=== PATIENT | male | born 1950 | race Caucasian/White ===

== ENCOUNTER 2020-02-06 15:04 | Outpatient (REF) | payer BC, SELFPAY | END 2020-02-06 15:05 | disposition home or self-care (01) | LOC: HO.LNP 15:04 | PROVIDERS: Visit Provider Hospitalist | DX: Z20.828 Contact with and (suspected) exposure to other viral communicable diseases (principal) | CPT/HCPCS: 87635 ==

== ENCOUNTER 2020-03-15 13:26 | Outpatient (REF) | payer BC, SELFPAY ==
--- NOTE | 2020-03-15 | US_ITS ---
EXAMINATION: US RETROPERITONEAL LIMITED (RENAL ONLY) CLINICAL INFORMATION: Renal cyst. COMPARISON: CT abdomen and pelvis 01/21/2019. TECHNIQUE: Real-time imaging of the kidneys. FINDINGS: RIGHT KIDNEY: 11.0 x 5.3 x 5.3 cm (SAG x AP x TRV). The kidney is normal in size, contour, and echogenicity. Renal cortical thickness is normal. No hydronephrosis. There are multiple renal cysts seen. 1. In upper pole, cyst measures 0.9 x 0.7 x 0.7 cm. 2. Lower pole cyst laterally measures 1.5 a 1.6 x 1.4 cm. There is an echogenic stone lower pole measuring 0.4 x 0.4 x 0.4 cm. LEFT KIDNEY: 12.0 x 5.2 x 5.1 cm (SAG x AP x TRV). The kidney is normal in size, contour, and echogenicity. Renal cortical thickness is normal. No renal calculi or hydronephrosis. There are at least 3 anechoic cysts seen. 1. A septated upper pole cyst measures 3.9 x 3.4 x 3.7 cm. 2. A midpole cyst measuring 1.1 x 1.1 x 1.2 cm. 3. A lower pole cyst measures 0.8 x 0.7 x 0.9 cm. US/US renal BI IMPRESSION: Bilateral renal cysts. A septated cyst upper pole left kidney. Nonobstructive echogenic stones lower pole left kidney. There is no hydronephrosis in either kidneys.
== END 2020-03-15 13:27 | disposition home or self-care (01) ==
LOC: HO.HMGCX 13:26
PROVIDERS: PCP Nurse Practitioner Family; Visit Provider Urology
DX: N28.1 Cyst of kidney, acquired (principal)
CPT/HCPCS: 76775

== ENCOUNTER → 2020-03-24 15:29 | Outpatient (BNVA) | payer BC, SELFPAY | PROVIDERS: PCP Nurse Practitioner Family; Referring Provider Nurse Practitioner Family; Visit Provider Urology | DX: Z76.89 Persons encountering health services in other specified circumstances (principal) ==

== ENCOUNTER 2020-04-29 15:17 | Outpatient (REF) | payer BC, SELFPAY | END 2020-04-29 15:18 | disposition home or self-care (01) | LOC: HO.LNP 15:17 | PROVIDERS: Visit Provider Nurse Practitioner Family | DX: Z20.828 Contact with and (suspected) exposure to other viral communicable diseases (principal) | CPT/HCPCS: U0003 ==

== ENCOUNTER 2021-04-05 12:52 | Outpatient (REF) | payer BC, SELFPAY ==
--- NOTE | ~2021-04-05 | US_ITS ---
EXAMINATION: US RETROPERITONEAL LIMITED (RENAL ONLY) CLINICAL INFORMATION: Calculus of kidney. COMPARISON: Renal ultrasound 03/15/2020. CT abdomen and pelvis 01/21/2019. TECHNIQUE: Real-time imaging of the kidneys. FINDINGS: RIGHT KIDNEY: 11.0 x 5.2 x 5.9 cm (SAG x AP x TRV). The kidney is normal in size, contour, and echogenicity. Renal cortical thickness is normal. A 5 mm nonobstructing lower pole calculus. No hydronephrosis. Also noted is a 9 mm simple appearing upper pole cyst. LEFT KIDNEY: 11.6 x 5.3 x 5.8 cm (SAG x AP x TRV). The kidney is normal in size, contour, and echogenicity. Renal cortical thickness is normal. No renal calculi or hydronephrosis. 3.7 cm upper pole cyst which contains a few thin avascular septation. Also noted is a simple appearing 1.8 cm lower pole cyst. US/US renal BI IMPRESSION: -5 mm nonobstructing intrarenal calculus. No left-sided renal calculi. No hydronephrosis of either kidney. -Bilateral renal cysts again demonstrated.
== END 2021-04-05 12:53 | disposition home or self-care (01) ==
LOC: HO.HMGCX 12:52
PROVIDERS: PCP Nurse Practitioner Family; Visit Provider Urology
DX: N20.0 Calculus of kidney (principal); N28.1 Cyst of kidney, acquired
CPT/HCPCS: 76775

== ENCOUNTER → 2021-04-13 11:10 | Outpatient (BNVA) | payer BC, SELFPAY | PROVIDERS: PCP Nurse Practitioner Family; Visit Provider Urology ==

== ENCOUNTER 2022-01-03 13:59 | Outpatient (REF) | payer BC, SELFPAY ==
--- NOTE | ~2022-01-03 | US_ITS ---
EXAMINATION: US LEFT LOWER QUADRANT, LIMITED/FOLLOW UP CLINICAL INFORMATION: Left lower quadrant pain. COMPARISON: CT of the abdomen and pelvis 01/21/2019. TECHNIQUE: High-frequency linear transducer was performed to examine the area in question. FINDINGS: There is a left lower quadrant hernia seen with a fascial defect which measures 1.4 cm. Although the database admin felt there may have been peristalsing bowel within this, I am not convinced. No abnormal fluid collections or masses seen. US/US pelvic limited IMPRESSION: Question of a small hernia at the site indicated by the patient.
== END 2022-01-03 14:00 | disposition home or self-care (01) ==
LOC: HO.HMGCX 13:59
PROVIDERS: PCP Nurse Practitioner Family; Visit Provider Nurse Practitioner Family
DX: R10.32 Left lower quadrant pain (principal)
CPT/HCPCS: 76857

== ENCOUNTER 2022-01-16 12:28 | Outpatient (REF) | payer BC, SELFPAY ==
[2022-01-16 13:59] LABS: Appearance Urine Clear; Color Urine Yellow; Glucose Urine UA Negative (Negative); Leukocyte Esterase Urine Trace (Negative); Nitrite Urine Negative (Negative); Specific Gravity - Urine 1.025 (1.005-1.025); UMIC TRIGGER UACC YES; Urine Blood Negative (Negative); Urine Ketones Trace mg/dL (Negative); Urine Protein Negative (Neg-Trace)
[2022-01-16 14:02] LABS: MANUAL DIFF FLAG NO
[2022-01-16 14:05] LABS: Basophils Absolute Auto 0.1 X10*3/uL (0.0-0.2); Basophils Percent Auto 0.7 % (0-2); Eosinophils Absolute Auto 0.2 X10*3/uL (0.0-0.4); Eosinophils Percent Auto 2.5 % (0-4); Hematocrit 42.5 % (42.0-52.0); Hemoglobin 13.6 g/dl (14.0-18.0); Imm Gran Abs Auto 0.03 X10*3/uL (0.00-0.03); Imm Gran Pct Auto 0.4 % (0.0-0.4); Lymphocytes Absolute Auto 2.1 X10*3/uL (1.2-4.9); Lymphocytes Percent Auto 28.8 % (20-40); Mean Corpuscular Hemoglobin 29.2 pg (27.0-33.0); Mean Corpuscular Volume 91.4 fL (80.0-98.0); Mean Platelet Volume 10.6 fL (9.4-12.4); Monocytes Absolute Auto 0.5 X10*3/uL (0.1-1.2); Monocytes Percent Auto 7.3 % (2-11); Neutrophils Absolute Auto 4.4 x10*3/uL (2.0-8.3); Neutrophils Percent Auto 60.3 % (45-73); Platelet Count 265 X10*3/uL (160-400); Red Blood Count 4.65 X10*6/uL (4.60-5.80); Red Cell Distribution Width 13.8 % (11.0-16.0); White Blood Count 7.2 X10*3/uL (4.8-10.8)
[2022-01-16 14:06] LABS: Bacteria Urine None Seen (None Seen); Hyaline Casts Urine 0-2 /LPF (0-2); RBC Urine 0-2 /HPF (0-2); Squamous Epithelial Cell Urine 0-2 /HPF (0-2); WBC Urine 0-5 /HPF (0-5)
[2022-01-16 14:32] LABS: Alanine Aminotransferase 12 U/L (0-40); Albumin Level 4.6 g/dL (3.5-5.0); Alkaline Phosphatase 71 U/L (39-117); Anion Gap 14 (12-20); Aspartate Amino Transferase 18 U/L (5-37); Bilirubin Total 0.4 mg/dL (0.0-1.0); Blood Urea Nitrogen 26 mg/dL (9-16); Calcium 9.3 mg/dL (8.4-10.2); Carbon Dioxide 28 mmol/L (22-29); Chloride 106 mmol/L (96-108); Cholesterol 177 mg/dL; Estimated Glomerular Filt Rate > 60; Glucose Fasting 87 mg/dL (60-99); HDL Cholesterol 45 mg/dL; LDL Cholesterol Calculated 111 mg/dl; Potassium 4.8 mmol/L (3.3-5.1); Sodium 143 mmol/L (135-145); Triglycerides 105 mg/dL
[2022-01-16 14:39] LABS: Prostate Specific Antigen Scr 1.74 ng/mL (<0.05-4.0); TSH reflex Free T4 0.77 uIU/mL (0.32-4.0)
== END 2022-01-16 12:29 | disposition home or self-care (01) ==
LOC: HO.HMGCLDS 12:28
PROVIDERS: PCP Nurse Practitioner Family; Visit Provider Nurse Practitioner Family
DX: Z00.00 Encounter for general adult medical examination without abnormal findings (principal); Z12.5 Encounter for screening for malignant neoplasm of prostate
CPT/HCPCS: 36415; 80053; 80061; 81001; 84153; 84443; 85025

== ENCOUNTER 2022-01-19 08:01 | Outpatient (REF) | payer BC, SELFPAY ==
--- NOTE | ~2022-01-19 | CT_ITS ---
EXAMINATION: CT PELVIS WITHOUT CONTRAST CLINICAL INFORMATION: Left lower quadrant pain COMPARISON: Previous CT of the abdomen and pelvis January 2019 and pelvic ultrasound December 2021 TECHNIQUE: Helical scanning was performed with submillimeter collimation through the pelvis. Sagittal and coronal multiplanar 2-D reconstructions were obtained. This CT examination was performed using dose optimization techniques as appropriate, variously including the following: *Automated exposure control *Adjustment of mA and/or kV according to patient size (this includes techniques or standardized protocols for targeted exams where dose is matched to indication/reason for exam; i.e. extremities or head) *Use of iterative reconstruction technique DLP: 379 mGy-cm FINDINGS: There is a left lower quadrant abdominal wall hernia lateral to the rectus muscle suggestive of a small spigelian hernia. This measures 1.6 x 6 x 7 cm in AP transverse and longitudinal dimension. This has a wide 2.4 cm neck, for example axial image 21 series 2. There are small bilateral inguinal hernias containing fat, right greater than left Visualized bowel is unremarkable. There is a 1 cm-appearing cyst exophytic to the lower pole of the right kidney. There is evidence of atherosclerotic disease. There is a partially visualized abdominal aortic aneurysm. This measures at least 2.8 cm. This may be increased in size measuring approximately 2.5 cm in diameter on January 2019 exam. No ascites or adenopathy. Bladder is normal. The prostate gland is slightly enlarged. There degenerative changes of the spine and hip joints. CT/CT pelvis wo IV con IMPRESSION: Left spigelian hernia containing fat. Small bilateral inguinal hernias containing fat, right greater than left. Lower abdominal aortic aneurysm only partially visualized. This may be increased in size compared to previous CT January 2019. Follow-up ultrasound of the aorta for more accurate sizing recommended. Slightly enlarged prostate gland.
== END 2022-01-19 08:02 | disposition home or self-care (01) ==
LOC: HO.CT 08:01
PROVIDERS: PCP Nurse Practitioner Family; Visit Provider Surgery
DX: R10.32 Left lower quadrant pain (principal)
CPT/HCPCS: 72192

== ENCOUNTER 2022-02-10 08:15 | Outpatient (REF) | payer BC, SELFPAY ==
--- NOTE | ~2022-02-10 | US_ITS ---
EXAMINATION: US RETROPERITONEAL LIMITED (RENAL ONLY) CLINICAL INFORMATION: Calculus of kidney. COMPARISON: Renal ultrasound 04/05/2021 and 03/15/2020. CT abdomen and pelvis 01/21/2019. TECHNIQUE: Real-time imaging of the kidneys. FINDINGS: RIGHT KIDNEY: 10.2 x 5.2 x 5.9 cm (SAG x AP x TRV). The kidney is normal in size, contour, and echogenicity. Renal cortical thickness is normal. There is a 3 x 4 mm stone in the lower pole. There are 3 small cysts, largest measuring 1.5 x 1.3 x 1.2 cm in the lower pole. No hydronephrosis. LEFT KIDNEY: 12.5 x 5.7 x 5.8 cm (SAG x AP x TRV). The kidney is normal in size, contour, and echogenicity. Renal cortical thickness is normal. There are 2 left renal cysts measuring 3.2 x 2.3 x 3.5 cm in the midpole that is minimally complex with single thin septation and measuring 9 mm in the midpole. No renal calculi or hydronephrosis. US/US renal BI IMPRESSION: Small right renal stone. Bilateral renal cysts..
== END 2022-02-10 08:16 | disposition home or self-care (01) ==
LOC: HO.HMGCX 08:15
PROVIDERS: PCP Nurse Practitioner Family; Visit Provider Urology
DX: N20.0 Calculus of kidney (principal)
CPT/HCPCS: 76775

== ENCOUNTER 2022-02-24 11:11 | Outpatient (REF) | payer BC, SELFPAY ==
--- NOTE | ~2022-02-24 | US_ITS ---
EXAMINATION: US RETROPERITONEAL LIMITED (AORTA) CLINICAL INFORMATION: Abdominal aortic aneurysm, without rupture, unspecified. COMPARISON: CT pelvis without contrast 01/19/2022. TECHNIQUE: Cazares-scale, color Doppler and spectral Doppler evaluation of the abdominal aorta. FINDINGS: Atherosclerotic aorta. The measurements of the aorta in maximum AP and transverse dimensions respectively are as follows: Proximal: 3.1 x 3.2 cm. Mid: 2.2 x 2.0 cm. Distal: 3.2 x 3.3 cm. PSV: 83.7 cm/s. The measurements of the common iliac arteries in maximum AP and TRV dimensions are as follows: Right Common Iliac Artery: 1.0 x 1.0 cm. Left Common Iliac Artery: 0.96 x 0.95 cm. US/US abdominal aortic aneurysm IMPRESSION: Infrarenal abdominal aortic aneurysm measuring 3.2 x 3.3 cm.
== END 2022-02-24 11:12 | disposition home or self-care (01) ==
LOC: HO.HMGCX 11:11
PROVIDERS: PCP Nurse Practitioner Family; Visit Provider Surgery
DX: I71.40 Abdominal aortic aneurysm, without rupture, unspecified (principal)
CPT/HCPCS: 76706

== ENCOUNTER 2022-04-07 09:29 | Outpatient (REF) | payer BC, SELFPAY ==
--- NOTE | ~2022-04-07 | XR_ITS ---
EXAMINATION: XR HIP, LEFT CLINICAL INFORMATION: Left hip pain COMPARISON: Pelvis study of 10/09/[address] scan of 01/19/2022. TECHNIQUE: AP pelvis and 2 views of the left hip. FINDINGS: There is no evidence of acute fracture or diastases of the pelvis. The hip joint spaces appear maintained. Prominent vascular calcifications are noted. There appears to be degenerative change of the left sacroiliac joint with question bony bridging. There is severe degenerative disc disease at the L4-L5 level. Spurring about the greater trochanters seen bilaterally. Subchondral cyst formation is seen about the superior left acetabulum. Changes of enthesopathy present about the pelvis. 2 views of the left hip do not demonstrate any evidence of acute fracture or dislocation. Left hip joint spaces maintained. There is collar spurring present. No abnormal lytic or sclerotic lesions are seen. Spurring about the greater trochanter is present. There is some calcification and question fragmentation of the superior labrum. XR/XR hip LT w PEL1V IMPRESSION: 1. Degenerative change of the left hip as described. 2. Changes of enthesopathy. 3. Significant lower lumbar spine degenerative change.
== END 2022-04-07 09:30 | disposition home or self-care (01) ==
LOC: HO.HMGCX 09:29
PROVIDERS: PCP Nurse Practitioner Family; Visit Provider Emergency Medicine
DX: M25.552 Pain in left hip (principal)
CPT/HCPCS: 73502

== ENCOUNTER → 2022-05-30 08:26 | Outpatient (BNVA) | payer BC, SELFPAY | PROVIDERS: PCP Nurse Practitioner Family; Visit Provider Surgery | DX: Z13.89 Encounter for screening for other disorder (principal) ==

== ENCOUNTER 2022-06-22 13:37 | Outpatient (REF) | payer BC, SELFPAY ==
[2022-06-22 14:00] LABS: Binax Internal Control QC Valid; Binax Now Covid-19 Ag Negative (Negative); Binax Performed by: HO.BONILM
[2022-06-22 17:49] LABS: Influenza A PCR NEGATIVE (Negative); Influenza B PCR NEGATIVE (Negative); Resp Syncy Virus RNA Qual PCR NEGATIVE (Negative); SARS COV2 PCR INHOUSE NEGATIVE (Negative)
== END 2022-06-22 13:38 | disposition home or self-care (01) ==
LOC: HO.HMGCLDS 13:37
PROVIDERS: PCP Nurse Practitioner Family; Visit Provider Physician Assistant Medical
DX: Z20.822 Contact with and (suspected) exposure to COVID-19 (principal); R05.9 Cough, unspecified
CPT/HCPCS: 0241U; 87070; 87811; C9803

== ENCOUNTER → 2022-08-15 13:21 | Outpatient (BNVA) | payer BC, SELFPAY | PROVIDERS: PCP Nurse Practitioner Family; Visit Provider Surgery | DX: R10.32 Left lower quadrant pain (principal); K40.20 Bilateral inguinal hernia, without obstruction or gangrene, not specified as recurrent; K46.9 Unspecified abdominal hernia without obstruction or gangrene; K43.9 Ventral hernia without obstruction or gangrene; I71.40 Abdominal aortic aneurysm, without rupture, unspecified; F43.10 Post-traumatic stress disorder, unspecified | CPT/HCPCS: 99212 ==

== ENCOUNTER 2023-01-02 10:57 | Outpatient (AMB) | payer BC, SELFPAY ==
[2023-01-02 11:17] VITALS: BP 132/88; PULSE 63; O2SAT 97; BMI 25.7
--- NOTE | 2023-01-02 11:17 | A.OFFPC_ITS ---
Vital Signs 01/02/23 11:17 Height 5 ft 8 in Weight 169 lb 4 oz BMI 25.7 BP 132/88 Blood Pressure Location Lt brachial Position Sitting Pulse 63 Pulse Source Pulse Oximeter Pulse Oximetry (%) 97 Oxygen Delivery Method Room Air Intake Visit Reasons: Annual PE Allergies codeine [CODEINE] Allergy (Intermediate, Verified 01/02/23 11:23) NAUSEA, stomach upset Sulfa (Sulfonamide Antibiotics) [SULFA (SULFONAMIDE ANTIBIOTICS)] Allergy (Intermediate, Verified 01/02/23 11:23) NAUSEA, stomach upset lisinopril Allergy (Unknown, Verified 01/02/23 11:23) angioedema Medication List - Last Reconciled 01/02/23 by Jaziel Lr, PHERESIS SPECIALIST- amlodipine 5 mg PO DAILY 90 days cholecalciferol (vitamin D3) 50 mcg PO DAILY 90 days diclofenac sodium 75 mg PO BID PRN flu 2018 [id number](PF) 45 mcg (15 mcg x 3)/0.5 mL 0.5 mL IM hydroxyzine HCl 10 mg PO TID PRN pravastatin 40 mg PO DAILY 90 days sertraline 100 mg PO DAILY Tobacco use date assessed: 01/02/23 Fall risk assessment: 1 Fall in past year Last assessed Fall Risk: 01/02/23 Dental Screening Dental Screen Date: 01/02/23 Did you have a dental visit in the last 12 months?: No Did you have a dental problem in the last 6 months where you did not have access to dental care?: No Was dental information given to patient?: Patient has dentist HPI Annual PE HPI Details Pt is here for a PE. Will order labs. Due for PSA, will order. Denies dribbling with urination, weak stream, and nocturia. Pt reports having a colonoscopy a couple years ago, will track down notes. Pt has a hx of AAA. He was previously seeing general surgery for this. Will order repeat US. Pt reports that he gets bitten by ticks frequently. Will order tick testing. Hx of vitamin D deficiency, will order labs. Pt sees a game and fish protector yearly [facility] Medical History Back pain Colon cancer screening Erectile dysfunction High blood pressure determined by examination Hip arthritis Hip flexor tendonitis Hip pain Hypercholesterolemia Kidney cysts Microscopic hematuria Mild acid reflux Pheochromocytoma Quadriceps tendon rupture Renal cyst, acquired TIA (transient ischemic attack) Tubular adenoma of colon Surgical History History of surgery Family History Father Substance use disorder Brother Substance use disorder Social History Housing: House Alcohol intake: current Alcohol intake frequency: a few times a week Patient Tobacco Use Status: Never used Tobacco e-Cigarette/Vaping Use: Never Used Second Hand Smoke Exposure: No service: Yes Current occupational status: retired Cognitive needs: No Hearing needs: No Vision needs: No Questionnaire Thrive Questionnaire Date Thrive assessed: 12/27/21 CHUCK-7 AMB Questionnaire CHUCK-7 Date CHUCK - 7 assessed: 12/27/21 Source: Developed by Drs. Iker Zamora, Serena Roper, Christopher Duff and colleagues, with an educational gita from [employer]. Review of Systems Const Denies chills and Denies fever(s) Eyes Denies blurry vision ENT Denies vertigo, Denies dizziness and Denies sore throat Card Denies chest pain at rest, Denies chest pain with activity, Denies diaphoresis, Denies dyspnea and Denies dyspnea on exertion Resp Denies cough, Denies dyspnea, Denies dyspnea on exertion and Denies wheezing GI Denies abdominal pain, Denies melena, Denies hematochezia, Denies constipation, Denies diarrhea and Denies loose stools Denies hematuria Musc Denies numbness and Denies tingling Skin/Breast Denies lesions Neuro Denies vertigo, Denies dizziness, Denies numbness and Denies tingling Psych Denies anxiety, Denies depression, Denies homicidal ideation, Denies suicidal ideation and Denies other (substance abuse) Aller/Immun Denies wheezing Physical exam (Primary Care) Vital Signs: Last Vital Signs Pulse 63 01/02/23 11:17 BP 132/88 01/02/23 11:17 Pulse Ox 97 01/02/23 11:17 Oxygen Delivery Method Room Air 01/02/23 11:17 BMI result Body Mass Index 25.7 Tobacco/Smoking Status: Tobacco use Status Tobacco use date assessed 01/02/23 01/02/23 11:26 Patient Tobacco Use Status Never used Tobacco 01/02/23 11:26 e-Cigarette/Vaping Use Never Used 01/02/23 11:26 Thrive Assessment: Date of Thrive Assessment Date Thrive assessed 12/27/21 01/02/23 11:26 Const General: cooperative Nutritional Appearance: well nourished Orientation/consciousness: patient oriented x3 HENMT Head: Yes normal to inspection, Yes normocephalic and Yes atraumatic Ears: TM's normal bilaterally Eyes General: appearance normal, both eyes and all related structures Alignment and Position: alignment normal and position normal Neck Neck: Yes normal visual inspection and Yes no lymphadenopathy Thyroid: Thyroid normal Resp Effort & Inspection: normal respiratory effort Auscultation: clear to auscultation bilaterally Cardio Rate: regular rate Rhythm: regular rhythm Heart sounds: S1 normal heart sound present, S2 normal heart sound present and no murmurs GI Palpation (GI): Soft to palpation and nontender Auscultation: normal bowel sounds Male General Exam: Yes normal external exam Penis: normal penis Scrotum: scrotum normal, testes descended bilaterally and no inguinal hernias Testes: no testicular mass Skin Rashes: no rashes Neuro General: patient oriented x3, moves all extremities, no focal motor deficits and deep tendon reflexes 2+ bilaterally Romberg Test: Negative Psych Appearance: grossly normal Mental Status: mental status grossly normal Speech and movement: Normal speech and movement present Affect: normal affect Attitude: cooperative Thought process: Normal thought process present Thought content: Normal thought content present Insight: Good insight present (Psych) Judgement: Good judgement present (Psych) Assessment and Plan Assessment & Plan (1) Physical exam: Code(s): Z00.00 - Encounter for general adult medical examination without abnormal findings Plan: Labs ordered (2) Screening PSA (prostate specific antigen): Code(s): Z12.5 - Encounter for screening for malignant neoplasm of prostate Plan: PSA ordered (3) AAA (abdominal aortic aneurysm): Code(s): I71.40 - Abdominal aortic aneurysm, without rupture, unspecified Plan: US ordered (4) Vitamin D deficiency: Code(s): E55.9 - Vitamin D deficiency, unspecified Plan: Labs ordered (5) Tick bite: Code(s): W57.XXXA - Bitten or stung by nonvenomous insect and other nonvenomous arthropods, initial encounter Plan: Tick panel ordered (6) New onset right bundle branch block (RBBB): Code(s): I45.10 - Unspecified right bundle-branch block Plan The patient agreed to the use of a medical record transcriber for this encounter. Scribed for Jaziel Lr [facility] by Allyson Perez medical record transcriber, on 01/02/2023 at 11:30 EST. Orders: Orders Complete Blood Count Auto Diff Today Z00.00 - Encounter for general adult medical examination without abnormal findings UA CC w/rflx Micro + Cult Today Z00.00 - Encounter for general adult medical examination without abnormal findings Prostate Specific Antigen Scr Today Z12.5 - Encounter for screening for malignant neoplasm of prostate Tick-borne Disease Molecular Today W57.XXXA - Bitten or stung by nonvenomous insect and other nonvenomous arthropods, initial encounter AMB EKG-In Office Today Z00.00 - Encounter for general adult medical examination without abnormal findings CA echo transthoracic complete Today I45.10 - Unspecified right bundle-branch block Comprehensive [place]. Panel Fast Today Z00.00 - Encounter for general adult medical examination without abnormal findings TSH reflex Free T4 Today Z00.00 - Encounter for general adult medical examination without abnormal findings Lipid Panel Today Z00.00 - Encounter for general adult medical examination without abnormal findings US abdominal aortic aneurysm Today I71.40 - Abdominal aortic aneurysm, without rupture, unspecified Vitamin D 25-OH Total Today E55.9 - Vitamin D deficiency, unspecified Coding Level of Care Code Est Pt Prev Care >65y(17994) Diagnoses Physical exam Z00.00 Screening PSA (prostate specific antigen) Z12.5 AAA (abdominal aortic aneurysm) I71.40 Vitamin D deficiency E55.9 Tick bite W57.XXXA New onset right bundle branch block (RBBB) I45.10
== END 2023-01-02 12:12 | disposition home or self-care (01) ==
PROVIDERS: Visit Provider Nurse Practitioner Family
DX: Z00.00 Encounter for general adult medical examination without abnormal findings (principal); Z12.5 Encounter for screening for malignant neoplasm of prostate; I71.40 Abdominal aortic aneurysm, without rupture, unspecified; E55.9 Vitamin D deficiency, unspecified; W57.XXXA Bitten or stung by nonvenomous insect and other nonvenomous arthropods, initial encounter; I45.10 Unspecified right bundle-branch block
CPT/HCPCS: 99397

== ENCOUNTER 2023-01-31 11:42 | Outpatient (AMB) | payer BC, SELFPAY ==
--- NOTE | 2023-01-31 11:51 | MHC.OFFWIV ---
Intake Vital Signs 01/31/23 11:52 Height 5 ft 8 in Weight 170 lb BMI 25.8 BP 130/80 Blood Pressure Location Lt brachial Position Sitting Pulse 60 Pulse Source Pulse Oximeter Temp 98.3 F Temp Source Temporal Artery Scan Pulse Oximetry (%) 98 Intake Visit Reasons: EST/tick located on stomach(lobby) Intake Note: pt is here for c/o tick bite, still in stomach needs removal Patient Tobacco Use Status: Never used Tobacco Allergies codeine [CODEINE] Allergy (Intermediate, Verified 01/31/23 12:18) NAUSEA, stomach upset Sulfa (Sulfonamide Antibiotics) [SULFA (SULFONAMIDE ANTIBIOTICS)] Allergy (Intermediate, Verified 01/31/23 12:18) NAUSEA, stomach upset lisinopril Allergy (Unknown, Verified 01/31/23 12:18) angioedema Medication List - Last Reconciled 01/31/23 by TUYET Isabel-GWEN amlodipine 5 mg PO DAILY 90 days cholecalciferol (vitamin D3) 50 mcg PO DAILY 90 days diclofenac sodium 75 mg PO BID PRN hydroxyzine HCl 10 mg PO TID PRN pravastatin 40 mg PO DAILY 90 days sertraline 100 mg PO DAILY Do you need a note to return to daycare/school/sports/work: Yes HPI HPI Comments History of Present Illness Details HERE TODAY W C/O TICK BITE TO LEFT SIDE OF ABD, NEAR BELT LINE. WENT FOR WALK [facility] [place]ER[place]. SAT DOWN ON LOG. WHEN HE RETURNED HOME, NOTED THE IMBEDDED TICK. HE WAS ABLE TO REMOVE MOST OF IT. JUST WONDERS IF ANY MORE OF IT NEEDS TO BE REMOVED. [facility] Medical History Back pain Colon cancer screening Erectile dysfunction High blood pressure determined by examination Hip arthritis Hip flexor tendonitis Hip pain Hypercholesterolemia Kidney cysts Microscopic hematuria Mild acid reflux Pheochromocytoma Quadriceps tendon rupture Renal cyst, acquired TIA (transient ischemic attack) Tubular adenoma of colon Surgical History History of surgery Family History Father Substance use disorder Brother Substance use disorder Social History Housing: House Alcohol intake: current Alcohol intake frequency: a few times a week Patient Tobacco Use Status: Never used Tobacco e-Cigarette/Vaping Use: Never Used Second Hand Smoke Exposure: No service: Yes Current occupational status: retired Cognitive needs: No Hearing needs: No Vision needs: No Review of Systems Const All systems reviewed & are unremarkable except as noted in HPI and below Physical Exam Vital Signs: Last Vital Signs Temp 98.3 F 01/31/23 11:52 Pulse 60 01/31/23 11:52 BP 130/80 01/31/23 11:52 Pulse Ox 98 01/31/23 11:52 BMI result Body Mass Index 25.8 Const Other: AWAKE ALERT NAD LEFT LATERAL ASPECT OF ABD, PROXIMAL TO BELT LINE, IS AN AREA OF ERYTHEMA WITH RETAINED TICK IN THE CENTER. NO DRAINAGE OR WARMTH. VERY SCANT AMT OF TICK NOTED, SUPERFICIAL BUT UNABLE TO BE REMOVED W/ INSTRUMENT. Assessment & Plan Assessment & Plan (1) Retained tick parts of abdominal wall: Comment: OFFERED TO REMOVE VS ALLOW FOR NATURAL EXPULSON USING WARM MOIST COMPS. HE HAS AGREED TO THE LATER. I WILL TX W/ PROPHYLACTIC DOXYCYCLINE. EDU ON REASONS TO SEEK ADDL CARE. Code(s): M79.5 - Residual foreign body in soft tissue; Z18.39 - Other retained organic fragments Medications: New doxycycline hyclate 200 mg (2 x 100 mg) PO DAILY 1 day 2 caps 0RF Coding Level of Care Code Est Pt Level 3 (06582) Diagnoses Retained tick parts of abdominal wall M79.5; Z18.39
[2023-01-31 11:52] VITALS: BP 130/80; PULSE 60; TEMP 36.8; O2SAT 98; BMI 25.8
== END 2023-01-31 13:12 | disposition home or self-care (01) ==
PROVIDERS: PCP Nurse Practitioner Family; Visit Provider Nurse Practitioner Family
DX: M79.5 Residual foreign body in soft tissue (principal); Z18.39 Other retained organic fragments
CPT/HCPCS: 99213

== ENCOUNTER 2023-02-01 10:42 | Outpatient (REF) | payer BC, SELFPAY ==
[2023-02-01 10:54] LABS: MANUAL DIFF FLAG NO
[2023-02-01 11:55] LABS: Basophils Absolute Auto 0.1 X10*3/uL (0.0-0.2); Basophils Percent Auto 0.6 % (0-2); Eosinophils Absolute Auto 0.3 X10*3/uL (0.0-0.4); Eosinophils Percent Auto 3.4 % (0-4); Hematocrit 44.6 % (42.0-52.0); Hemoglobin 14.3 g/dl (14.0-18.0); Imm Gran Abs Auto 0.05 X10*3/uL (0.00-0.03); Imm Gran Pct Auto 0.6 % (0.0-0.4); Lymphocytes Absolute Auto 1.9 X10*3/uL (1.2-4.9); Lymphocytes Percent Auto 21.8 % (20-40); Mean Corpuscular HGB Conc 32.1 g/dl (31.0-36.0); Mean Corpuscular Hemoglobin 29.9 pg (27.0-33.0); Mean Corpuscular Volume 93.3 fL (80.0-98.0); Mean Platelet Volume 10.2 fL (9.4-12.4); Monocytes Absolute Auto 0.6 X10*3/uL (0.1-1.2); Monocytes Percent Auto 6.5 % (2-11); Neutrophils Absolute Auto 5.7 x10*3/uL (2.0-8.3); Neutrophils Percent Auto 67.1 % (45-73); Platelet Count 275 X10*3/uL (160-400); Red Blood Count 4.78 X10*6/uL (4.60-5.80); Red Cell Distribution Width 13.6 % (11.0-16.0); White Blood Count 8.5 X10*3/uL (4.8-10.8)
[2023-02-01 12:05] LABS: Appearance Urine Clear; Color Urine Yellow; Glucose Urine UA Negative (Negative); Leukocyte Esterase Urine Negative (Negative); Nitrite Urine Negative (Negative); Urine Blood Negative (Negative); Urine Ketones Negative (Negative); Urine Protein Negative (Neg-Trace)
[2023-02-01 13:19] LABS: Prostate Specific Antigen Scr 2.12 ng/mL (<0.05-4.0)
[2023-02-01 13:20] LABS: Alanine Aminotransferase 11 U/L (0-40); Albumin Level 4.5 g/dL (3.5-5.0); Alkaline Phosphatase 73 U/L (39-117); Anion Gap 15 (12-20); Aspartate Amino Transferase 18 U/L (5-37); Bilirubin Total 0.5 mg/dL (0.0-1.0); Blood Urea Nitrogen 25 mg/dL (9-16); Calcium 9.2 mg/dL (8.4-10.2); Carbon Dioxide 25 mmol/L (22-29); Chloride 107 mmol/L (96-108); Cholesterol 165 mg/dL (<200); Estimated Glomerular Filt Rate > 60; Glucose Fasting 91 mg/dL (60-99); HDL Cholesterol 51 mg/dL (>40); LDL Cholesterol Calculated 96 mg/dL (<100); Potassium 4.4 mmol/L (3.3-5.1); Sodium 143 mmol/L (135-145); Total Protein 7.2 g/dL (6.5-8.0); Triglycerides 94 mg/dL (<150)
[2023-02-01 13:26] LABS: TSH reflex Free T4 0.92 uIU/mL (0.32-4.0); Vitamin D 25-OH Total 66.2 ng/mL (>30)
[2023-02-06 14:09] LABS: A. Phagocytphilium DNA,RT-PCR NOT DETECTED (NOT DETECTED); Babesia Microti DNA, RT-PCR NOT DETECTED (NOT DETECTED); Borrelia Miyamotoi,DNA RT-PCR NOT DETECTED (NOT DETECTED); E.Chaffeensis DNA RT-PCR NOT DETECTED (NOT DETECTED); Lyme(Borrelia ssp)DNA RT-PCR NOT DETECTED (NOT DETECTED)
== END 2023-02-01 10:43 | disposition home or self-care (01) ==
LOC: HO.LAB 10:42
PROVIDERS: PCP Nurse Practitioner Family; Visit Provider Nurse Practitioner Family
DX: Z00.00 Encounter for general adult medical examination without abnormal findings (principal); E55.9 Vitamin D deficiency, unspecified; T14.8XXA Other injury of unspecified body region, initial encounter; W57.XXXA Bitten or stung by nonvenomous insect and other nonvenomous arthropods, initial encounter; Y93.9 Activity, unspecified; Y92.9 Unspecified place or not applicable; Y99.9 Unspecified external cause status; Z12.5 Encounter for screening for malignant neoplasm of prostate; E78.5 Hyperlipidemia, unspecified; I10 Essential (primary) hypertension
CPT/HCPCS: 36415; 80053; 80061; 81003; 82306; 84153; 84443; 85025; 87468; 87469; 87478; 87484; 87798

== ENCOUNTER 2023-02-21 08:59 | Outpatient (REF) | payer BC, SELFPAY ==
--- NOTE | ~2023-02-21 | US_ITS ---
EXAMINATION: US RETROPERITONEAL COMPLETE (RENAL) CLINICAL INFORMATION: Cyst of kidney, acquired. Follow up abdominal aortic aneurysm. COMPARISON: Ultrasound aorta 02/24/2022. Renal ultrasound 02/10/2022. CT abdomen and pelvis 01/21/2019. TECHNIQUE: Real-time imaging of the kidneys. Cazares-scale, color Doppler and spectral Doppler evaluation of the abdominal aorta. FINDINGS: RIGHT KIDNEY: 12.1 x 5.6 x 5.3 cm (SAG x AP x TRV). The kidney is normal in size, contour, and echogenicity. Renal cortical thickness is normal. No renal calculi or hydronephrosis. Cystic foci of the right kidney the largest in the lower pole measuring up to 1.5 cm, simple appearing, not requiring follow-up. LEFT KIDNEY: 10.8 x 6.0 x 6.5 cm (SAG x AP x TRV). The kidney is normal in size, contour, and echogenicity. Renal cortical thickness is normal. No renal calculi or hydronephrosis. Cystic focus in the left renal interpolar region with thin septation measuring up to 3.4 cm. Additional simple appearing cystic foci noted in the interpolar region measuring up to 1.1 cm, not requiring follow-up. Atherosclerotic calcifications of the aorta. The measurements of the aorta in maximum AP and transverse dimensions respectively are as follows: Proximal: 3.1 x 3.9 cm. Mid: 2.3 x 2.9 cm. Distal: 2.0 x 2.0 cm. PSV: 62 cm/sec The measurements of the common iliac arteries in maximum dimensions are as follows: Right: AP: 1.1 cm. TRV: 1.0 cm. Left: AP: 1.1 cm. TRV: 1.0 cm. US/US retroperitoneal comp IMPRESSION: 1. No nephrolithiasis or hydronephrosis. 2. Right renal simple appearing cyst, not allowing follow-up. 3. Left renal simple appearing cysts not requiring follow-up. 4. Cystic focus in the left renal interpolar region with thin septation measuring up to 3.4 cm. 5. Aneurysmal dilatation of the aorta measuring up to 3.9 cm in its proximal segment. Best Practice Recommendation: Based on published guidelines in J Am Terese Radiol 2013; 10(10):789-794 and J Vasc Surg. 2018; 67:2-77, the recommendation for an abdominal aortic aneurysm with diameter 3.5-3.9 cm is follow-up every 2 years.
== END 2023-02-21 09:00 | disposition home or self-care (01) ==
LOC: HO.US 08:59
PROVIDERS: PCP Nurse Practitioner Family; Visit Provider Urology
DX: N28.1 Cyst of kidney, acquired (principal)
CPT/HCPCS: 76770

== ENCOUNTER → 2023-02-27 13:51 | Outpatient (REF) | payer BC, SELFPAY ==
--- NOTE | 2023-02-27 13:53 | CA_ITS ---
Transthoracic Echocardiogram Patient (Last, First, Middle): Ron Abel, Gender: Male Date of : 1950 Age: 73 Procedure Date: 02/27/2023 Procedure Type: Transthoracic Echocardiogram Location: OP Height: 170.18 cm Weight: 77.11 kg BSA: 1.89 m2 Heart Rate: bpm BP: 114 / 80 mmHg Web Analyst: MIKAL Referring MD: Jaziel Lr [facility] Product Picker: Mauro Babcock MD Symptoms: I45.10 - Unspecified right bundle-branch block Study Quality: Adequate ECG Rhythm: Sinus Conclusions: - 1. Normal LV ejection fraction 65-70% with impaired relaxation filling pattern 2. Normal cardiac valvular Dopplers 3. Normal RV systolic pressure 4. No gross pericardial effusion Findings Left Ventricle Normal left ventricular size, thickness, and systolic function. The visually estimated ejection fraction is between 65-70%. Spectral Doppler is indicative of an impaired relaxation filling pattern. E/E prime ratio is between 8 and 15 consistent with indeterminate filling pressures. Right Ventricle Normal right ventricular cavity size and systolic function. Atria The left atrium is likely dilated. There is an interatrial septal aneurysm seen bowing to the right. Interatrial shunt cannot be excluded. The right atrium is normal in size. Aortic Valve Normal aortic valve structure and function. There is no aortic valve stenosis. There is no aortic valve regurgitation. Mitral Valve Normal mitral valve structure and function. There is trace mitral valve regurgitation. There is no mitral valve stenosis. Pulmonic Valve The pulmonic valve is likely normal. There is trace pulmonic valve regurgitation. Tricuspid Valve Normal tricuspid valve structure. There is trace tricuspid valve regurgitation. The right ventricular systolic pressure is normal. The right ventricular systolic pressure is 22 mmHg. Normal right atrial pressure. There is no evidence of pulmonary hypertension. Great Vessels The pulmonary artery was not well visualized. There is no dilatation of the ascending aorta measuring 3.30 cm. Venous The inferior vena cava is normal in size and collapses greater than 50% with inspiration. Pericardium/Pleural There is no evidence of pericardial effusion. Recommendations, Care & Conclusions Recommend contrast study to evaluate intracardiac shunting. Measurements 2D Linear Measurements IVSd: 0.82 0.6-0.9/0.6-1.0 cm LVIDd: 4.85 3.9-5.3/4.2-5.9 cm LVIDd Index: 2.57 2.4-3.2/2.2-3.1 cm/m2 LVIDs: 2.68 2.0-3.6 cm LVPWd: 0.98 0.7-1.1 cm LA Diam: 3.20 2.7-3.8/3.0-4.0 cm LAIDs Index: 1.69 1.5-2.3 cm/m2 LV Mass: 187.20 67-162/88-224 g LV Mass Index: 99.05 43-95/49-115 g/m2 LVOT Diam: 2.00 3.0+(-)1.3 cm 2D Systolic Function EF 4C: 68.10 >55% EF 2C: 73.60 >55% EF BiP: 71.00 >55% Mitral Valve MV Pk E: 0.73 MV PK A: 0.71 MV Decel Time: 280.00 E/A: 1.00 E'Lateral: 9.25 E'Medial: 7.18 E/E' Med: 10.20 E/E' Lat: 7.90 PHT: 82.00 MVA PHT: 2.68 Decel Archuleta: 2.62 Aortic Valve AoV Pk Devaughn: 1.59 AoV Mn Devaughn: 1.03 AoV VTI: 0.34 AoV Pk Grad: 10.00 Aov Mn Grad: 5.00 CLAUDIO Cont.VTI: 2.13 LVOT LVOT Pk Devaughn: 1.04 LVOT Mn Devaughn: 0.62 LVOT VTI: 0.23 LVOT Pk Grad: 4.00 LVOT Mn Grad: 2.00 LVOT Diam: 2.00 LVOT Area: 3.14 Diastolic Function MV Pk E: 0.73 MV Pk A: 0.71 E/A: 1.00 E'Medial: 7.18 E/E' Med: 10.20 E' Laterial: 9.25 E/E' Lat: 7.90 Right Ventricle TAPSE (mm): 24.40 TVS' Devaughn: 12.50 Tricuspid Valve TR Pk Devaughn: 2.19 TR Pk Grad: 19.00 RA Press: 3.00 RVSP: 22.00 Great Vessels Aorta Sinus of Valsalva: 3.44 2.0-3.[address] Ridge: 2.38 1.7-3.4 cm Ao Asc: 3.30 2.1-3.4 cm Updated in Other Vendor System with Status of Final Mauro Babcock MD electronically signed on 02/28/2023 4:14:59 PM with status of Final
== END ==
LOC: HO.CARD 13:51
PROVIDERS: PCP Nurse Practitioner Family; Visit Provider Nurse Practitioner Family
DX: I45.10 Unspecified right bundle-branch block (principal)
CPT/HCPCS: 93306

== ENCOUNTER → 2023-02-27 13:53 | Outpatient (BNV) | payer BC, SELFPAY | PROVIDERS: PCP Nurse Practitioner Family; Visit Provider Internal Medicine Cardiovascular Disease | DX: I45.10 Unspecified right bundle-branch block (principal) | CPT/HCPCS: 93306 ==

== ENCOUNTER 2023-03-01 10:48 | Outpatient (AMB) | payer BC, SELFPAY ==
--- NOTE | 2023-03-01 10:58 | MHC.OFFVIS ---
Intake Intake Visit Reasons: 1Y US(set) Intake Note: Patient is Present for Follow Up US Urology Medication: None Antibiotic Allergies: Sulfa Blood Thinners: None Allergies codeine [CODEINE] Allergy (Intermediate, Verified 03/01/23 11:02) NAUSEA, stomach upset Sulfa (Sulfonamide Antibiotics) [SULFA (SULFONAMIDE ANTIBIOTICS)] Allergy (Intermediate, Verified 03/01/23 11:02) NAUSEA, stomach upset lisinopril Allergy (Unknown, Verified 03/01/23 11:02) angioedema HPI HPI Comments History of Present Illness Details Ron is a pleasant male. He is seen for the following urologic condition - microscopic hematuria - renal cyst on prior imaging Twelve month follow-up Discussed ultrasound finding - Stable renal cyst PSA 02/11 1.7. 02/12 2.1 Minimal voiding issues Has stop drinking and has been working out with Renal cysts with small kidney stone Follow-up from microscopic hematuria Since the last visit the patient has has not noticed gross hematuria, continues to test postive for microscopic hematuria. Relevant medical history for tobacco use. Radiographic imagin/19 , CT KUB - renal cysts - 02/09 renal ultrasound. Bilateral renal cysts. Mild septation. Small stone noted 4 mm on right side - 04/12 renal ultrasound. Bilateral cyst. 3.7 cm left, 9 mm right. 4 mm stone right side stable - 02/11 renal ultrasound, bilateral cysts stable small 4 mm stone right side - 02/12 renal ultrasound, bilateral stable cyst, no stones seen Radiology report renal lesion. Other investigations cytology, normal, cystoscopy normal 02/09 [facility] Medical History Hip pain Erectile dysfunction Kidney cysts Pheochromocytoma TIA (transient ischemic attack) Hypercholesterolemia Mild acid reflux High blood pressure determined by examination Renal cyst, acquired Microscopic hematuria Tubular adenoma of colon Colon cancer screening Back pain Hip flexor tendonitis Hip arthritis Quadriceps tendon rupture Surgical History History of surgery Family History Father Substance use disorder Brother Substance use disorder Social History Housing: House Alcohol intake: current Alcohol intake frequency: a few times a week Patient Tobacco Use Status: Never used Tobacco e-Cigarette/Vaping Use: Never Used Second Hand Smoke Exposure: No service: Yes Current occupational status: retired Cognitive needs: No Hearing needs: No Vision needs: No Review of Systems Const Denies chills and Denies fever(s) Card Reports no additional complaints and Denies syncope Resp Denies cough GI Denies abdominal pain and Denies heartburn Reports as per HPI and Denies change in libido Neuro Denies syncope Psych Denies change in libido Endo Denies change in libido Physical Exam Const General: cooperative, healthy appearing, comfortable and no acute distress Orientation/consciousness: patient oriented x3 HEENT Face and sinus: Yes normal facial exam Mouth: moist mucous membranes Neck Neck: Yes normal visual inspection, Yes full ROM and Yes trachea midline Chest Chest palpation & inspection: normal inspection of the chest Resp Effort & Inspection: normal respiratory effort, able to speak in complete sentences and no respiratory distress GI Inspection: Yes normal to inspection Back/Spine/Pelvis Cervical Spine: normal cervical lordosis Thoracic/Lumbar Spine: thoracic and lumbar spine normal to inspection Skin General skin exam: no rashes or lesions noted Neuro General: patient oriented x3, gait normal, tone normal and moves all extremities Extrem General: Yes normal to inspection and Yes capillary refill normal Assessment & Plan Assessment & Plan (1) Nephrolithiasis: Code(s): N20.0 - Calculus of kidney (2) Renal cysts, acquired, bilateral: Code(s): N28.1 - Cyst of kidney, acquired Plan P.r.n. follow-up Orders: Orders AMB Urinalysis Automated 03/01/23 Z13.9 - Encounter for screening, unspecified Patient Instructions: Imaging studies, laboratory and physical exam results were discussed and reviewed in detail. No major barriers to patient understanding were identified. An opportunity to ask questions regarding the treatment plan was provided. All questions were answered. The patient expressed understanding and agreement with the above treatment plan. The patient is aware they should contact our office by phone for worsening of their current condition or the appearance of new urologic symptoms. Compliance is encouraged with any medications and followup testing that is ordered. It is a privilege to participate in the urologic care of your patient. If you have any questions or concerns regarding treatment for the above conditions, or other urologic issues, please do not hesitate to contact me. The office telephone contact is [phone]. This note is constructed using voice recognition software. While every effort has been made to ensure accuracy thermo cementing folder operator errors may have been included. Yours sincerely, Dr Guille Jones MD, [facility] - Urology Providers of Expert, Compassionate Care for the Genitourinary System Coding Level of Care Code Est Pt Level 4 (60661) Diagnoses Nephrolithiasis N20.0 Renal cysts, acquired, bilateral N28.1
== END 2023-03-01 11:28 | disposition home or self-care (01) ==
PROVIDERS: Visit Provider Urology
DX: N20.0 Calculus of kidney (principal); N28.1 Cyst of kidney, acquired
CPT/HCPCS: 99213

== ENCOUNTER → 2023-03-01 10:48 | Outpatient (BNVA) | payer BC, SELFPAY | PROVIDERS: Visit Provider Urology ==

== ENCOUNTER 2023-07-03 09:28 | Outpatient (AMB) | payer BC, SELFPAY ==
[2023-07-03 09:29] VITALS: BP 136/80; PULSE 65; O2SAT 98; BMI 25.4
--- NOTE | 2023-07-03 09:29 | A.OFFPC_ITS ---
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 Required: No Accompanied by: Self / Same As Patient Allergies codeine [CODEINE] Allergy (Intermediate, Verified 07/03/23 09:30) NAUSEA, stomach upset Sulfa (Sulfonamide Antibiotics) [SULFA (SULFONAMIDE ANTIBIOTICS)] Allergy (Intermediate, Verified 07/03/23 09:30) NAUSEA, stomach upset lisinopril Allergy (Unknown, Verified 07/03/23 09:30) angioedema Tobacco use date assessed: 07/03/23 Fall risk assessment: No Falls in past year Last assessed Fall Risk: 07/03/23 Dental Screening Dental Screen Date: 07/03/23 Did you have a dental visit in the last 12 months?: Yes Did you have a dental problem in the last 6 months where you did not have access to dental care?: No Was dental information given to patient?: Patient has dentist HPI 6 month follow up HPI Details Dyslipidemia: Pt is currently taking pravastatin 40mg. Will order labs. Pt has a hx of AAA. Previous US in 02/2023 showed infrarenal abdominal aortic aneurysm measuring up to 3.9 cm. Repeat US has been ordered for in 2 years as recommended. Denies chest pain, shortness of breath, headache, dizziness, and blurred vision. Due for colon screen, will refer to GI. [facility] Medical History Hip pain Erectile dysfunction Kidney cysts Pheochromocytoma TIA (transient ischemic attack) Hypercholesterolemia Mild acid reflux High blood pressure determined by examination Renal cyst, acquired Microscopic hematuria Tubular adenoma of colon Colon cancer screening Back pain Hip flexor tendonitis Hip arthritis Quadriceps tendon rupture Surgical History History of surgery Family History Father Substance use disorder Brother Substance use disorder Social History Housing: House Alcohol intake: current Alcohol intake frequency: a few times a week Patient Tobacco Use Status: Never used Tobacco e-Cigarette/Vaping Use: Never Used Second Hand Smoke Exposure: No service: Yes Current occupational status: retired Cognitive needs: No Hearing needs: No Vision needs: No Questionnaire PHQ-9 Over the last 2 weeks, how often have you been bothered by any of the following problems? 1. Little interest or pleasure in doing things: not at all 2. Feeling down, depressed, or hopeless: not at all 3. Trouble falling or staying asleep, or sleeping too much: not at all 4. Feeling tired or having little energy: not at all 5. Poor appetite or overeating: not at all 6. Feeling bad about yourself - or that you are a failure or have let yourself or your family down: not at all 7. Trouble concentrating on things, such as reading the newspaper or watching television: not at all 8. Moving or speaking so slowly that other people could have noticed. Or the opposite - being so fidgety or restless that you have been moving around a lot more than usual: not at all 9. Thoughts that you would be better off or of hurting yourself in some way: not at all Total score: 0 Depression Screening Interpretation: Negative Depression Screening Done: Yes 09442 - PHQ-9 Billing: Yes Source: Developed by Drs. Iker Zamora, Serena Roper, Christopher Duff and colleagues, with an educational gita from [employer]. Thrive Questionnaire Date Thrive assessed: 07/03/23 I am a: Patient What is your living situation today?: I have a steady place to live Within the past 12 months, did the food you bought not last and you didn't have the money to get more?: Never true Within the past 12 months, did you worry whether your food would run out before you got money to buy more?: Never true Do you have trouble paying for medicines?: No Do you have trouble getting transportation to medical appointments?: No Do you have trouble paying your heating and electricity bill?: No Do you have trouble taking care of your child, family member or friend?: No Do you have trouble with day-to-day activities such as bathing, preparing meals, shopping, managing finances, etc.?: No Are you currently unemployed and looking for a job?: No Are you interested in more education?: No Please select the resources that you would like help with: None Currently or been in a relationship where the following occur: no concerns reported THRIVE Score: 0 AUDIT C Alcohol Use Questionnaire (AUDIT-C) 1. How often do you have a drink containing alcohol?: Monthly or less 2. How many drinks containing alcohol do you have on a typical day when you are drinking?: 1 or 2 3. How often do you have six or more drinks on one occasion?: Never Total Score: 1 Score Reviewed/Action Taken: Yes CHUCK-7 AMB Questionnaire CHUCK-7 Date CHUCK - 7 assessed: 07/03/23 Feeling nervous, anxious, or on edge: 0 = Not at all Not being able to stop or control worryin = Not at all Worrying too much about different things: 0 = Not at all Trouble relaxin = Not at all Being so restless that it is hard to sit still: 0 = Not at all Becoming easily annoyed or irritable: 0 = Not at all Feeling afraid as if something awful might happen: 0 = Not at all Total CHUCK-7 score (0-4 normal; 5-9 mild; 10-14 moderate; 15-21 severe): 0 Source: Developed by Drs. Iker Zamora, Serena Roper, Christopher Duff and colleagues, with an educational gita from [employer]. CHUCK-7 Assessment Billing CHUCK-7 Assessment Tool: CHUCK-7 Assessment 87757 Review of Systems Const Reports as per HPI Physical exam (Primary Care) Vital Signs: Last Vital Signs Pulse 65 07/03/23 09:29 BP 136/80 07/03/23 09:29 Pulse Ox 98 07/03/23 09:29 Oxygen Delivery Method Room Air 07/03/23 09:29 BMI result Body Mass Index 25.4 Tobacco/Smoking Status: Tobacco use Status Tobacco use date assessed 07/03/23 07/03/23 09:30 Patient Tobacco Use Status Never used Tobacco 07/03/23 09:30 e-Cigarette/Vaping Use Never Used 07/03/23 09:30 PHQ-9: PHQ-9 Score PHQ-9: Total score 0 07/03/23 10:01 Depression Screening Interpretation: Negative Thrive Assessment: Date of Thrive Assessment Date Thrive assessed 07/03/23 07/03/23 09:36 Currently or been in a relationship where the following occur: no concerns reported Const General: cooperative Orientation/consciousness: patient oriented x3 Resp Effort & Inspection: normal respiratory effort Auscultation: clear to auscultation bilaterally Cardio Other: ? very faint systolic murmur Rate: regular rate Rhythm: regular rhythm Heart sounds: S1 normal heart sound present and S2 normal heart sound present Neuro General: patient oriented x3 Psych Appearance: grossly normal Mental Status: mental status grossly normal Speech and movement: Normal speech and movement present Affect: normal affect Attitude: cooperative Thought process: Normal thought process present Thought content: Normal thought content present Insight: Good insight present (Psych) Judgement: Good judgement present (Psych) Assessment and Plan Assessment & Plan (1) AAA (abdominal aortic aneurysm): Code(s): I71.40 - Abdominal aortic aneurysm, without rupture, unspecified Plan: US will be ordered for in 2 years (2) Screening for colon cancer: Code(s): Z12.11 - Encounter for screening for malignant neoplasm of colon Plan: Referred to GI (3) Dyslipidemia: Code(s): E78.5 - Hyperlipidemia, unspecified Plan: Labs ordered Plan The patient agreed to the use of a medical technical writer for this encounter. Scribed for CHASE Rothman by Allyson Perez medical technical writer, on 07/03/2023 at 10:05 EST. Orders: Orders Complete Blood Count Auto Diff Today E78.5 - Hyperlipidemia, unspecified Comprehensive [place]. Panel Fast Today E78.5 - Hyperlipidemia, unspecified TSH reflex Free T4 Today E78.5 - Hyperlipidemia, unspecified UA CC w/rflx Micro + Cult Today E78.5 - Hyperlipidemia, unspecified Lipid Panel Today E78.5 - Hyperlipidemia, unspecified Referrals Gastroenterology Referral Z12.11 - Encounter for screening for malignant neoplasm of colon Coding Level of Care Code Est Pt Level 3 (51038) Diagnoses AAA (abdominal aortic aneurysm) I71.40 Screening for colon cancer Z12.11 Dyslipidemia E78.5 Additional Codes CHUCK-7 Assessment Billing - CHUCK-7 Assessment Tool: CHUCK-7 Assessment 41842 ([id number])
== END 2023-07-03 11:13 | disposition home or self-care (01) ==
PROVIDERS: PCP Nurse Practitioner Family; Visit Provider Nurse Practitioner Family
DX: I71.40 Abdominal aortic aneurysm, without rupture, unspecified (principal); Z12.11 Encounter for screening for malignant neoplasm of colon; E78.5 Hyperlipidemia, unspecified
CPT/HCPCS: 99213

== ENCOUNTER 2023-08-28 11:13 | Outpatient (REF) | payer BC, SELFPAY ==
--- NOTE | ~2023-08-28 | XR_ITS ---
EXAMINATION: XR CHEST CLINICAL INFORMATION: Tuberculin skin test reaction COMPARISON: 01/19/2019 TECHNIQUE: 2 views of the chest were obtained. FINDINGS: No focal consolidation, pulmonary edema, or pleural effusion. Stable cardiomediastinal silhouette. XR/XR chest 2V IMPRESSION: Unremarkable examination.
== END 2023-08-28 11:14 | disposition home or self-care (01) ==
LOC: HO.HMGCX 11:13
PROVIDERS: PCP Nurse Practitioner Family; Visit Provider Nurse Practitioner Family
DX: R76.11 Nonspecific reaction to tuberculin skin test without active tuberculosis (principal)
CPT/HCPCS: 71046

== ENCOUNTER 2023-10-03 09:38 | Outpatient (REF) | payer BC, SELFPAY ==
[2023-10-03 10:24] LABS: MANUAL DIFF FLAG NO
[2023-10-03 10:39] LABS: Basophils Percent Auto 0.5 % (0-2); Eosinophils Absolute Auto 0.2 X10*3/uL (0.0-0.4); Eosinophils Percent Auto 2.7 % (0-4); Imm Gran Abs Auto 0.03 X10*3/uL (0.00-0.03); Imm Gran Pct Auto 0.4 % (0.0-0.4); Lymphocytes Absolute Auto 1.6 X10*3/uL (1.2-4.9); Lymphocytes Percent Auto 19.8 % (20-40); Mean Corpuscular HGB Conc 33.3 g/dl (31.0-36.0); Mean Corpuscular Hemoglobin 30.6 pg (27.0-33.0); Mean Corpuscular Volume 91.8 fL (80.0-98.0); Mean Platelet Volume 10.2 fL (9.4-12.4); Monocytes Absolute Auto 0.5 X10*3/uL (0.1-1.2); Monocytes Percent Auto 6.1 % (2-11); Neutrophils Absolute Auto 5.5 x10*3/uL (2.0-8.3); Neutrophils Percent Auto 70.5 % (45-73); Platelet Count 245 X10*3/uL (160-400); Red Blood Count 4.25 X10*6/uL (4.60-5.80); Red Cell Distribution Width 14.5 % (11.0-16.0); White Blood Count 7.8 X10*3/uL (4.8-10.8)
[2023-10-03 11:13] LABS: Alanine Aminotransferase 19 U/L (0-40); Albumin Level 4.2 g/dL (3.5-5.0); Alkaline Phosphatase 65 U/L (39-117); Anion Gap 12 (12-20); Aspartate Amino Transferase 24 U/L (5-37); Bilirubin Total 0.2 mg/dL (0.0-1.0); Blood Urea Nitrogen 25 mg/dL (9-16); Carbon Dioxide 27 mmol/L (22-29); Chloride 108 mmol/L (96-108); Cholesterol 147 mg/dL (<200); Estimated Glomerular Filt Rate > 60; Glucose Fasting 97 mg/dL (60-99); HDL Cholesterol 39 mg/dL (>40); LDL Cholesterol Calculated 87 mg/dL (<100); Potassium 4.6 mmol/L (3.3-5.1); Sodium 142 mmol/L (135-145); Total Protein 6.6 g/dL (6.5-8.0); Triglycerides 105 mg/dL (<150)
[2023-10-03 11:17] LABS: TSH reflex Free T4 0.57 uIU/mL (0.32-4.0)
[2023-10-03 13:52] LABS: Appearance Urine Clear; Color Urine Yellow; Glucose Urine UA Negative (Negative); Leukocyte Esterase Urine Negative (Negative); Nitrite Urine Negative (Negative); PH 5.5 (5.0-9.0); Specific Gravity - Urine 1.015 (1.005-1.025); Urine Blood Negative (Negative); Urine Ketones Negative (Negative); Urine Protein Negative (Neg-Trace)
== END 2023-10-03 09:39 | disposition home or self-care (01) ==
LOC: HO.HMGCLDS 09:38
PROVIDERS: PCP Nurse Practitioner Family; Visit Provider Nurse Practitioner Family
DX: E78.5 Hyperlipidemia, unspecified (principal)
CPT/HCPCS: 36415; 80053; 80061; 81003; 84443; 85025

== ENCOUNTER 2023-11-26 13:40 | Outpatient (AMB) | payer BC, SELFPAY ==
[2023-11-26 13:48] VITALS: BP 156/76; PULSE 73; BMI 24.5
--- NOTE | 2023-11-26 13:48 | A.OFFVIS_ITS ---
Vital Signs 11/26/23 13:48 Height 5 ft 8 in Weight 161 lb BMI 24.5 BP 156/76 H Blood Pressure Location Rt brachial Position Sitting Pulse 73 Intake Visit Reasons: hernias Intake Note: Patient is seen in office for possible hernias. Pt c/o: abd pain, constipation. 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 He has had these for a few years time. Day becoming more symptomatic than enlarging. He would like to have them repaired. He had a recent bout of constipation which aggravated the hernia symptoms. Patient was quite active and does modest heavy lifting. Chart was reviewed and patient evaluated REPLACED BY [facility] Medical History Hip pain Erectile dysfunction Kidney cysts Pheochromocytoma TIA (transient ischemic attack) Hypercholesterolemia Mild acid reflux High blood pressure determined by examination Renal cyst, acquired Microscopic hematuria Tubular adenoma of colon Colon cancer screening Back pain Hip flexor tendonitis Hip arthritis Quadriceps tendon rupture Surgical History History of surgery Family History Father Substance use disorder Brother Substance use disorder Social History Housing: House Alcohol intake: current Alcohol intake frequency: a few times a week Patient Tobacco Use Status: Never used Tobacco e-Cigarette/Vaping Use: Never Used Second Hand Smoke Exposure: No service: Yes Current occupational status: retired Cognitive needs: No Hearing needs: No Vision needs: No Physical Exam Vital Signs: Last Vital Signs Pulse 73 11/26/23 13:48 BP 156/76 H 11/26/23 13:48 BMI result Body Mass Index 24.5 Chest Other: Chest breath sounds bilaterally, HS 1 in 2 GI Other: Patient was examined both supine and standing with Valsalva. Abdomen is soft, benign. Bilateral moderately sized inguinal hernia. Reducible each Genitalia within normal limits Assessment & Plan Assessment & Plan (1) Inguinal hernia bilateral, non-recurrent: Code(s): K40.20 - Bilateral inguinal hernia, without obstruction or gangrene, not specified as recurrent Category: Surgical Plan Risks, benefits, alternatives of bilateral open inguinal hernia repair with mesh were reviewed with the patient and included but not limited to bleeding, infection, recurrence, numbness, pain, scarring and the patient wished to proceed. All questions answered. Arrangements were made for this. Coding Level of Care Code New Pt Level 5 (30483) Diagnoses Inguinal hernia bilateral, non-recurrent K40.20
== END 2023-11-26 13:55 | disposition home or self-care (01) ==
PROVIDERS: PCP Nurse Practitioner Family; Visit Provider Surgery
DX: K40.20 Bilateral inguinal hernia, without obstruction or gangrene, not specified as recurrent (principal)
CPT/HCPCS: 99204; 99214

== ENCOUNTER → 2023-11-26 13:40 | Outpatient (BNVA) | payer BC, SELFPAY | PROVIDERS: PCP Nurse Practitioner Family; Visit Provider Surgery ==

== ENCOUNTER 2023-12-05 11:58 | Outpatient (REF) | payer BC, SELFPAY ==
[2023-12-05 13:16] LABS: MANUAL DIFF FLAG NO
[2023-12-05 13:43] LABS: Basophils Percent Auto 0.5 % (0-2); Eosinophils Absolute Auto 0.3 X10*3/uL (0.0-0.4); Eosinophils Percent Auto 3.6 % (0-4); Hematocrit 45.2 % (42.0-52.0); Hemoglobin 14.7 g/dl (14.0-18.0); Imm Gran Abs Auto 0.04 X10*3/uL (0.00-0.03); Imm Gran Pct Auto 0.5 % (0.0-0.4); Lymphocytes Absolute Auto 1.9 X10*3/uL (1.2-4.9); Lymphocytes Percent Auto 25.2 % (20-40); Mean Corpuscular HGB Conc 32.5 g/dl (31.0-36.0); Mean Corpuscular Hemoglobin 29.9 pg (27.0-33.0); Mean Corpuscular Volume 91.9 fL (80.0-98.0); Mean Platelet Volume 10.2 fL (9.4-12.4); Monocytes Absolute Auto 0.6 X10*3/uL (0.1-1.2); Monocytes Percent Auto 7.7 % (2-11); Neutrophils Absolute Auto 4.7 x10*3/uL (2.0-8.3); Neutrophils Percent Auto 62.5 % (45-73); Platelet Count 275 X10*3/uL (160-400); Red Blood Count 4.92 X10*6/uL (4.60-5.80); White Blood Count 7.6 X10*3/uL (4.8-10.8)
[2023-12-05 14:02] LABS: Iron 101 mcg/dL (45-160); Percent Iron Saturation 27 % (15-50); Total Iron Binding Capacity 375 mcg/dL (228-428); Unsaturated Iron Binding 274 ug/dL
[2023-12-05 14:06] LABS: Ferritin 26 ng/mL (20-250)
[2023-12-05 14:20] LABS: Folate 8.3 ng/mL (> or = 4.0); Vitamin B12 476 pg/mL (200-900)
[2023-12-07 13:38] LABS: Hematocrit 45.4 % (38.5-50.0); MCH 30.4 pg (27.0-33.0); MCV 92.1 fL (80.0-100.0); RBC 4.93 Million/uL (4.20-5.80); RDW 12.8 % (11.0-15.0)
== END 2023-12-05 11:59 | disposition home or self-care (01) ==
LOC: HO.HMGCLDS 11:58
PROVIDERS: PCP Nurse Practitioner Family; Visit Provider Nurse Practitioner Family
DX: D64.9 Anemia, unspecified (principal)
CPT/HCPCS: 36415; 82607; 82728; 82746; 83020; 83540; 85014; 85018; 85025; 85041

== ENCOUNTER 2023-12-21 09:28 | Outpatient (AMB) | payer BC, SELFPAY ==
--- NOTE | 2023-12-21 09:30 | A.OFFVIS_ITS ---
Vital Signs 12/21/23 09:34 Height 5 ft 8 in Weight 162 lb 4.163 oz BMI 24.7 BP 154/74 H Blood Pressure Location Rt brachial Position Sitting Pulse 65 Intake Visit Reasons: Colonoscopy Screening Intake Note: Patient in office today as a new patient for CC: Patient states that is last colonoscopy was done about 3 years ago, he believes it was done at [facility]. He c/o constipation, bilateral inguinal hernia, abdominal pain. Hedis Analyst Required: No Accompanied by: Self / Same As Patient Allergies codeine [CODEINE] Allergy (Intermediate, Verified 01/15/24 11:03) NAUSEA, stomach upset Sulfa (Sulfonamide Antibiotics) [SULFA (SULFONAMIDE ANTIBIOTICS)] Allergy (Intermediate, Verified 01/15/24 11:03) NAUSEA, stomach upset lisinopril Allergy (Unknown, Verified 01/15/24 11:03) angioedema HPI HPI Colonoscopy Screening: Details: 72-year-old male here for preprocedural meeting to discuss a screening colonoscopy. He is referred by Jaziel Lr of [facility] primary care PMX Hypertension High cholesterol TIA Abdominal hernia Tubular adenoma Microscopic hematuria GERD Pheochromocytoma Quadriceps tendon rupture Renal cyst PTSD * SURGICAL HISTORY Quadriceps tendon repair Colonoscopy-2019, [place] Ankle reconstruction bilateral * ALLERGIES Codeine Sulfa Lisinopril * [employer] LABS: Laboratory Tests 10/03/23 12/05/23 09:42 12:02 WBC 7.6 RBC (Send Out) 4.93 Hgb 14.7 Plt Count 275 Estimated GFR > 60 Total Bilirubin 0.2 AST 24 ALT 19 Alkaline Phosphatase 65 TSH 0.57 2019 colonoscopy Findings: Terminal Ileum Not evaluated Cecum Normal Ascending Colon Normal Transverse Colon - A 4-5 mm sessile polyp removed with a cold biopsy Descending Colon Normal Sigmoid Colon Normal Rectum A 2 cms pedunculated polyp at 10 cms removed with hot snare. A few 4- 5 mm diminutive polyps which were biopsied. Ano-rectum - Moderate internal hemorrhoids Colon preparation: Good Impression and Post Procedure Diagnosis: Colonoscopy Findings: Two Polyps removed, two diminutive rectal polyps were biopsied. Moderate hemorrhoids on retroflexed exam. Plan: Await pathology results Patient has an appointment on 07/26/18 in the [facility] with Ria Carvajal NP. Repeat Colonoscopy interval based on path results in 3 years if polyps are adenomatous and 5 years if polyps are hyperplastic due to personal history of colon polyps.. A. Colon, transverse polyp, polypectomy: Fragments of hyperplastic polyps. B. Rectum, polyp at 10 cm, polypectomy: Tubular adenoma; no high grade dysplasia or carcinoma seen. C. Rectum, polyps, polypectomy: Fragments of hyperplastic polyps. TODAY'S VISIT He had TA on his 2019 colonoscopy. He has occasional CIC but he also is dealing with inguinal hernias, no upper GI problems. There are no prior problems with anesthesia or sedation He denies any cardiac or respiratory problems. No ID problems [facility] Medical History (Updated 01/15/24 @ 18:15 by CRISTOFER Chakraborty) Physical exam Screening PSA (prostate specific antigen) Acute otitis media Abdominal hernia Physical exam Screening for colon cancer Serous otitis media Acute sinusitis Otitis externa of both ears Otitis media Viral syndrome Encounter for screening laboratory testing for COVID-19 virus Hip pain Erectile dysfunction Kidney cysts Pheochromocytoma TIA (transient ischemic attack) Hypercholesterolemia Mild acid reflux High blood pressure determined by examination Renal cyst, acquired Microscopic hematuria Tubular adenoma of colon Colon cancer screening Back pain Hip flexor tendonitis Hip arthritis Quadriceps tendon rupture Surgical History H/O neck surgery H/O umbilical hernia repair History of back surgery History of ankle surgery History of surgery Family History Father Substance use disorder Brother Substance use disorder Mother Liver cancer History of kidney cancer Paternal Uncle HTN (hypertension) Maternal Aunt Cancer Family/Other Cancer Social History Housing: House Alcohol intake: current Alcohol intake frequency: a few times a week Patient Tobacco Use Status: Never used Tobacco e-Cigarette/Vaping Use: Never Used Second Hand Smoke Exposure: No service: Yes Current occupational status: retired Cognitive needs: No Hearing needs: No Vision needs: No Review of Systems Const Denies fatigue, Denies fever(s), Denies night sweats, Denies poor appetite and Denies weight loss ENT Reports Normal hearing present, Denies dental pain, Denies dysphagia, Denies hearing loss, Denies mouth pain, Denies odynophagia, Denies throat swelling, Denies tongue swelling and Reports other (Dentition adequate) Card Reports no additional complaints Resp Reports no additional complaints GI Details: Reports abdominal pain, Denies melena, Denies bloating, Denies hematochezia, Denies constipation, Denies GI cramping, Denies dysphagia, Denies excessive flatus, Denies early satiety, Denies heartburn, Denies diarrhea, Denies nausea, Denies odynophagia, Denies vomiting and Denies hematemesis Skin/Breast Denies pruritus, Denies lesions, Denies rash and Denies jaundice Neuro Reports Normal hearing present and Denies Abnormal speech present Endo Denies fatigue Aller/Immun Denies throat swelling and Denies tongue swelling Physical Exam Vital Signs: Last Vital Signs Pulse 65 12/21/23 09:34 BP 154/74 H 12/21/23 09:34 BMI result Body Mass Index 24.7 Const General: cooperative, no acute distress, well developed and well groomed Nutritional Appearance: well nourished and obese centrally obese Orientation/consciousness: oriented to person, oriented to place and oriented to time Limitations: No language barrier HEENT Head: Yes normocephalic and Yes atraumatic Eyes General: appearance normal, both eyes and all related structures Pupils: Equal, round and reactive pupils present Neck Neck: Yes normal visual inspection and Yes no lymphadenopathy Thyroid: Thyroid normal Resp Effort & Inspection: normal respiratory effort and able to speak in complete sentences Auscultation: clear to auscultation bilaterally Cardio Rate: regular rate Rhythm: regular rhythm Heart sounds: Normal, physiologic split S2 sound present Peripheral pulses: radial pulses present and posterior tibial pulses present GI Inspection: No distended, No Abdominal panniculus present and Yes obesity Palpation (GI): Soft to palpation, nontender, no guarding, not rigid and No hepatosplenomegaly present Percussion: Yes normal to percussion Auscultation: normal bowel sounds Rectal Exam - Male: Yes deferred Skin General skin exam: no rashes or lesions noted, turgor normal, skin not dry, no jaundice, No spider nevi and no striae Rashes: no rashes Nails: normal Neuro General: oriented to person, oriented to place and oriented to time Cranial nerves: Yes Equal, round and reactive pupils present and Yes Normal hearing present Speech: No Abnormal speech present Extrem General: Yes normal to inspection, No clubbing, No cyanosis and No edema Psych Appearance: grossly normal and well kempt Mental Status: mental status grossly normal Speech and movement: Normal speech and movement present Affect: normal affect Attitude: cooperative Thought process: Normal thought process present and not confabulating Thought content: Normal thought content present Insight: Fair insight present (Psych) Judgement: Fair judgement present (Psych) Assessment & Plan Assessment & Plan (1) Pre-op evaluation: Code(s): Z01.818 - Encounter for other preprocedural examination Category: Medical (2) 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 He has occasional CIC but he also is dealing with inguinal hernias, no upper GI problems. There are no prior problems with anesthesia or sedation He denies any cardiac or respiratory problems. Apparently had a past positive PPD and was treated for this. Orders: Orders 2 Colonoscopy - GI Use Only 12/21/23 Z01.818 - Encounter for other preprocedural examination, R76.11 - Nonspecific reaction to tuberculin skin test without active tuberculosis Medications: New sodium,potassium,mag sulfates 17.5-3.13-1.6 gram (Suprep Bowel Prep Kit) 480 mL orally; FOR COLONOSCOPY PREP 354 mL 0RF Coding Level of Care Code New Pt Level 3 (48292) Diagnoses Pre-op evaluation Z01.818 PPD positive R76.11
[2023-12-21 09:34] VITALS: BP 154/74; PULSE 65; BMI 24.7
== END 2023-12-21 10:09 | disposition home or self-care (01) ==
PROVIDERS: PCP Nurse Practitioner Family; Visit Provider Nurse Practitioner
DX: Z01.818 Encounter for other preprocedural examination (principal); Z12.11 Encounter for screening for malignant neoplasm of colon; Z86.010 Personal history of colon polyps; R76.11 Nonspecific reaction to tuberculin skin test without active tuberculosis
CPT/HCPCS: S0285

== ENCOUNTER → 2023-12-21 09:28 | Outpatient (BNVA) | payer BC, SELFPAY | PROVIDERS: PCP Nurse Practitioner Family; Visit Provider Nurse Practitioner ==

== ENCOUNTER 2023-12-25 11:08 | Outpatient (AMB) | payer BC, SELFPAY ==
--- NOTE | 2023-12-25 11:11 | MHC.PC.OV ---
Vital Signs 12/25/23 11:12 Height 5 ft 8 in Weight 160 lb BMI 24.3 BP 132/78 Blood Pressure Location Rt brachial Position Sitting Pulse 74 Pulse Source Pulse Oximeter Pulse Oximetry (%) 98 Intake Visit Reasons: Pre-op Hernia repair Intake Note: pt is here for hernia repair, pre op Technical Information Specialist Required: No Accompanied by: Self / Same As Patient Allergies codeine [CODEINE] Allergy (Intermediate, Verified 12/25/23 11:12) NAUSEA, stomach upset Sulfa (Sulfonamide Antibiotics) [SULFA (SULFONAMIDE ANTIBIOTICS)] Allergy (Intermediate, Verified 12/25/23 11:12) NAUSEA, stomach upset lisinopril Allergy (Unknown, Verified 12/25/23 11:12) angioedema Tobacco use date assessed: 07/03/23 Fall risk assessment: No Falls in past year Last assessed Fall Risk: 12/25/23 Dental Screening Dental Screen Date: 07/03/23 HPI Pre-op Hernia repair HPI Details Pt is here for a pre-op evaluation. He is scheduled for bilat inguinal hernia repair on 01/09. Will order labs. Will do an EKG in office. Pt is cleared for surgery from my standpoint. [facility] Medical History Screening PSA (prostate specific antigen) Acute otitis media Abdominal hernia Physical exam Physical exam Screening for colon cancer Serous otitis media Acute sinusitis Otitis externa of both ears Otitis media Viral syndrome Encounter for screening laboratory testing for COVID-19 virus Hip pain Erectile dysfunction Kidney cysts Pheochromocytoma TIA (transient ischemic attack) Hypercholesterolemia Mild acid reflux High blood pressure determined by examination Renal cyst, acquired Microscopic hematuria Tubular adenoma of colon Colon cancer screening Back pain Hip flexor tendonitis Hip arthritis Quadriceps tendon rupture Surgical History H/O neck surgery H/O umbilical hernia repair History of back surgery History of ankle surgery History of surgery Family History Father Substance use disorder Brother Substance use disorder Mother Liver cancer History of kidney cancer Paternal Uncle HTN (hypertension) Maternal Aunt Cancer Family/Other Cancer Social History Housing: House Alcohol intake: current Alcohol intake frequency: a few times a week Patient Tobacco Use Status: Never used Tobacco e-Cigarette/Vaping Use: Never Used Second Hand Smoke Exposure: No service: Yes Current occupational status: retired Cognitive needs: No Hearing needs: No Vision needs: No Questionnaire PHQ-9 Over the last 2 weeks, how often have you been bothered by any of the following problems? 1. Little interest or pleasure in doing things: not at all 2. Feeling down, depressed, or hopeless: not at all 3. Trouble falling or staying asleep, or sleeping too much: not at all 4. Feeling tired or having little energy: not at all 5. Poor appetite or overeating: not at all 6. Feeling bad about yourself - or that you are a failure or have let yourself or your family down: not at all 7. Trouble concentrating on things, such as reading the newspaper or watching television: not at all 8. Moving or speaking so slowly that other people could have noticed. Or the opposite - being so fidgety or restless that you have been moving around a lot more than usual: not at all 9. Thoughts that you would be better off or of hurting yourself in some way: not at all Total score: 0 Depression Screening Interpretation: Negative Depression Screening Done: Yes 48092 - PHQ-9 Billing: Yes Source: Developed by Drs. Iker Zamora, Serena Roper, Christopher Duff and colleagues, with an educational gita from [employer]. Thrive Questionnaire Date Thrive assessed: 12/25/23 I am a: Patient What is your living situation today?: I have a steady place to live Within the past 12 months, did the food you bought not last and you didn't have the money to get more?: I choose not to answer this question Within the past 12 months, did you worry whether your food would run out before you got money to buy more?: I choose not to answer this question Do you have trouble paying for medicines?: No Do you have trouble getting transportation to medical appointments?: No Do you have trouble paying your heating and electricity bill?: No Do you have trouble taking care of your child, family member or friend?: No Do you have trouble with day-to-day activities such as bathing, preparing meals, shopping, managing finances, etc.?: I choose not to answer this question Are you currently unemployed and looking for a job?: I choose not to answer this question Are you interested in more education?: I choose not to answer this question Please select the resources that you would like help with: None Currently or been in a relationship where the following occur: I choose not to answer THRIVE Score: 0 AUDIT C Alcohol Use Questionnaire (AUDIT-C) 1. How often do you have a drink containing alcohol?: 2-3 times a week 2. How many drinks containing alcohol do you have on a typical day when you are drinking?: 3 or 4 3. How often do you have six or more drinks on one occasion?: Never Total Score: 4 Score Reviewed/Action Taken: Yes CHUCK-7 AMB Questionnaire CHUCK-7 Date CHUCK - 7 assessed: 12/25/23 Feeling nervous, anxious, or on edge: 2 = More than half the days Not being able to stop or control worryin = Several days Worrying too much about different things: 0 = Not at all Trouble relaxin = Not at all Being so restless that it is hard to sit still: 3 = Nearly every day Becoming easily annoyed or irritable: 2 = More than half the days Feeling afraid as if something awful might happen: 0 = Not at all Total CHUCK-7 score (0-4 normal; 5-9 mild; 10-14 moderate; 15-21 severe): 8 Source: Developed by Drs. Iker Zamora, Serena Roper, Christopher Duff and colleagues, with an educational gita from [employer]. CHUCK-7 Assessment Billing CHUCK-7 Assessment Tool: CHUCK-7 Assessment 51818 Review of Systems Const Denies chills and Denies fever(s) Eyes Denies blurry vision ENT Denies vertigo, Denies dizziness and Denies sore throat Card Denies chest pain at rest, Denies chest pain with activity, Denies diaphoresis, Denies dyspnea and Denies dyspnea on exertion Resp Denies cough, Denies dyspnea, Denies dyspnea on exertion and Denies wheezing GI Denies abdominal pain, Denies melena, Denies hematochezia, Denies constipation, Denies diarrhea and Denies loose stools Denies hematuria Musc Denies numbness and Denies tingling Skin/Breast Denies lesions Neuro Denies vertigo, Denies dizziness, Denies numbness and Denies tingling Psych Denies anxiety, Denies depression, Denies homicidal ideation, Denies suicidal ideation and Denies other (substance abuse) Aller/Immun Denies wheezing Physical exam (Primary Care) Vital Signs: Last Vital Signs Pulse 74 12/25/23 11:12 BP 132/78 12/25/23 11:12 Pulse Ox 98 12/25/23 11:12 BMI result Body Mass Index 24.3 Tobacco/Smoking Status: Tobacco use Status Tobacco use date assessed 07/03/23 12/25/23 11:13 Patient Tobacco Use Status Never used Tobacco 12/25/23 11:13 e-Cigarette/Vaping Use Never Used 12/25/23 11:13 PHQ-9: PHQ-9 Score PHQ-9: Total score 0 12/25/23 11:29 Depression Screening Interpretation: Negative Thrive Assessment: Date of Thrive Assessment Date Thrive assessed 12/25/23 12/25/23 11:13 Currently or been in a relationship where the following occur: I choose not to answer Const General: cooperative Nutritional Appearance: well nourished Orientation/consciousness: patient oriented x3 Neck Neck: Yes no lymphadenopathy Resp Effort & Inspection: normal respiratory effort Auscultation: clear to auscultation bilaterally Cardio Rate: regular rate Rhythm: regular rhythm Heart sounds: S1 normal heart sound present, S2 normal heart sound present and no murmurs Neuro General: patient oriented x3 Psych Appearance: grossly normal Mental Status: mental status grossly normal Speech and movement: Normal speech and movement present Affect: normal affect Attitude: cooperative Thought process: Normal thought process present Thought content: Normal thought content present Insight: Good insight present (Psych) Judgement: Good judgement present (Psych) Assessment and Plan Assessment & Plan (1) Pre-op evaluation: Code(s): Z01.818 - Encounter for other preprocedural examination Plan: Labs ordered, EKG done in office Plan The patient agreed to the use of a medical unit secretary for this encounter. Scribed for CHASE Rothman by Allyson Perez medical unit secretary, on 12/25/2023 at 11:30 EST. Orders: Orders Comprehensive Met. Panel Today Z01.818 - Encounter for other preprocedural examination AMB EKG-In Office Today Z01.818 - Encounter for other preprocedural examination Complete Blood Count Auto Diff Today Z01.818 - Encounter for other preprocedural examination Coding Level of Care Code Est Pt Prev Care >65y(78307) Diagnoses Pre-op evaluation Z01.818 Additional Codes CHUCK-7 Assessment Billing - CHUCK-7 Assessment Tool: CHUCK-7 Assessment 68950 ([id number])
[2023-12-25 11:12] VITALS: BP 132/78; PULSE 74; O2SAT 98; BMI 24.3
== END 2023-12-25 13:43 | disposition home or self-care (01) ==
PROVIDERS: PCP Nurse Practitioner Family; Visit Provider Nurse Practitioner Family
DX: Z01.818 Encounter for other preprocedural examination (principal); K40.20 Bilateral inguinal hernia, without obstruction or gangrene, not specified as recurrent
CPT/HCPCS: 93000; 99213

== ENCOUNTER 2023-12-25 13:58 | Outpatient (REF) | payer BC, SELFPAY ==
[2023-12-25 16:10] LABS: MANUAL DIFF FLAG NO
[2023-12-25 16:21] LABS: Basophils Absolute Auto 0.1 X10*3/uL (0.0-0.2); Basophils Percent Auto 0.7 % (0-2); Eosinophils Absolute Auto 0.2 X10*3/uL (0.0-0.4); Eosinophils Percent Auto 2.3 % (0-4); Hematocrit 42.8 % (42.0-52.0); Hemoglobin 13.7 g/dl (14.0-18.0); Imm Gran Abs Auto 0.03 X10*3/uL (0.00-0.03); Imm Gran Pct Auto 0.3 % (0.0-0.4); Lymphocytes Absolute Auto 2.3 X10*3/uL (1.2-4.9); Lymphocytes Percent Auto 25.2 % (20-40); Mean Corpuscular Hemoglobin 29.8 pg (27.0-33.0); Mean Corpuscular Volume 93.2 fL (80.0-98.0); Mean Platelet Volume 10.2 fL (9.4-12.4); Monocytes Absolute Auto 0.7 X10*3/uL (0.1-1.2); Monocytes Percent Auto 7.2 % (2-11); Neutrophils Absolute Auto 5.9 x10*3/uL (2.0-8.3); Neutrophils Percent Auto 64.3 % (45-73); Platelet Count 282 X10*3/uL (160-400); Red Blood Count 4.59 X10*6/uL (4.60-5.80); Red Cell Distribution Width 14.1 % (11.0-16.0); White Blood Count 9.1 X10*3/uL (4.8-10.8)
[2023-12-25 16:39] LABS: Alanine Aminotransferase 14 U/L (0-40); Albumin Level 4.5 g/dL (3.5-5.0); Alkaline Phosphatase 64 U/L (39-117); Anion Gap 13 (12-20); Aspartate Amino Transferase 19 U/L (5-37); Bilirubin Total 0.3 mg/dL (0.0-1.0); Blood Urea Nitrogen 30 mg/dL (9-16); Calcium 9.4 mg/dL (8.4-10.2); Carbon Dioxide 28 mmol/L (22-29); Chloride 107 mmol/L (96-108); Estimated Glomerular Filt Rate > 60; Glucose Random 87 mg/dL (60-115); Potassium 4.7 mmol/L (3.3-5.1); Sodium 143 mmol/L (135-145); Total Protein 7.1 g/dL (6.5-8.0)
[2023-12-25 17:25] LABS: Prostate Specific Antigen Scr 2.27 ng/mL (<0.05-4.0)
== END 2023-12-25 13:59 | disposition home or self-care (01) ==
LOC: HO.HMGCLDS 13:58
PROVIDERS: PCP Nurse Practitioner Family; Visit Provider Nurse Practitioner Family
DX: Z12.5 Encounter for screening for malignant neoplasm of prostate (principal); Z01.818 Encounter for other preprocedural examination
CPT/HCPCS: 36415; 80053; 84153; 85025

== ENCOUNTER 2024-01-15 11:00 | Outpatient (AMB) | payer BC, SELFPAY ==
--- NOTE | 2024-01-15 11:02 | A.OFFPC_ITS ---
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 Will order labs. Colon screen is scheduled. PSA is up to date. Denies dribbling with urination, weak stream, and frequent nocturia. Refuses vaccinations. Upcoming bilat inguinal hernia repair already scheduled [facility] Medical History (Updated 01/15/24 @ 12:12 by CHASE Fleming) Physical exam Screening PSA (prostate specific antigen) Acute otitis media Abdominal hernia Physical exam Screening for colon cancer Serous otitis media Acute sinusitis Otitis externa of both ears Otitis media Viral syndrome Encounter for screening laboratory testing for COVID-19 virus Hip pain Erectile dysfunction Kidney cysts Pheochromocytoma TIA (transient ischemic attack) Hypercholesterolemia Mild acid reflux High blood pressure determined by examination Renal cyst, acquired Microscopic hematuria Tubular adenoma of colon Colon cancer screening Back pain Hip flexor tendonitis Hip arthritis Quadriceps tendon rupture Surgical History H/O neck surgery H/O umbilical hernia repair History of back surgery History of ankle surgery History of surgery Family History Father Substance use disorder Brother Substance use disorder Mother Liver cancer History of kidney cancer Paternal Uncle HTN (hypertension) Maternal Aunt Cancer Family/Other Cancer Social History Housing: House Alcohol intake: current Alcohol intake frequency: a few times a week Patient Tobacco Use Status: Never used Tobacco e-Cigarette/Vaping Use: Never Used Second Hand Smoke Exposure: No service: Yes Current occupational status: retired Cognitive needs: No Hearing needs: No Vision needs: No Questionnaire PHQ-9 Over the last 2 weeks, how often have you been bothered by any of the following problems? 1. Little interest or pleasure in doing things: not at all 2. Feeling down, depressed, or hopeless: not at all 3. Trouble falling or staying asleep, or sleeping too much: not at all 4. Feeling tired or having little energy: not at all 5. Poor appetite or overeating: not at all 6. Feeling bad about yourself - or that you are a failure or have let yourself or your family down: not at all 7. Trouble concentrating on things, such as reading the newspaper or watching television: not at all 8. Moving or speaking so slowly that other people could have noticed. Or the opposite - being so fidgety or restless that you have been moving around a lot more than usual: not at all 9. Thoughts that you would be better off or of hurting yourself in some way: not at all Total score: 0 Depression Screening Interpretation: Negative Depression Screening Done: Yes 35218 - PHQ-9 Billing: Yes Source: Developed by Drs. Iker Zamora, Serena Roper, Christopher Duff and colleagues, with an educational gita from [employer]. Thrive Questionnaire Date Thrive assessed: 01/15/24 I am a: Patient What is your living situation today?: I have a steady place to live Within the past 12 months, did the food you bought not last and you didn't have the money to get more?: I choose not to answer this question Within the past 12 months, did you worry whether your food would run out before you got money to buy more?: I choose not to answer this question Do you have trouble paying for medicines?: No Do you have trouble getting transportation to medical appointments?: No Do you have trouble paying your heating and electricity bill?: No Do you have trouble taking care of your child, family member or friend?: No Do you have trouble with day-to-day activities such as bathing, preparing meals, shopping, managing finances, etc.?: I choose not to answer this question Are you currently unemployed and looking for a job?: I choose not to answer this question Are you interested in more education?: I choose not to answer this question Please select the resources that you would like help with: None Currently or been in a relationship where the following occur: I choose not to answer THRIVE Score: 0 CHUCK-7 AMB Questionnaire CHUCK-7 Date CHUCK - 7 assessed: 12/25/23 Source: Developed by Drs. Iker Zamora, Serena Roper, Christopher Duff and colleagues, with an educational gita from [employer]. Review of Systems Const Denies chills and Denies fever(s) Eyes Denies blurry vision ENT Denies vertigo, Denies dizziness and Denies sore throat Card Denies chest pain at rest, Denies chest pain with activity, Denies diaphoresis, Denies dyspnea and Denies dyspnea on exertion Resp Denies cough, Denies dyspnea, Denies dyspnea on exertion and Denies wheezing GI Denies abdominal pain, Denies melena, Denies hematochezia, Denies constipation, Denies diarrhea and Denies loose stools Denies hematuria Musc Denies numbness and Denies tingling Skin/Breast Denies lesions Neuro Denies vertigo, Denies dizziness, Denies numbness and Denies tingling Psych Denies anxiety, Denies depression, Denies homicidal ideation, Denies suicidal ideation and Denies other (substance abuse) Aller/Immun Denies wheezing Physical exam (Primary Care) Vital Signs: Last Vital Signs Pulse 60 01/15/24 11:03 BP 130/72 01/15/24 11:03 Pulse Ox 97 01/15/24 11:03 BMI result Body Mass Index 25.5 Tobacco/Smoking Status: Tobacco use Status Tobacco use date assessed 07/03/23 01/15/24 11:03 Patient Tobacco Use Status Never used Tobacco 01/15/24 11:03 e-Cigarette/Vaping Use Never Used 01/15/24 11:03 PHQ-9: PHQ-9 Score PHQ-9: Total score 0 01/15/24 11:05 Depression Screening Interpretation: Negative Thrive Assessment: Date of Thrive Assessment Date Thrive assessed 01/15/24 01/15/24 11:05 Currently or been in a relationship where the following occur: I choose not to answer Const General: cooperative Nutritional Appearance: well nourished Orientation/consciousness: patient oriented x3 HENMT Head: Yes normal to inspection, Yes normocephalic and Yes atraumatic Ears: TM's normal bilaterally Eyes General: appearance normal, both eyes and all related structures Alignment and Position: alignment normal and position normal Neck Neck: Yes normal visual inspection, Yes no lymphadenopathy and Yes supple Resp Effort & Inspection: normal respiratory effort Auscultation: clear to auscultation bilaterally Cardio Rate: regular rate Rhythm: regular rhythm Heart sounds: S1 normal heart sound present, S2 normal heart sound present and no murmurs GI Palpation (GI): Soft to palpation and nontender Auscultation: normal bowel sounds Other: TAY: prostate not enlarged, smooth central groove, no nodules Male General Exam: Yes normal external exam Penis: normal penis Scrotum: scrotum normal, testes descended bilaterally and inguinal hernia bilateral Testes: no testicular mass Skin Other: scabbed healing abrasion to left marin Rashes: no rashes Neuro General: patient oriented x3, moves all extremities, no focal motor deficits and deep tendon reflexes 2+ bilaterally Romberg Test: Negative Psych Appearance: grossly normal Mental Status: mental status grossly normal Speech and movement: Normal speech and movement present Affect: normal affect Attitude: cooperative Thought process: Normal thought process present Thought content: Normal thought content present Insight: Good insight present (Psych) Judgement: Good judgement present (Psych) Assessment and Plan Assessment & Plan (1) Physical exam: Code(s): Z00.00 - Encounter for general adult medical examination without abnormal findings Plan The patient agreed to the use of a medical practice manager for this encounter. Scribed for CHASE Rothman by Allyson Perez medical practice manager, on 01/15/2024 at 11:10 EST. Coding Level of Care Code Est Pt Prev Care >65y(74177) Diagnoses Physical exam Z00.00
[2024-01-15 11:03] VITALS: BP 130/72; PULSE 60; O2SAT 97; BMI 25.5
== END 2024-01-15 11:24 | disposition home or self-care (01) ==
PROVIDERS: PCP Nurse Practitioner Family; Visit Provider Nurse Practitioner Family
DX: Z00.00 Encounter for general adult medical examination without abnormal findings (principal)

== ENCOUNTER → 2024-01-15 11:00 | Outpatient (BNVA) | payer BC, SELFPAY | PROVIDERS: PCP Nurse Practitioner Family; Visit Provider Nurse Practitioner Family | DX: Z00.00 Encounter for general adult medical examination without abnormal findings (principal) | CPT/HCPCS: 96127 ==

== ENCOUNTER → 2024-01-24 09:56 | Outpatient (REF) | payer BC, SELFPAY ==
--- NOTE | 2024-01-24 09:58 | CA_ITS ---
Transthoracic Echocardiogram Patient (Last, First, Middle): Ron Abel, Gender: Male Date of : 1950 Age: 74 Procedure Date: 01/24/2024 Procedure Type: Transthoracic Echocardiogram Location: OP Height: 170.18 cm Weight: 74.39 kg BSA: 1.86 m2 Heart Rate: bpm BP: 140 / 72 mmHg Plastics Scientist: TO Referring MD: Jaziel Lr [facility] Financial Assistant: Mauro Babcock MD Symptoms: Z01.818 - Encounter for other preprocedural examination Study Quality: Adequate ECG Rhythm: Sinus Conclusions: - 1. Normal LV ejection fraction of 65-70% with impaired relaxation filling pattern 2. Normal cardiac valvular Dopplers 3. Normal RV systolic pressure 4. No gross pericardial effusion 5. Mildly dilated ascending aorta at 3.7 cm Findings Left Ventricle Normal left ventricular size, thickness, and systolic function. The visually estimated ejection fraction is between 65-70%. Spectral Doppler is indicative of an impaired relaxation filling pattern. possible hypokinesis of the basal inferior wall. Right Ventricle Normal right ventricular cavity size and systolic function. Atria The left atrium is likely dilated. There is an interatrial septal aneurysm seen bowing to the right. There is a mobile atrial septum noted. The right atrium is normal in size. Aortic Valve There is mild calcification of the aortic valve. There is no aortic valve stenosis. There is no aortic valve regurgitation. Mitral Valve There is mild anterior and posterior mitral leaflet thickening. There is trace mitral valve regurgitation. There is no mitral valve stenosis. Pulmonic Valve The pulmonic valve was not well visualized. Tricuspid Valve Normal tricuspid valve structure. There is mild tricuspid valve regurgitation. The right ventricular systolic pressure is normal. The right ventricular systolic pressure is 27 mmHg. Normal right atrial pressure. There is no evidence of pulmonary hypertension. Great Vessels The pulmonary artery was not well visualized. There is mild dilatation of the ascending aorta measuring 3.70 cm. Small plaque is seen in the sino tubular ridge. Venous The inferior vena cava is normal in size and collapses greater than 50% with inspiration. Pericardium/Pleural There is no evidence of pericardial effusion. Prior Study Comparison Changes noted compared to prior study dated: 02/27/2023. ascending aorta is 3.7 cm on this study Measurements 2D Linear Measurements IVSd: 1.14 0.6-0.9/0.6-1.0 cm LVIDd: 4.62 3.9-5.3/4.2-5.9 cm LVIDd Index: 2.48 2.4-3.2/2.2-3.1 cm/m2 LVIDs: 2.63 2.0-3.6 cm LVPWd: 0.76 0.7-1.1 cm LA Diam: 3.70 2.7-3.8/3.0-4.0 cm LAIDs Index: 1.99 1.5-2.3 cm/m2 LV Mass: 185.17 67-162/88-224 g LV Mass Index: 99.55 43-95/49-115 g/m2 LVOT Diam: 2.10 3.0+(-)1.3 cm 2D Systolic Function EF 4C: 67.70 >55% EF 2C: 70.10 >55% EF BiP: 68.60 >55% Mitral Valve MV Pk E: 0.69 MV PK A: 0.47 MV Decel Time: 215.00 E/A: 1.50 E'Lateral: 8.27 E'Medial: 6.96 E/E' Med: 9.90 E/E' Lat: 8.30 PHT: 63.00 MVA PHT: 3.49 Decel [place]: 3.19 Aortic Valve AoV Pk Devaughn: 1.51 AoV Mn Devaughn: 1.03 AoV VTI: 0.34 AoV Pk Grad: 9.00 Aov Mn Grad: 5.00 CLAUDIO Cont.VTI: 2.81 LVOT LVOT Pk Devaughn: 1.30 LVOT Mn Devaughn: 0.82 LVOT VTI: 0.28 LVOT Pk Grad: 7.00 LVOT Mn Grad: 3.00 LVOT Diam: 2.10 LVOT Area: 3.46 Diastolic Function MV Pk E: 0.69 MV Pk A: 0.47 E/A: 1.50 E'Medial: 6.96 E/E' Med: 9.90 E' Laterial: 8.27 E/E' Lat: 8.30 Right Ventricle TAPSE (mm): 32.10 TVS' Devaughn: 14.80 Tricuspid Valve TR Pk Devaughn: 2.44 TR Pk Grad: 24.00 RA Press: 3.00 RVSP: 27.00 Great Vessels Aorta Sinus of Valsalva: 3.61 2.0-3.5 cm Ao Asc: 3.70 2.1-3.4 cm Updated in Other Vendor System with Status of Final Mauro Babcock MD electronically signed on 01/25/2024 12:49:29 PM with status of Final
== END ==
LOC: HO.CARD 09:56
PROVIDERS: PCP Nurse Practitioner Family; Visit Provider Nurse Practitioner Family
DX: Z01.818 Encounter for other preprocedural examination (principal)
CPT/HCPCS: 93306

== ENCOUNTER → 2024-01-24 09:58 | Outpatient (BNV) | payer BC, SELFPAY | PROVIDERS: PCP Nurse Practitioner Family; Visit Provider Internal Medicine Cardiovascular Disease | DX: I35.8 Other nonrheumatic aortic valve disorders (principal); I36.1 Nonrheumatic tricuspid (valve) insufficiency | CPT/HCPCS: 93306 ==

== ENCOUNTER 2024-02-21 08:54 | Day surgery (SDC) | payer BC, SELFPAY ==
[2024-02-11 12:13] VITALS: BMI 25.9
--- NOTE | 2024-02-20 09:18 | P.HPSUR_ITS ---
Pre-Procedural Eval Section A - 24 Hr Update-Section A only Date of Service: 02/21/24 The patient is an INPATIENT: No Changes since office visit: No Cold of Flu in the past 2 weeks, No New Medical Problems, No Changes in Medication and No Patient answered all questions Section B - Complete if H&P > 30 days Chief Complaint: Bilateral inguinal hernia, without obstruction Allergies: Allergies Allergy/AdvReac Type Severity Reaction Status Date / Time codeine [CODEINE] Allergy Intermediate NAUSEA, Verified 02/11/24 11:49 stomach upset lisinopril Allergy Intermediate angioedema Verified 02/11/24 11:49 Sulfa (Sulfonamide Allergy Intermediate NAUSEA, Verified 02/11/24 11:49 Antibiotics) stomach [SULFA (SULFONAMIDE upset ANTIBIOTICS)] Review of Systems Sugical H&P ROS: Negative: Constitution, Cardiovascular, Respiratory, Neurological, Psychiatric, Hem-Onc, Allergic/Immunologic, Gastrointestinal, G enitourinary, Musculoskeletal, Integumentary, Endocrine and Eyes/Ears/Nose/Throat Exam Surgical H&P Exam: Normal: HEENT, Normal: Heart, Normal: Lungs, Normal: Extremities, Normal: Abdomen, Normal: Skin and Normal: Neurological Plan I have reviewed the history and physical and performed a pertinent physical examination on my patient. No changes have occurred unless specified. Time Spent With Patient Time: Total time managing care of this patient today ____ minutes.
[2024-02-21] VITALS (7 sets, daily range): BP systolic 141–175; BP diastolic 61–99; PULSE 59–79; RESP 16–20; TEMP 36.1–36.9; O2SAT 95–98
[2024-02-21] MEDS: Lactated Ringers 1,000 ML 100 ML IVCONT (09:22)
--- NOTE | 2024-02-21 10:30 | HO.ANESPROP2 ---
Documented by User: Nory Ramos NP 02/20/24 11:12 HPI - Anesthesia Eval Consult details Narrative: 74yo M for Bilateral OPEN Repair Hernia Inguinal with mesh Medically optimized per PCP [facility] Active Problems Active Problems: All Active Problems Pre-op evaluation (Acute) Anemia (Acute) PPD positive (Acute) Retained tick parts of abdominal wall (Acute) New onset right bundle branch block (RBBB) (Acute) Tick bite (Acute) Vitamin D deficiency (Acute) Spigelian hernia (Acute) Inguinal hernia bilateral, non-recurrent (Acute) AAA (abdominal aortic aneurysm) (Acute) PTSD (post-traumatic stress disorder) (Acute) Left groin pain (Acute) Nephrolithiasis (Acute) Hypertension, goal to be determined (Acute) Dyslipidemia (Acute) Cervical pain (neck) (Acute) Diarrhea (Acute) Renal cysts, acquired, bilateral (Acute) Microscopic hematuria (Acute) Ascending aorta dilatation (Acute) Physical exam (Acute) Hip pain (Acute) Past Medical History Medical History (Updated 02/11/24 @ 12:18 by Rhea Salcedo RN) History of injury of tendon (~2013) Environmental and seasonal allergies Ascending aorta dilatation Screening PSA (prostate specific antigen) Acute otitis media Hip pain Abdominal hernia Physical exam Physical exam Screening for colon cancer Erectile dysfunction Kidney cysts Pheochromocytoma TIA (transient ischemic attack) (~2008) Hypercholesterolemia Mild acid reflux High blood pressure determined by examination Renal cyst, acquired Microscopic hematuria Tubular adenoma of colon Colon cancer screening Back pain Hip flexor tendonitis Hip arthritis Quadriceps tendon rupture Serous otitis media Acute sinusitis Otitis externa of both ears Otitis media Viral syndrome Encounter for screening laboratory testing for COVID-19 virus Family History Family History Father Substance use disorder Brother Substance use disorder Mother Liver cancer History of kidney cancer Paternal Uncle HTN (hypertension) Maternal Aunt Cancer Family/Other Cancer Surgical History Surgical History (Updated 02/11/24 @ 12:18 by Rhea Salcedo RN) History of esophagogastroduodenoscopy (EGD) (~2018) Hx of colonoscopy (~2018) H/O neck surgery H/O umbilical hernia repair History of back surgery History of ankle surgery History of surgery Social History Social History Housing: House Are you a primary long term care social worker to a significant other at home: No Do you presently have visiting nurse or other home services: No Alcohol intake: current Alcohol intake frequency: a few times a week Patient Tobacco Use Status: Never used Tobacco e-Cigarette/Vaping Use: Never Used Second Hand Smoke Exposure: No Use of substances other than those prescribed or required for medical reasons: No Have you been hit, kicked, punched, or otherwise hurt by someone within the past year? If so, by whom?: No Are you DNR?: No Advance Directives: No Advance Directives Information Provided: Yes Advance Directives on File: No Recently lost weight without trying: No Nutrition Risks: Surgical patient >75years Poor oral hygiene: No service: Yes Current occupational status: retired Cognitive needs: No Hearing needs: No Vision needs: No Meds Allergies Allergy/AdvReac Type Severity Reaction Status Date / Time codeine [CODEINE] Allergy Intermediate NAUSEA, Verified 02/11/24 11:49 stomach upset lisinopril Allergy Intermediate angioedema Verified 02/11/24 11:49 Sulfa (Sulfonamide Allergy Intermediate NAUSEA, Verified 02/11/24 11:49 Antibiotics) stomach [SULFA (SULFONAMIDE upset ANTIBIOTICS)] Home Medications ?Medication ?Instructions ?Recorded ?Confirmed ?Last Taken ?Type sertraline 100 mg tablet 100 mg PO DAILY 02/24/20 02/11/24 Unknown History hydroxyzine HCl 10 mg tablet 10 mg PO TID PRN Anxiety 07/14/20 02/11/24 Unknown History ipratropium bromide 21 mcg (0.03 2 spray intranasal BID PRN Allergy 12/21/23 02/11/24 Unknown History %) nasal spray Symptoms esomeprazole magnesium 20 mg 20 mg PO DAILY 02/11/24 02/11/24 Unknown History tablet,delayed release pravastatin 40 mg tablet 40 mg PO BEDTIME 02/11/24 02/11/24 Unknown History Exam Height,Weight and Vital Signs: Height 5 ft 7.5 in Weight 76.204 kg Pertinent Lab Results Pertinent Lab Results: Laboratory Tests 12/25/23 14:01 WBC 9.1 Hgb 13.7 L Hct 42.8 Plt Count 282 Sodium 143 Potassium 4.7 Chloride 107 Carbon Dioxide 28 BUN 30 H Creatinine 1.04 Narrative Narrative: ECHO 01/2024 Conclusions: - 1. Normal LV ejection fraction of 65-70% with impaired relaxation filling pattern 2. Normal cardiac valvular Dopplers 3. Normal RV systolic pressure 4. No gross pericardial effusion 5. Mildly dilated ascending aorta at 3.7 cm EKG 12/2023 SB @ 49 LAD Assessment and Plan Assessment Anesthesia Assessment: Chart Reviewed Documented by User: Camila Fallon DO 02/21/24 12:12 [facility] Past Medical History Medical History (Updated 02/11/24 @ 12:18 by Rhea Salcedo, ROSS) History of injury of tendon (~2013) Environmental and seasonal allergies Ascending aorta dilatation Screening PSA (prostate specific antigen) Acute otitis media Hip pain Abdominal hernia Physical exam Physical exam Screening for colon cancer Erectile dysfunction Kidney cysts Pheochromocytoma TIA (transient ischemic attack) (~2008) Hypercholesterolemia Mild acid reflux High blood pressure determined by examination Renal cyst, acquired Microscopic hematuria Tubular adenoma of colon Colon cancer screening Back pain Hip flexor tendonitis Hip arthritis Quadriceps tendon rupture Serous otitis media Acute sinusitis Otitis externa of both ears Otitis media Viral syndrome Encounter for screening laboratory testing for COVID-19 virus Family History Family History Father Substance use disorder Brother Substance use disorder Mother Liver cancer History of kidney cancer Paternal Uncle HTN (hypertension) Maternal Aunt Cancer Family/Other Cancer Family history of problems with anesthesia: No Surgical History Surgical History (Updated 02/11/24 @ 12:18 by Rhea Salcedo RN) History of esophagogastroduodenoscopy (EGD) (~2018) Hx of colonoscopy (~2018) H/O neck surgery H/O umbilical hernia repair History of back surgery History of ankle surgery History of surgery History of Problems with Anesthesia: No Social History Social History Housing: House Are you a primary long term care social worker to a significant other at home: No Do you presently have visiting nurse or other home services: No Alcohol intake: current Alcohol intake frequency: a few times a week Patient Tobacco Use Status: Never used Tobacco e-Cigarette/Vaping Use: Never Used Second Hand Smoke Exposure: No Use of substances other than those prescribed or required for medical reasons: No Have you been hit, kicked, punched, or otherwise hurt by someone within the past year? If so, by whom?: No Are you DNR?: No Advance Directives: No Advance Directives Information Provided: Yes Advance Directives on File: No Recently lost weight without trying: No Nutrition Risks: Surgical patient >75years Poor oral hygiene: No service: Yes Current occupational status: retired Cognitive needs: No Hearing needs: No Vision needs: No Meds Allergies Allergy/AdvReac Type Severity Reaction Status Date / Time codeine [CODEINE] Allergy Intermediate NAUSEA, Verified 02/11/24 11:49 stomach upset lisinopril Allergy Intermediate angioedema Verified 02/11/24 11:49 Sulfa (Sulfonamide Allergy Intermediate NAUSEA, Verified 02/11/24 11:49 Antibiotics) stomach [SULFA (SULFONAMIDE upset ANTIBIOTICS)] Home Medications ?Medication ?Instructions ?Recorded ?Confirmed ?Last Taken ?Type sertraline 100 mg tablet 100 mg PO DAILY 02/24/20 02/11/24 Unknown History hydroxyzine HCl 10 mg tablet 10 mg PO TID PRN Anxiety 07/14/20 02/11/24 Unknown History ipratropium bromide 21 mcg (0.03 2 spray intranasal BID PRN Allergy 12/21/23 02/11/24 Unknown History %) nasal spray Symptoms esomeprazole magnesium 20 mg 20 mg PO DAILY 02/11/24 02/11/24 Unknown History tablet,delayed release pravastatin 40 mg tablet 40 mg PO BEDTIME 02/11/24 02/11/24 Unknown History Exam Exam Date and Time: 02/21/24 1030 Height,Weight and Vital Signs: Vital Signs Temperature 98.5 F 02/21/24 09:00 Pulse Rate 67 02/21/24 09:00 Respiratory Rate 20 02/21/24 09:00 Blood Pressure 141/71 H 02/21/24 09:00 Pulse Oximetry 96 02/21/24 09:00 Oxygen Delivery Method Room Air 02/21/24 09:00 Temperature 98.5 F 02/21/24 09:00 Pulse Rate 67 02/21/24 09:00 Respiratory Rate 20 02/21/24 09:00 Blood Pressure 141/71 H 02/21/24 09:00 Pulse Oximetry 96 02/21/24 09:00 Oxygen Delivery Method Room Air 02/21/24 09:00 Height 5 ft 7.5 in Weight 76.204 kg Airway Mallampati Class: II TM Dist: >3cm Neck ROM: Full Loose/Missing/Broken Teeth: No (patient denied any loose or broken teeth) Heart: S1S2 Lungs: CTAB Assessment and Plan Assessment Anesthesia Assessment: Anesthesia Plan Discussed and Chart Reviewed Final Anesthetic Review Family History of Problems with Anesthesia: No History of Problems with Anesthesia: No NPO: Yes ASA Class: II Final Preanesthetic Review: No Changes in Pt Med Stat, Meds/Allgs Chart Reviewed, Consent Obtained/Reviewed and Anes Risks/Benef Reviewed Patient Risk: Low Procedure Risk: Low Anesthetic Plan Anesthetic Plan: MAC: and Agree w/ Assess. and Plan Disposition: Standard PACU
--- NOTE | 2024-02-21 12:59 | W.PM.OPN ---
Operative Note Operative Note Date of Service: 02/21/24 Narrative: Preoperative diagnosis: [] Symptomatic bilateral inguinal herniae Postop diagnosis: [] The same Procedure [] open bilateral inguinal herniorrhaphy with Bard mesh Surgeon: [] Rodri Staff Pharmacist: [] Type of Anesthesia: [] Mac Indication for surgery: [] Bilateral indirect inguinal herniae Findings: [] Patient brought to the operating room, placed on operative table supine position, after an adequate level of MAC anesthesia was induced, bilateral groin areas were prepped and draped in usual sterile fashion using symmetrical ilioinguinal block with 0.5% Marcaine/1% lidocaine as well as infiltrated into the proposed incision sites, each hernia was approached with a small para inguinal incision which was carried down through skin, subcutaneous tissue and Karen's fascia. Spermatic cord and each side was identified and retracted from the field. Ilioinguinal nerves were identified, and preserved throughout the procedure. Each hernia had indirect hernia sac which was from the cord structures and respectively reduced. Each hernia was repaired by putting a plug in the indirect defect, and suturing this inferiorly to the inguinal ligament, and superiorly to the transversalis fascia using interrupted 0 Ethibond suture. Repair covered the inguinal floor as well. Each mesh was in good position with no gaps or tension. Each wound was irrigated, secured hemostasis, and closed in the following manner; external oblique fascia was closed using running 2-0 Vicryl suture. Karen's fascia was reapproximated using interrupted 3-0 Vicryl suture. Interrupted inverted deep dermal 3-0 Vicryl sutures followed by running subcuticular 4-0 Vicryl sutures were placed. Steri-Strips and sterile dressings were applied. Sponge, needle, and instrument counts reported correct. Patient tolerated the procedure well and emerged from anesthesia stable condition. EBL minimal. Bilateral testicle were intrascrotal at completion.
[2024-02-21] MEDS: ondansetron HCL 4 MG/2 ML VIAL IVPUSH (13:28)
[2024-02-21] MEDS: Haloperidol Lactate 5 MG/ML VIAL 1 MG IVPUSH (14:01)
--- NOTE | 2024-02-21 14:02 | PC.NURSE ---
Pt ambulate to bathroom and began dry heaving, pt put back to bed and medicated with haldol for nasuea, continue to monitor vs at this time.
== END 2024-02-21 15:21 | disposition home or self-care (01) ==
PROVIDERS: PCP Nurse Practitioner Family; Visit Provider Surgery
PROC: (CPT 49505; principal; 2024-02-21 11:40)
DX: K40.20 Bilateral inguinal hernia, without obstruction or gangrene, not specified as recurrent (principal); K21.9 Gastro-esophageal reflux disease without esophagitis; R10.9 Unspecified abdominal pain; I10 Essential (primary) hypertension; D35.00 Benign neoplasm of unspecified adrenal gland; E78.00 Pure hypercholesterolemia, unspecified; Z86.73 Personal history of transient ischemic attack (TIA), and cerebral infarction without residual deficits; Z79.899 Other long term (current) drug therapy; Z88.2 Allergy status to sulfonamides; Z88.5 Allergy status to narcotic agent; Z88.8 Allergy status to other drugs, medicaments and biological substances; Z98.890 Other specified postprocedural states
CPT/HCPCS: 49505; C1781; J0690; J1100; J1630; J2003; J2405; J2704; J2795; J3010

== ENCOUNTER → 2024-02-21 08:54 | Outpatient (BNV) | payer BC, SELFPAY | PROVIDERS: PCP Nurse Practitioner Family; Visit Provider Surgery | DX: K40.20 Bilateral inguinal hernia, without obstruction or gangrene, not specified as recurrent (principal) | CPT/HCPCS: 49505 ==

== ENCOUNTER 2024-03-03 09:23 | Outpatient (AMB) | payer BC, SELFPAY ==
--- NOTE | 2024-03-03 09:26 | A.OFFVIS_ITS ---
Intake Visit Reasons: s/p Bilateral inguinal hernia repair w/mesh Intake Note: Patient here s/p bilateral inguinal hernia repair w/mesh. Reports incisions healing well. Patient c/o: soreness. Taking rx pain meds as needed. SX: 02-21-2024. Bulk Sealer Required: No Accompanied by: Spouse Allergies codeine [CODEINE] Allergy (Intermediate, Verified 03/03/24 09:29) NAUSEA, stomach upset lisinopril Allergy (Intermediate, Verified 03/03/24 09:29) angioedema Sulfa (Sulfonamide Antibiotics) [SULFA (SULFONAMIDE ANTIBIOTICS)] Allergy (Intermediate, Verified 03/03/24 09:29) NAUSEA, stomach upset HPI Comments Details: Patient presents with . Status post bilateral inguinal hernia repair. He is doing fairly well. He is tolerating a diet. He is having regular bowel habits. He is slowly but steadily increasing his activity level. He has incisional discomfort is improving. [facility] Medical History (Updated 02/11/24 @ 12:18 by Rhea Salcedo RN) History of injury of tendon (~2013) Environmental and seasonal allergies Ascending aorta dilatation Screening PSA (prostate specific antigen) Acute otitis media Hip pain Abdominal hernia Physical exam Physical exam Screening for colon cancer Erectile dysfunction Kidney cysts Pheochromocytoma TIA (transient ischemic attack) (~2008) Hypercholesterolemia Mild acid reflux High blood pressure determined by examination Renal cyst, acquired Microscopic hematuria Tubular adenoma of colon Colon cancer screening Back pain Hip flexor tendonitis Hip arthritis Quadriceps tendon rupture Serous otitis media Acute sinusitis Otitis externa of both ears Otitis media Viral syndrome Encounter for screening laboratory testing for COVID-19 virus Surgical History (Updated 03/03/24 @ 09:36 by Speedy Mace MD) Inguinal hernia bilateral, non-recurrent (02/21/24) History of esophagogastroduodenoscopy (EGD) (~2018) Hx of colonoscopy (~2018) H/O neck surgery H/O umbilical hernia repair History of back surgery History of ankle surgery History of surgery Family History Father Substance use disorder Brother Substance use disorder Mother Liver cancer History of kidney cancer Paternal Uncle HTN (hypertension) Maternal Aunt Cancer Family/Other Cancer Social History (Reviewed 01/15/24 @ 11:17 by CHASE FlemingWilliams Housing: House Are you a primary healthcare administrative assistant to a significant other at home: No Do you presently have visiting nurse or other home services: No Alcohol intake: current Alcohol intake frequency: a few times a week Patient Tobacco Use Status: Never used Tobacco e-Cigarette/Vaping Use: Never Used Second Hand Smoke Exposure: No service: Yes Current occupational status: retired Cognitive needs: No Hearing needs: No Vision needs: No Physical Exam GI Other: Abdomen is soft. Bilateral groin wounds clean dry and intact healing very well Assessment & Plan Assessment & Plan (1) Status post bilateral inguinal hernia repair, follow-up exam: Code(s): Z09 - Encounter for follow-up examination after completed treatment for conditions other than malignant neoplasm; Z87.19 - Personal history of other diseases of the digestive system Category: Medical Plan Patient was been given local instructions including avoiding strenuous activities for next few weeks time and will otherwise follow-up p.r.n.. All questions answered. Coding Level of Care Code Global (99563) Diagnoses Status post bilateral inguinal hernia repair, follow-up exam Z09; Z87.19
== END 2024-03-03 10:03 | disposition home or self-care (01) ==
PROVIDERS: PCP Nurse Practitioner Family; Visit Provider Surgery
DX: Z09 Encounter for follow-up examination after completed treatment for conditions other than malignant neoplasm (principal); Z87.19 Personal history of other diseases of the digestive system
CPT/HCPCS: 99024

== ENCOUNTER → 2024-03-03 09:23 | Outpatient (BNVA) | payer BC, SELFPAY | PROVIDERS: PCP Nurse Practitioner Family; Visit Provider Surgery ==

== ENCOUNTER 2024-05-15 09:51 | Day surgery (SDC) | payer MEDICARE, BC, SELFPAY ==
--- OUTSIDE RECORDS SUMMARY | 2024-04-30 14:06 | XMS_ITS | Encounter Summary ---
Author Name [facility] [place] Organization [facility] [place] [facility] [place] Address [address] [place] [id number] Care Team Providers Care Associate Producer Name Role Phone MEGHAN EVANS Primary Care Provider Unava ilable Insurance Providers: All historical and current Section Date Range: From patient's date of to the date document was created. This section includes the names of all active insurance providers for the patient. Insurance Provider Type of Coverage Plan Name Start of Policy Coverage End of Policy Coverage Group Number Member ID Insurance Provider's Telephone Number Policy Anguiano's Name Patient's Relationship to Policy Anguiano BCBS [place] F[place] PREFERRED PROVIDER ORGANIZAT ION (PPO) STAND JEN SELF PLUS 1 Apr 23, 2015 [id number] [phone] VALENTÍN HERRING MYRANDA PATIENT CAREMARK-F EP BCBS PRESCRIPT ION FEP CAREM ARK Apr 23, 2015 [id number] NIMAVALENTÍN WHITMORE PATIENT MEDICARE (WNR) MEDICARE (M) PART A Dec 22, 2013 PART A [id number] [phone] VALENTÍN HERRING MYRANDA PATIENT Selected Encounter This section includes the information on record at [place] for the Encounter. Date/Time Encounter Type Encounter Description Reason Pro vider Source Jan 19, 2024 07:49 AM Outpatient Encounter TELEPHONE PRIMARY CARE IHE Encounter Template Text not used by [facility] Plan of Treatment: Future Appointments (+ 6 months) and Future Tests (+/- 45 days) The Plan of Treatment section includes future care activities for the patient from [facility] This section includes future appointments and future orders which are active, pending or scheduled. Future Appointments This section includes appointments that were scheduled to occur 6 months from the date of the Encounter, up to a maximum of 20 appointments. The data comes from all [facility]. Appointment Date/Time Appointment Type Appointme nt Facility Name Jan 22, 2024 11:00 AM AMBULATORY - MEDICINE [facility] Feb 11, 2024 01:00 PM AMBULATORY - PSYCHIATRY [facility] May 14, 2024 08:30 AM AMBULATORY PSYCHIATRY [facility] Active, Pending, and Scheduled Orders This section includes a listing of several types of active, pending, and scheduled orders, including clinic medications orders, diagnostic test orders, procedure orders and consult orders; where the start date of the order is 45 days before the date of the Encounter or 45 days after the date of theEncounter. The data comes from all [facility]. Test Date/Time Test Type Test Details Facility Name Jan 22, 2024 12:00 AM Laboratory - Chemi stry Order OCCULT BLOOD FIT X1 SCREEN(IN-HOUSE) STOOL [facility] Lab Results: +/- 30 days of the encounter This section includes the Chemistry and Hematology Lab Results on record with MD for the patient. Radiology Reports and Pathology Reports are provided separately, in subsequent sections. Lab Results This section contains the Chemistry/Hematology Results that were resulted 30 days before or 30 daysafter the date of the Encounter. Date/Time Source Result Type Result - Unit Interpretation Reference Range Comment Jan 14, 2024 11:21 AM [place] TSH Specimen Type: SERUM No comment entered. Ordering Provider: TED BISHOP Report Released Date/Time: Jan 22, 2023 01:19 PM Reporting Lab: [address] [address] Performing Lab: [address] [address] TSH 0.53 u[IU]/mL 0.35-5.00 Jan 14, 2024 11:21 AM [place] URINALYSIS Specimen Type: URINE Comment: If Glucose = >500 and Ketones are positive, please alert the Physician. Ordering Provider: TED BISHOP Report Released Date/Time: Jan 22, 2023 01:19 PM Reporting Lab: [address] [address] Performing Lab: [address] [address] UA COLOR Light-Yellow Yellow UA APPEARANCE Clear Clear UA GLUCOSE Normal mg/dL Negative UA KETONES NEGATIVE mg/dL Negative UA BLOOD NEGATIVE mg/dL Negative UA PROTEIN NEGATIVE mg/dL Negative UA NITRITE NEGATIVE mg/dL Negative UA BILIRUBIN NEGATIVE mg/dL Negative UA SPECIFIC GRAVITY 1.024 H 1.016-1.022 UA pH 5.5 5.0-9.0 UA UROBILINOGEN Normal mg/dL <2.0 UA LEUKOCYTE NEGATIVE Negative Jan 14, 2024 11:21 AM [place] BASIC METABOLIC PANEL (fasting) Specime n Type: SERUM No comment entered. Ordering Provider: TED BISHOP Report Released Date/Time: Jan 22, 2023 01:19 PM Reporting Lab: [address] [address] Performing Lab: [address] [address] UREA NITROGEN 31 mg/dL H 7-25 GLUCOSE 91 mg/dL 65-100 SODIUM 141 mmol/L 135-145 POTASSIUM 4.6 mmol/L 3.5-5.0 CHLORIDE 106 mmol/L 100-110 CO2 28 meq/L 20-30 CREATININE, Serum 1.09 mg/dL 0.50-1.40 eGFR(CKD-EPI 2020) 71 mL/min >60 Jan 14, 2024 11:21 AM [place] LIPID PANEL FASTING Specimen Type: SERUM No comment entered. Ordering Provider: TED BISHOP Report Released Date/Time: Jan 22, 2023 01:19 PM Reporting Lab: [address] [address] Performing Lab: [address] [address] CHOLESTEROL 158 mg/dL TRIGLYCERIDE 81 mg/dL 0-150 LDL calculated 92 mg/dL 0-129 CHOL/HDL 3.2 HDL CHOLESTEROL 50 mg/dL 40-60 Jan 14, 2024 11:21 AM [place] LIVER FUNCTION Specimen Type: SERUM No comment entered. Ordering Provider: TED BISHOP Report Released Date/Time: Jan 22, 2023 01:19 PM Reporting Lab: [address] [address] Performing Lab: [address] [address] PROTEIN,TOTAL 6.7 g/dL 6.0-8.3 ALBUMIN 4.0 g/dL 3.5-5.0 ALKALINE PHOSPHATASE 62 U/L 40-150 AST 14 U/L 5-34 ALT 9 U/L BILIRUBIN, TOTAL 0.4 mg/dL 0.2-1.2 Jan 14, 2024 11:21 AM [place] HEMOGLOBIN A1C PANEL Specimen Type: BLOOD Comment: Values obtained from A1C measurements can vary. For atypical A1C assays, a reported value of 7.0 could actually be between 6.72 and 7.28 if measured by a reference method. A reported value of 9.0 could actually be between 8.73 and 9.27. Ref: http://www.ngs p.org/CAPdata. asp Ordering Provider: TED BISHOP Report Released Date/Time: Jan 22, 2023 01:19 PM Reporting Lab: [address] [address] Performing Lab: [address] [address] HEMOGLOBIN A1C 5.0 4.0-5.6 Jan 14, 2024 11:21 AM [place] CBC AND DIFF (AUTO) Specimen Type: BLOOD No comment entered. Ordering Provider: TED BISHOP Report Released Date/Time: Jan 22, 2023 01:19 PM Reporting Lab: [address] [address] Performing Lab: [address] [address] WBC 7.82 10*3/uL 4.50-11.00 RBC 4.64 10*6/uL 4.23-5.66 HGB 13.8 g/dL 12.8-17 HCT 41.5 39.2-50.4 MCV 89.4 fL 82-99 MCHC 33.3 g/dL 30.8-35.1 PLT 269 10*3/uL 140-360 RDW-CV 13.7 12.0-16.0 MONO, ABS 0.53 10*3/uL 0.30-1.10 MCH 29.7 pg 26.2-32.6 NEUT % 64.3 43.7-75.8 LYMPH % 25.8 14.0-42.3 MONO % 6.8 5.1-13.7 EOS % 2.2 0.4-6.8 BASO % 0.6 0.1-2.0 NEUT, ABS 5.03 10*3/uL 2.20-7.60 LYMPH, ABS 2.02 10*3/uL 1.00-3.20 EOS, ABS 0.17 10*3/uL 0.03-0.44 BASO, ABS 0.05 10*3/uL 0.01-0.13 IMMATURE GRAN % 0.3 0.0-0.7 IMMATURE GRAN, ABS 0.02 10*3/uL 0.00-0.06 NRBC % 0.0 0.0-0.0 NRBC, ABS 0.00 10*3/uL 0.00-0.00 Social History: Smoking Status (Most current) and Tobacco Use (All prior to encounter date) This section includes the most current, and the historical, smoking and tobacco- related health factors from the [place] facility where the Encounter took place. Current Smoking Status This section includes the most current smoking, or tobacco-related health factor, from the [place] facility where the Encounter took place. Date/Time Current Smoking Status Comment Facil ity Jan 22, 2023 10:39 AM [facility]-TOBACCO NEVER USED [facility] Tobacco Use History This section includes a history of the smoking, or tobacco-related health factors, that were collected on or before the date of the Encounter. The data comes from the [place] facility where the Encounter took place. Date/Time Smoking Status/Tobacco Use Comment F acreanna Jan 23, 2022 09:02 AM VA-TOBACCO NEVER USED [facility] Encounter Notes: All associated encounter notes This section contains the clinical notes associated to the Encounter. Date/Time Encounter Note(s) Provider Source Jan 19, 2024 07:49 AM LETTERS: LOCAL TITLE: PATIENT LETTER (T) STANDARD TITLE: LETTERS DATE OF NOTE: JAN 19, 2024@07:49 ENTRY DATE: JAN 19, 2024@07:49:52 AUTHOR: NYA DOUGLAS COSIGNER: URGENCY: STATUS: COMPLETED DEPARTMENT OF [facility] Toll Free Number Primary Care Telephone Assistance can be reached at extension [phone] [facility] Health scheduling can be reached at extension [phone] [facility] scheduling can be reached at ext [phone], [address] [place] , Please share these results with your nonVA Provders. We look forward to seeing you at your upcoming primary care appointment. Your recent test results are as follows: LAB CHEMISTRY & HEMATOLOGY Collection DT Specimen Test Name Result Units Ref Range 01/14/2024 11:21 BLOOD !! HEMOGLOBIN A1C 5.0 % 4.0 - 5.6 01/14/2024 11:21 BLOOD WBC 7.82 K/cmm 4.50 - 11.00 RBC 4.64 M/cmm 4.23 - 5.66 HGB 13.8 g/dL 12.8 - 17 HCT 41.5 % 39.2 - 50.4 MCV 89.4 fl 82 - 99 MCH 29.7 pg 26.2 - 32.6 MCHC 33.3 g/dL 30.8 - 35.1 RDW-CV 13.7 % 12.0 - 16.0 PLT 269 K/cmm 140 - 360 NEUT % 64.3 % 43.7 - 75.8 LYMPH % 25.8 % 14.0 - 42.3 MONO % 6.8 % 5.1 - 13.7 EOS % 2.2 % 0.4 - 6.8 BASO % 0.6 % 0.1 - 2.0 IMMATURE GRAN % 0.3 % 0.0 - 0.7 NRBC % 0.0 % 0.0 - 0.0 NEUT, ABS 5.03 K/cmm 2.20 - 7.60 LYMPH, ABS 2.02 K/cmm 1.00 - 3.20 MONO, ABS 0.53 K/cmm 0.30 - 1.10 EOS, ABS 0.17 K/cmm 0.03 - 0.44 BASO, ABS 0.05 K/cmm 0.01 - 0.13 IMMATURE GRAN, AB 0.02 K/cmm 0.00 - 0.06 NRBC, ABS 0.00 K/cmm 0.00 - 0.00 01/14/2024 11:21 SERUM TSH 0.53 uIU/mL 0.35 - 5.00 01/14/2024 11:21 SERUM CREATININE, Serum 1.09 mg/dL 0.50 - 1.40 eGFR(CKD-EPI 2020 71 mL/min Ref: >=60 SODIUM 141 mmol/L 135 - 145 POTASSIUM 4.6 mmol/L 3.5 - 5.0 CHLORIDE 106 mmol/L 100 - 110 CO2 28 mEq/L 20 - 30 UREA NITROGEN 31 H mg/dL 7 - 25 GLUCOSE 91 mg/dL 65 - 100 PROTEIN,TOTAL 6.7 g/dL 6.0 - 8.3 ALBUMIN 4.0 g/dL 3.5 - 5.0 ALK UMAIR 62 U/L 40 - 150 AST 14 U/L 5 - 34 BILIRUBIN, TOTAL 0.4 mg/dL 0.2 - 1.2 CHOLESTEROL 158 mg/dL <7 - 199 TRIGLYCERIDE 81 mg/dL 0 - 150 LDL calculated 92 mg/dL 0 - 129 CHOL/HDL 3.2 ALT 9 U/L <6 - 55 HDL CHOLESTEROL 50 mg/dL 40 - 60 01/14/2024 11:21 URINE !! UA COLOR Light-Yellow Ref: Yellow !! UA APPEARANCE Clear Ref: Clear !! UA pH 5.5 5.0 - 9.0 !! UA GLUCOSE Normal mg/dL Ref: Negative !! UA KETONES NEGATIVE mg/dL Ref: Negative !! UA BLOOD NEGATIVE mg/dL Ref: Negative !! UA PROTEIN NEGATIVE mg/dL Ref: Negative !! UA LEUKOCYTE NEGATIVE Ref: Negative !! UA NITRITE NEGATIVE mg/dL Ref: Negative !! UA BILIRUBIN NEGATIVE mg/dL Ref: Negative !! UA UROBILINOGEN Normal mg/dL Ref: <2.0 !! SpeGra 1.024 H 1.016 - 1.022 !! Indicates COMMENTS AVAILABLE...Refer to Interim Lab Report. Lipid Profile Collection DT Specimen Test Name Result Units Ref Range 01/14/2024 11:21 SERUM CHOLESTEROL 158 mg/dL <7 - 199 01/14/2024 11:21 SERUM TRIGLYCERIDE 81 mg/dL 0 - 150 01/14/2024 11:21 SERUM HDL CHOLESTEROL 50 mg/dL 40 - 60 01/14/2024 11:21 SERUM LDL calculated 92 mg/dL 0 - 129 01/14/2024 11:21 SERUM CHOL/HDL 3.2 01/14/2024 11:21 BLOOD !! HEMOGLOBIN A1C 5.0 % 4.0 - 5.6 !! Indicates COMMENTS AVAILABLE...Refer to Interim Lab Report. Thyroid Test Collection DT Spec TSH 01/14/2024 11:21 SERUM 0.53 Please call if you have any questions or concerns. Upcoming Appointments: 01/22/2024 11:00 CWM/SO/PACT 9 02/11/2024 13:00 SPOPC/MHC/YARI Sincerely, Your Primary Care Team [facility] [address] [address] [place] [address] [phone] [facility] [address] [place] [address] [place] [address] [facility] [address] [facility],1st Floor [address] [place] [phone] [place] [address] NYA DOUGLAS MD [facility]
--- OUTSIDE RECORDS SUMMARY | 2024-04-30 14:06 | XMS_ITS ---
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 Date/Time Encounter Type Encounter Description Reason Pro vider Source Jan 22, 2024 12:00 AM Outpatient Encounter EVENT (HISTORICAL) IHE Encounter Template Text not used by [facility] Plan of Treatment: Future Appointments (+ 6 months) and Future Tests (+/- 45 days) The Plan of Treatment section includes future care activities for the patient from all [place] [facility]. This section includes future appointments and future orders which are active, pending or scheduled. Future Appointments This section includes appointments that were scheduled to occur 6 months from the date of the Encounter, up to a maximum of 20 appointments. The data comes from all [facility]. Appointment Date/Time Appointment Type Appointme nt Facility Name Feb 11, 2024 01:00 PM AMBULATORY - [...] of theEncounter. The data comes from all [facility]. Test Date/Time Test Type Test Details Facility Name Jan 22, 2024 12:00 AM Laboratory - Chemi stry Order OCCULT BLOOD FIT X1 SCREEN(IN-HOUSE) STOOL [facility]ECES [facility] Lab Results: +/- 30 days of the encounter This section includes the Chemistry and Hematology Lab Results on record with [place] for the patient. Radiology Reports and Pathology Reports are provided separately, in subsequent sections. Lab Results This section contains the Chemistry/Hematology Results that were resulted 30 days before or 30 daysafter the date of the Encounter. Date/Time Source Result Type Result - Unit Interpretation Reference Range Comment Jan 14, 2024 11:21 AM [place] TSH Specimen Type: SERUM No comment entered. Ordering Provider: TED BISHOP Report Released Date/Time: Jan 22, 2023 01:19 PM Reporting Lab: [facility] [address] [facility] [address] Performing Lab: [facility] [address] [facility] [address] TSH 0.53 u[IU]/mL 0.35-5.00 Jan 14, 2024 11:21 AM [place] URINALYSIS Specimen Type: URINE Comment: If Glucose = >500 and Ketones are positive, please alert the Physician. Ordering Provider: TED BISHOP Report Released Date/Time: Jan 22, 2023 01:19 PM Reporting Lab: [address] [address] Performing Lab: [address] [address] UA COLOR Light-Yellow Yellow UA APPEARANCE Clear Clear UA GLUCOSE Normal mg/dL Negative UA KETONES NEGATIVE mg/dL Negative UA BLOOD NEGATIVE mg/dL Negative UA PROTEIN NEGATIVE mg/dL Negative UA NITRITE NEGATIVE mg/dL Negative UA BILIRUBIN NEGATIVE mg/dL Negative UA SPECIFIC GRAVITY 1.024 H 1.016-1.022 UA pH 5.5 5.0-9.0 UA UROBILINOGEN Normal mg/dL <2.0 UA LEUKOCYTE NEGATIVE Negative Jan 14, 2024 11:21 AM [place] BASIC METABOLIC PANEL (fasting) Specime n Type: SERUM No comment entered. Ordering Provider: TED BISHOP Report Released Date/Time: Jan 22, 2023 01:19 PM Reporting Lab: [address] [address] Performing Lab: [address] [address] UREA NITROGEN 31 mg/dL H 7-25 GLUCOSE 91 mg/dL 65-100 SODIUM 141 mmol/L 135-145 POTASSIUM 4.6 mmol/L 3.5-5.0 CHLORIDE 106 mmol/L 100-110 CO2 28 meq/L 20-30 CREATININE, Serum 1.09 mg/dL 0.50-1.40 eGFR(CKD-EPI 2020) 71 mL/min >60 Jan 14, 2024 11:21 AM [place] LIPID PANEL FASTING Specimen Type: SERUM No comment entered. Ordering Provider: TED BISHOP Report Released Date/Time: Jan 22, 2023 01:19 PM Reporting Lab: [address] [address] Performing Lab: [address] [address] CHOLESTEROL 158 mg/dL TRIGLYCERIDE 81 mg/dL 0-150 LDL calculated 92 mg/dL 0-129 CHOL/HDL 3.2 HDL CHOLESTEROL 50 mg/dL 40-60 Jan 14, 2024 11:21 AM [place] LIVER FUNCTION Specimen Type: SERUM No comment entered. Ordering Provider: TED BISHOP Report Released Date/Time: Jan 22, 2023 01:19 PM Reporting Lab: [address] [address] Performing Lab: [address] [address] PROTEIN,TOTAL 6.7 g/dL 6.0-8.3 ALBUMIN 4.0 g/dL 3.5-5.0 ALKALINE PHOSPHATASE 62 U/L 40-150 AST 14 U/L 5-34 ALT 9 U/L BILIRUBIN, TOTAL 0.4 mg/dL 0.2-1.2 Jan 14, 2024 11:21 AM [place] HEMOGLOBIN A1C PANEL Specimen Type: BLOOD Comment: [...] Jan 22, 2023 01:19 PM Reporting Lab: [address] [address] Performing Lab: [address] [address] HEMOGLOBIN A1C 5.0 4.0-5.6 Jan 14, 2024 11:21 AM [place] CBC AND DIFF (AUTO) Specimen Type: BLOOD No comment entered. Ordering Provider: TED BISHOP Report Released Date/Time: Jan 22, 2023 01:19 PM Reporting Lab: [address] [address] Performing Lab: [address] [address] WBC 7.82 10*3/uL 4.50-11.00 RBC 4.64 10*6/uL [...] 0.0 0.0-0.0 NRBC, ABS 0.00 10*3/uL 0.00-0.00 Vital Signs: All taken on the encounter date This section contains inpatient and outpatient Vital Signs collected on the date of the Encounter. Date/Time Temperature Pulse Blood Pressure Respiratory Rate SP02 Pain Height Weight Body Mass Index Source Jan 22, 2024 11:30 AM 144/73 [facility] Jan 22, 2024 11:29 AM 97.2 86 156/80 20 98 2 68 164.8 25 [facility] Social History: Smoking Status (Most current) and Tobacco Use (All prior to encounter date) This section includes the most current, and the historical, smoking and tobacco- related health factors from the [place] facility where the Encounter took place. Current Smoking Status This section includes the most current smoking, or tobacco-related health factor, from the [place] facility where the Encounter took place. Date/Time Current Smoking Status Comment Shahid brooke Jan 22, 2023 10:39 AM [place]-TOBACCO NEVER USED [facility] Tobacco Use History This section includes a history of the smoking, or tobacco-related health factors, that were collected on or before the date of the Encounter. The data comes from the [place] facility where the Encounter took place. Date/Time Smoking Status/Tobacco Use Comment F acility Jan 23, 2022 09:02 AM [facility]-TOBACCO NEVER USED [place] [facility]
--- OUTSIDE RECORDS SUMMARY | 2024-04-30 14:06 | XMS_ITS | Encounter Summary ---
Author Name [facility] [place] [facility] [place] Address [address] [place] [id number] Care Team Providers Care Veterinary Medical Officer Name Role Phone MEGHAN EVANS Primary Care [...] SELF PLUS 1 Apr 23, [phone] [id number] [phone] VALENTÍN HERRING MYRANDA PATIENT CAREMARK-F EP BCBS PRESCRIPT ION FEP CAREM ARK Apr 23, 2015 [id number] VALENTÍN HERRING MYRANDA PATIENT MEDICARE (WNR) MEDICARE (M) PART A Dec 22, 2013 PART A [id number] [phone] VALENTÍN HERRING SAIGEDaniel PATIENT Selected Encounter This section includes the information on record at [place] for the Encounter. Date/Time Encounter Type Encounter Description Reason Pro vider Source Jan 14, 2024 09:57 AM Outpatient Encounter PRIMARY CARE/MEDICINE [facility] Encounter Template Text not used by [facility] Plan of Treatment: Future Appointments (+ 6 months) and Future Tests (+/- 45 days) The Plan of Treatment section includes [facility] care [facility] for the [facility] [place] [facility] This section includes future appointments and future orders which are active, pending or scheduled. Future Appointments This section includes appointments that were scheduled to occur 6 months from the date of the Encounter, up to a maximum of 20 appointments. The data comes from all [place] treatment facilities. Appointment Date/Time Appointment Type Appointme nt Facility Name Jan 22, 2024 11:00 AM AMBULATORY - [facility]ICINE [facility] Feb 11, 2024 01:00 PM AMBULATORY - PSYCHIATRY [facility] May 14, 2024 08:30 AM AMBULATORY - PSYCHIATRY [facility] Active, Pending, and Scheduled Orders This section includes a listing of several types of active, pending, and scheduled orders, including clinic medications orders, diagnostic test orders, procedure orders and consult orders; where the start date of the order is 45 days before the date of the Encounter or 45 days after the date of theEncounter. The data comes from all [facility]. Test Date/Time Test Type Test Details Facility Name Jan 22, 2024 12:00 AM Laboratory - Chemi stry Order OCCULT BLOOD FIT X1 SCREEN(IN-HOUSE) STOOL [facility] Lab Results: +/- 30 days of the encounter This section includes the Chemistry and Hematology Lab Results on record with [place] for the patient. Radiology Reports and Pathology Reports are provided separately, in subsequent sections. Lab Results This section contains the Chemistry/Hematology Results that were resulted 30 days before or 30 daysafter the date of the Encounter. Date/Time Source Result Type Result - Unit Interpretation Reference Range Comment Jan 14, 2024 11:21 AM [facility] TSH Specimen Type: SERUM No comment entered. Ordering Provider: TED BISHOP Report Released Date/Time: Jan 22, 2023 01:19 PM Reporting Lab: [address] [address] Performing Lab: [address] [address] TSH 0.53 u[IU]/mL 0.35-5.00 Jan 14, 2024 11:21 AM [facility] BASIC METABOLIC PANEL (fasting) Specime n Type: SERUM No comment entered. Ordering Provider: TED BISHOP Report Released Date/Time: Jan 22, 2023 01:19 PM Reporting Lab: [address] [address] Performing Lab: [address] [address] UREA NITROGEN 31 mg/dL H 7-25 GLUCOSE 91 mg/dL 65-100 SODIUM 141 mmol/L 135-145 POTASSIUM 4.6 mmol/L 3.5-5.0 CHLORIDE 106 mmol/L 100-110 CO2 28 meq/L 20-30 CREATININE, Serum 1.09 mg/dL 0.50-1.40 eGFR(CKD-EPI 2020) 71 mL/min >60 Jan 14, 2024 11:21 AM [facility] URINALYSIS Specimen Type: URINE Comment: If Glucose = >500 and Ketones are positive, please alert the Physician. Ordering Provider: TED BISHOP Report Released Date/Time: Jan 22, 2023 01:19 PM Reporting Lab: [address] [address] Performing Lab: [address] [address] UA COLOR Light-Yellow Yellow UA APPEARANCE Clear Clear UA GLUCOSE Normal mg/dL Negative UA KETONES NEGATIVE mg/dL Negative UA BLOOD NEGATIVE mg/dL Negative UA PROTEIN NEGATIVE mg/dL Negative UA NITRITE NEGATIVE mg/dL Negative UA BILIRUBIN NEGATIVE mg/dL Negative UA SPECIFIC GRAVITY 1.024 H 1.016-1.022 UA pH 5.5 5.0-9.0 UA UROBILINOGEN Normal mg/dL <2.0 UA LEUKOCYTE NEGATIVE Negative Jan 14, 2024 11:21 AM [facility] LIPID PANEL FASTING Specimen Type: SERUM No comment entered. Ordering Provider: TED BISHOP Report Released Date/Time: Jan 22, 2023 01:19 PM Reporting Lab: [address] [address] Performing Lab: [address] [address] CHOLESTEROL 158 mg/dL TRIGLYCERIDE 81 mg/dL 0-150 LDL calculated 92 mg/dL 0-129 CHOL/HDL 3.2 HDL CHOLESTEROL 50 mg/dL 40-60 Jan 14, 2024 11:21 AM [facility] LIVER FUNCTION Specimen Type: SERUM No comment entered. Ordering Provider: TED BISHOP Report Released Date/Time: Jan 22, 2023 01:19 PM Reporting Lab: [address] [address] Performing Lab: [address] [address] PROTEIN,TOTAL 6.7 g/dL 6.0-8.3 ALBUMIN 4.0 g/dL 3.5-5.0 ALKALINE PHOSPHATASE 62 U/L 40-150 AST 14 U/L 5-34 ALT 9 U/L BILIRUBIN, TOTAL 0.4 mg/dL 0.2-1.2 Jan 14, 2024 11:21 AM [facility] HEMOGLOBIN A1C PANEL Specimen Type: BLOOD Comment: [...] Jan 22, 2023 01:19 PM Reporting Lab: [address] [address] Performing Lab: [address] [address] HEMOGLOBIN A1C 5.0 4.0-5.6 Jan 14, 2024 11:21 AM [facility] CBC AND DIFF (AUTO) Specimen Type: BLOOD No comment entered. Ordering Provider: TED BISHOP Report Released Date/Time: Jan 22, 2023 01:19 PM Reporting Lab: [address] [address] Performing Lab: [address] [address] WBC 7.82 10*3/uL 4.50-11.00 RBC 4.64 10*6/uL [...] and tobacco- related health factors from the [place] facility where the Encounter took place. Current Smoking Status This section includes the most current smoking, or tobacco-related health factor, from the [place] facility where the Encounter took place. Date/Time Current Smoking Status Comment Shahid ity Jan 22, 2023 10:39 AM [facility] NEVER USED [facility] Tobacco Use History This section includes a history of the smoking, or tobacco-related health factors, that were collected on or before the date of the Encounter. The data comes from the [place] facility where the Encounter took place. Date/Time Smoking Status/Tobacco Use Comment F acreanna Jan 23, 2022 09:02 AM [facility] USED [facility] Encounter Notes: All associated encounter notes This section contains the clinical notes associated to the Encounter. 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 [X} Remind of upcoming primary care appt. SPOKE WITH: [X} Fasting blood work needed, and vet reminded. [ ] Non fasting blood work needed, and vet reminded. [ ] No labs needed. [ ] UNABLE TO REACH : [ ] Left voicemail. [ ] Unable to leave voicemail. [ ] No phone number available/no working phone number [ ] Mailed Letter Upcoming appt 01/22/24 @ 11:00 am. /isai/ AISLINN DUARTE AMSA Signed: 01/14/2024 09:58 AISLINN DUARTE [facility]
--- OUTSIDE RECORDS SUMMARY | 2024-04-30 14:06 | XMS_ITS | Continuity of Care Document ---
Author Name [facility] Organization [facility] Care Team Providers Care Restaurant Attendant Name Role Phone [facility] Unavailable Unavailable Problems Combined list of problems from Department of Defense and Veterans Affairs facilities. It does not include entries that were removed or entered in error. Problem Status Onset Date Problem Type Date of Resolution Comments Source Adrenal tumor Active Condition Jan Entered By: TED BISHOP Comment: s/p excision right [facility] [facility] Angioid streaks of choroid Active Condition [facility] Chronic post-traumatic stress disorder Active Condition Dec 24, 2019 Entered By: ISABELA GREENBERG Comment: reviewedMar 21, 2021 Entered By: ISABELA GREENBERG Comment: reviewed [facility] Degenerative arthritis Active Condition Sep 23, 2018 Entered By: TED BISHPO Comment: s/p oracio ankle reconstruction [facility] Essential hypertension Active Condition [facility] Exposure to potentially hazardous substance Active Condition Jul 04, 2023 Entered By: AMI LEDESMA Comment: Connect [facility] Code to ICD 10 Code refer to note dated 01/22/23 [facility] History of spinal surgery Active Condition Sep 23, 2018 Entered By: TED BISHOP Comment: x4 cervical surgeries [facility] [facility] Tear of quadriceps tendon Active Condition Sep 23 19 Entered By: TED BISHOP Comment: L s/p surgery [facility] [facility] Thoracic outlet syndrome Active Condition Sep 23, 2018 Entered By: TED BISHOP Comment: s/p R surgery [facility] Diagnosis: ICD-10-CM F43.12 Post-traumatic stress disorder, chronic Active Diagnosis [facility] Diagnosis: ICD-10-CM Z00.01 Encounter for general adult medical exam w abnormal findings Active Diagnosis [facility] [place] Diagnosis: ICD-10-CM Z02.89 Encounter for other administrative examinations Active Diagnosis [facility] Diagnosis: ICD-10-CM M25.552 Pain in left hip Active Diagnosis [facility] Medications Combined list of outpatient medications from Department of Defense and Veterans Affairs facilities.Medications provided include 1) outpatient medications from the last 15 months, and 2) patient-reported medications. Medication Details Route Status Patient Instructions Prescription Expires Prescription Number Last Dispense Date Ordering Provider Order Date Order Qty Source AMLODIPINE BESYLATE 5MG TAB TAKE ONE TABLET BY MOUTH ONCE DAILY ORAL ACTIVE CRYSTAL BISHOP 2018 [place] CHOLECALCIF DAVION 50MCG (2,000UNIT) TAB TAKE ONE TABLET BY MOUTH ONCE DAILY ORAL ACTIVE CRYSTAL BISHOP 2018 [place] DICLOFENAC NA 75MG TAB,EC TAKE ONE TABLET BY MOUTH TWICE DAILY ORAL ACTIVE CRYSTAL BISHOP 2018 [place] ESOMEPRAZOL E 20MG (BASE) CAP,EC TAKE 1 CAPSULE BY MOUTH ONCE DAILY ORAL ACTIVE CRYSTAL BISHOP 2018 [place] HYDROXYZINE HCL 10MG TAB TAKE ONE TABLET BY MOUTH FOUR TIMES DAILY NEEDED FOR ANXIETY ORAL ACTIVE 02/11/2025 [id number] VLADIMIR GREENBERG 2023 120 [place] HYDROXYZINE HCL 10MG TAB TAKE ONE TABLET BY MOUTH FOUR TIMES DAILY NEEDED FOR ANXIETY ORAL DISCONT INUED 11/12/2024 [id number] VLADIMIR GREENBERG 2023 120 [place] HYDROXYZINE HCL 10MG TAB TAKE ONE TABLET BY MOUTH FOUR TIMES DAILY NEEDED FOR ANXIETY ORAL DISCONT INUED (EDIT) 07/30/2024 [id number] VLADIMIR GREENBERG 2023 120 [place] HYDROXYZINE HCL 10MG TAB TAKE ONE TABLET BY MOUTH FOUR TIMES DAILY NEEDED FOR ANXIETY ORAL DISCONT INUED 04/30/2024 [id number] VLADIMIR GREENBERG 2023 120 [place] HYDROXYZINE HCL 10MG TAB TAKE ONE TABLET BY MOUTH FOUR TIMES DAILY NEEDED FOR ANXIETY ORAL DISCONT INUED 02/01/2024 [id number] VLADIMIR GREENBERG 2022 120 [place] MELATONIN 5MG CAP/TAB TAKE ONE CAPSULE/ TABLET BY MOUTH AT BEDTIME NEEDED FOR SLEEP ORAL DISCONT INUED BY PROVIDE R 02/01/2024 [id number] VLADIMIR GREENBERG 2022 90 [place] PRAVASTATIN NA 40MG TAB TAKE ONE TABLET BY MOUTH AT BEDTIME ORAL ACTIVE CRYSTAL BISHOP [place] SERTRALINE HCL 100MG TAB TAKE ONE AND ONE-HALF TABLETS BY MOUTH EVERY MORNING FOR MOOD AND PTSD ORAL ACTIVE 02/11/2025 [id number] VLADIMIR GREENBERG 2023 90 [place] SERTRALINE HCL 100MG TAB TAKE ONE AND ONE-HALF TABLETS BY MOUTH EVERY MORNING FOR MOOD AND PTSD ORAL DISCONT INUED 11/12/2024 [id number] VLADIMIR GREENBERG 2023 90 [place] SERTRALINE HCL 100MG TAB TAKE ONE AND ONE-HALF TABLETS BY MOUTH EVERY MORNING -FOR PTSD ORAL DISCONT INUED (EDIT) 07/30/2024 [id number] VLADIMIR GREENBERG 2023 45 [place] SERTRALINE HCL 100MG TAB TAKE ONE AND ONE-HALF TABLETS BY MOUTH EVERY MORNING -FOR PTSD ORAL DISCONT INUED 04/30/2024 [id number] VLADIMIR GREENBERG 2023 45 [place] SERTRALINE HCL 100MG TAB TAKE ONE AND ONE-HALF TABLETS BY MOUTH EVERY MORNING -FOR PTSD ORAL DISCONT INUED 02/01/2024 [id number] VLADIMIR GREENBERG 2022 45 [place] Allergies, Adverse Reactions, Alerts Combined list of allergies from Department of Defense and Veterans Affairs facilities. It does not include entries that were removed or entered in error. Substance Category Reaction Severity Reaction type Status Date Reported Comments Source BACTRIM Propensity to adverse reactions to drug (finding) Indigestion active 9 [facility] CODEINE Propensity to adverse reactions to drug (finding) Indigestion active 9 [facility] Immunizations Combined list of available immunizations from the Department of Defense and Veterans Affairs facilities. Immunization Series Date Given Administered By Site Reaction Lot Number CVX Code Drug Conversion Developer Status Comments Source INFLUENZA, HIGH-DOSE, TRIVALENT, PF 2023 ANDRE TOSCANO RIGHT DELTO ID [id number] A [address] [facility] [place] INFLUENZA, HIGH-DOSE, QUADRIVALENT 2022 MAITE CABRERA SA LEFT DELTO ID [id number] A 197 complet ed [facility] ZOSTER RECOMBINANT [address] [facility] [place] INFLUENZA VACCINE, QUADRIVALENT, ADJUVANTED 2020 205 complet ed [facility] ZOSTER RECOMBINANT 1 2020 187 complet ed [facility] COVID-19 (MODERNA), MRNA, LNP-S, PF, 100 MCG/0.5 ML DOSE 2 2020 207 complet ed MOD; [id number]; [place] COVID-19 (MODERNA), MRNA, LNP-S, PF, 100 MCG/0.5 ML DOSE 1 2020 207 complet ed MOD; [id number]; [place] INFLUENZA, SEASONAL, INJECTABLE 2018 141 complet ed [facility] ZOSTER RECOMBINANT 2 2018 187 complet ed sent to scan. [facility] PNEUMOCOCCAL CONJUGATE PCV 13 2018 133 complet ed sent to scan through Right Fax. [facility] ZOSTER RECOMBINANT 1 2018 187 complet ed document sent to scan [facility] INFLUENZA, SEASONAL, INJECTABLE 2017 141 complet ed [facility] TD(ADULT) UNSPECIFIED FORMULATION 2017 139 complet ed [facility] TDAP 2017 115 complet ed [facility] PNEUMOCOCCAL POLYSACCHARID E PPV23 2015 33 complet ed [facility] Results Combined list of recent chemistry, hematology and other laboratory results from Department of Defense and Veterans Affairs, ranging from 15 months to all on record, depending upon the facility. Order Name Results Value Reference Range Date Interpretation Specimen Comments Source TSH THYROTROPI N [UNITS/VOL UME] IN SERUM OR PLASMA 0.53 u[IU]/mL 0.35 - 5.00 01/13 Specimen Type: SERUM No comment entered. Ordering Provider: GIUSEPPE BISHOP Report Released Date/Time: Jan 22, 2023 01:19 PM Reporting [facility] [address] [address] Performing Lab: [address] [address] [place] URINALYS IS COLOR OF URINE Light-Ye llow 01/13 Specimen Type: URINE Comment: If Glucose = >500 and Ketones are positive, please alert the Physician. Ordering Provider: GIUSEPPE BISHOP IE Report Released Date/Time: Jan 22, 2023 01:19 PM Reporting Lab: [facility] [address] [address] Performing Lab: [address] [address] [place] URINALYS IS APPEARANCE OF URINE Clear 01/13 Specimen Type: URINE Comment: If Glucose = >500 and Ketones are positive, please alert the Physician. Ordering Provider: GIUSEPPE BISHOP IE Report Released Date/Time: Jan 22, 2023 01:19 PM Reporting Lab: [address] [address] Performing Lab: [address] [address] [place] URINALYS IS GLUCOSE [MASS/VOLU ME] IN URINE Normalmg /dL 01/13 Specimen Type: URINE Comment: If Glucose = >500 and Ketones are positive, please alert the Physician. Ordering Provider: GIUSEPPE BISHOP IE Report Released Date/Time: Jan 22, 2023 01:19 PM Reporting Lab: [facility] [employer] [address] Performing Lab: [facility] [address] [facility] [address] [place] URINALYS IS KETONES [MASS/VOLU ME] IN URINE BY TEST STRIP NEGATIVE mg/dL 01/13 Specimen Type: URINE Comment: If Glucose = >500 and Ketones are positive, please alert the Physician. Ordering Provider: GIUSEPPE BISHOP IE Report Released Date/Time: Jan 22, 2023 01:19 PM Reporting Lab: [address] [address] Performing Lab: [address] [address] [place] URINALYS IS ERYTHROCYT ES [PRESENCE] IN URINE SEDIMENT BY LIGHT MICROSCOPY NEGATIVE mg/dL 01/13 Specimen Type: URINE Comment: If Glucose = >500 and Ketones are positive, please alert the Physician. Ordering Provider: GIUSEPPE BISHOP IE Report Released Date/Time: Jan 22, 2023 01:19 PM Reporting Lab: [address] [address] Performing Lab: [address] [address] [place] URINALYS IS PROTEIN [MASS/VOLU ME] IN URINE BY TEST STRIP NEGATIVE mg/dL 01/13 Specimen Type: URINE Comment: If Glucose = >500 and Ketones are positive, please alert the Physician. Ordering Provider: GIUSEPPE BISHOP IE Report Released Date/Time: Jan 22, 2023 01:19 PM Reporting Lab: [address] [address] Performing Lab: [address] [address] [place] URINALYS IS NITRITE [PRESENCE] IN URINE NEGATIVE mg/dL 01/13 Specimen Type: URINE Comment: If Glucose = >500 and Ketones are positive, please alert the Physician. Ordering Provider: GIUSEPPE BISHOP IE Report Released Date/Time: Jan 22, 2023 01:19 PM Reporting Lab: [facility] [address] Performing Lab: [address] [address] [place] URINALYS IS BILIRUBIN. TOTAL [PRESENCE] IN URINE NEGATIVE mg/dL 01/13 Specimen Type: URINE Comment: If Glucose = >500 and Ketones are positive, please alert the Physician. Ordering Provider: GIUSEPPE BISHOP IE Report Released Date/Time: Jan 22, 2023 01:19 PM Reporting Lab: [address] [address] Performing Lab: [address] [address] [place] URINALYS IS SPECIFIC GRAVITY OF URINE BY REFRACTOME TRY 1.024 1.016 - 1.022 01/13 H Specimen Type: URINE Comment: If Glucose = >500 and Ketones are positive, please alert the Physician. Ordering Provider: GIUSEPPE BISHOP IE Report Released Date/Time: Jan 22, 2023 01:19 PM Reporting Lab: [address] [address] Performing Lab: [address] [address] [place] URINALYS IS PH OF URINE BY TEST STRIP 5.5 5.0 - 9.0 01/13 Specimen Type: URINE Comment: If Glucose = >500 and Ketones are positive, please alert the Physician. Ordering Provider: GIUSEPPE BISHOP IE Report Released Date/Time: Jan 22, 2023 01:19 PM Reporting Lab: [address] [address] Performing Lab: [address] [address] [place] URINALYS IS UROBILINOG EN [MASS/VOLU ME] IN URINE BY TEST STRIP Normalmg /dL <2.0 - 2.0 01/13 Specimen Type: URINE Comment: If Glucose = >500 and Ketones are positive, please alert the Physician. Ordering Provider: GIUSEPPE BISHOP IE Report Released Date/Time: Jan 22, 2023 01:19 PM Reporting Lab: [address] [address] Performing Lab: [address] [address] [place] URINALYS IS LEUKOCYTE ESTERASE [PRESENCE] IN URINE BY TEST STRIP NEGATIVE 01/13 Specimen Type: URINE Comment: If Glucose = >500 and Ketones are positive, please alert the Physician. Ordering Provider: GIUSEPPE BISHOP IE Report Released Date/Time: Jan 22, 2023 01:19 PM Reporting Lab: [address] [address] Performing Lab: [address] [address] [place] BASIC METABOLI C PANEL (fasting ) UREA NITROGEN [MASS/VOLU ME] IN SERUM OR PLASMA 31 mg/dL 7 - 25 01/13 H Specimen Type: SERUM No comment entered. Ordering Provider: GIUSEPPE BISHOP IE Report Released Date/Time: Jan 22, 2023 01:19 PM Reporting Lab: [address] [address] Performing Lab: [address] [address] [place] BASIC METABOLI C PANEL (fasting ) GLUCOSE [MASS/VOLU ME] IN SERUM OR PLASMA 91 mg/dL 65 - 100 01/13 Specimen Type: SERUM No comment entered. Ordering Provider: GIUSEPPE BISHOP IE Report Released Date/Time: Jan 22, 2023 01:19 PM Reporting Lab: [address] [address] Performing Lab: [address] [address] [place] BASIC METABOLI C PANEL (fasting ) SODIUM [MOLES/VOL UME] IN SERUM OR PLASMA 141 mmol/L 135 - 145 01/13 Specimen Type: SERUM No comment entered. Ordering Provider: GIUSEPPE BISHOP IE Report Released Date/Time: Jan 22, 2023 01:19 PM Reporting Lab: [facility] [address] [facility] [address] Performing Lab: [facility] [address] [facility] [address] [place] BASIC METABOLI C PANEL (fasting ) POTASSIUM [MOLES/VOL UME] IN SERUM OR PLASMA 4.6 mmol/L 3.5 - 5.0 01/13 Specimen Type: SERUM No comment entered. Ordering Provider: GIUSEPPE BISHOP IE Report Released Date/Time: Jan 22, 2023 01:19 PM Reporting Lab: [facility] [address] [address] Performing Lab: [facility] [address] [address] [place] BASIC METABOLI C PANEL (fasting ) CHLORIDE [MOLES/VOL UME] IN SERUM OR PLASMA 106 mmol/L 100 - 110 01/13 Specimen Type: SERUM No comment entered. Ordering Provider: GIUSEPPE BISHOP IE Report Released Date/Time: Jan 22, 2023 01:19 PM Reporting Lab: [facility] [address] Performing Lab: [facility] [address] [place] BASIC METABOLI C PANEL (fasting ) CARBON DIOXIDE, TOTAL [MOLES/VOL UME] IN SERUM OR PLASMA 28 meq/L 20 - 30 01/13 Specimen Type: SERUM No comment entered. Ordering Provider: GIUSEPPE BISHOP IE Report Released Date/Time: Jan 22, 2023 01:19 PM Reporting Lab: [facility] [address] Performing Lab: [facility] [address] [place] BASIC METABOLI C PANEL (fasting ) CREATININE [MASS/VOLU ME] IN SERUM OR PLASMA 1.09 mg/dL 0.50 - 1.40 01/13 Specimen Type: SERUM No comment entered. Ordering Provider: GIUSEPPE BISHOP IE Report Released Date/Time: Jan 22, 2023 01:19 PM Reporting Lab: [address] [address] Performing Lab: [address] [address] [place] BASIC METABOLI C PANEL (fasting ) GLOMERULAR FILTRATION RATE/1.73 SQ M.PREDICTE D [VOLUME RATE/AREA] IN SERUM, PLASMA OR BLOOD BY CREATININE -BASED FORMULA (CKD-EPI 2020) 71 mL/min 60 01/13 Specimen Type: SERUM No comment entered. Ordering Provider: GIUSEPPE BISHOP IE Report Released Date/Time: Jan 22, 2023 01:19 PM Reporting Lab: [address] [address] Performing Lab: [address] [address] [place] LIPID PANEL FASTING CHOLESTERO L [MASS/VOLU ME] IN SERUM OR PLASMA 158 mg/dL 01/13 Specimen Type: SERUM No comment entered. Ordering Provider: GIUSEPPE BISHOP IE Report Released Date/Time: Jan 22, 2023 01:19 PM Reporting Lab: [address] [address] Performing Lab: [address] [address] [place] LIPID PANEL FASTING TRIGLYCERI DE [MASS/VOLU ME] IN SERUM OR PLASMA 81 mg/dL 0 - 150 01/13 Specimen Type: SERUM No comment entered. Ordering Provider: GIUSEPPE BISHOP IE Report Released Date/Time: Jan 22, 2023 01:19 PM Reporting Lab: [facility] [address] [address] Performing Lab: [facility] [address] [address] [place] LIPID PANEL FASTING CHOLESTERO L IN LDL [MASS/VOLU ME] IN SERUM OR PLASMA BY CALCULATIO N 92 mg/dL 0 - 129 01/13 Specimen Type: SERUM No comment entered. Ordering Provider: GIUSEPPE BISHOP IE Report Released Date/Time: Jan 22, 2023 01:19 PM Reporting Lab: [facility] [address] [facility] [address] Performing Lab: [facility]ITALUSETS [address] [address] [place] LIPID PANEL FASTING CHOLESTERO L.TOTAL/CH OLESTEROL IN HDL [MASS RATIO] IN SERUM OR PLASMA 3.2 01/13 Specimen Type: SERUM No comment entered. Ordering Provider: GIUSEPPE BISHOP IE Report Released Date/Time: Jan 22, 2023 01:19 PM Reporting Lab: [facility] [address] [address] Performing Lab: [facility] [address] [place] LIPID PANEL FASTING CHOLESTERO L IN HDL [MASS/VOLU ME] IN SERUM OR PLASMA 50 mg/dL 40 - 60 01/13 Specimen Type: SERUM No comment entered. Ordering Provider: GIUSEPPE BISHOP IE Report Released Date/Time: Jan 22, 2023 01:19 PM Reporting Lab: [facility] [address] Performing Lab: [facility] [address] [place] LIVER FUNCTION PROTEIN [MASS/VOLU ME] IN SERUM OR PLASMA 6.7 g/dL 6.0 - 8.3 01/13 Specimen Type: SERUM No comment entered. Ordering Provider: GIUSEPPE BISHOP IE Report Released Date/Time: Jan 22, 2023 01:19 PM Reporting Lab: [facility] [address] [address] Performing Lab: [facility] [address] [address] [place] LIVER FUNCTION ALBUMIN [MASS/VOLU ME] IN SERUM OR PLASMA 4.0 g/dL 3.5 - 5.0 01/13 Specimen Type: SERUM No comment entered. Ordering Provider: GIUSEPPE BISHOP IE Report Released Date/Time: Jan 22, 2023 01:19 PM Reporting Lab: [facility] [address] [address] Performing Lab: [facility] [address] [address] [place] LIVER FUNCTION ALKALINE PHOSPHATAS E [ENZYMATIC ACTIVITY/V OLUME] IN SERUM OR PLASMA 62 U/L 40 - 150 01/13 Specimen Type: SERUM No comment entered. Ordering Provider: GIUSEPPE BISHOP IE Report Released Date/Time: Jan 22, 2023 01:19 PM Reporting Lab: [facility] [address] [address] Performing Lab: [facility] [address] [phone] [place] LIVER FUNCTION ASPARTATE AMINOTRANS FERASE [ENZYMATIC ACTIVITY/V OLUME] IN SERUM OR PLASMA 14 U/L 5 - 34 01/13 Specimen Type: SERUM No comment entered. Ordering Provider: GIUSEPPE BISHOP IE Report Released Date/Time: Jan 22, 2023 01:19 PM Reporting Lab: [facility] [address] [address] Performing Lab: [facility] [address] [address] [place] LIVER FUNCTION ALANINE AMINOTRANS FERASE [ENZYMATIC ACTIVITY/V OLUME] IN SERUM OR PLASMA 9 U/L 01/13 Specimen Type: SERUM No comment entered. Ordering Provider: GIUSEPPE BISHOP IE Report Released Date/Time: Jan 22, 2023 01:19 PM Reporting Lab: [facility] [address] [address] Performing Lab: [facility] [address] [address] [place] FUN[place] BILIRUBIN. TOTAL [MASS/VOLU ME] IN SERUM OR PLASMA 0.4 mg/dL 0.2 - 1.2 01/13 Specimen Type: SERUM No comment entered. Ordering Provider: GIUSEPPE BISHOP IE Report Released Date/Time: Jan 22, 2023 01:19 PM Reporting Lab: [address] [address] Performing Lab: [address] [address] [place] HEMOGLOB IN A1C PANEL HEMOGLOBIN A1C/HEMOGL OBIN.TOTAL IN BLOOD BY HPLC 5.0 4.0 - 5.6 01/13 Specimen Type: BLOOD Comment: Values obtained from A1C measurement s can vary. For atypical A1C assays, a reported value of 7.0 could actually be between 6.72 and 7.28 if measured by a reference method. A reported value of 9.0 could actually be between 8.73 and 9.27. Ref: http://www. ngsp.org/[place] Pdata.asp Ordering Provider: GIUSEPPE BISHOP IE Report Released Date/Time: Jan 22, 2023 01:19 PM Reporting Lab: [address] [address] Performing Lab: [address] [address] [place] CBC AND DIFF (AUTO) LEUKOCYTES [#/VOLUME] IN BLOOD BY AUTOMATED COUNT 7.82 10*3/uL 4.50 - 11.00 01/13 Specimen Type: BLOOD No comment entered. Ordering Provider: GIUSEPPE BISHOP IE Report Released Date/Time: Jan 22, 2023 01:19 PM Reporting Lab: [address] [address] Performing Lab: [address] [address] [place] CBC AND DIFF (AUTO) ERYTHROCYT ES [#/VOLUME] IN BLOOD BY AUTOMATED COUNT 4.64 10*6/uL 4.23 - 5.66 01/13 Specimen Type: BLOOD No comment entered. Ordering Provider: GIUSEPPE BISHOP IE Report Released Date/Time: Jan 22, 2023 01:19 PM Reporting Lab: [address] [address] Performing Lab: [facility] [address] [facility] [address] [place] CBC AND DIFF (AUTO) HEMOGLOBIN [MASS/VOLU ME] IN BLOOD 13.8 g/dL 12.8 - 17 01/13 Specimen Type: BLOOD No comment entered. Ordering Provider: GIUSEPPE BISHOP IE Report Released Date/Time: Jan 22, 2023 01:19 PM Reporting Lab: [facility] [address] [facility] [address] Performing Lab: [facility] [address] [address] [place] CBC AND DIFF (AUTO) HEMATOCRIT [VOLUME FRACTION] OF BLOOD BY AUTOMATED COUNT 41.5 39.2 - 50.4 01/13 Specimen Type: BLOOD No comment entered. Ordering Provider: GIUSEPPE BISHOP IE Report Released Date/Time: Jan 22, 2023 01:19 PM Reporting Lab: [facility] [place] [facility] [address] [facility] [address] Performing Lab: [facility] [address] [address] [place] CBC AND DIFF (AUTO) MCV [ENTITIC VOLUME] BY AUTOMATED COUNT 89.4 fL 82 - 99 01/13 Specimen Type: BLOOD No comment entered. Ordering Provider: GIUSEPPE BISHOP IE Report Released Date/Time: Jan 22, 2023 01:19 PM Reporting Lab: [facility] [place] [facility] [address] [facility] [address] Performing Lab: [facility] [address] [address] [place] CBC AND DIFF (AUTO) MCHC [MASS/VOLU ME] BY AUTOMATED COUNT 33.3 g/dL 30.8 - 35.1 01/13 Specimen Type: BLOOD No comment entered. Ordering Provider: GIUSEPPE BISHOP IE Report Released Date/Time: Jan 22, 2023 01:19 PM Reporting Lab: [facility] [place] [address] [address] Performing Lab: [facility] [address] [facility] [address] [place] CBC AND DIFF (AUTO) PLATELETS [#/VOLUME] IN BLOOD BY AUTOMATED COUNT 269 10*3/uL 140 - 360 01/13 Specimen Type: BLOOD No comment entered. Ordering Provider: GIUSEPPE BISHOP IE Report Released Date/Time: Jan 22, 2023 01:19 PM Reporting Lab: [facility] [address] [facility] [address] Performing Lab: [facility] [address] [address] [place] CBC AND DIFF (AUTO) ERYTHROCYT E DISTRIBUTI ON WIDTH [RATIO] BY AUTOMATED COUNT 13.7 12.0 - 16.0 01/13 Specimen Type: BLOOD No comment entered. Ordering Provider: GIUSEPPE BISHOP IE Report Released Date/Time: Jan 22, 2023 01:19 PM Reporting Lab: [facility] [address] [address] Performing Lab: [facility] [address] [address] [place] CBC AND DIFF (AUTO) MONOCYTES [#/VOLUME] IN BLOOD BY AUTOMATED COUNT 0.53 10*3/uL 0.30 - 1.10 01/13 Specimen Type: BLOOD No comment entered. Ordering Provider: GIUSEPPE BISHOP IE Report Released Date/Time: Jan 22, 2023 01:19 PM Reporting [facility] [address] [address] Performing Lab: [facility] [address] [address] [place] CBC AND DIFF (AUTO) MCH [ENTITIC MASS] BY AUTOMATED COUNT 29.7 pg 26.2 - 32.6 01/13 Specimen Type: BLOOD No comment entered. Ordering Provider: GIUSEPPE BISHOP IE Report Released Date/Time: Jan 22, 2023 01:19 PM Reporting Lab: [facility] [address] [address] Performing Lab: [facility] [place] [facility] [address] [facility] [address] [place] CBC AND DIFF (AUTO) NEUTROPHIL S/100 LEUKOCYTES IN BLOOD BY AUTOMATED COUNT 64.3 43.7 - 75.8 01/13 Specimen Type: BLOOD No comment entered. Ordering Provider: GIUSEPPE BISHOP IE Report Released Date/Time: Jan 22, 2023 01:19 PM Reporting Lab: [facility] [place] [facility] [address] [facility] [address] Performing Lab: [facility] [place] [facility] [address] [facility] [address] [place] CBC AND DIFF (AUTO) LYMPHOCYTE S/100 LEUKOCYTES IN BLOOD BY AUTOMATED COUNT 25.8 14.0 - 42.3 01/13 Specimen Type: BLOOD No comment entered. Ordering Provider: GIUSEPPE BISHOP IE Report Released Date/Time: Jan 22, 2023 01:19 PM Reporting Lab: [facility] [address] [address] Performing Lab: [facility] [place] [address] [address] [place] CBC AND DIFF (AUTO) MONOCYTES/ 100 LEUKOCYTES IN BLOOD BY AUTOMATED COUNT 6.8 5.1 - 13.7 01/13 Specimen Type: BLOOD No comment entered. Ordering Provider: GIUSEPPE BISHOP IE Report Released Date/Time: Jan 22, 2023 01:19 PM Reporting Lab: [facility] [place] [address] [address] Performing Lab: [facility] [place] [address] [address] [place] CBC AND DIFF (AUTO) EOSINOPHIL S/100 LEUKOCYTES IN BLOOD BY AUTOMATED COUNT 2.2 0.4 - 6.8 01/13 Specimen Type: BLOOD No comment entered. Ordering Provider: GIUSEPPE BISHOP IE Report Released Date/Time: Jan 22, 2023 01:19 PM Reporting Lab[facility] [address] [address] Performing Lab: [facility] [place] [address] [address] [place] CBC AND DIFF (AUTO) BASOPHILS/ 100 LEUKOCYTES IN BLOOD BY AUTOMATED COUNT 0.6 0.1 - 2.0 01/13 Specimen Type: BLOOD No comment entered. Ordering Provider: GIUSEPPE BISHOP IE Report Released Date/Time: Jan 22, 2023 01:19 PM Reporting Lab: [facility] [address] [address] Performing Lab: [facility] [address] [address] [place] CBC AND DIFF (AUTO) NEUTROPHIL S [#/VOLUME] IN BLOOD BY AUTOMATED COUNT 5.03 10*3/uL 2.20 - 7.60 01/13 Specimen Type: BLOOD No comment entered. Ordering Provider: GIUSEPPE BISHOP IE Report Released Date/Time: Jan 22, 2023 01:19 PM Reporting Lab: [facility] [address] [address] Per[facility]: [facility] [address] [address] [place] CBC AND DIFF (AUTO) LYMPHOCYTE S [#/VOLUME] IN BLOOD BY AUTOMATED COUNT 2.02 10*3/uL 1.00 - 3.20 01/13 Specimen Type: BLOOD No comment entered. Ordering Provider: GIUSEPPE BISHOP IE Report Released Date/Time: Jan 22, 2023 01:19 PM Reporting Lab: [facility] [address] [address] Per[facility] Lab: [facility] [address] [address] [place] CBC AND DIFF (AUTO) EOSINOPHIL S [#/VOLUME] IN BLOOD BY AUTOMATED COUNT 0.17 10*3/uL 0.03 - 0.44 01/13 Specimen Type: BLOOD No comment entered. Ordering Provider: GIUSEPPE BISHOP IE Report Released Date/Time: Jan 22, 2023 01:19 PM Reporting Lab: [facility] [address] [address] Performing Lab: [facility] [address] [address] [place] CBC AND DIFF (AUTO) BASOPHILS [#/VOLUME] IN BLOOD BY AUTOMATED COUNT 0.05 10*3/uL 0.01 - 0.13 01/13 Specimen Type: BLOOD No comment entered. Ordering Provider: GIUSEPPE BISHOP IE Report Released Date/Time: Jan 22, 2023 01:19 PM Reporting Lab: [facility] [address] [address] Performing Lab: [facility] [address] [place] CBC AND DIFF (AUTO) IMMATURE GRANULOCYT ES/100 LEUKOCYTES IN BLOOD BY AUTOMATED COUNT 0.3 0.0 - 0.7 01/13 Specimen Type: BLOOD No comment entered. Ordering Provider: GIUSEPPE BISHOP IE Report Released Date/Time: Jan 22, 2023 01:19 PM Reporting [facility] [address] [address] Performing Lab: [facility] [address] [place] CBC AND DIFF (AUTO) IMMATURE GRANULOCYT ES [#/VOLUME] IN BLOOD 0.02 10*3/uL 0.00 - 0.06 01/13 Specimen Type: BLOOD No comment entered. Ordering Provider: GIUSEPPE BISHOP IE Report Released Date/Time: Jan 22, 2023 01:19 PM Reporting Lab[facility] [address] Performing Lab: [facility] [address] [place] CBC AND DIFF (AUTO) NRBC % 0.0 0.0 - 0.0 01/13 Specimen Type: BLOOD No comment entered. Ordering Provider: GIUSEPPE BISHOP IE Report Released Date/Time: Jan 22, 2023 01:19 PM Reporting Lab: [facility] [address] [address] Performing Lab: [facility] [address] [place] CBC AND DIFF (AUTO) NRBC, ABS 0.00 10*3/uL 0.00 - 0.00 01/13 Specimen Type: BLOOD No comment entered. Ordering Provider: GIUSEPPE BISHOP IE Report Released Date/Time: Jan 22, 2023 01:19 PM Reporting Lab: [facility] [address] [address] Performing Lab: [facility] [address] [address] [place] TSH THYROTROPI N [UNITS/VOL UME] IN SERUM OR PLASMA 0.59 u[IU]/mL 0.35 - 5.00 01/22 Specimen Type: SERUM No comment entered. Ordering Provider: GIUSEPPE BISHOP IE Report Released Date/Time: Jan 23, 2022 09:24 AM Reporting Lab: [address] [address] Performing Lab: [facility] [address] [address] [place] URINALYS IS COLOR OF URINE Light-Ye llow 01/22 Specimen Type: URINE Comment: If Glucose = >500 and Ketones are positive, please alert the Physician. Ordering Provider: GIUSEPPE BISHOP IE Report Released Date/Time: Jan 23, 2022 09:24 AM Reporting Lab: [address] [address] Performing Lab: [facility] [address] [address] [place] URINALYS IS APPEARANCE OF URINE Clear 01/22 Specimen Type: URINE Comment: If Glucose = >500 and Ketones are positive, please alert the Physician. Ordering Provider: GIUSEPPE BISHOP IE Report Released Date/Time: Jan 23, 2022 09:24 AM Reporting Lab: [facility] [address] [address] Performing Lab: [facility] [address] [address] [place] URINALYS IS GLUCOSE [MASS/VOLU ME] IN URINE NEGATIVE mg/dL 01/22 Specimen Type: URINE Comment: If Glucose = >500 and Ketones are positive, please alert the Physician. Ordering Provider: GIUSEPPE BISHOP Report Released Date/Time: Jan 23, 2022 09:24 AM Reporting Lab: [address] [address] Performing Lab: [facility] [address] [address] [place] URINALYS IS KETONES [MASS/VOLU ME] IN URINE BY TEST STRIP NEGATIVE mg/dL 01/22 Specimen Type: URINE Comment: If Glucose = >500 and Ketones are positive, please alert the Physician. Ordering Provider: GIUSEPPE BISHOP Report Released Date/Time: Jan 23, 2022 09:24 AM Reporting Lab: [address] [address] Performing Lab: [address] [address] [place] URINALYS IS ERYTHROCYT ES [PRESENCE] IN URINE SEDIMENT BY LIGHT MICROSCOPY NEGATIVE mg/dL 01/22 Specimen Type: URINE Comment: If Glucose = >500 and Ketones are positive, please alert the Physician. Ordering Provider: GIUSEPPE BISHOP Report Released Date/Time: Jan 23, 2022 09:24 AM Reporting Lab: [address] [address] Performing Lab: [facility] [address] [place] URINALYS IS PROTEIN [MASS/VOLU ME] IN URINE BY TEST STRIP NEGATIVE mg/dL 01/22 Specimen Type: URINE Comment: If Glucose = >500 and Ketones are positive, please alert the Physician. Ordering Provider: GIUSEPPE BISHOP Report Released Date/Time: Jan 23, 2022 09:24 AM Reporting Lab: [address] [address] Performing Lab: [facility] [address] [place] URINALYS IS NITRITE [PRESENCE] IN URINE NEGATIVE mg/dL 01/22 Specimen Type: URINE Comment: If Glucose = >500 and Ketones are positive, please alert the Physician. Ordering Provider: GIUSEPPE BISHOP IE Report Released Date/Time: Jan 23, 2022 09:24 AM Reporting Lab: [address] [address] Performing Lab: [address] [address] [place] URINALYS IS BILIRUBIN. TOTAL [PRESENCE] IN URINE NEGATIVE mg/dL 01/22 Specimen Type: URINE Comment: If Glucose = >500 and Ketones are positive, please alert the Physician. Ordering Provider: GIUSEPPE BISHOP IE Report Released Date/Time: Jan 23, 2022 09:24 AM Reporting Lab: [address] [address] Performing Lab: [address] [address] [place] URINALYS IS SPECIFIC GRAVITY OF URINE BY REFRACTOME TRY 1.019 1.016 - 1.022 01/22 Specimen Type: URINE Comment: If Glucose = >500 and Ketones are positive, please alert the Physician. Ordering Provider: GIUSEPPE BISHOP IE Report Released Date/Time: Jan 23, 2022 09:24 AM Reporting Lab: [address] [address] Performing Lab: [address] [address] [place] URINALYS IS PH OF URINE BY TEST STRIP 5.5 5.0 - 9.0 01/22 Specimen Type: URINE Comment: If Glucose = >500 and Ketones are positive, please alert the Physician. Ordering Provider: GIUSEPPE BISHOP IE Report Released Date/Time: Jan 23, 2022 09:24 AM Reporting Lab: [address] [address] Performing Lab: [facility] [address] [address] [place] URINALYS IS UROBILINOG EN [MASS/VOLU ME] IN URINE BY TEST STRIP <2.0mg/d L <2.0 - 2.0 01/22 Specimen Type: URINE Comment: If Glucose = >500 and Ketones are positive, please alert the Physician. Ordering Provider: GIUSEPPE BISHOP IE Report Released Date/Time: Jan 23, 2022 09:24 AM Reporting Lab: [facility] [address] [address] Performing Lab: [address] [address] [place] URINALYS IS LEUKOCYTE ESTERASE [PRESENCE] IN URINE BY TEST STRIP NEGATIVE 01/22 Specimen Type: URINE Comment: If Glucose = >500 and Ketones are positive, please alert the Physician. Ordering Provider: GIUSEPPE BISHOP IE Report Released Date/Time: Jan 23, 2022 09:24 AM Reporting Lab: [facility] [address] [address] Performing [facility]: [facility] [address] [address] [place] BASIC METABOLI C PANEL (fasting ) UREA NITROGEN [MASS/VOLU ME] IN SERUM OR PLASMA 27 mg/dL 7 - 25 01/22 H Specimen Type: SERUM No comment entered. Ordering Provider: GIUSEPPE BISHOP IE Report Released Date/Time: Jan 23, 2022 09:24 AM Reporting Lab: [facility] [address] [address] Performing Lab: [facility] [address] [address] [place] BASIC METABOLI C PANEL (fasting ) GLUCOSE [MASS/VOLU ME] IN SERUM OR PLASMA 104 mg/dL 65 - 100 01/22 H Specimen Type: SERUM No comment entered. Ordering Provider: GIUSEPPE BISHOP IE Report Released Date/Time: Jan 23, 2022 09:24 AM Reporting Lab: [facility] [address] [facility] [address] Per[facility]: [facility] [address] [facility] [address] [place] BASIC METABOLI C PANEL (fasting ) SODIUM [MOLES/VOL UME] IN SERUM OR PLASMA 142 mmol/L 135 - 145 01/22 Specimen Type: SERUM No comment entered. Ordering Provider: GIUSEPPE BISHOP IE Report Released Date/Time: Jan 23, 2022 09:24 AM Reporting Lab: [facility] [address] [facility] [address] Performing Lab: [address] [address] [place] BASIC METABOLI C PANEL (fasting ) POTASSIUM [MOLES/VOL UME] IN SERUM OR PLASMA 4.5 mmol/L 3.5 - 5.0 01/22 Specimen Type: SERUM No comment entered. Ordering Provider: GIUSEPPE BISHOP IE Report Released Date/Time: Jan 23, 2022 09:24 AM Reporting Lab: [address] [address] Performing Lab: [address] [address] [place] BASIC METABOLI C PANEL (fasting ) CHLORIDE [MOLES/VOL UME] IN SERUM OR PLASMA 108 mmol/L 100 - 110 01/22 Specimen Type: SERUM No comment entered. Ordering Provider: GIUSEPPE BISHOP IE Report Released Date/Time: Jan 23, 2022 09:24 AM Reporting [facility]: [facility] [address] [facility] [address] Performing [facility]: [facility] [address] [address] [place] BASIC METABOLI C PANEL (fasting ) CARBON DIOXIDE, TOTAL [MOLES/VOL UME] IN SERUM OR PLASMA 26 meq/L 20 - 30 01/22 Specimen Type: SERUM No comment entered. Ordering Provider: GIUSEPPE BISHOP IE Report Released Date/Time: Jan 23, 2022 09:24 AM Reporting Lab: [facility] [place] [facility] [address] [facility] [address] Performing Lab: [facility] [place] [facility] [address] [facility] [address] [employer] BASIC METABOLI C PANEL (fasting ) CREATININE [MASS/VOLU ME] IN SERUM OR PLASMA 0.93 mg/dL 0.50 - 1.40 01/22 Specimen Type: SERUM No comment entered. Ordering Provider: GIUSEPPE BISHOP IE Report Released Date/Time: Jan 23, 2022 09:24 AM Reporting Lab: [facility] [place] [facility] [address] [facility] [address] Performing Lab: [facility] [place] [facility] [address] [facility] [address] [employer] BASIC METABOLI C PANEL (fasting ) GLOMERULAR FILTRATION RATE/1.73 SQ M.PREDICTE D [VOLUME RATE/AREA] IN SERUM, PLASMA OR BLOOD BY CREATININE -BASED FORMULA (CKD-EPI 2020) 86 mL/min 60 01/22 Specimen Type: SERUM No comment entered. Ordering Provider: GIUSEPPE BISHOP IE Report Released Date/Time: Jan 23, 2022 09:24 AM Reporting Lab: [facility] [place] [facility] [address] [facility] [address] Performing Lab: [facility] [place] [facility] [address] [facility] [address] [employer] Vital Signs Combined list of inpatient and outpatient Vital Signs from Department of Defense and Veterans Affairs, ranging from 12 months to all on record, depending upon the facility. Vital Sign Value Date Comments Source SYSTOLIC BLOOD PRESSURE 156 01/22/20 24 11:29:26 [facility] [place] [facility] DIASTOLIC BLOOD PRESSURE 80 024 11:29:26 [facility] [place] [facility] PULSE OXIMETRY 98 01/22/2024 11:29:26 [facility] [place] [facility] WEIGHT 164.8 01/22/2024 11:29:26 [facility] [place] [facility] BMI 25kg/m2 01/22/2024 11:29:26 [facility] PAIN 2 01/22/2024 11:29:26 [facility] HEIGHT 68 01/22/2024 11:29:26 [facility] [facility] TEMPERATURE 97.2 01/22/2024 11:29:26 [facility] [facility] PULSE 86 01/22/2024 11:29:26 [facility] [place] [facility] RESPIRATION 20 01/22/2024 11:29:26 [facility] [place] [facility] Encounters Combined list of: 1) Encounters from Department of Veterans Affairs facilities going back up to thelast 18 months. 2) Encounters from the Department of Defense facilities going back up to 280 months. Location Location Details Encounter Type Encounter Number Reason For Visit Attending Provider ADM Date DC Date Status Disposition Source [facility] OFFICE O/P EST MOD 30-39 MIN [id number] Diagnos is: ICD-10- CM F43.12 Post-tr aumatic stress disorde r, chronic
LARROW,KATHY AN 11/01 [facility] En[facility] [id number] 01/19 [facility] [place] AD[place] [id number] VIELKA BISHOP SIMONA 01/22 [facility] [place] [facility] [place] OFF[place] O/P EST MOD 30-39 MIN [id number] Diagnos is: ICD-10- CM M25.552 Pain in left hip<br/ > VIELKA BISHOP SIMONA 01/22 [facility] EST MOD [facility]-39 MIN [id number] Diagnos is: ICD-10- CM F43.12 Post-tr aumatic stress disorde r, chronic
LARROW,KATHY AN 01/31 [place] [facility] Outpatient Encounter [id number] 03[facility]06 [facility] EST MOD [facility] MIN [id number] Diagnos is: ICD-10- CM F43.12 Post-tr aumatic stress disorde r, chronic
LARROW,KATHY AN 04/30 [place] [facility] Outpatient Encounter [id number] Diagnos is: ICD-10- CM Z02.89 Encount er for other adminis trative examina tions<b r/> AALIYAH LEONG A 05/10 [facility] [place] [facility] Outpatient Encounter [id number] Diagnos is: ICD-10- CM Z02.89 Encount er for other adminis trative examina tions<b r/> ESTELLA SANDOVAL L 05/18 [facility] [place] [facility] Outpatient Encounter [id number] 07/28 [facility] [place] [facility] OFFICE O/P EST MOD 30 MIN [id number] Diagnos is: ICD-10- CM F43.12 Post-tr aumatic stress disorde r, chronic
LARROW,KATHY AN 07/29 [facility] EST MOD 30 MIN [id number] Diagnos is: ICD-10- CM F43.12 Post-tr aumatic stress disorde r, chronic
LARROW,KATHY AN 11/11 [place] [facility] Outpatient [facility]counter [id number] 01/13 [facility] Outpatient Encounter [id number] 01/18 [facility] Outpatient Encounter [id number] 01/21 [facility] [place] [facility] [place] OFFICE O/P EST MOD 30 MIN [id number] Diagnos is: ICD-10- CM Z00.01 Encount er for general adult medical exam w abnorma l finding s
NATHANAvery BOBBY 01/21 [facility] [place] OFFICE O/P EST MOD 30 MIN [id number] Diagnos is: ICD-10- CM F43.12 Post-tr aumatic stress disorde r, chronic
VLADIMIR GREENBERGI AN 02/10 [facility] IE Social History Combined list of available smoking, tobacco, and other social history from Department of Defense and Veterans Affairs facilities. Social History Type Response Date Comment Sourc e Tobacco smoking status NHIS VA-TOBACCO NEVER USED 01/22/2024 [place] History of tobacco use VA-TOBACCO NEVER USED 01/22/2023 [facility] [place] [facility] History of tobacco use VA-TOBACCO NEVER USED 01/23/2022 [facility] History of tobacco use VA-TOBACCO NEVER USED 09/07/2020 [place] History of tobacco use VA-TOBACCO NEVER USED 07/28/2019 [place] History of tobacco use VA-TOBACCO NEVER USED 09/11/2018 [place] Plan of Care List of future care activities from Department of Veterans Affairs facilities. Additional future care activities may be listed in the Assessment and Plan section. Date/Time Care Activity Care Activity Detail Facili ty 05/14/2024 [facility]
--- OUTSIDE RECORDS SUMMARY | 2024-04-30 14:06 | XMS_ITS | Encounter Summary ---
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 Date/Time Encounter Type Encounter Description Reason Provider Source Jan 22, 2024 11:00 AM OFFICE O/P EST MOD 30 MIN PRIMARY CARE/MEDICINE ICD-10-CM Z00.01 Encounter for general adult medical exam w abnormal findings BENJY EVANS Encounter Template Text not used by [facility] Assessments - Encounter Diagnoses This section includes the primary and secondary diagnoses documented for the Encounter. Date/Time Primary/Secondary Diagnosis Diagnosis Name Provider Source Jan 22, 2024 12:53 PM PRIMARY Encounter for general adult medical exam w abnormal findings BENJY EVANS [place] Jan 22, 2024 12:53 PM SECONDARY Encounter for immunization TICO GARCIA [place] Jan 22, 2024 12:53 PM SECONDARY Essential (primary) hypertension BENJY EVANS [place] Plan of Treatment: Future Appointments (+ 6 months) and Future Tests (+/- 45 days) The Plan of Treatment section includes future care activities for the patient from [facility] [place] [facility] This section includes future appointments and future orders which are active, pending or scheduled. Future Appointments This section includes appointments that were scheduled to occur 6 months from the date of the Encounter, up to a maximum of 20 appointments. The data comes from all [facility] facilities. Appointment Date/Time Appointment Type Appointme nt Facility Name Feb 11, 2024 01:00 PM AMBULATORY - PSYCHIATRY [facility] May 14, 2024 08:30 AM AMBULATORY - PSYCHIATRY [facility] Active, Pending, and Scheduled Orders This section includes a listing of several types of active, pending, and scheduled orders, including clinic medications orders, diagnostic test orders, procedure orders and consult orders; where the start date of the order is 45 days before the date of the Encounter or 45 days after the date of theEncounter. The data comes from all [facility]. Test Date/Time Test Type Test Details Facility Name Jan 22, 2024 12:00 AM Laboratory - Chemi stry Order OCCULT BLOOD FIT X1 SCREEN(IN-HOUSE) STOOL FECES [facility] Lab Results: +/- 30 days [...] Range Comment Jan 14, 2024 11:21 AM [place] TSH Specimen Type: SERUM No comment entered. Ordering Provider: TED BISHOP Report Released Date/Time: Jan 22, 2023 01:19 PM Reporting Lab: [facility] [address] [address] Performing Lab: [address] [address] TSH 0.53 u[IU]/mL 0.35-5.00 Jan 14, 2024 11:21 AM [place] BASIC METABOLIC PANEL (fasting) Specime n Type: SERUM No comment entered. Ordering Provider: TED BISHPO Report Released Date/Time: Jan 22, 2023 01:19 PM Reporting Lab: [address] [address] Performing Lab: [address] [address] UREA NITROGEN 31 mg/dL H 7-25 GLUCOSE 91 mg/dL 65-100 SODIUM 141 mmol/L 135-145 POTASSIUM 4.6 mmol/L 3.5-5.0 CHLORIDE 106 mmol/L 100-110 CO2 28 meq/L 20-30 CREATININE, Serum 1.09 mg/dL 0.50-1.40 eGFR(CKD-EPI 2020) 71 mL/min >60 Jan 14, 2024 11:21 AM [place] URINALYSIS Specimen Type: URINE Comment: If Glucose = >500 and Ketones are positive, please alert the Physician. Ordering Provider: TED BISHOP Report Released Date/Time: Jan 22, 2023 01:19 PM Reporting Lab: [address] [address] Performing Lab: [address] [address] UA COLOR Light-Yellow Yellow UA APPEARANCE Clear Clear UA GLUCOSE Normal mg/dL Negative UA KETONES NEGATIVE mg/dL Negative UA BLOOD NEGATIVE mg/dL Negative UA PROTEIN NEGATIVE mg/dL Negative UA NITRITE NEGATIVE mg/dL Negative UA BILIRUBIN NEGATIVE mg/dL Negative UA SPECIFIC GRAVITY 1.024 H 1.016-1.022 UA pH 5.5 5.0-9.0 UA UROBILINOGEN Normal mg/dL <2.0 UA LEUKOCYTE NEGATIVE Negative Jan 14, 2024 11:21 AM [place] LIPID PANEL FASTING Specimen Type: SERUM No comment entered. Ordering Provider: TED BISHOP Report Released Date/Time: Jan 22, 2023 01:19 PM Reporting Lab: [address] [address] Performing Lab: [address] [address] CHOLESTEROL 158 mg/dL TRIGLYCERIDE 81 mg/dL 0-150 LDL calculated 92 mg/dL 0-129 CHOL/HDL 3.2 HDL CHOLESTEROL 50 mg/dL 40-60 Jan 14, 2024 11:21 AM [place] LIVER FUNCTION Specimen Type: SERUM No comment entered. Ordering Provider: TED BISHOP Report Released Date/Time: Jan 22, 2023 01:19 PM Reporting Lab: [address] [address] Performing Lab: [address] [address] PROTEIN,TOTAL 6.7 g/dL 6.0-8.3 ALBUMIN 4.0 g/dL 3.5-5.0 ALKALINE PHOSPHATASE 62 U/L 40-150 AST 14 U/L 5-34 ALT 9 U/L BILIRUBIN, TOTAL 0.4 mg/dL 0.2-1.2 Jan 14, 2024 11:21 AM [place] HEMOGLOBIN A1C PANEL Specimen Type: BLOOD Comment: [...] Jan 22, 2023 01:19 PM Reporting Lab: [address] [address] Performing Lab: [address] [address] HEMOGLOBIN A1C 5.0 4.0-5.6 Jan 14, 2024 11:21 AM [place] CBC AND DIFF (AUTO) Specimen Type: BLOOD No comment entered. Ordering Provider: TED BISHOP Report Released Date/Time: Jan 22, 2023 01:19 PM Reporting [facility] [address] [facility] [address] Performing [facility]: [facility] [address] [facility] [address] WBC 7.82 10*3/uL 4.50-11.00 RBC 4.64 10*6/uL [...] 0.0 0.0-0.0 NRBC, ABS 0.00 10*3/uL 0.00-0.00 Immunizations: All administered on the encounter date This section contains immunizations associated to the Encounter. Immunization Series Date Issued Reaction Comments INFLUENZA, HIGH-DOSE, TRIVALENT, PF Jan 21 Social History: Smoking Status (Most current) and [...] Smoking Status Comment Shahid brooke Jan 22, 2024 11:00 AM VA-TOBACCO NEVER USED [place] Tobacco Use History This section includes a history of the smoking, or tobacco-related health factors, that were collected on or before the date of the Encounter. The data comes from the [place] facility where the Encounter took place. Date/Time Smoking Status/Tobacco Use Comment Geo torres September 07, 2020 09:30 AM VA-TOBACCO NEVER USED [place] Jul 28, 2019 11:27 AM VA-TOBACCO NEVER USED [place] September 11, 2018 10:11 AM VA-TOBACCO NEVER USED [place] Encounter Notes: All associated encounter notes This section contains the clinical notes associated to the Encounter. Date/Time Encounter Note(s) Provider Source Jan 22, 2024 11:34 AM PREVENTIVE MEDICIN E NURSING NOTE: LOCAL TITLE: CLINICAL REMINDERS/NURSING STANDARD TITLE: PREVENTIVE MEDICINE NURSING NOTE DATE OF NOTE: JAN 22, 2024@11:34 ENTRY DATE: JAN 22, 2024@11:34:57 AUTHOR: JENNIFFER GARCIA COSIGNER: URGENCY: STATUS: COMPLETED Advance Directive Screen MH AD: Patient does not have a completed advance directive on file at any facility, [place] or outside. S/he is not interested in completing one at this time. The patient received education about Advance Directives and written notification of his/her rights. Suicide Screen: C-SSRS Screening [place] Suicide Severity Rating Scale (C-SSRS) screener 1. Over the past month, have you wished you were or wished you could go to sleep and not wake up? No 2. Over the past month, have you had any actual thoughts of killing yourself? No 3. Over the past month, have you been thinking about how you might do this? Response not required due to responses to other questions. 4. Over the past month, have you had these thoughts and had some intention of acting on them? Response not required due to responses to other questions. 5. Over the past month, have you started to work out or worked out the details of how to kill yourself? Response not required due to responses to other questions. 6. If yes, at any time in the past month did you intend to carry out this plan? Response not required due to responses to other questions. 7. In your lifetime, have you ever done anything, started to do anything, or prepared to do anything to end your life (for example, collected pills, obtained a gun, gave away valuables, went to the roof but didn't jump)? No 8. If YES, was this within the past 3 months? Response not required due to responses to other questions. Homelessness/Food Insecurity Screen: In the past 2 months, have you been living in stable housing that you own, rent, or stay in as part of a household? Yes - Living in stable housing. Are you worried or concerned that in the next 2 months you may NOT have stable housing that you own, rent, or stay in as part of a household? No - Not worried about housing near future The reports the following: Within the past 12 months, you worried whether your food would run out before you got money to buy more. Never true Within the past 12 months, the food you bought just didn't last and you didn't have money to get more. Never true Follow Up Colonoscopy: Colonoscopy is due based on information available to this reminder. A colonoscopy is currently scheduled or in process of being scheduled. Depression Screening: Perform PHQ-2 A PHQ-2 screen was performed. The score was 0 which is a negative screen for depression. Over the past two weeks, how often have you been bothered by the following problems? 1. Little interest or pleasure in doing things Not at all 2. Feeling down, depressed, or hopeless Not at all Falls & Incontinence Screen: Falls Screen: During the past 12 months, did the patient report any falls? 4. No falls within the past year. Incontinence Screen: During the past 12 months, has the patient has any characteristics of incontinence (ability, voiding, leakage, etc.)? No incontinence. Hepatitis C Testing: Patient declines HCV lab test. Tobacco Use Screening: The patient has never used tobacco. Influenza Immunization: Influenza, High-Dose, Trivalent, Preservative Free (Fluzone-Syringe) Administered: INFLUENZA, HIGH-DOSE, TRIVALENT, PF Date Administered: Jan 22, 2024 11:00 Cytotechnologist/Cytology Supervisor: SANOFI PASTEUR Lot: [id number] Exp Date: Oct 20, 2024 [facility]: [id number] Admin Route/Site: INTRAMUSCULAR/RIGHT DELTOID Dosage: 0.5mL Vaccine Information Statement(s): INFLUENZA(FLU) VACC(INACTIVATED OR RECOMBINANT)VIS Nov 26, 2020 (IRISH) Order By: Policy Administered By: Jenniffer Garcia The Influenza Vaccine Information Statement (VIS) was reviewed with the patient/caregiver which lists the benefits and risks of the vaccine and the risks of not receiving the Influenza vaccine. The patient/caregiver denied any prior severe reaction to this vaccine or its components or a severe allergic reaction, such as anaphylaxis, to any vaccine or any injectable therapy. The patient/caregiver gave verbal consent to receive the vaccine. Alcohol Use Screen (AUDIT-C): Alcohol Screen: SCREEN FOR ALCOHOL (AUDIT-C) An alcohol screening test (AUDIT-C) was negative (score=3). 1. How often did you have a drink containing alcohol in the past year? Consider a drink to be a 12 ounce can or bottle of regular beer, 8 ounces of malt liquor, a 5 ounce glass of table wine, or a 1.5 ounce shot of liquor (like scotch, gin, or vodka). Two to three times per week 2. How many drinks containing alcohol did you have on a typical day when you were drinking in the past year? One or two drinks 3. How often did you have six or more drinks on one occasion in the past year? Never COVID-19 Immunization: Refused Moderna Monovalent COVID-19 vaccine Immunization: COVID-19 (MODERNA), MRNA, LNP-S, PF, 50 MCG/0.5 ML (AGES 12+ YEARS) Refusal Reason: PATIENT DECISION Patient refuses all immunization(s) in the COVID-19 group Date Documented: 01/22/24 11:39 HTN Assess for Elevated BP>=140/90: The patient was counseled on the importance of regular exercise and/or physical activity in the control of blood pressure. The patient was instructed to try to participate in 120 minutes of aerobic exercise per week if possible and that any increase in physical activity may be useful in controlling blood pressure. Sexual Orientation: The patient thinks of their sexual orientation as: Straight or Heterosexual RHS Screen: RHS Screen Session Format: Face to Face Environmental Check Upon inquiry, the individual reports that the environment is safe to proceed. Informed Consent to Screen and Document The individual consents to proceed with screening. The individual consents to documentation of responses. PRIMARY SCREEN: In the past 12 months, how often did a current or former intimate partner (e.g., boyfriend, girlfriend, , , sexual partner): 1. Scream or curse at you Never 2. Insult or talk down to you Never 3. Threaten you with harm Never 4. Physically hurt you Never 5. Force or pressure you to have sexual contact against your will, or when you were unable to say no Never ?? The HITS tool (items 1-4 above) is [place] copyright protected by Harrison Ewing MD, and the user has full rights to use it throughout the [place] system. PRIMARY SCREEN RESULT: The Primary Screen is NEGATIVE. The individual answered never to all forms of IPV above (i.e., answered never to all 5 items) The individual accepts education and/or resources: No EDUCATION: The individual indicated readiness to learn. Education offered during this session as noted above. The individual indicated understanding by asking relevant questions and making appropriate comments. No barriers to learning were observed or identified. MED REC COMPLETED BY PROVIDER DURING THE VISIT. 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 Occ flares of sciatica. Reviewed modalities (he's had previous injections). Declines referrals at this time and would like to focus on his surgery as this has been affecting what he can do. Patient is comanaged. Reports no recent changes in medication. Problem list and medications reviewed. Last Labs: Dec 2023 Active problems - Computerized Problem List is the source for the followin. Exposure to potentially hazardous substance Connect Snomed Code to ICD 10 Code refer to note dated 01/22/23 2. Essential hypertension 3. Angioid streaks of choroid 4. History of spinal surgery x4 cervical surgeries 5. Tear of quadriceps tendon L s/p surgery 6. Thoracic outlet syndrome s/p R surgery 7. Degenerative arthritis s/p oracio ankle reconstruction 8. Adrenal tumor s/p excision right 9. 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 Concerns primarily in getting his bilateral hernia surgery moved (seen [facility] surgeon a month ago but has no schedule for the procedure). He's doing well otherwise. [facility] - prefers to have most aspects of health maintenance, chronic condition(s) and medication management to non-VA PCP. HTN - less than optimum; discussed with patient; defer to nonVA PCP GERD - asx PTSD - stable as per Plan of care discussed with patient who articulates understanding. Chronic issues reviewed briefly; no changes to management unless specified above. RTC annually and as needed TIME ATTESTATION: Time spent directly with the patient was ( x ) 30 minutes More than 50% of the time spent with the patient included counselling regarding the admission Medical Review, History and Physical Examination, discussion of the findings, both remote and local data in the medical record, management, and patient education for the annotated medical conditions above. Discussed with patient and agrees to plan. VA and Non VA meds were reconciled. Today's documentation was made using voice recognition software. This note may contain spelling/grammatical errors secondary to this software. Patient provided copies of labs/studies and medication list. Upcoming Appointments: 02/11/2024 13:00 SPOSTEFANO/HEAVENLY/YARI Med Reconciliation: Active Outpatient Medications (including Supplies): Active Outpatient Medications Status 1) HYDROXYZINE HCL 10MG TAB TAKE ONE TABLET BY MOUTH ACTIVE FOUR TIMES DAILY NEEDED FOR ANXIETY 2) SERTRALINE HCL 100MG TAB TAKE ONE AND ONE-HALF ACTIVE TABLETS BY MOUTH EVERY MORNING FOR MOOD AND PTSD Active Non-VA Medications Status 1) Non-VA AMLODIPINE BESYLATE 5MG TAB 5MG BY MOUTH ONCE ACTIVE DAILY 2) Non-VA CHOLECALCIF 50MCG (D3-2,000UNIT) TAB 2000UNIT ACTIVE BY MOUTH ONCE DAILY 3) Non-VA DICLOFENAC NA 75MG EC TAB 75MG BY MOUTH TWICE ACTIVE DAILY 4) Non-VA ESOMEPRAZOLE 20MG (BASE) EC CAP 20MG BY MOUTH ACTIVE ONCE DAILY 5) Non-VA PRAVASTATIN NA 40MG TAB 40MG BY MOUTH AT ACTIVE BEDTIME 7 Total Medications Medication (Local) Status No local medications found. Medication (Remote) Status No remote medications found. /isai/ MEGHAN EVANS MD PHYSICIAN Signed: 01/22/2024 12:54 MEGHAN EVANS [place]
--- OUTSIDE RECORDS SUMMARY | 2024-04-30 14:06 | XMS_ITS | Encounter Summary ---
Author Name [facility] [place] Address [address] [place] [id number] Care Team Providers Care Library Page Name Role Phone MEGHAN EVANS Primary Care [...] SELF PLUS 1 Apr 23, [phone] [id number] [phone] VALENTÍN HERRING PATIENT CAREMARK-F EP BCBS PRESCRIPT ION FEP CAREM ARK Apr 23, 2015 [id number] VALENTÍN HERRING PATIENT MEDICARE (WNR) MEDICARE (M) PART A Dec 22, 2013 PART A [id number] VALENTÍN HERRING PATIENT Selected Encounter This section includes the information on record at [place] for the Encounter. Date/Time Encounter Type Encounter Description Reason Provider Source Feb 11, 2024 01:00 PM OFFICE O/P EST MOD 30 MIN [facility] ICD-10-CM F43.12 Post-traumatic stress disorder, chronic ISABELA GREENBERG Encounter Template Text not used by [facility] Assessments - Encounter Diagnoses This section includes the primary and secondary diagnoses documented for the Encounter. Date/Time Primary/Secondary Diagnosis Diagnosis Name Provider Source Feb 11, 2024 01:28 PM PRIMARY Post-traumatic stress disorder, ISABELA Maher Plan of Treatment: Future Appointments (+ 6 months) and Future Tests (+/- 45 days) The Plan of Treatment section includes future care activities for the patient from all [place] treatmentfacilities. This section includes future appointments and future orders which are active, pending or scheduled. Future Appointments This section includes appointments that were scheduled to occur 6 months from the date of the Encounter, up to a maximum of 20 appointments. The data comes from all [place] treatment facilities. Appointment Date/Time Appointment Type Appointme nt Facility Name May 14, 2024 08:30 AM AMBULATORY - PSYCHIATRY [facility] Active, Pending, and Scheduled Orders This section includes a listing of several types of active, pending, and scheduled orders, including clinic medications orders, diagnostic test orders, procedure orders and consult orders; where the start date of the order is 45 days before the date of the Encounter or 45 days after the date of theEncounter. The data comes from all [place] treatment facilities. Test Date/Time Test Type Test Details Facility Name Jan 22, 2024 12:00 AM Laboratory - Chemi stry Order OCCULT BLOOD FIT X1 SCREEN(IN-HOUSE) STOOL FECES SP [facility] Lab Results: +/- 30 days of the encounter This section includes the Chemistry and Hematology Lab Results on record with [place] for the patient. Radiology Reports and Pathology Reports are provided separately, in subsequent sections. Lab Results This section contains the Chemistry/Hematology Results that were resulted 30 days before or 30 daysafter the date of the Encounter. Date/Time Source Result Type Result - Unit Interpretation Reference Range Comment Jan 14, 2024 11:21 AM [facility] TSH Specimen Type: SERUM No comment entered. Ordering Provider: TED BISHOP Report Released Date/Time: Jan 22, 2023 01:19 PM Reporting Lab: [address] [id number] Performing Lab: [address] [address] TSH 0.53 u[IU]/mL 0.35-5.00 Jan 14, 2024 11:21 AM [facility] URINALYSIS Specimen Type: URINE Comment: If Glucose = >500 and Ketones are positive, please alert the Physician. Ordering Provider: TED BISHOP Report Released Date/Time: Jan 22, 2023 01:19 PM Reporting Lab: [address] [phone] Performing Lab: [address] [phone] UA COLOR Light-Yellow Yellow UA APPEARANCE Clear Clear UA GLUCOSE Normal mg/dL Negative UA KETONES NEGATIVE mg/dL Negative UA BLOOD NEGATIVE mg/dL Negative UA PROTEIN NEGATIVE mg/dL Negative UA NITRITE NEGATIVE mg/dL Negative UA BILIRUBIN NEGATIVE mg/dL Negative UA SPECIFIC GRAVITY 1.024 H 1.016-1.022 UA pH 5.5 5.0-9.0 UA UROBILINOGEN Normal mg/dL <2.0 UA LEUKOCYTE NEGATIVE Negative Jan 14, 2024 11:21 AM [facility] BASIC METABOLIC PANEL (fasting) Specime n Type: SERUM No comment entered. Ordering Provider: TED BISHOP Report Released Date/Time: Jan 22, 2023 01:19 PM Reporting Lab: [address] [address] Performing Lab: [address] [address] UREA NITROGEN 31 mg/dL H 7-25 GLUCOSE 91 mg/dL 65-100 SODIUM 141 mmol/L 135-145 POTASSIUM 4.6 mmol/L 3.5-5.0 CHLORIDE 106 mmol/L 100-110 CO2 28 meq/L 20-30 CREATININE, Serum 1.09 mg/dL 0.50-1.40 eGFR(CKD-EPI 2020) 71 mL/min >60 Jan 14, 2024 11:21 AM [facility] LIPID PANEL FASTING Specimen Type: SERUM No comment entered. Ordering Provider: TED BISHOP Report Released Date/Time: Jan 22, 2023 01:19 PM Reporting Lab: [address] [address] Performing Lab: [address] [address] CHOLESTEROL 158 mg/dL TRIGLYCERIDE 81 mg/dL 0-150 LDL calculated 92 mg/dL 0-129 CHOL/HDL 3.2 HDL CHOLESTEROL 50 mg/dL 40-60 Jan 14, 2024 11:21 AM [facility] LIVER FUNCTION Specimen Type: SERUM No comment entered. Ordering Provider: TED BISHOP Report Released Date/Time: Jan 22, 2023 01:19 PM Reporting Lab: [address] [address] Performing Lab: [address] [address] PROTEIN,TOTAL 6.7 g/dL 6.0-8.3 ALBUMIN 4.0 g/dL 3.5-5.0 ALKALINE PHOSPHATASE 62 U/L 40-150 AST 14 U/L 5-34 ALT 9 U/L BILIRUBIN, TOTAL 0.4 mg/dL 0.2-1.2 Jan 14, 2024 11:21 AM [facility] HEMOGLOBIN A1C PANEL Specimen Type: BLOOD Comment: [...] Jan 22, 2023 01:19 PM Reporting Lab: [address] [address] Performing Lab: [address] [address] HEMOGLOBIN A1C 5.0 4.0-5.6 Jan 14, 2024 11:21 AM [facility] CBC AND DIFF (AUTO) Specimen Type: BLOOD No comment entered. Ordering Provider: TED BISHOP Report Released Date/Time: Jan 22, 2023 01:19 PM Reporting Lab: [address] [address] Performing Lab: [address] [address] WBC 7.82 10*3/uL 4.50-11.00 RBC 4.64 10*6/uL [...] and tobacco- related health factors from the [place] facility where the Encounter took place. Current Smoking Status This section includes the most current smoking, or tobacco-related health factor, from the [place] facility where the Encounter took place. Date/Time Current Smoking Status Comment Shahid brooke Jan 22, 2024 11:00 AM VA-TOBACCO NEVER USED [facility] Tobacco Use History This section includes a history of the smoking, or tobacco-related health factors, that were collected on or before the date of the Encounter. The data comes from the [place] facility where the Encounter took place. Date/Time Smoking Status/Tobacco Use Comment F acreanna September 07, 2020 09:30 AM VA-TOBACCO NEVER USED [place] Jul 28, 2019 11:27 AM VA-TOBACCO NEVER USED [facility] September 11, 2018 10:11 AM VA-TOBACCO NEVER USED [facility] Encounter Notes: All associated encounter notes This section contains the clinical notes associated to the Encounter. Date/Time Encounter Note(s) Provider Source Feb 11, 2024 04:08 PM [facility] TMENT PLAN NOTE: LOCAL TITLE: MH TREATMENT PLAN STANDARD TITLE: MENTAL HEALTH TREATMENT PLAN NOTE DATE OF NOTE: FEB 11, 2024@16:08:17 ENTRY DATE: FEB 11, 2024@16:08:24 AUTHOR: ISABELA GREENBERGER: URGENCY: STATUS: COMPLETED MH TREATMENT PLAN - Jan, @ 04:08PM Visit Date: Jan, @ 13:00 - [facility] TAIL[facility]: CLEM HERRING / [place] [facility] RISK ASSESSMENT (DANGER TO SELF AND OTHERS): Low risk to self or others PATIENT'S STRENGTHS/ABILITIES: Has supportive family and/or friends Financial security MENTAL HEALTH DIAGNOSES AND RELEVANT MEDICAL CONDITIONS: Chronic post-traumatic stress disorder ([facility] [id number]) TREATMENT PLAN: Problem: PTSD Goal: To feel less angry. Objective: will report no more than 3 angry outbursts a week. Intervention: Medication adherence, attend therapy appts and [place] [facility] group at [facility], consider Anger Management Treating Specialty: [facility] Renewal Date: 12/15/2021 Entered Treatment: 01/09/2019 @ 08:18AM Anticipated Discharge: None Actual Discharge: None /isai/ ISABELA GREENBERG DO Psychiatrist Signed: 02/11/2024 16:08 Receipt Acknowledged By: 02/12/2024 07:47 /renae Herring APRN STAFF CLINICAL NURSE SPECIALIST ISABELA GREENBERG Feb 11, 2024 01:04 PM PSYCHIATRY NOTE: LOCAL TITLE: PSYCHIATRY NOTE STANDARD TITLE: PSYCHIATRY NOTE DATE OF NOTE: FEB 11, 2024@13:04 ENTRY DATE: FEB 11, 2024@13:04:31 AUTHOR: ISABELA GREENBERG: URGENCY: STATUS: COMPLETED Time spent: 21-30 minutes >16 mins supportive therapy (including empathic listening, insight building, and psychoeducation). The presents today for follow-up. PATIENT REPORT: He is conversational. Mood is even. continues to benefit from medication. He denies depressed mood. He iwll be having b/l hernia surgery later this month, which has limited his mobility and extracurriculars. He continues to walk 10 miles a day with his dog and . His is in the process of working on her weight. As previously noted, virgil shares that his wfie feels his medications are highly effective. He feels as though he doesn't fly off the handle as he did in the past. He denies irritability--he benefits from PRN hydroxyzine; he often takes three in the morning and another one or two later in the day as needed. This being said, there are some days he does not require hydroxyzine. He feels it is particularly helpful for his anxiety. He benefits from therapy. He does not care for groups. Virgil reports 2 maybe 3 beers a day. He feels it is his right to have a few beers daily. He feels his is needlessly concerned about his drinking. He has discussed his close relationship with his brothers and sister. One brother has prostate cancer and the other has a heart condition. One niece has pancreatic cancer. He again discusses the importance of staying busy. Since last visit, he [facility]. He utilizes his typical humor. Virgil denies depressed mood. There is normal energy and motivations. Symptoms of PTSD are chronic but not acute, and he feels that sertraline is quite helpful. Sleep is good. He feels well-supported by his . Son and his family (two grandchildren) live upstairs. Virgil presents as casually-dressed and with appropriate self-care. He was cooperative with questions asked. Cognitive exam was grossly intact. TP was logical and organized. TC was pertinent to topic. Speech was of regular rate, rhythm, volume, and tone. Mood was even and affect congruent. He denied SI and HI. Insight and judgment were intact. SOCIAL HX: Five grandchildren, son and family (two grandchildren) live upstairs Has a nephew in [place] Enjoys fishing, hiking, and walking SUICIDE RISK ASSESSMENT: SUICIDE INQUIRY: IDEATION: Denies ideation. Do you currently have any homicidal ideation? No SUBSTANCE USE: cannabis--reports nighttime use, obtains at dispensary [facility]--has cut back significantly since prior to seeking treatment. He reports 3 beers daily--does not appreciate when others express cocnern about his drinking ACTIVE OUTPATIENT MEDICATIONS (including Supplies): Active Outpatient Medications (including Supplies): HYDROXYZINE HCL 10MG TAB TAKE ONE TABLET BY MOUTH FOUR ACTIVE TIMES DAILY NEEDED FOR ANXIETY SERTRALINE HCL 100MG TAB TAKE ONE AND ONE-HALF TABLETS BY ACTIVE MOUTH EVERY MORNING FOR MOOD AND PTSD Non-VA AMLODIPINE BESYLATE 5MG TAB 5MG BY MOUTH ONCE DAILY ACTIVE Non-VA CHOLECALCIF 50MCG (D3-2,000UNIT) TAB 2000UNIT BY ACTIVE MOUTH ONCE DAILY Non-VA DICLOFENAC NA 75MG EC TAB 75MG BY MOUTH TWICE DAILY ACTIVE Non-VA ESOMEPRAZOLE 20MG (BASE) EC CAP 20MG BY MOUTH ONCE ACTIVE DAILY Non-VA PRAVASTATIN NA 40MG TAB 40MG BY MOUTH AT BEDTIME ACTIVE ALLERGIES: BACTRIM, CODEINE I discussed the findings and plan with the patient. I educated the patient about their mental health condition. repeated back the plan and education. IMPRESSION (DSM-5): PTSD, chronic ADHD likely based upon hx and clinical presentation Cannabis Use Disorder Alcohol Use Disorder--reports has cut back and denies any recent excessive use (3 cans daily) PLAN: Continue sertraline 150mg daily for PTSD and depression--dose increased April 2019 with good response. Labwork from 01/22/23 reviewed. Continue hydroxyzine 10mg qid PRN for anxiety and irritability--he feels that this is quite helpful--he does not drive or operate heavy machinery after taking. He prefers to take it regularly, and with benefit. He sees [facility] at the [facility] for individual therapy. He does not care for groups. I congratulated him on significantly cutting back on his alcohol. I encouraged abstinence. I offered referral to [facility] but he declines. He is not interested in meetings. Encouraged cutting back on marijuana with goal of abstinence. The patient denied suicidal and violent ideation, but the suicide prevention information and hotline were reviewed with the patient. The patient also understands to call 911 or to go to ER in the event of an emergency. I completed a thorough risk assessment today, taking into consideration both the patient's risk factors andprotective factors. After careful consideration, it is my clinical opinion that the is probably at low-risk for harm to self and others. The rationale for the psychiatric medications and the alternatives to treatment were discussed with the patient. The side effect profile of the psychiatric medications was reviewed with the patient. This also included discussion of potential drug interactions with the psychiatric medication. Patient demonstrated reasonable understanding of the medication side effects and the above issues. The benefits of psychiatric medications outweigh risks for this patient. I asked the patient to call the clinic or to come to open access if the patient does not like the effect of psychiatric medication or if has side effects with psychiatric medication. Follow-up with PCP for regular health maintenance. FOLLOW-UP: 12 weeks, sooner if needed Medication Reconciliation: Outpatient: Has the patient been taking medications as documented in the EMLR? YES: The patient has been taking medications as documented in the EMLR. Essential Medication List for Review used to complete this medication reconciliation. INCLUDED IN THIS LIST: Alphabetical list of active outpatient prescriptions dispensed from this [facility] (local) and dispensed from another [place] or [facility] facility (remote) as well as inpatient orders (local, pending and active), local clinic medications, locally documented non-VA medications, and local prescriptions that have or been discontinued in the past 90 days. - All changes in medications, including all non-VA/Herbal/OTC medications were entered into CPRS. - If there were any medications the patient should no longer take, they were discontinued. - The patient/caregiver was instructed to update this list, discard old lists, and take this list to the next appointment, whether with a VA or non-VA provider. /isai/ ISABELA GREENBERG DO Psychiatrist Signed: 02/11/2024 13:28 Receipt Acknowledged By: 02/11/2024 13:43 /isai/ RAFAELA JOHNSON ADVANCED TEMPERING OVEN OPERATOR ISABELA GREENBERG
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
--- OUTSIDE RECORDS SUMMARY | 2024-04-30 14:07 | XMS_ITS | Encounter Summary ---
Author Name [facility] [place] [facility] [place] [facility] [place] [facility] [place] Address [address] [place] [address] Care Team Providers Care Financial Planner Name Role Phone MEGHAN EVANS Primary Care [...] SELF PLUS 1 Apr 23, 2015 106 [id number] [phone] VALENTÍN HERRING PATIENT CAREMARK-F EP BCBS PRESCRIPT ION FEP CAREM ARK Apr 23, 2015 [id number] VALENTÍN HERRING PATIENT MEDICARE (WNR) MEDICARE (M) PART A Dec 22, 2013 PART A [id number] VALENTÍN HERRING PATIENT Selected Encounter This section includes the information on record at [place] for the Encounter. Date/Time Encounter Type Encounter Description Reason Provider Source Nov 12, 2023 09:00 AM OFFICE O/P EST MOD 30 MIN [facility] - IND ICD-10-CM F43.12 Post-traumatic stress disorder, chronic ISABELA GREENBERG Encounter Template Text not used by [facility] Assessments - Encounter Diagnoses This section includes the primary and secondary diagnoses documented for the Encounter. Date/Time Primary/Secondary Diagnosis Diagnosis Name Provider Source Nov 12, 2023 09:26 AM PRIMARY Post-traumatic stress disorder, chronic ISABELA GREENBERG Nov 12, 2023 09:26 AM SECONDARY Alcohol dependence, uncomplicated ISABELA GREENBERG Plan of Treatment: Future Appointments (+ 6 months) and Future Tests (+/- 45 days) The Plan of Treatment section includes future care activities for the patient from all [place] treatmentfacilities. This section includes future appointments and future orders which are active, pending or scheduled. Future Appointments This section includes appointments that were scheduled to occur 6 months from the date of the Encounter, up to a maximum of 20 appointments. The data comes from all [place] treatment facilities. Appointment Date/Time Appointment Type Appointme nt Facility Name Jan 22, 2024 11:00 AM AMBULATORY - MEDICINE [facility] [place] [facility] Feb 11, 2024 01:00 PM AMBULATORY - PSYCHIATRY [facility] May 14, 2024 08:30 AM AMBULATORY - PSYCHIATRY [facility] Social History: Smoking Status (Most current) and Tobacco Use (All prior to encounter date) This section includes the most current, and the historical, smoking and tobacco- related health factors from the [place] facility where the Encounter took place. Current Smoking Status This section includes the most current smoking, or tobacco-related health factor, from the [place] facility where the Encounter took place. Date/Time Current Smoking Status Comment Shahid brooke September 07, 2020 09:30 AM [facility] [place] Tobacco Use History This section includes a history of the smoking, or tobacco-related health factors, that were collected on or before the date of the Encounter. The data comes from the [place] facility where the Encounter took place. Date/Time Smoking Status/Tobacco Use Comment F acility Jul 28, 2019 11:27 AM [place]-TO[place]ACCO [place] USED [place] September 11, 2018 10:11 AM [place]-TOBACCO [place] Encounter Notes: All associated encounter notes This section contains the clinical notes associated to the Encounter. Date/Time Encounter Note(s) Provider Source Nov 12, 2023 09:01 AM PSYCHIATRY NOTE: LOCAL TITLE: PSYCHIATRY NOTE STANDARD TITLE: PSYCHIATRY NOTE DATE OF NOTE: NOV 12, 2023@09:01 ENTRY DATE: NOV 12, 2023@09:01:46 AUTHOR: ISABELA GREENBERG EXP COSIGNER: URGENCY: STATUS: COMPLETED Time spent: 21-30 minutes >16 mins supportive therapy. The presents today for follow-up. PATIENT REPORT: Time spent: 21-30 minutes >16 mins supportive therapy. The presents today for follow-up. PATIENT REPORT: He is conversational. Mood is even. Virgil continues to benefit from medication. He denies depressed mood. He is frustrated that his truck is being serviced, and that it's derailed osme of his summer plans. He is hopeful to get out on the water and fish/ kayak. As previously noted, virgil shares that his [...] discussed his close relationship with his brothers are sister. One brother has a heart condition and is not doing well. He plans to visit him this spring in [facility] for fishing. He again discusses the importance of staying [...] and his family (two grandchildren) live upstairs. He appreciates self-help books. Virgil presents as casually-dressed and with appropriate [...] grandchildren) live upstairs Has a nephew in [place] Enjoys fishing, hiking, and walking SUICIDE RISK [...] ONE-HALF TABLETS BY ACTIVE MOUTH EVERY MORNING -FOR PTSD Non-VA AMLODIPINE BESYLATE 5MG TAB 5MG [...] with benefit. He [facility] for individual [facility]. He does not care [...] maintenance. FOLLOW-UP: 12 weeks, sooner if needed REMINDERS: Medication Reconciliation: Outpatient: Has the patient been taking medications as documented in the EMLR? YES: The patient has been taking medications as documented in the EMLR. Essential Medication List for Review used to complete this medication reconciliation. INCLUDED IN THIS LIST: Alphabetical list of active outpatient prescriptions dispensed from this VA (local) and dispensed from another VA or DoD facility (remote) as well as [...] provider. /isai/ ISABELA GREENBERG DO Psychiatrist Signed: 11/12/2023 09:26 ISABELA GREENBERG
--- OUTSIDE RECORDS SUMMARY | 2024-04-30 14:07 | XMS_ITS | Encounter Summary ---
Author Name [facility] [place] [facility] [place] Address [address] [place] [id number] Care Team Providers Care Truckman Name Role Phone MEGHAN EVANS Primary Care [...] SELF PLUS 1 Apr 23, 2015 106 [id number] [phone] VALENTÍN HERRING PATIENT CAREMARK-F EP BCBS PRESCRIPT ION FEP CAREM ARK Apr 23, 2015 [id number] VALENTÍN HERRING PATIENT MEDICARE (WNR) MEDICARE (M) PART A Dec 22, 2013 PART A [id number] VALENTÍN HERRING PATIENT Selected Encounter This section includes the information on record at [place] for the Encounter. Date/Time Encounter Type Encounter Description Reason Provider Source Jul 30, 2023 09:00 AM OFFICE O/P EST MOD 30 MIN [facility] - IND ICD-10-CM F43.12 Post-traumatic stress disorder, chronic ISABELA GREENBERG Encounter Template Text not used by VA Assessments - Encounter Diagnoses This section includes the primary and secondary diagnoses documented for the Encounter. Date/Time Primary/Secondary Diagnosis Diagnosis Name Provider Source Jul 30, 2023 10:21 AM PRIMARY Post-traumatic stress disorder, chronic ISABELA GREENBERG Plan of Treatment: Future Appointments (+ 6 months) and Future Tests (+/- 45 days) The Plan of Treatment section includes future care activities for the patient from all [place] treatmentfacilities. This section includes future appointments and future orders which are active, pending or scheduled. Future Appointments This section includes appointments that were scheduled to occur 6 months from the date of the Encounter, up to a maximum of 20 appointments. The data comes from all [place] treatment facilities. Appointment Date/Time Appointment Type Appointme nt Facility Name Nov 12, 2023 09:00 AM AMBULATORY - PSYCHIATRY [facility] Jan 22, 2024 11:00 AM AMBULATORY - MEDICINE [facility] [place] [facility] Social History: Smoking Status (Most current) and [...] Date/Time Current Smoking Status Comment Facil ity September 07, 2020 09:30 [facility] [place] Tobacco Use History This section includes a history of the smoking, or tobacco-related health factors, that were collected on or before the date of the Encounter. The data comes from the [place] facility where the Encounter took place. Date/Time Smoking Status/Tobacco Use Comment F acility Jul 28, 2019 11:27 AM [place]-TOBACCO NEVER USED [place] September 11, 2018 10:11 AM [facility] [place] Encounter Notes: All associated encounter notes This section contains the clinical notes associated to the Encounter. Date/Time Encounter Note(s) Provider Source Jul 30, 2023 10:14 AM PSYCHIATRY NOTE: LOCAL TITLE: PSYCHIATRY NOTE STANDARD TITLE: PSYCHIATRY NOTE DATE OF NOTE: JUL 30, 2023@10:14 ENTRY DATE: JUL 30, 2023@10:14:14 AUTHOR: ISABELA GREENBERG EXP COSIGNER: URGENCY: STATUS: COMPLETED Time spent: 21-30 minutes >16 mins supportive therapy. The presents today for follow-up. PATIENT REPORT: He is conversational. Mood is even. Jodie continues to benefit from medication. He discusses how they've improved his life. He shares that his son has Bipolar medicine and finally seems willing to see a psychiatrist--Kota wonders to what extent he's been an influence on his decision. Jodie shares that his wfie feels his medications are highgly effective. He feels as though he doesn't fly off the handle as he did in the past. He denies irritability--he benefits from PRN hydroxyzine; he often takes three in the morning and another one or two later in the day as needed. He feels it is particularly helpful for his anxiety. He benefits from therapy. He does not care for groups. He discusses his close relationship with his brothers are sister. one brother has aheart condition and is not doing well. He plans to visit him this spring in [facility] for fishing. He again discusses the importance of staying busy. He plans to start volunteering at the [facility] in [place] soon. He utilizes his typical humor. Jodie denies depressed mood. There is normal energy and motivations. Symptoms of PTSD are chronic but not acute, and he feels that sertraline is quite helpful. He feels that melatonin, like other sleeping medications, promote nightmares. He feels well-supported by his . Son and his family (two grandchildren) live upstairs. He appreciates self-help books. Jodie presents as casually-dressed and with appropriate self-care. [...] grandchildren) live upstairs Has a nephew in [place] Enjoys fishing, hiking, and walking SUICIDE RISK ASSESSMENT: SUICIDE INQUIRY: IDEATION: Denies ideation. Do you currently have any homicidal ideation? No SUBSTANCE USE: cannabis--reports nighttime use, obtains at dispensary [facility]--has cut back significantly since prior to seeking treatment. A trickle here and there; he denies overuse ACTIVE OUTPATIENT MEDICATIONS (including Supplies): Active Outpatient Medications (including Supplies): HYDROXYZINE HCL 10MG TAB TAKE ONE TABLET BY MOUTH FOUR ACTIVE TIMES DAILY NEEDED FOR ANXIETY HYDROXYZINE HCL 10MG TAB TAKE ONE TABLET BY MOUTH FOUR PENDING TIMES DAILY NEEDED SERTRALINE HCL 100MG TAB TAKE ONE AND ONE-HALF TABLETS BY ACTIVE MOUTH EVERY MORNING -FOR PTSD SERTRALINE HCL 100MG TAB TAKE ONE AND ONE-HALF TABLETS BY PENDING MOUTH EVERY MORNING -FOR PTSD Non-VA AMLODIPINE [...] the patient about their mental health condition. [place] repeated back the plan and education. IMPRESSION (DSM-5): PTSD, chronic ADHD likely based upon hx and clinical presentation Cannabis Use Disorder Alcohol Use Disorder--reports has cut back and denies any recent excessive use PLAN: Continue sertraline 150mg daily for PTSD and depression--dose increased April 2019 with good response. Labwork from 01/22/23 reviewed. Continue hydroxyzine 10mg qid PRN for anxiety and irritability--he feels that this is quite helpful--he does not drive or operate heavy machinery after taking. He prefers to take it regularly, and with benefit. Will discontinue melatonin as he feels sleeping medications promote nightmares. He sees [facility] at the [facility] for individual therapy. He does not care for groups. I congratulated him on significantly cutting back on his alcohol. I encouraged abstinence. I offered referral to [facility] but he declines. He is not interested in meetings. Continue to explore motivation for abstinence. Encouraged cutting back on marijuana with goal [...] provider. /isai/ ISABELA GREENBERG DO Psychiatrist Signed: 07/30/2023 10:21 ISABELA GREENBERG
--- OUTSIDE RECORDS SUMMARY | 2024-04-30 14:07 | XMS_ITS ---
Author Name [facility] [place] [facility] [place] Address [address] [place] [id number] Care Team Providers Care Accounts Payable Technician Name Role Phone MEGHAN EVANS Primary Care [...] SELF PLUS 1 Apr 23, 2015 106 [id number] VALENTÍN HERRING PATIENT CAREMARK-F EP BCBS PRESCRIPT ION FEP CAREM ARK Apr 23, 2015 [id number] VALENTÍN HERRING MYRANDA PATIENT MEDICARE (WNR) MEDICARE (M) PART A Dec 22, 2013 PART A [id number] [phone] VALENTÍN HERRING SAIGEDaniel PATIENT Selected Encounter This section includes the information on record at [place] for the Encounter. Date/Time Encounter Type Encounter Description Reason Provider Source May 10, 2023 08:00 AM Outpatient Encounter GENERAL INTERNAL MEDICINE ICD-10-CM Z02.89 Encounter for other administrative examinations GUILLE SEBASTIAN Aura Encounter Template Text not used by [place] Assessments - Encounter Diagnoses This section includes the primary and secondary diagnoses documented for the Encounter. Date/Time Primary/Secondary Diagnosis Diagnosis Name Provider Source May 10, 2023 08:49 AM PRIMARY Encounter for other administrative examinations GUILLE SEBASTIAN [facility] Plan of Treatment: Future Appointments (+ 6 months) and Future Tests (+/- 45 days) The Plan of Treatment section includes future care activities for the patient from all [place] treatmentfacilities. This section includes future appointments and future orders which are active, pending or scheduled. Future Appointments This section includes appointments that were scheduled to occur 6 months from the date of the Encounter, up to a maximum of 20 appointments. The data comes from all [place] treatment facilities. Appointment Date/Time Appointment Type Appointme nt Facility Name May 18, 2023 09:30 AM AMBULATORY - MEDICINE [facility] Jul 30, 2023 09:00 AM AMBULATORY - PSYCHIATRY [facility] Social History: Smoking Status (Most current) and Tobacco Use (All prior to encounter date) This section includes the most current, and the historical, smoking and tobacco- related health factors from the [place] facility where the Encounter took place. Current Smoking Status This section includes the most current smoking, or tobacco-related health factor, from the [place] facility where the Encounter took place. Date/Time Current Smoking Status Comment Shahid brooke Jan 22, 2023 10:39 AM [place]-TOBACCO NEVER USED [facility] Tobacco Use History This section includes a history of the smoking, or tobacco-related health factors, that were collected on or before the date of the Encounter. The data comes from the [place] facility where the Encounter took place. Date/Time Smoking Status/Tobacco Use Comment F melissa Jan 23, 2022 09:02 AM [place]-TOBACCO NEVER USED [facility] Encounter Notes: All associated encounter notes This section contains the clinical notes associated to the Encounter. Date/Time Encounter Note(s) Provider Source May 10, 2023 08:00 AM C & P EXAMINATION NOTE: LOCAL TITLE: COMPENSATION AND PENSION EXAM STANDARD TITLE: C & P EXAMINATION NOTE DATE OF NOTE: MAY 10, 2023@08:00 ENTRY DATE: MAY 10, 2023@08:47:29 AUTHOR: ZULEYMA SEBASTIAN EXP COSIGNER: URGENCY: STATUS: COMPLETED Hypertension Disability Benefits Questionnaire Name of claimant/: ROSIO HERRING ([id number]) Is this questionnaire being completed in conjunction with a VA [id number], C&P Examination Request? [X] Yes [ ] No How was the examination completed? (check all that apply) [ ] In-person examination [X] Records reviewed [ ] Examination via approved video telehealth [ ] Other, please specify in comments box Comments: * 05/02/2023 'S CLAIM: - HYPERTENSION Acceptable Clinical Evidence (CARLOS) --------- Indicate method used to obtain medical information to complete this document: [X] Review of available records (without in-person or video telehealth examination) using the Acceptable Clinical Evidence (CARLOS) process because the existing medical evidence provided sufficient information on which to prepare the questionnaire and such an examination will likely provide no additional relevant evidence. Evidence Review Evidence reviewed (check all that apply): [X] VA electronic health record [X] VA e-folder [X] Other (please identify other evidence reviewed): VBMS, JLV, VISTAIMAGING, CPRS Evidence Comments: DD214 NOTES; [employer] Service Medal, [employer] Medal Served in [facility] 15APR 70 - 12APR 71 1. Diagnosis NOTE 1: For VA disability rating purposes, the term hypertension means that the diastolic blood pressure is predominantly 90mm or greater, and isolated systolic hypertension means that the systolic blood pressure is predominantly 160mm or greater with a diastolic blood pressure of less than 90mm. NOTE 2: For VA purposes, the INITIAL diagnosis of hypertension or isolated systolic hypertension must be confirmed by readings taken 2 or more times on at least 3 different days. Blood pressure results may be obtained from existing medical records or through scheduled visits for blood pressure measurements. 1A. Does the currently have a diagnosis of hypertension or isolated systolic hypertension based on the following criteria? [X] Yes [ ] No [X] Hypertension ICD code: No response provided. Date of diagnosis: Prior to 2018 per available medical evidence NOTE 3: ALSO complete appropriate questionnaires for hypertension-related complications, if any (such as Kidney, if renal insufficiency is attributable to hypertension). 2. Medical History 2A. Describe the history (including onset and course) of the [place]'s hypertension condition (brief summary): REVIEW OF MEDICAL EVIDENCE: * 01/22/2023 PRIMARY CARE: B/P 124/72 ASSESSMENT: Hypertension: Blood pressure well controlled on current meds * 09/23/2018 PRIMARY CARE: Past Medical History: 1. hypertension B/P 119/71 * 08/03/1971 DATE OF SEPARATION FROM ACTIVE DUTY PER DD214 * 08/05/1969 - 08/04/1970 SERVED IN [place] * 12/29/1968 DATE ENTERED ACTIVE DUTY PER DD214 2B. Does the 's treatment plan include taking continuous medication for hypertension or isolated systolic hypertension? [X] Yes [ ] No If yes, list only those medications used for the diagnosed conditions: AMLODIPINE 2C. Was the 's initial diagnosis of hypertension or isolated systolic hypertension confirmed by blood pressure (BP) readings taken 2 or more times on at least 3 different days? [ ] Yes [ ] No [X] Unknown (If checked, proceed to questions 2D and 2E) 2D. Does the [place] have a history of a diastolic BP elevation to predominantly 100 or more? [ ] Yes [X] No 2E. Current (date of evaluation/s) blood pressure readings (sufficient if [place] has a previously established diagnosis of hypertension): Reading #1: 124 / 72 Date of Readin01/22/2023 Reading #2: 143 / 70 Date of Readin01/23/2022 Reading #3: 134 / 68 Date of Readin01/21/2021 The [place] should be seated comfortably with back and feet supported. There is no need to take lying or standing blood pressures. There is no specified time interval between readings and they may be completed sequentially. 3. Other Pertinent Physical Findings, Complications, Conditions, Signs, Symptoms and Scars 3A. Does the [place] have any other pertinent physical findings, complications, conditions, signs or symptoms related to the conditions listed in the Diagnosis Section above? [ ] Yes [X] No 3B. Does the [place] have any scars (surgical or otherwise) related to any conditions or to the treatment of any conditions listed in the Diagnosis Section above? [ ] Yes [X] No 3C. Comments, if any: N/A 4. Functional Impact Does the 's hypertension or isolated systolic hypertension impact his or her ability to work? [ ] Yes [X] No 5. Remarks, If Any ANSWER TO MEDICAL OPINION REQUEST ON 2506 Dated MAY 05, 2023: Hypertension is one of the presumptive conditions available for disability compensation and health care benefits to Veterans of the [place] War per the PACT ACT. The Veterans DD214 indicates [place] Service. The has a diagnosis of hypertension and is eligible for disability compensation as deemed appropriate by VBA. * A medical opinion is not required for a presumptive condition. /isai/ GUILLE SEBASTIAN NURSE PRACTITIONER Signed: 05/10/2023 08:47 ZULEYMA SEBASTIAN [place] [facility]
--- OUTSIDE RECORDS SUMMARY | 2024-04-30 14:07 | XMS_ITS ---
Author Name [facility] Address [address] [place] [address] Care Team Providers Care Archeologist Name Role Phone MEGHAN EVANS Primary Care [...] SELF PLUS 1 Apr 23, 2015 106 [id number] [phone] VALENTÍN HERRING PATIENT CAREMARK-F EP BCBS PRESCRIPT ION FEP CAREM ARK Apr 23, 2015 [id number] VALENTÍN HERRINGDaniel PATIENT MEDICARE (WNR) MEDICARE (M) PART A Dec 22, 2013 PART A [id number] VALETNÍN HERRING SAIGEDaniel PATIENT Selected Encounter This section includes the information on record at [place] for the Encounter. Date/Time Encounter Type Encounter Description Reason Pro vider Source Jul 29, 2023 10:35 AM Outpatient Encounter ADMIN PAT ACTIVTIES (MASNONCT) IHE Encounter Template Text not used by [place] Plan of Treatment: Future Appointments (+ 6 months) and Future Tests (+/- 45 days) The Plan of Treatment section includes future care activities for the patient from all [place] treatmentfacilities. This section includes future appointments and future orders which are active, pending or scheduled. Future Appointments This section includes appointments that were scheduled to occur 6 months from the date of the Encounter, up to a maximum of 20 appointments. The data comes from all [place] treatment facilities. Appointment Date/Time Appointment Type Appointme nt Facility Name Jul 30, 2023 09:00 AM AMBULATORY - PS[facility]CHIATRY [facility] Nov 12, 2023 09:00 AM AMBULATORY - PS[facility]CHIATRY [facility] Jan 22, 2024 11:00 AM AMBULATORY - MEDICINE [facility] Social History: Smoking Status (Most current) and Tobacco Use (All prior to encounter date) This section includes the most current, and the historical, smoking and tobacco- related health factors from the [place] facility where the Encounter took place. Current Smoking Status This section includes the most current smoking, or tobacco-related health factor, from the [place] facility where the Encounter took place. Date/Time Current Smoking Status Comment Facil ity Jan 22, 2023 10:39 AM [place] Tobacco Use History This section includes a history of the smoking, or tobacco-related health factors, that were collected on or before the date of the Encounter. The data comes from the [place] facility where the Encounter took place. Date/Time Smoking Status/Tobacco Use Comment F melissa Jan 23, 2022 09:02 AM [place]-TOBACCO [facility] Encounter Notes: All associated encounter notes This section contains the clinical notes associated to the Encounter. Date/Time Encounter Note(s) Provider Source Jul 29, 2023 10:35 AM ADMINISTRATIVE NOT E: LOCAL TITLE: CCC: SCHEDULING ADMINISTRATION STANDARD TITLE: ADMINISTRATIVE NOTE DATE OF NOTE: JUL 29, 2023@10:35 ENTRY DATE: JUL 29, 2023@10:35:16 AUTHOR: TRAN CUMMINGS EXP COSIGNER: URGENCY: STATUS: COMPLETED Vet calling to verifying his appointment for tomorrow. /isai/ TRAN CUMMINGS Advanced Cone Picker Signed: 07/29/2023 10:35 TRAN CUMMINGS [facility]
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
[2024-05-06 11:41] VITALS: BMI 25.5
--- NOTE | 2024-05-07 09:04 | HO.ANESPROP2 ---
Documented by User: Nory Ramos NP 05/07/24 09:08 HPI - Anesthesia Eval Consult details Narrative: 74yo M for Colonoscopy s/p inguinal hernia repair 01/2024 with MAC - medically optimized per pcp prior [facility] Active Problems Active Problems: All Active Problems Status post bilateral inguinal hernia repair, follow-up exam (Acute) Pre-op evaluation (Acute) Anemia (Acute) PPD positive (Acute) Retained tick parts of abdominal wall (Acute) New onset right bundle branch block (RBBB) (Acute) Tick bite (Acute) Vitamin D deficiency (Acute) Spigelian hernia (Acute) AAA (abdominal aortic aneurysm) (Acute) PTSD (post-traumatic stress disorder) (Acute) Left groin pain (Acute) Nephrolithiasis (Acute) Hypertension, goal to be determined (Acute) Dyslipidemia (Acute) Cervical pain (neck) (Acute) Diarrhea (Acute) Renal cysts, acquired, bilateral (Acute) Microscopic hematuria (Acute) Inguinal hernia bilateral, non-recurrent (Acute 02/21/24) Ascending aorta dilatation (Acute) Physical exam (Acute) Hip pain (Acute) Past Medical History Medical History History of injury of tendon (~2013) Environmental and seasonal allergies Ascending aorta dilatation Screening PSA (prostate specific antigen) Acute otitis media Hip pain Abdominal hernia Physical exam Physical exam Screening for colon cancer Erectile dysfunction Kidney cysts Pheochromocytoma TIA (transient ischemic attack) (~2008) Hypercholesterolemia Mild acid reflux High blood pressure determined by examination Renal cyst, acquired Microscopic hematuria Tubular adenoma of colon Colon cancer screening Back pain Hip flexor tendonitis Hip arthritis Quadriceps tendon rupture Serous otitis media Acute sinusitis Otitis externa of both ears Otitis media Viral syndrome Encounter for screening laboratory testing for COVID-19 virus Family History Family History Father Substance use disorder Brother Substance use disorder Mother Liver cancer History of kidney cancer Paternal Uncle HTN (hypertension) Maternal Aunt Cancer Family/Other Cancer Family history of problems with anesthesia: No Surgical History Surgical History Hx of bilateral inguinal hernia repair History of esophagogastroduodenoscopy (EGD) (~2018) Hx of colonoscopy (~2018) H/O neck surgery H/O umbilical hernia repair History of back surgery History of ankle surgery History of surgery History of Problems with Anesthesia: No Social History Social History Housing: House Are you a primary respite care provider to a significant other at home: No Do you presently have visiting nurse or other home services: No Alcohol intake: current Alcohol intake frequency: does not drink Patient Tobacco Use Status: Never used Tobacco e-Cigarette/Vaping Use: Never Used Second Hand Smoke Exposure: No Are you DNR?: No Advance Directives: No Advance Directives Information Provided: Yes service: Yes Current occupational status: retired Cognitive needs: No Hearing needs: No Vision needs: No Meds Allergies Allergy/AdvReac Type Severity Reaction Status Date / Time codeine [CODEINE] Allergy Intermediate NAUSEA, Verified 03/03/24 09:29 stomach upset lisinopril Allergy Intermediate angioedema Verified 03/03/24 09:29 Sulfa (Sulfonamide Allergy Intermediate NAUSEA, Verified 03/03/24 09:29 Antibiotics) stomach [SULFA (SULFONAMIDE upset ANTIBIOTICS)] Home Medications ?Medication ?Instructions ?Recorded ?Confirmed ?Last Taken ?Type sertraline 100 mg tablet 100 mg PO DAILY 02/24/20 05/06/24 Unknown History hydroxyzine HCl 10 mg tablet 10 mg PO TID PRN Anxiety 07/14/20 05/06/24 Unknown History ipratropium bromide 21 mcg (0.03 2 spray intranasal BID PRN Allergy 12/21/23 05/06/24 Unknown History %) nasal spray Symptoms esomeprazole magnesium 20 mg 20 mg PO DAILY 02/11/24 05/06/24 Unknown History tablet,delayed release Exam Height,Weight and Vital Signs: Height 5 ft 8 in Weight 76.204 kg Pertinent Lab Results Pertinent Lab Results: Laboratory Tests 12/25/23 14:01 WBC 9.1 Hgb 13.7 L Hct 42.8 Plt Count 282 Sodium 143 Potassium 4.7 Chloride 107 Carbon Dioxide 28 BUN 30 H Creatinine 1.04 Narrative Narrative: ECHO 01/2024 Conclusions: - 1. Normal LV ejection fraction of 65-70% with impaired relaxation filling pattern 2. Normal cardiac valvular Dopplers 3. Normal RV systolic pressure 4. No gross pericardial effusion 5. Mildly dilated ascending aorta at 3.7 cm EKG 12/2023 SB @ 49 LAD Assessment and Plan Assessment Anesthesia Assessment: Chart Reviewed Final Anesthetic Review Family History of Problems with Anesthesia: No History of Problems with Anesthesia: No Documented by User: Joyce Weiss MD 05/15/24 11:05 [facility] Active Problems Active Problems: All Active Problems Status post bilateral inguinal hernia repair, follow-up exam (Acute) Pre-op evaluation (Acute) Anemia (Acute) PPD positive (Acute) Retained tick parts of abdominal wall (Acute) New onset right bundle branch block (RBBB) (Acute) Tick bite (Acute) Vitamin D deficiency (Acute) Spigelian hernia (Acute) AAA (abdominal aortic aneurysm) (Acute) 3.9cm by USS PTSD (post-traumatic stress disorder) (Acute) Left groin pain (Acute) Nephrolithiasis (Acute) Hypertension, goal to be determined (Acute) Dyslipidemia (Acute) Cervical pain (neck) (Acute) Diarrhea (Acute) Renal cysts, acquired, bilateral (Acute) Microscopic hematuria (Acute) Inguinal hernia bilateral, non-recurrent (Acute 02/21/24) Ascending aorta dilatation (Acute) Physical exam (Acute) Hip pain (Acute) H/o pheochromocytoma. S/p adrenalectomy Past Medical History Medical History History of injury of tendon (~2013) Environmental and seasonal allergies Ascending aorta dilatation Screening PSA (prostate specific antigen) Acute otitis media Hip pain Abdominal hernia Physical exam Physical exam Screening for colon cancer Erectile dysfunction Kidney cysts Pheochromocytoma TIA (transient ischemic attack) (~2008) Hypercholesterolemia Mild acid reflux High blood pressure determined by examination Renal cyst, acquired Microscopic hematuria Tubular adenoma of colon Colon cancer screening Back pain Hip flexor tendonitis Hip arthritis Quadriceps tendon rupture Serous otitis media Acute sinusitis Otitis externa of both ears Otitis media Viral syndrome Encounter for screening laboratory testing for COVID-19 virus Family History Family History Father Substance use disorder Brother Substance use disorder Mother Liver cancer History of kidney cancer Paternal Uncle HTN (hypertension) Maternal Aunt Cancer Family/Other Cancer Family history of problems with anesthesia: No Surgical History Surgical History Hx of bilateral inguinal hernia repair History of esophagogastroduodenoscopy (EGD) (~2018) Hx of colonoscopy (~2018) H/O neck surgery H/O umbilical hernia repair History of back surgery History of ankle surgery History of surgery History of Problems with Anesthesia: No Social History Social History Housing: House Are you a primary respite care provider to a significant other at home: No Do you presently have visiting nurse or other home services: No Alcohol intake: current Alcohol intake frequency: does not drink Patient Tobacco Use Status: Never used Tobacco e-Cigarette/Vaping Use: Never Used Second Hand Smoke Exposure: No Are you DNR?: No Advance Directives: No Advance Directives Information Provided: Yes service: Yes Current occupational status: retired Cognitive needs: No Hearing needs: No Vision needs: No Meds Allergies Allergy/AdvReac Type Severity Reaction Status Date / Time codeine [CODEINE] Allergy Intermediate NAUSEA, Verified 03/03/24 09:29 stomach upset lisinopril Allergy Intermediate angioedema Verified 03/03/24 09:29 Sulfa (Sulfonamide Allergy Intermediate NAUSEA, Verified 03/03/24 09:29 Antibiotics) stomach [SULFA (SULFONAMIDE upset ANTIBIOTICS)] Home Medications ?Medication ?Instructions ?Recorded ?Confirmed ?Last Taken ?Type sertraline 100 mg tablet 100 mg PO DAILY 02/24/20 05/06/24 Unknown History hydroxyzine HCl 10 mg tablet 10 mg PO TID PRN Anxiety 07/14/20 05/06/24 Unknown History ipratropium bromide 21 mcg (0.03 2 spray intranasal BID PRN Allergy 12/21/23 05/06/24 Unknown History %) nasal spray Symptoms esomeprazole magnesium 20 mg 20 mg PO DAILY 02/11/24 05/06/24 Unknown History tablet,delayed release Exam Height,Weight and Vital Signs: Height 5 ft 8 in Weight 76.204 kg Vital Signs Temp Pulse Resp BP Pulse Ox 05/15/24 09:58 97.5 F 68 18 147/72 H 98 Pertinent Lab Results Pertinent Lab Results: Laboratory Tests 12/25/23 14:01 WBC 9.1 Hgb 13.7 L Hct 42.8 Plt Count 282 Sodium 143 Potassium 4.7 Chloride 107 Carbon Dioxide 28 BUN 30 H Creatinine 1.04 Airway Mallampati Class: III TM Dist: >3cm Neck ROM: Full Loose/Missing/Broken Teeth: No Heart: RRR Lungs: Occ wheeze. Getting over a cold Assessment and Plan Assessment Anesthesia Assessment: Anesthesia Plan Discussed and Chart Reviewed Final Anesthetic Review Family History of Problems with Anesthesia: No History of Problems with Anesthesia: No NPO: Yes ASA Class: III Final Preanesthetic Review: No Changes in Pt Med Stat, Meds/Allgs Chart Reviewed, Consent Obtained/Reviewed and Anes Risks/Benef Reviewed Patient Risk: Intermediate Procedure Risk: Low Assessment/Block/Sedation in SS: Assess/Block/Sedation-SS Anesthetic Plan Anesthetic Plan: TIVA Disposition: Standard PACU
[2024-05-15 09:58] VITALS: BP 147/72; PULSE 68; RESP 18; TEMP 36.4; O2SAT 98
[2024-05-15] MEDS: Lactated Ringers 1,000 ML 100 ML IVCONT (10:27)
--- NOTE | 2024-05-15 10:32 | MHC.SHP ---
Pre-Procedural Eval Section A - 24 Hr Update-Section A only Date of Service: 05/15/24 Section B - Complete if H&P > 30 days Chief Complaint: Nonspecific reaction to tuberculin skin test witho Details of Present Illness: PMX Hypertension High cholesterol TIA Abdominal hernia Tubular adenoma Microscopic hematuria GERD Pheochromocytoma Quadriceps tendon rupture Renal cyst PTSD * SURGICAL HISTORY Quadriceps tendon repair Colonoscopy-2019, [place] Ankle reconstruction bilateral Allergies: Allergies Allergy/AdvReac Type Severity Reaction Status Date / Time codeine [CODEINE] Allergy Intermediate NAUSEA, Verified 03/03/24 09:29 stomach upset lisinopril Allergy Intermediate angioedema Verified 03/03/24 09:29 Sulfa (Sulfonamide Allergy Intermediate NAUSEA, Verified 03/03/24 09:29 Antibiotics) stomach [SULFA (SULFONAMIDE upset ANTIBIOTICS)] Review of Systems Review of Systems Comment: 10 point ROS negative Exam Exam Comment: Gen appear: No acute distress HEENT: no icterus Chest: No overt resp distress Abd: soft, nontender, nondistended Psych: Stable affect, answering questions appropriately Neuro: A/Ox3 noted to move all extremities spontaneously Ext: no peripheral edema Plan Diagnosis/Plan: Unchanged I have reviewed the history and physical and performed a pertinent physical examination on my patient. No changes have occurred unless specified. Time Spent With Patient Time: Total time managing care of this patient today ____ minutes.
--- OUTSIDE RECORDS SUMMARY | 2024-05-15 11:19 | XMS_ITS | Data Portability ---
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 [email or web address] Not available 11/06/2016 15:33:25 11/07/2016 11/07/2016 Rno Abel is a 66 year old man [...] By Organization Details Last Modified Time 11/02/2016 04819 He was advised against bed rest lasting longer than four days and to continue activities as tolerated. [email or web address] Not available 11/06/2016 15:32:34 11/07/2016 [id number] He was advised against bed rest lasting longer than four days and to continue activities as tolerated. [email or web address] Not available 11/07/2016 08:59:54 04/10/2017 [id number] He was advised against bed rest lasting longer than four days and to continue activities as tolerated. [email or web address] Not available 04/10/2017 15:31:44 07/05/2017 [id number] He was advised against bed rest lasting longer than four days and to continue activities as tolerated. [email or web address] Not available 07/06/2017 09:57:47 10/23/2017 [id number] He was advised against bed rest lasting longer than four days and to continue activities as tolerated. delma Not available 10/23/2017 15:01:25 Reason for Referral None Reported. Results Created Date Observation Date Name Description Value Unit Range Abnormal Flag Note LastModifiedBy Organization Detail LastModifiedTime 07/07/19 18 07/06/2017 XR, hip + pelvi s, unila teral No observ ation record ed. [email or web address] [facility] Imaging Dept [address] [place], [address], 07/10/2017 13:05:16 Result Notes None recorded. 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 67676655 Active Fede naidu MD [address] , [address], [place], [address], [place] [facility] 5 09:42:49 Lumbosacral spondylosis without myelopathy 33176171 Active Fede naidu MD [address] , [address], [place], [address], [place] [facility] 5 09:42:49 Lumbosacral radiculitis 76365778 Active Fede naidu MD [address] , [address], [place], [address], [place] [facility] 5 09:42:49 Pain of left hip joint 1974135021106 00 Active Fede naidu MD [address] , [address], [place], [address], [place] [facility] 8 09:58:09 Problem Notes None recorded. Procedures Surgical History Date Name Laterality Status Provider Name and Address Organization Details Recorded Time 10/24/19 18 Intra-articular Hip Steroid Injection completed Fede Cullen MD [address] , [address], [place], [address], [place] [facility] 10/23/2017 15:00:35 04/10/20 17 Lumbar Epidural steroid injection under fluoroscopic guidance completed Fede Cullen MD [address] , [address], [place], [address], [place] [facility] 04/10/2017 15:33:49 11/08/19 17 Lumbar Epidural steroid injection under fluoroscopic guidance completed Fede Cullen MD [address] , [address], [place], [address], [place] [facility] 11/07/2016 09:00:44 03/29/20 16 Lumbar Epidural steroid injection under fluoroscopic guidance completed Fede Cullen MD [address] , [address], [place], [address], [place] [facility] 03/29/2016 11:28:47 02/23/20 15 Lumbar Epidural steroid injection under fluoroscopic guidance completed Fede Cullen MD [address] , [address], [place], [address], [place] [facility] 02/22/2015 10:49:56 11/18/19 15 Lumbar Epidural steroid injection under fluoroscopic guidance completed Fede Cullen MD [address] , [address], [place], [address], [place] [facility] 11/17/2014 [...] 11/04/2014 15:25:08 04/23/18 80 Other completed Sona Hewitt [place] [facility] 11/08/2014 21:04:11 04/23/18 77 Other completed Sona Kash [facility] 11/08/2014 21:04:11 Imaging Results Imaging Date Name Status LastModified by Organiz ation Details LastModified Time 07/06/2017 XR, hip + pelvis, unilateral completed [facility] Dept [address] [facility], [place], [address], 07/10/2017 13:05:16 Procedure Notes None recorded. Medical Equipment None Reported. Allergies Allergen ID Allergen Name Allergen Category Reaction Reaction Severity Criticality Documentation Date Start Date Code Code System Note Provider Name and Address Organization Details Recorded Time 67702 Substance with sulfonami de structure and antibacte rial mechanism of action (substanc e) medicatio n other Not available Not available 11/04/2014 47515 8003 SNOMED dre rgy Sona roberts [facility] 5 15:25:08 44734 Product containin g penicilli n and antibioti c (product) medicatio n other Not available Not available 11/04/2014 73253 05 SNOMED GI upset Sona roberts [place] [facility] 5 15:25:08 Medications Name [...] Available Not Available Not Available amoxicillin 875 mg-potchenteiu m clavulanate 125 mg tablet 03/23 completed [...] /min 98 % 98 % 27.1 kg/m2 37292.4 4 g 128 mm[Hg] 75 mm[Hg] Sona [...] Updated DateTime 7 172.72 cm 26.5 kg/m2 07333.0 7 g 55 /min 98 % 98 [...] 97 % 128 mm[Hg] 73 mm[Hg] Sona Heiwtt [place] - [facility] 7 14:33:09 [...] Tobacco Smoking Status Never Smoker Not Available [facility] 02/06/2020 03:16:10 What Is Your Level Of Alcohol Consumption? Occasional [id number] Information not available 02/06/2020 Are You Currently Employed? No [id number] Information not available 02/06/2020 Which Illicit Or Recreational Drugs Have You Used? No [id number] Information not available 02/06/2020 Education 4 Year College Bachelors [email or web address] Informatio n not available 11/04/2014 Live Alone Or With Others? With Others [email or web address] Information not available 11/04/2014 Marital Status angelo Informatio n not available 11/04/2014 What Was The Date Of Your Most Recent Tobacco Screening? 10/23/2017 [id number] Information not available 02/06/2020 Sex: Unknown Functional Status None recorded. Mental Status None recorded. Family History Relationship Description Onset Age of this Age Resolved Age Notes LastModified by Organization Details LastModified Time Mother Malignant neoplastic disease [email or web address] Not available 03/23 09:40:06 Medical History Condition Response Seizures/Epilepsy Y Arthritis Y Hypertension Y High Cholesterol Y GERD/Reflux Y Past Encounters Encounter ID Performer Location Encounter Start Date Encounter Closed Date Diagnosis/Indication Diagnosis SNOMED-CT Code Diagnosis ICD10 Code Diagnosis Note [id number] Fede Cullen MD PAIN OFFICE [address] [place] [address] 11/04/2014 14:51:07 11/08/2014 17:51:46 Displacement of lumbar intervertebral disc without myelopathy 34288383 Lumbosacra l radiculitis 02153759 Lumbosacra l spondylosis without myelopathy 95894762 Spinal jenniffer nosis of lumbar region 90460636 [id number] Fede Cullen MD PAIN OFFICE [address] [place] [address] 11/17/2014 13:06:25 11/18/2014 15:22:02 Spinal stenosis of lumbar region 99027548 Lumbosacra l spondylosis without myelopathy 70183900 Displaceme nt of lumbar intervertebral disc without myelopathy 33123841 Lumbosacra l radiculitis 08377306 [id number] PAIN OFFICE [address] [place] [address] 12/17/2014 09:21:01 12/17/2014 09:59:35 Spinal stenosis of lumbar region 53304464 Lumbosacra l spondylosis without myelopathy 90196201 Displaceme nt of lumbar intervertebral disc without myelopathy 88578408 Lumbosacra l radiculitis 42539065 [id number] Fede Cullen MD [facility] [address] [place] [address] 02/22/2015 09:26:46 02/22/2015 15:05:54 Spinal stenosis of lumbar region 53180631 M48.06 Lumbosacra l spondylosis without myelopathy 33158724 M47.817 Displaceme nt of lumbar intervertebral disc without myelopathy 80333365 M51.26 Lumbosacra l radiculitis 80225667 M54.17 [id number] Fede Cullen MD PAIN OFFICE [address] [place] [address] 04/01/2015 09:13:06 04/01/2015 13:05:04 Spinal stenosis of lumbar region 19436316 M48.06 Lumbosacra l spondylosis without myelopathy 48621370 M47.817 Displaceme nt of lumbar intervertebral disc without myelopathy 58538862 M51.26 Lumbosacra l radiculitis 10721968 M54.17 [id number] Fede Cullen MD PAIN OFFICE [address] [place] [address] 03/23/2016 14:27:30 03/27/2016 08:38:37 Lumbosacral radiculitis 52490473 M54.17 Lumbosacra l spondylosis without myelopathy 89391811 M47.817 Spinal jenniffer nosis of lumbar region 04166069 M48.06 Displaceme nt of lumbar intervertebral disc without myelopathy 31102517 M51.26 [id number] Fede Cullen MD [facility] [address] [place] [address] 03/29/2016 10:49:29 03/29/2016 13:23:53 Lumbosacral radiculitis 22078779 M54.17 Lumbosacra l spondylosis without myelopathy 39197969 M47.817 Spinal jenniffer nosis of lumbar region 47070781 M48.06 Displaceme nt of lumbar intervertebral disc without myelopathy 69507395 M51.26 [id number] Fede Cullen MD PAIN OFFICE [address] [place] [address] 11/02/2016 15:25:24 11/06/2016 15:34:09 Spinal stenosis of lumbar region 01283628 M48.06 Lumbosacra l spondylosis without myelopathy 65686625 M47.817 Displaceme nt of lumbar intervertebral disc without myelopathy 37425711 M51.26 Lumbosacra l radiculitis 45242758 M54.17 [id number] Fede Cullne MD PAIN OFFICE [address] [place] [address] 11/07/2016 08:25:00 11/08/2016 09:10:48 Spinal stenosis of lumbar region 26877948 M48.06 Lumbosacra l spondylosis without myelopathy 52903834 M47.817 Displaceme nt of lumbar intervertebral disc without myelopathy 13203035 M51.26 Lumbosacra l radiculitis 89252495 M54.17 [id number] Fede Cullen MD PAIN OFFICE [address] [place] [address] 04/10/2017 14:19:05 04/11/2017 08:28:48 Spinal stenosis of lumbar region 79994717 M48.062 Lumbosacra l spondylosis without myelopathy 21606020 M47.817 Displaceme nt of lumbar intervertebral disc without myelopathy 68829568 M51.26 Lumbosacra l radiculitis 27878696 M54.17 [id number] Fede Cullen MD PAIN OFFICE [address] [place] [address] 07/05/2017 13:01:42 07/06/2017 10:02:22 Spinal stenosis of lumbar region 99531348 M48.062 Lumbosacra l spondylosis without myelopathy 43376839 M47.817 Displaceme nt of lumbar intervertebral disc without myelopathy 32875213 M51.26 Lumbosacra l radiculitis 27045563 M54.17 Pain of le ft hip joint 1663701872 64146 M25.552 [id number] Fede Cullen MD PAIN OFFICE [address] [place] [address] 10/23/2017 14:28:21 10/24/2017 14:53:11 Spinal stenosis of lumbar region 91201329 M48.062 Lumbosacra l spondylosis without myelopathy 07512444 M47.817 Displaceme nt of lumbar intervertebral disc without myelopathy 87460706 M51.26 Lumbosacra l radiculitis 46330049 M54.17 Pain of le ft hip joint 8644760479 97860 M25.552 Health Concerns Section Related Observation LastModified by Organization Detai ls LastModified Time None Recorded Concern Status LastModified by Organization Details LastModified Time None Recorded Advance Directives Directive None Recorded Payers Encounter Date Sequence Insurance Name Policy Number Policy Anguiano Covered Member ID Anguiano Member ID Guarantor Name 11/02/2016 1 [facility] [employer] 106 Ron Abel [id number] Ron Abel 11/07/2016 1 [facility] [employer] [id number] Ron Abel [id number] Ron Abel 04/10/2017 1 [facility] [id number] Ron Abel [id number] Ron Abel 07/05/2017 1 [facility] 106 Ron Abel [id number] Ron Abel 10/23/2017 1 [facility] 106 Ron Abel [id number] Ron Abel Notes Date Note Type Note [...] or bowel incontinence Fede Cullen MD [address] [facility] , [address], [place], [address], [facility] - [facility] 11/06/2016 15:57:32 11/07/2016 text/html He is here today for a repeat lumbar epidural steroid injection under fluoroscopic guidance. Fede Cullen MD [address] [facility] , [address], [place], [address], [place] [facility] 11/13/2016 08:44:37 [...] or bowel incontinence. Fede Cullen MD [address] [facility] , [address], [place], [address], [place] [facility] 04/12/2017 13:22:16 07/05/2017 text/html He [...] or bowel incontinence. Fede Cullen MD [address] [facility] , [address], [place], [address], [place] [facility] 07/09/2017 10:06:12 10/23/2017 text/html He is here for a left hip steroid injection under fluoroscopic guidance Fede Cullen MD [address] [facility] , [address], [place], [address], [place] [facility] 10/30/2017 08:33:45
--- OUTSIDE RECORDS SUMMARY | 2024-05-15 11:19 | XMS_ITS | Continuity of Care Document ---
Author Name [facility] Organization [facility] Care Team Providers Care Entry Level Administrative Assistant Name Role Phone [facility] Unavailable Unavailable Problems Combined list of problems from Department of Defense and Veterans Affairs facilities. It does not include entries that were removed or entered in error. Problem Status Onset Date Problem Type Date of Resolution Comments Source Adrenal tumor Active Condition Jan Entered By: TED BISHOP Comment: s/p excision right [place] Angioid streaks of choroid Active Condition [facility] [place] [facility] Chronic post-traumatic stress disorder Active Condition Dec 24, 2019 Entered By: ISABELA GREENBERG Comment: reviewedMar 21, 2021 Entered By: ISABELA GREENBERG Comment: reviewed [place] Degenerative arthritis Active Condition Sep 23, 2018 Entered By: TED BISHOP Comment: s/p oracio ankle reconstruction [place] Essential hypertension Active Condition [place] Exposure to potentially hazardous substance Active Condition Jul 04, 2023 Entered By: AMI LEDESMA Comment: Connect Snomed Code to ICD 10 Code refer to note dated 01/22/23 [facility] History of spinal surgery Active Condition Sep 23, 2018 Entered By: TED BISHOP Comment: x4 cervical surgeries [place] Tear of quadriceps tendon Active Condition Sep 23 19 Entered By: TED BISHOP Comment: L s/p surgery [place] Thoracic outlet syndrome Active Condition Sep 23, 2018 Entered By: TED BISHOP Comment: s/p R surgery [place] Diagnosis: ICD-10-CM F43.12 Post-traumatic stress disorder, chronic Active Diagnosis [place] Diagnosis: ICD-10-CM Z00.01 Encounter for general adult medical exam w abnormal findings Active Diagnosis [facility] [place] Diagnosis: ICD-10-CM Z02.89 Encounter for other administrative examinations Active Diagnosis [facility] Diagnosis: ICD-10-CM M25.552 Pain in left hip Active Diagnosis [facility] [place] Medications Combined list of outpatient medications [...] BY MOUTH TWICE DAILY ORAL ACTIVE CRYSTAL BISHOPE 2018 [place] ESOMEPRAZOL E 20MG (BASE) CAP,EC TAKE 1 CAPSULE BY MOUTH ONCE DAILY ORAL ACTIVE CRYSTAL BISHOPE 2018 [place] HYDROXYZINE HCL 10MG TAB TAKE ONE TABLET BY MOUTH FOUR TIMES DAILY NEEDED FOR ANXIETY ORAL ACTIVE 05/15/2025 [id number] VLADIMIR GREENBERG 2024 120 [place] HYDROXYZINE HCL 10MG TAB TAKE ONE TABLET BY MOUTH FOUR TIMES DAILY NEEDED FOR ANXIETY ORAL DISCONT INUED 02/11/2025 [id number] VLADIMIR GREENBERG 2023 120 [place] HYDROXYZINE HCL 10MG TAB TAKE ONE TABLET BY MOUTH FOUR TIMES DAILY NEEDED FOR ANXIETY ORAL DISCONT INUED 11/12/2024 [id number] VLADIMIR GREENBERG 2023 120 [place] HYDROXYZINE HCL 10MG TAB TAKE ONE TABLET BY MOUTH FOUR TIMES DAILY NEEDED FOR ANXIETY ORAL DISCONT INUED (EDIT) 07/30/2024 [id number] VLADIMIR GREENBERG 2023 120 [place] HYDROXYZINE HCL 10MG TAB TAKE ONE TABLET BY MOUTH FOUR TIMES DAILY NEEDED FOR ANXIETY ORAL DISCONT INUED 04/30/2024 [id number] VLADIMIR GREENBERG 2023 120 [place] HYDROXYZINE HCL 10MG TAB TAKE ONE TABLET BY MOUTH FOUR TIMES DAILY NEEDED FOR ANXIETY ORAL DISCONT INUED 02/01/2024 [id number] VLADIMIR GREENBERG 2022 [place] PRAVASTATIN NA 40MG TAB TAKE ONE TABLET BY MOUTH AT BEDTIME ORAL ACTIVE CRYSTAL BISHOP [place] SERTRALINE HCL 100MG TAB TAKE ONE AND ONE-HALF TABLETS BY MOUTH EVERY MORNING FOR MOOD AND PTSD ORAL ACTIVE 05/15/2025 [id number] VLADIMIR GREENBERG 2024 90 [place] SERTRALINE HCL 100MG TAB TAKE ONE AND ONE-HALF TABLETS BY MOUTH EVERY MORNING FOR MOOD AND PTSD ORAL DISCONT INUED 02/11/2025 [id number] VLADIMIR GREENBERG 2023 90 [facility] [place] SERTRALINE HCL 100MG TAB TAKE ONE AND ONE-HALF TABLETS BY MOUTH EVERY MORNING FOR MOOD AND PTSD ORAL DISCONT INUED 11/12/2024 [id number] VLADIMIR GREENBERG 2023 90 [facility] [place] SERTRALINE HCL 100MG TAB TAKE ONE AND ONE-HALF TABLETS BY MOUTH EVERY MORNING -FOR PTSD ORAL DISCONT INUED (EDIT) 07/30/2024 [id number] VLADIMIR GREENBERG 2023 45 [facility] [place] SERTRALINE HCL 100MG TAB TAKE ONE AND ONE-HALF TABLETS BY MOUTH EVERY MORNING -FOR PTSD ORAL DISCONT INUED 04/30/2024 [id number] VLADIMIR GREENBERG 2023 45 [facility] [place] SERTRALINE HCL 100MG TAB TAKE ONE AND ONE-HALF TABLETS BY MOUTH EVERY MORNING -FOR PTSD ORAL DISCONT INUED 02/01/2024 [id number] VLADIMIR GREENBERG 2022 45 [facility] [place] Allergies, Adverse Reactions, Alerts Combined list of allergies from Department of Defense and Veterans Affairs facilities. It does not include entries that were removed or entered in error. Substance Category Reaction Severity Reaction type Status Date Reported Comments Source BACTRIM Propensity to adverse reactions to drug (finding) Indigestion active 9 [facility] CODEINE Propensity to adverse reactions to drug (finding) Indigestion active 9 [facility] Immunizations Combined list of available immunizations from the Department of Defense and Veterans Affairs facilities. Immunization Series Date Given Administered By Site Reaction Lot Number CVX Code Drug Clothes Marker Status Comments Source INFLUENZA, HIGH-DOSE, TRIVALENT, PF 2023 ANDRE TOSCANO RIGHT DELTO ID [id number] A 135 complet ed [facility] [place] INFLUENZA, HIGH-DOSE, QUADRIVALENT 2022 DEBORAHMAITE SA GARRISON LEFT DELTO ID [id number] A 197 complet ed [facility] ZOSTER RECOMBINANT 2 2020 187 complet ed [place] INFLUENZA VACCINE, QUADRIVALENT, ADJUVANTED 2020 205 complet ed [facility] ZOSTER RECOMBINANT 1 2020 187 complet ed [facility] COVID-19 (MODERNA), MRNA, LNP-S, PF, 100 MCG/0.5 ML DOSE 2 2020 207 complet ed [place]; [id number]; [place] COVID-19 (MODERNA), MRNA, LNP-S, PF, 100 MCG/0.5 ML DOSE 1 2020 207 complet ed MOD; [id number]; [place] INFLUENZA, SEASONAL, INJECTABLE 2018 141 complet ed [facility] ZOSTER RECOMBINANT 2 2018 187 complet ed sent to scan. [facility] PNEUMOCOCCAL CONJUGATE PCV 13 2018 133 complet ed sent to scan through Right Fax. [facility] ZOSTER RECOMBINANT 1 2018 187 complet ed document sent to scan [facility] INFLUENZA, SEASONAL, INJECTABLE 2017 141 complet ed [facility] TD(ADULT) UNSPECIFIED FORMULATION 2017 139 complet ed [facility] TDAP 2017 115 complet ed [facility] [place] [facility] PNEUMOCOCCAL POLYSACCHARID E PPV23 2015 33 complet ed [facility] [place] [facility] Results Combined list of recent chemistry, hematology [...] Jan 22, 2023 01:19 PM Reporting Lab: [address] [address] Performing Lab: [address] [address] [place] BASIC METABOLI C PANEL (fasting ) UREA NITROGEN [MASS/VOLU ME] IN SERUM OR PLASMA 31 mg/dL 7 - 25 01/13 H Specimen Type: SERUM No comment entered. Ordering Provider: GIUSEPPE BISHOP IE Report Released Date/Time: Jan 22, 2023 01:19 PM Reporting Lab: [address] [address] Performing Lab: [address] [address] [place] BASIC METABOLI C PANEL (fasting ) GLUCOSE [MASS/VOLU ME] IN SERUM OR PLASMA 91 mg/dL 65 - 100 01/13 Specimen Type: SERUM No comment entered. Ordering Provider: GIUSEPPE BISHOP IE Report Released Date/Time: Jan 22, 2023 01:19 PM Reporting Lab: [address] [address] Performing Lab: [address] [address] [place] BASIC METABOLI C PANEL (fasting ) SODIUM [MOLES/VOL UME] IN SERUM OR PLASMA 141 mmol/L 135 - 145 01/13 Specimen Type: SERUM No comment entered. Ordering Provider: GIUSEPPE BISHOP IE Report Released Date/Time: Jan 22, 2023 01:19 PM Reporting Lab: [facility]ITALRGR[facility]ENTERTRN [facility] [address] [facility] [address] Performing Lab: [facility]ITALRGRANDVIEW [facility] CENTERTRN [facility]USE[facility] [address] [facility] [address] [place] BASIC METABOLI C PANEL (fasting ) POTASSIUM [MOLES/VOL UME] IN SERUM OR PLASMA 4.6 mmol/L 3.5 - 5.0 01/13 Specimen Type: SERUM No comment entered. Ordering Provider: GIUSEPPE BISHOP IE Report Released Date/Time: Jan 22, 2023 01:19 PM Reporting Lab: [facility]ITALRGRANDVIEW [facility] CENTERTRN [address] [address] Performing Lab: [facility] HOSPITALRLAKE [facility]OSPITALN [address] [address] [place] BASIC METABOLI C PANEL (fasting ) CHLORIDE [MOLES/VOL UME] IN SERUM OR PLASMA 106 mmol/L 100 - 110 01/13 Specimen Type: SERUM No comment entered. Ordering Provider: GIUSEPPE BISHOP IE Report Released Date/Time: Jan 22, 2023 01:19 PM Reporting Lab: [facility]ITALRGRAND[facility] CENTERTRN [facility]USE[address] [address] Performing Lab: [facility] HOSPITALRLAKE M[facility] HOSPITALN [facility]ITALUSE[address] [address] [place] BASIC METABOLI C PANEL (fasting ) CARBON DIOXIDE, TOTAL [MOLES/VOL UME] IN SERUM OR PLASMA 28 meq/L 20 - 30 01/13 Specimen Type: SERUM No comment entered. Ordering Provider: GIUSEPPE BISHOP IE Report Released Date/Time: Jan 22, 2023 01:19 PM Reporting Lab: [facility]ITALRGRAND[facility] CENTERTRN [facility]USE[address] [address] Performing Lab: [facility]PITALRGRANDVIEW MEDICAL CENTERTRN [facility]ITALUSE[address] [address] [place] BASIC METABOLI C PANEL (fasting ) CREATININE [MASS/VOLU ME] IN SERUM OR PLASMA 1.09 mg/dL 0.50 - 1.40 01/13 Specimen Type: SERUM No comment entered. Ordering Provider: GIUSEPPE BISHOP IE Report Released Date/Time: Jan 22, 2023 01:19 PM Reporting Lab: [facility] [address] [address] Performing Lab: [address] [address] [place] BASIC METABOLI C PANEL (fasting ) GLOMERULAR FILTRATION RATE/1.73 SQ M.PREDICTE D [VOLUME RATE/AREA] IN SERUM, PLASMA OR BLOOD BY CREATININE -BASED FORMULA (CKD-EPI 2020) 71 mL/min 60 01/13 Specimen Type: SERUM No comment entered. Ordering Provider: GIUSEPPE BISHOP IE Report Released Date/Time: Jan 22, 2023 01:19 PM Reporting Lab: [address] [address] Performing Lab: [address] [address] [place] URINALYS IS COLOR OF URINE Light-Ye llow 01/13 Specimen Type: URINE Comment: If Glucose = >500 and Ketones are positive, please alert the Physician. Ordering Provider: GIUSEPPE BISHOP IE Report Released Date/Time: Jan 22, 2023 01:19 PM Reporting Lab: [address] [address] Performing Lab: [address] [address] [place] URINALYS IS APPEARANCE OF URINE Clear 01/13 Specimen Type: URINE Comment: If Glucose = >500 and Ketones are positive, please alert the Physician. Ordering Provider: GIUSEPPE BISHOP IE Report Released Date/Time: Jan 22, 2023 01:19 PM Reporting Lab: [facility] [address] [address] Performing Lab: [address] [address] [place] URINALYS IS GLUCOSE [MASS/VOLU ME] IN URINE Normalmg /dL 01/13 Specimen Type: URINE Comment: If Glucose = >500 and Ketones are positive, please alert the Physician. Ordering Provider: GIUSEPPE BISHOP Report Released Date/Time: Jan 22, 2023 01:19 PM Reporting Lab: [facility] HOSPITALRLAKE M[facility] HOSPITALN [facility] [address] [facility] [address] Performing Lab: [facility]ITALN [facility]ITALUSEJACOBI [facility] [address] [facility] [address] [place] URINALYS IS KETONES [MASS/VOLU ME] IN URINE BY TEST STRIP NEGATIVE mg/dL 01/13 Specimen Type: URINE Comment: If Glucose = >500 and Ketones are positive, please alert the Physician. Ordering Provider: GIUSEPPE BISHOP Report Released Date/Time: Jan 22, 2023 01:19 PM Reporting Lab: [facility]N [address] [address] Performing Lab: [facility]ITALN [facility]ITALUSE[address] [address] [place] URINALYS IS ERYTHROCYT ES [PRESENCE] IN URINE SEDIMENT BY LIGHT MICROSCOPY NEGATIVE mg/dL 01/13 Specimen Type: URINE Comment: If Glucose = >500 and Ketones are positive, please alert the Physician. Ordering Provider: GIUSEPPE BISHOP Report Released Date/Time: Jan 22, 2023 01:19 PM Reporting Lab: [facility]N [address] [address] Performing Lab: [facility]ITALN [facility]ITALUSEJACOBI [facility] [address] [facility] [address] [place] URINALYS IS PROTEIN [MASS/VOLU ME] IN URINE BY TEST STRIP NEGATIVE mg/dL 01/13 Specimen Type: URINE Comment: If Glucose = >500 and Ketones are positive, please alert the Physician. Ordering Provider: GIUSEPPE BISHOP Report Released Date/Time: Jan 22, 2023 01:19 PM Reporting Lab: [facility]N [facility]ITALUSE[address] [address] Performing Lab: [facility]ITALN [facility]ITALUSE[address] [address] [place] URINALYS IS NITRITE [PRESENCE] IN URINE NEGATIVE mg/dL 01/13 Specimen Type: URINE Comment: If Glucose = >500 and Ketones are positive, please alert the Physician. Ordering Provider: GIUSEPPE BISHOP Report Released Date/Time: Jan 22, 2023 01:19 PM Reporting Lab: [address] [address] Performing Lab: [address] [address] [place] URINALYS IS BILIRUBIN. TOTAL [PRESENCE] IN URINE NEGATIVE mg/dL 01/13 Specimen Type: URINE Comment: If Glucose = >500 and Ketones are positive, please alert the Physician. Ordering Provider: GIUSEPPE BISHOP Report Released Date/Time: Jan 22, 2023 01:19 PM Reporting Lab: [address] [address] Performing Lab: [address] [address] [place] URIN[place] SPECIFIC GRAVITY OF URINE BY REFRACTOME TRY 1.024 1.016 - 1.022 01/13 H Specimen Type: URINE Comment: If Glucose = >500 and Ketones are positive, please alert the Physician. Ordering Provider: GIUSEPPE BISHOP Report Released Date/Time: Jan 22, 2023 01:19 PM Reporting Lab: [address] [address] Performing Lab: [address] [address] [place] URINALYS IS PH OF URINE BY TEST STRIP 5.5 5.0 - 9.0 01/13 Specimen Type: URINE Comment: If Glucose = >500 and Ketones are positive, please alert the Physician. Ordering Provider: GIUSEPPE BISHOP IE Report Released Date/Time: Jan 22, 2023 01:19 PM Reporting Lab: [address] [address] Performing Lab: [facility] [address] [address] [place] URINALYS IS UROBILINOG EN [MASS/VOLU ME] IN URINE BY TEST STRIP Normalmg /dL <2.0 - 2.0 01/13 Specimen Type: URINE Comment: If Glucose = >500 and Ketones are positive, please alert the Physician. Ordering Provider: GIUSEPPE BISHOP IE Report Released Date/Time: Jan 22, 2023 01:19 PM Reporting Lab: [facility] [address] [address] Performing Lab: [facility]N [address] [address] [place] URINALYS IS LEUKOCYTE ESTERASE [PRESENCE] IN URINE BY TEST STRIP NEGATIVE 01/13 Specimen Type: URINE Comment: If Glucose = >500 and Ketones are positive, please alert the Physician. Ordering Provider: GIUSEPPE BISHOP IE Report Released Date/Time: Jan 22, 2023 01:19 PM Reporting Lab: [facility] [address] [address] Performing Lab: [facility] [address] [address] [place] LIPID PANEL FASTING CHOLESTERO L [MASS/VOLU ME] IN SERUM OR PLASMA 158 mg/dL 01/13 Specimen Type: SERUM No comment entered. Ordering Provider: GIUSEPPE BISHOP IE Report Released Date/Time: Jan 22, 2023 01:19 PM Reporting Lab: [facility] [address] [address] Performing Lab: [facility]N [facility]ITALUSE[address] [address] [place] LIPID PANEL FASTING TRIGLYCERI DE [MASS/VOLU ME] IN SERUM OR PLASMA 81 mg/dL 0 - 150 01/13 Specimen Type: SERUM No comment entered. Ordering Provider: GIUSEPPE BISHOP IE Report Released Date/Time: Jan 22, 2023 01:19 PM Reporting Lab: [facility] [address] [address] Performing Lab: [facility] [place] [facility] [address] [facility] [address] [place] LIPID PANEL FASTING CHOLESTERO L IN LDL [MASS/VOLU ME] IN SERUM OR PLASMA BY CALCMAMTA N 92 mg/dL 0 - 129 01/13 Specimen Type: SERUM No comment entered. Ordering Provider: GIUSEPPE BISHOP IE Report Released Date/Time: Jan 22, 2023 01:19 PM Reporting Lab: [facility]ITALUSETS [facility] [address] [facility] [address] Performing Lab: [facility]ITALUSETS [facility] [address] [facility] [address] [place] LIPID PANEL FASTING CHOLESTERO L.TOTAL/CH OLESTEROL IN HDL [MASS RATIO] IN SERUM OR PLASMA 3.2 01/13 Specimen Type: SERUM No comment entered. Ordering Provider: GIUSEPPE BISHOP IE Report Released Date/Time: Jan 22, 2023 01:19 PM Reporting Lab: [facility]OSPITALRL TRN [facility]PITALUSETS [facility] [address] [facility] [address] Performing Lab: [facility]ITALUSETS [facility] [address] [facility] [address] [place] LIPID PANEL FASTING CHOLESTERO L IN HDL [MASS/VOLU ME] IN SERUM OR PLASMA 50 mg/dL 40 - 60 01/13 Specimen Type: SERUM No comment entered. Ordering Provider: GIUSEPPE BISHOP IE Report Released Date/Time: Jan 22, 2023 01:19 PM Reporting Lab: [facility] HOSPITALRL TRN [facility]ITALUSETS [facility] [address] [facility] [address] Performing Lab: [facility] HOSPITALRL WSTRN [facility]PITALUSETS [facility] [address] [facility] [address] [place] LIVER FUNCTION PROTEIN [MASS/VOLU ME] IN SERUM OR PLASMA 6.7 g/dL 6.0 - 8.3 01/13 Specimen Type: SERUM No comment entered. Ordering Provider: GIUSEPPE BISHOP IE Report Released Date/Time: Jan 22, 2023 01:19 PM Reporting Lab: [facility] HOSPITALRL TRN [facility]PITALUSETS [address] [address] Performing Lab: [facility] [place] [facility] [address] [facility] [address] [place] LIVER FUNCTION ALBUMIN [MASS/VOLU ME] IN SERUM OR PLASMA 4.0 g/dL 3.5 - 5.0 01/13 Specimen Type: SERUM No comment entered. Ordering Provider: GIUSEPPE BISHOP IE Report Released Date/Time: Jan 22, 2023 01:19 PM Reporting Lab: [facility] [place] [facility] [address] [facility] [address] Performing Lab: [facility] [place] [facility] [address] [facility] [address] [place] LIVER FUNCTION ALKALINE PHOSPHATAS E [ENZYMATIC ACTIVITY/V OLUME] IN SERUM OR PLASMA 62 U/L 40 - 150 01/13 Specimen Type: SERUM No comment entered. Ordering Provider: GIUSEPPE BISHOP IE Report Released Date/Time: Jan 22, 2023 01:19 PM Reporting Lab: [facility]ITALUSETS [facility] [address] [facility] [address] Performing Lab: [facility] [place] [facility] [address] [facility] [address] [facility] [place] LIVER FUNCTION ASPARTATE AMINOTRANS FERASE [ENZYMATIC ACTIVITY/V OLUME] IN SERUM OR PLASMA 14 U/L 5 - 34 01/13 Specimen Type: SERUM No comment entered. Ordering Provider: GIUSEPPE BISHOP IE Report Released Date/Time: Jan 22, 2023 01:19 PM Reporting Lab: [facility]ITALUSETS [facility] [address] [facility] [address] Performing Lab: [facility] [place] [facility] [address] [facility] [address] [facility] [place] LIVER FUNCTION ALANINE AMINOTRANS FERASE [ENZYMATIC ACTIVITY/V OLUME] IN SERUM OR PLASMA 9 U/L 01/13 Specimen Type: SERUM No comment entered. Ordering Provider: GIUSEPPE BISHOP IE Report Released Date/Time: Jan 22, 2023 01:19 PM Reporting Lab: [facility]ITAL[facility] [address] [facility] [address] Performing Lab: [facility]ITALUSETS [facility] [address] [facility] [address] [place] LIVER FUNCTION BILIRUBIN. TOTAL [MASS/VOLU ME] IN SERUM OR PLASMA 0.4 mg/dL 0.2 - 1.2 01/13 Specimen Type: SERUM No comment entered. Ordering Provider: GIUSEPPE BISHOP IE Report Released Date/Time: Jan 22, 2023 01:19 PM Reporting Lab: [address] [address] Performing Lab: [address] [address] [place] HEMOGLOB IN A1C PANEL HEMOGLOBIN [...] Jan 22, 2023 01:19 PM Reporting Lab: [address] [address] Performing Lab: [address] [address] [place] CBC AND DIFF (AUTO) LEUKOCYTES [#/VOLUME] IN BLOOD BY AUTOMATED COUNT 7.82 10*3/uL 4.50 - 11.00 01/13 Specimen Type: BLOOD No comment entered. Ordering Provider: GIUSEPPE BISHOP IE Report Released Date/Time: Jan 22, 2023 01:19 PM Reporting Lab: [address] [address] Performing Lab: [place] [phone] [place] CBC AND DIFF (AUTO) ERYTHROCYT ES [#/VOLUME] IN BLOOD BY AUTOMATED COUNT 4.64 10*6/uL 4.23 - 5.66 01/13 Specimen Type: BLOOD No comment entered. Ordering Provider: GIUSEPPE BISHOP IE Report Released Date/Time: Jan 22, 2023 01:19 PM Reporting Lab: [facility]OSPITALRL TRN [facility]ITALUSETS [facility] [address] [facility] [address] Performing Lab: [facility] HOSPITALRL TRN [facility]ITALUSETS [address] [address] [place] CBC AND DIFF (AUTO) HEMOGLOBIN [MASS/VOLU ME] IN BLOOD 13.8 g/dL 12.8 - 17 01/13 Specimen Type: BLOOD No comment entered. Ordering Provider: GIUSEPPE BISHOP IE Report Released Date/Time: Jan 22, 2023 01:19 PM Reporting Lab: [facility]PITALRGRANDVIEW MEDICAL CENTERTRN [facility] [address] [facility] [address] Performing Lab: [facility] HOSPITALRLAKE [facility]OSPITALN [address] [address] [place] CBC AND DIFF (AUTO) HEMATOCRIT [VOLUME FRACTION] OF BLOOD BY AUTOMATED COUNT 41.5 39.2 - 50.4 01/13 Specimen Type: BLOOD No comment entered. Ordering Provider: GIUSEPPE BISHOP IE Report Released Date/Time: Jan 22, 2023 01:19 PM Reporting Lab: [facility]PITALRGRANDVIEW MEDICAL CENTERTRN [facility]ITALUSETS [address] [address] Performing Lab: [facility] HOSPITALRL TRN [facility]PITALUSETS [address] [address] [place] CBC AND DIFF (AUTO) MCV [ENTITIC VOLUME] BY AUTOMATED COUNT 89.4 fL 82 - 99 01/13 Specimen Type: BLOOD No comment entered. Ordering Provider: GIUSEPPE BISHOP IE Report Released Date/Time: Jan 22, 2023 01:19 PM Reporting Lab: [facility]PITALRGRANDVIEW MEDICAL CENTERTRN [facility]ITALUSE[address] [address] Performing Lab: [facility]PITALRGRANDVIEW MEDICAL CENTERTRN [facility]PITALUSETS [address] [address] [place] CBC AND DIFF (AUTO) MCHC [MASS/VOLU ME] BY AUTOMATED COUNT 33.3 g/dL 30.8 - 35.1 01/13 Specimen Type: BLOOD No comment entered. Ordering Provider: GIUSEPPE BISHOP IE Report Released Date/Time: Jan 22, 2023 01:19 PM Reporting Lab: [facility]ITALR W[facility]N [facility]TS [address] [address] Performing Lab: [facility] HOSPITALRLAKE [facility]OSPITALN [address] [address] [place] CBC AND DIFF (AUTO) PLATELETS [#/VOLUME] IN BLOOD BY AUTOMATED COUNT 269 10*3/uL 140 - 360 01/13 Specimen Type: BLOOD No comment entered. Ordering Provider: GIUSEPPE BISHOP IE Report Released Date/Time: Jan 22, 2023 01:19 PM Reporting Lab: [facility] [address] [address] Performing Lab: [facility] [facility] [address] [address] [place] CBC AND DIFF (AUTO) ERYTHROCYT E DISTRIBUTI ON WIDTH [RATIO] BY AUTOMATED COUNT 13.7 12.0 - 16.0 01/13 Specimen Type: BLOOD No comment entered. Ordering Provider: GIUSEPPE BISHOP IE Report Released Date/Time: Jan 22, 2023 01:19 PM Reporting Lab: [facility] [address] Performing Lab: [facility]TRN [facility]USE[address] [address] [place] CBC AND DIFF (AUTO) MONOCYTES [#/VOLUME] IN BLOOD BY AUTOMATED COUNT 0.53 10*3/uL 0.30 - 1.10 01/13 Specimen Type: BLOOD No comment entered. Ordering Provider: GIUSEPPE BISHOP IE Report Released Date/Time: Jan 22, 2023 01:19 PM Reporting Lab: [facility]TRN [facility]ITALUSETS [address] [address] Performing [facility]: [facility] [address] [address] [place] CBC AND DIFF (AUTO) MCH [ENTITIC MASS] BY AUTOMATED COUNT 29.7 pg 26.2 - 32.6 01/13 Specimen Type: BLOOD No comment entered. Ordering Provider: GIUSEPPE BISHOP IE Report Released Date/Time: Jan 22, 2023 01:19 PM Reporting Lab: [facility] [address] [address] Performing Lab: [facility] [place] [address] [address] [place] CBC AND DIFF (AUTO) NEUTROPHIL S/100 LEUKOCYTES IN BLOOD BY AUTOMATED COUNT 64.3 43.7 - 75.8 01/13 Specimen Type: BLOOD No comment entered. Ordering Provider: GIUSEPPE BISHOP IE Report Released Date/Time: Jan 22, 2023 01:19 PM Reporting Lab: [facility] [address] [address] Performing Lab: [facility] [address] [address] [place] CBC AND DIFF (AUTO) LYMPHOCYTE S/100 LEUKOCYTES IN BLOOD BY AUTOMATED COUNT 25.8 14.0 - 42.3 01/13 Specimen Type: BLOOD No comment entered. Ordering Provider: GIUSEPPE BISHOP IE Report Released Date/Time: Jan 22, 2023 01:19 PM Reporting Lab: [facility] [address] [address] Performing Lab: [facility] [address] [address] [place] CBC AND DIFF (AUTO) MONOCYTES/ 100 LEUKOCYTES IN BLOOD BY AUTOMATED COUNT 6.8 5.1 - 13.7 01/13 Specimen Type: BLOOD No comment entered. Ordering Provider: GIUSEPPE BISHOP IE Report Released Date/Time: Jan 22, 2023 01:19 PM Reporting Lab: [facility]ITAL[facility] [address] [address] Performing Lab: [facility] [address] [address] [place] CBC AND DIFF (AUTO) EOSINOPHIL S/100 LEUKOCYTES IN BLOOD BY AUTOMATED COUNT 2.2 0.4 - 6.8 01/13 Specimen Type: BLOOD No comment entered. Ordering Provider: GIUSEPPE BISHOP IE Report Released Date/Time: Jan 22, 2023 01:19 PM Reporting Lab: [facility]ITALRLA[facility]N [facility] [address] [facility] [address] Performing Lab: [facility] [address] [address] [place] CBC AND DIFF (AUTO) BASOPHILS/ 100 LEUKOCYTES IN BLOOD BY AUTOMATED COUNT 0.6 0.1 - 2.0 01/13 Specimen Type: BLOOD No comment entered. Ordering Provider: GIUSEPPE BISHOP IE Report Released Date/Time: Jan 22, 2023 01:19 PM Reporting Lab: [facility] [address] [address] Performing Lab: [facility] [address] [address] [place] CBC AND DIFF (AUTO) NEUTROPHIL S [#/VOLUME] IN BLOOD BY AUTOMATED COUNT 5.03 10*3/uL 2.20 - 7.60 01/13 Specimen Type: BLOOD No comment entered. Ordering Provider: GIUSEPPE BISHOP IE Report Released Date/Time: Jan 22, 2023 01:19 PM Reporting Lab: [facility] [address] [address] Performing Lab: [facility] [address] [address] [place] CBC AND DIFF (AUTO) LYMPHOCYTE S [#/VOLUME] IN BLOOD BY AUTOMATED COUNT 2.02 10*3/uL 1.00 - 3.20 01/13 Specimen Type: BLOOD No comment entered. Ordering Provider: GIUSEPPE BISHOP IE Report Released Date/Time: Jan 22, 2023 01:19 PM Reporting Lab: [facility]ITALRLA[facility]N [address] [address] Performing Lab: [facility] [address] [address] [place] CBC AND DIFF (AUTO) EOSINOPHIL S [#/VOLUME] IN BLOOD BY AUTOMATED COUNT 0.17 10*3/uL 0.03 - 0.44 01/13 Specimen Type: BLOOD No comment entered. Ordering Provider: GIUSEPPE BISHOP IE Report Released Date/Time: Jan 22, 2023 01:19 PM Reporting Lab: [facility]ITALRGRAND[facility] CENTERTRN [address] [address] Performing Lab: [facility]PITALRLA[facility]N [address] [address] [place] CBC AND DIFF (AUTO) BASOPHILS [#/VOLUME] IN BLOOD BY AUTOMATED COUNT 0.05 10*3/uL 0.01 - 0.13 01/13 Specimen Type: BLOOD No comment entered. Ordering Provider: GIUSEPPE BISHOP IE Report Released Date/Time: Jan 22, 2023 01:19 PM Reporting Lab: [facility]PITALRLA[facility]ITALN [address] [address] Performing Lab: [facility] [address] [address] [place] CBC AND DIFF (AUTO) IMMATURE GRANULOCYT ES/100 LEUKOCYTES IN BLOOD BY AUTOMATED COUNT 0.3 0.0 - 0.7 01/13 Specimen Type: BLOOD No comment entered. Ordering Provider: GIUSEPPE BISHOP IE Report Released Date/Time: Jan 22, 2023 01:19 PM Reporting Lab: [facility]ITALRLA[facility]ITALN [address] [address] Performing Lab: [facility]ITALRLA[facility]ITALN [address] [address] [place] CBC AND DIFF (AUTO) IMMATURE GRANULOCYT ES [#/VOLUME] IN BLOOD 0.02 10*3/uL 0.00 - 0.06 01/13 Specimen Type: BLOOD No comment entered. Ordering Provider: GIUSEPPE BISHOP IE Report Released Date/Time: Jan 22, 2023 01:19 PM Reporting Lab: [facility]PITALRLA[facility]ITALN [address] [address] Performing Lab: [facility]PITALRLA[facility]ITALN [address] [address] [place] CBC AND DIFF (AUTO) NRBC % 0.0 0.0 - 0.0 01/13 Specimen Type: BLOOD No comment entered. Ordering Provider: GIUSEPPE BISHOP IE Report Released Date/Time: Jan 22, 2023 01:19 PM Reporting Lab: [facility] [address] [address] Performing Lab: [facility] [address] [address] [place] CBC AND DIFF (AUTO) NRBC, ABS 0.00 10*3/uL 0.00 - 0.00 01/13 Specimen Type: BLOOD No comment entered. Ordering Provider: GIUSEPPE BISHOP IE Report Released Date/Time: Jan 22, 2023 01:19 PM Reporting Lab: [address] [address] Performing Lab: [address] [address] [place] TSH THYROTROPI N [UNITS/VOL UME] IN SERUM OR PLASMA 0.59 u[IU]/mL 0.35 - 5.00 01/22 Specimen Type: SERUM No comment entered. Ordering Provider: GIUSEPPE BISHOP IE Report Released Date/Time: Jan 23, 2022 09:24 AM Reporting Lab: [address] [address] Performing Lab: [address] [address] [place] URINALYS IS COLOR OF URINE Light-Ye llow 01/22 Specimen Type: URINE Comment: If Glucose = >500 and Ketones are positive, please alert the Physician. Ordering Provider: GIUSEPPE BISHOP IE Report Released Date/Time: Jan 23, 2022 09:24 AM Reporting Lab: [address] [address] Performing Lab: [facility] [address] [address] [place] URINALYS IS APPEARANCE OF URINE Clear 01/22 Specimen Type: URINE Comment: If Glucose = >500 and Ketones are positive, please alert the Physician. Ordering Provider: GIUSEPPE BISHOP IE Report Released Date/Time: Jan 23, 2022 09:24 AM Reporting Lab: [facility] [address] [address] Performing Lab: [facility]N [facility]ITALUSE[address] [address] [place] URINALYS IS GLUCOSE [MASS/VOLU ME] IN URINE NEGATIVE mg/dL 01/22 Specimen Type: URINE Comment: If Glucose = >500 and Ketones are positive, please alert the Physician. Ordering Provider: GIUSEPPE BISHOP IE Report Released Date/Time: Jan 23, 2022 09:24 AM Reporting Lab: [address] [address] Performing Lab: [address] [address] [place] URINALYS IS KETONES [MASS/VOLU ME] IN URINE BY TEST STRIP NEGATIVE mg/dL 01/22 Specimen Type: URINE Comment: If Glucose = >500 and Ketones are positive, please alert the Physician. Ordering Provider: GIUSEPPE BISHOP IE Report Released Date/Time: Jan 23, 2022 09:24 AM Reporting Lab: [address] [address] Performing Lab: [address] [address] [place] URINALYS IS ERYTHROCYT ES [PRESENCE] IN URINE SEDIMENT BY LIGHT MICROSCOPY NEGATIVE mg/dL 01/22 Specimen Type: URINE Comment: If Glucose = >500 and Ketones are positive, please alert the Physician. Ordering Provider: GIUSEPPE BISHOP IE Report Released Date/Time: Jan 23, 2022 09:24 AM Reporting Lab: [address] [address] Performing Lab: [address] [address] [place] URINALYS IS PROTEIN [MASS/VOLU ME] IN URINE BY TEST STRIP NEGATIVE mg/dL 01/22 Specimen Type: URINE Comment: If Glucose = >500 and Ketones are positive, please alert the Physician. Ordering Provider: GIUSEPPE BISHOP IE Report Released Date/Time: Jan 23, 2022 09:24 AM Reporting Lab: [address] [address] Performing Lab: [address] [address] [place] URINALYS IS NITRITE [PRESENCE] IN URINE NEGATIVE mg/dL 01/22 Specimen Type: URINE Comment: If Glucose = >500 and Ketones are positive, please alert the Physician. Ordering Provider: GIUSEPPE BISHOP IE Report Released Date/Time: Jan 23, 2022 09:24 AM Reporting Lab: [address] [address] Performing Lab: [address] [address] [place] URINALYS IS BILIRUBIN. TOTAL [PRESENCE] IN URINE NEGATIVE mg/dL 01/22 Specimen Type: URINE Comment: If Glucose = >500 and Ketones are positive, please alert the Physician. Ordering Provider: GIUSEPPE BISHOP IE Report Released Date/Time: Jan 23, 2022 09:24 AM Reporting Lab: [address] [address] Performing Lab: [address] [address] [place] URINALYS IS SPECIFIC GRAVITY OF URINE BY REFRACTOME TRY 1.019 1.016 - 1.022 01/22 Specimen Type: URINE Comment: If Glucose = >500 and Ketones are positive, please alert the Physician. Ordering Provider: GIUSEPPE BISHOP IE Report Released Date/Time: Jan 23, 2022 09:24 AM Reporting Lab: [address] [address] Performing Lab: [address] [address] [place] URINALYS IS PH OF URINE BY TEST STRIP 5.5 5.0 - 9.0 01/22 Specimen Type: URINE Comment: If Glucose = >500 and Ketones are positive, please alert the Physician. Ordering Provider: GIUSEPPE BISHOP IE Report Released Date/Time: Jan 23, 2022 09:24 AM Reporting Lab: [address] [address] Performing Lab: [address] [address] [place] URIN[place] IS UROBILINOG EN [MASS/VOLU ME] IN URINE BY TEST STRIP <2.0mg/d L <2.0 - 2.0 01/22 Specimen Type: URINE Comment: If Glucose = >500 and Ketones are positive, please alert the Physician. Ordering Provider: GIUSEPPE BISHOP Report Released Date/Time: Jan 23, 2022 09:24 AM Reporting Lab: [address] [address] Performing Lab: [address] [address] [place] URIN[place] IS LEUKOCYTE ESTERASE [PRESENCE] IN URINE BY TEST STRIP NEGATIVE 01/22 Specimen Type: URINE Comment: If Glucose = >500 and Ketones are positive, please alert the Physician. Ordering Provider: GIUSEPPE BISHOP Report Released Date/Time: Jan 23, 2022 09:24 AM Reporting Lab: [address] [address] Performing Lab: [address] [address] [place] BASIC METABOLI C PANEL (fasting ) UREA NITROGEN [MASS/VOLU ME] IN SERUM OR PLASMA 27 mg/dL 7 - 25 01/22 H Specimen Type: SERUM No comment entered. Ordering Provider: GIUSEPPE BISHOP IE Report Released Date/Time: Jan 23, 2022 09:24 AM Reporting Lab: [address] [address] Performing Lab: [address] [address] [place] BASIC METABOLI C PANEL (fasting ) GLUCOSE [MASS/VOLU ME] IN SERUM OR PLASMA 104 mg/dL 65 - 100 01/22 H Specimen Type: SERUM No comment entered. Ordering Provider: GIUSEPPE BISHOP IE Report Released Date/Time: Jan 23, 2022 09:24 AM Reporting Lab: [facility] [address] [facility] [address] Performing Lab: [address] [address] [place] BASIC METABOLI C PANEL (fasting ) SODIUM [MOLES/VOL UME] IN SERUM OR PLASMA 142 mmol/L 135 - 145 01/22 Specimen Type: SERUM No comment entered. Ordering Provider: GIUSEPPE BISHOP IE Report Released Date/Time: Jan 23, 2022 09:24 AM Reporting Lab: [address] [address] Performing Lab: [address] [address] [place] BASIC METABOLI C PANEL (fasting ) POTASSIUM [MOLES/VOL UME] IN SERUM OR PLASMA 4.5 mmol/L 3.5 - 5.0 01/22 Specimen Type: SERUM No comment entered. Ordering Provider: GIUSEPPE BISHOP IE Report Released Date/Time: Jan 23, 2022 09:24 AM Reporting Lab: [address] [address] Performing Lab: [address] [address] [place] BASIC METABOLI C PANEL (fasting ) CHLORIDE [MOLES/VOL UME] IN SERUM OR PLASMA 108 mmol/L 100 - 110 01/22 Specimen Type: SERUM No comment entered. Ordering Provider: GIUSEPPE BISHOP IE Report Released Date/Time: Jan 23, 2022 09:24 AM Reporting Lab: [address] [address] Performing Lab: [address] [address] [place] BASIC METABOLI C PANEL (fasting ) CARBON DIOXIDE, TOTAL [MOLES/VOL UME] IN SERUM OR PLASMA 26 meq/L 20 - 30 01/22 Specimen Type: SERUM No comment entered. Ordering Provider: GIUSEPPE BISHOP IE Report Released Date/Time: Jan 23, 2022 09:24 AM Reporting Lab: [facility] [address] [facility] [address] Performing Lab: [facility] [address] [facility] [address] [employer] BASIC METABOLI C PANEL (fasting ) CREATININE [MASS/VOLU ME] IN SERUM OR PLASMA 0.93 mg/dL 0.50 - 1.40 01/22 Specimen Type: SERUM No comment entered. Ordering Provider: GIUSEPPE BISHOP IE Report Released Date/Time: Jan 23, 2022 09:24 AM Reporting Lab: [address] [address] Performing Lab: [facility] [address] [address] [employer] BASIC METABOLI C PANEL (fasting ) GLOMERULAR FILTRATION RATE/1.73 SQ M.PREDICTE D [VOLUME RATE/AREA] IN SERUM, PLASMA OR BLOOD BY CREATININE -BASED FORMULA (CKD-EPI 2020) 86 mL/min 60 01/22 Specimen Type: SERUM No comment entered. Ordering Provider: GIUSEPPE BISHOP IE Report Released Date/Time: Jan 23, 2022 09:24 AM Reporting Lab: [facility] [address] [address] Performing Lab: [facility] [address] [address] [employer] Vital Signs Combined list of inpatient and outpatient Vital Signs from Department of Defense and Veterans Affairs, ranging from 12 months to all on record, depending upon the facility. Vital Sign Value Date Comments Source SYSTOLIC BLOOD PRESSURE 156 01/22/20 24 11:29:26 [facility] DIASTOLIC BLOOD PRESSURE 80 024 11:29:26 [facility] PULSE OXIMETRY 98 01/22/2024 11:29:26 [facility] [place] [facility] WEIGHT 164.8 01/22/2024 11:29:26 [facility] BMI 25kg/m2 01/22/2024 11:29:26 [facility] [...] ADM Date DC Date Status Disposition Source [facility] Encounter [id number] 01[place]19 [facility] [place] [facility] [place] [place] AD[place] [id number] VILEKA BISHOP 01/22 [facility] [place] [facility] [place] OFF[place] O/P EST MOD 30-39 MIN [id number] Diagnos is: ICD-10- CM M25.552 Pain in left hip<br/ > VIELKA BISHOP SIMONA 01[facility] EST MOD 30-39 MIN [id number] Diagnos is: ICD-10- CM F43.12 Post-tr aumatic stress disorde r, chronic
KATHY GREENBERG AN 01/31 [place] [facility] En[facility] [id number] 03/06 [facility] [place] [facility] [place] OFFICE O/P EST MOD 30 MIN [id number] Diagnos is: ICD-10- CM F43.12 Post-tr aumatic stress disorde r, chronic
LARROW,KATHY AN 04/30 [place] [facility] Outpatient Encounter [id number] Diagnos is: ICD-10- CM Z02.89 Encount er for other adminis trative examina tions<b r/> AALIYAH LEONG 05/10 [facility] [place] [facility] Outpatient Encounter [id number] Diagnos is: ICD-10- CM Z02.89 Encount er for other adminis trative examina tions<b r/> ESTELLA SANDOVAL 05/18 [facility] [place] [facility] Outpatient Encounter [id number] 07/28 [facility] [place] [facility] [place] OFFICE O/P EST MOD 30 MIN [id number] Diagnos is: ICD-10- CM F43.12 Post-tr aumatic stress disorde r, chronic
LARROW,[facility] AN [facility] 30 MIN [id number] Diagnos is: ICD-10- CM F43.12 Post-tr aumatic stress disorde r, chronic
LARROW,KATHY AN 11/11 [place] [facility] Outpatient Encounter [id number] 01/13 [facility] [place] [facility] Outpatient Encounter [id number] 01/18 [facility] [place] Outpatient Encounter [id number] 01/21 [facility] [place] [facility] [place] OFF[place] O/P EST MOD 30 MIN [id number] Diagnos is: ICD-10- CM Z00.01 Encount er for general adult medical exam w abnorma l finding s
NATHAN,A POLINARIO 01/21 [facility] [place] O/P EST MOD 30 MIN [id number] Diagnos is: ICD-10- CM F43.12 Post-tr aumatic stress disorde r, chronic
LARROW,KATHY AN 02/10 [facility] [place] O/P EST MOD 30 MIN [id number] Diagnos is: ICD-10- CM F43.12 Post-tr aumatic stress disorde r, chronic
LARROW,KATHY AN 05/14 [facility] IE Social History Combined list of available smoking, tobacco, and other social history from Department of Defense and Veterans Affairs facilities. Social History Type Response Date Comment Sourc e Tobacco smoking status NHIS [facility] of [facility] use VA-TOBACCO NEVER USED 01/22/2023 [facility] [place] [facility] History of tobacco use VA-TOBACCO NEVER USED 01/23/2022 [facility] [place] [facility] History of tobacco use VA-TOBACCO NEVER USED 09/07/2020[facility] D History of tobacco use VA-TOBACCO NEVER USED 07/28/2019[facility] D History of tobacco use VA-TOBACCO NEVER USED 09/11/2018[facility] D Plan of Care List of future care activities from Department of Veterans Affairs facilities. Additional future care activities may be listed in the Assessment and Plan section. Date/Time Care Activity Care Activity Detail Facili ty 08/13/2024 AMBULATORY - PSYCHIATRY AMBULATORY [facility]
--- OUTSIDE RECORDS SUMMARY | 2024-05-15 11:19 | XMS_ITS | Encounter Summary ---
Author Name [facility] Address [address] [place] [id number] Care Team Providers Care Library Media Technician Name Role Phone DOUGLAS, RAANGELAAvery Primary Care Provider Unavailab le Insurance Providers: All historical and current Section Date Range: From patient's date of to the date document was created. This section includes the names of all active insurance providers for the patient. Insurance Provider Type of Coverage Plan Name Start of Policy Coverage End of Policy Coverage Group Number Member ID Insurance Provider's Telephone Number Policy Anguiano's Name Patient's Relationship to Policy [facility] ORGANIZAT ION (PPO) P[facility] STD SELF PLUS 1 Apr 23, 2024 [id number] VALENTÍN HERRING PATIENT MEDICARE (WNR) MEDICARE (M) PART A Dec 22, 2013 PART A [id number] VALENTÍN HERRING PATIENT Selected Encounter This section includes the information on record at [place] for the Encounter. Date/Time Encounter Type Encounter Description Reason Provider Source May 14, 2024 08:30 AM OFFICE O/P EST MOD 30 MIN [facility] - [facility] ICD-10-CM F43.12 Post-traumatic stress disorder, chronic ISABELA GREENBERG IHAura Encounter Template Text not used by [facility] Assessments - Encounter Diagnoses This section includes the primary and secondary diagnoses documented for the Encounter. Date/Time Primary/Secondary Diagnosis Diagnosis Name Provider Source May 14, 2024 08:59 AM PRIMARY Post-traumatic stress disorder, chronic ISABELA GREENBERG Plan of Treatment: Future Appointments (+ 6 months) and Future Tests (+/- 45 days) The Plan of Treatment section includes future care activities for the patient from all [place] treatmentfacilities. This section includes future appointments and future orders which are active, pending or scheduled. Future Appointments This section includes appointments that were scheduled to occur 6 months from the date of the Encounter, up to a maximum of 20 appointments. The data comes from all [place] treatment facilities. Appointment Date/Time Appointment Type Appointme nt Facility Name Aug 13, 2024 09:00 AM AMBULATORY - PSYCHIATRY [facility] Social History: Smoking Status (Most current) and Tobacco Use (All prior to encounter date) This section includes the most current, and the historical, smoking and tobacco- related health factors from the [place] facility where the Encounter took place. Current Smoking Status This section includes the most current smoking, or tobacco-related health factor, from the [place] facility where the Encounter took place. Date/Time Current Smoking Status Comment Facil ity Jan 22, 2024 11:00 AM [place] Tobacco Use History This section includes a history of the smoking, or tobacco-related health factors, that were collected on or before the date of the Encounter. The data comes from the [place] facility where the Encounter took place. Date/Time Smoking Status/Tobacco Use Comment F acility September 07, 2020 09:30 AM [facility] Jul 28, 2019 11:27 AM [facility] September 11, 2018 10:11 AM [facility] Encounter Notes: All associated encounter notes This section contains the clinical notes associated to the Encounter. Date/Time Encounter Note(s) Provider Source May 14, 2024 08:39 AM PSYCHIATRY NOTE: LOCAL TITLE: PSYCHIATRY NOTE STANDARD TITLE: PSYCHIATRY NOTE DATE OF NOTE: MAY 14, 2024@08:39 ENTRY DATE: MAY 14, 2024@08:39:20 AUTHOR: ISABELA GREENBERG EXP COSIGNER: URGENCY: STATUS: COMPLETED Time spent: 21-30 minutes >16 mins supportive therapy (including empathic listening, insight building, and psychoeducation). The presents today for follow-up. PATIENT REPORT: He is conversational. Mood is even. continues to benefit from medication. He denies depressed mood. He completed b/l hernia surgery since last visit--he did well with it. He continues to walk 10 miles a day with his dog and , even in the cold (in the mall, [employer]). His is in the process of working on her weight. As previously noted, virgil shares that his feels his medications are highly effective. He feels as though he doesn't fly off the handle as he did in the past. Virgil notices the benefits of the medicine in its absence. He denies irritability--he benefits from PRN hydroxyzine; he often takes three in the morning and another one or two later in the day as needed. This being said, there are some days he does not require hydroxyzine. He feels it is particularly helpful for his anxiety. Virgil states, I have anxiety, but now I have control over it. He benefits from therapy. He does not care for groups. Virgil discusses various adventures from his youth ([employer], [employer] near [place], etc.). He discusses how resourceful he is. Virgil reports 2 maybe 3 beers a [...] discusses the importance of staying busy. He continues to volunteer [facility]. 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 He utilizes his typical humor. Virgil denies [...] grandchildren) live upstairs Has a nephew in [place] Enjoys fishing, hiking, and walking SUICIDE RISK [...] BY MOUTH FOUR ACTIVE TIMES DAILY NEEDED Indication: FOR ANXIETY SERTRALINE HCL 100MG TAB TAKE ONE AND ONE-HALF TABLETS BY ACTIVE MOUTH EVERY MORNING Indication: FOR MOOD AND PTSD Non-VA AMLODIPINE BESYLATE 5MG TAB 5MG BY MOUTH ONCE DAILY ACTIVE Non-VA CHOLECALCIF 50MCG (D3-2,000UNIT) TAB 2000UNIT BY ACTIVE MOUTH ONCE DAILY Non-VA DICLOFENAC NA 75MG EC TAB 75MG BY MOUTH TWICE DAILY ACTIVE Non-VA ESOMEPRAZOLE 20MG (BASE) EC CAP 20MG BY MOUTH ONCE ACTIVE DAILY Non-VA PRAVASTATIN NA 40MG TAB 40MG BY MOUTH AT BEDTIME ACTIVE 7 Total Medications ALLERGIES: BACTRIM, CODEINE I discussed the findings and plan with the patient. I educated the patient about their mental health condition. repeated back the plan and education. IMPRESSION (DSM-5): PTSD, chronic ADHD likely based upon hx and clinical presentation Cannabis Use Disorder Alcohol Use Disorder--reports has cut back and denies any recent excessive use (2 cans daily) PLAN: Continue sertraline 150mg daily for PTSD and depression--dose increased April 2019 with good response. Labwork from 01/22/23 reviewed. Continue hydroxyzine 10mg qid PRN for anxiety and irritability--he feels that this is quite helpful--he does not drive or operate heavy machinery after taking. He prefers to take it regularly, and with benefit. He sees [facility] for individual therapy. He does not care [...] provider. /isai/ ISABELA GREENBERG DO Psychiatrist Signed: 05/14/2024 08:59 Receipt Acknowledged By: 05/14/2024 09:01 /isai/ RAFAELA JOHNSON ADVANCED ECONOMIC RESEARCH ASSISTANT ISABELA GREENBERG
--- NOTE | 2024-05-15 11:51 | P.OPN-COLO_ITS ---
Colonoscopy Operative Note Operative Note Date of Service: 05/15/24 Narrative: Procedure: Colonoscopy Indication: Personal history of polyps Endoscopist: Ginger Rowe MD Anesthesia Provider: Meenakshi Lopez CRNA Anesthesia type: MAC Instrument: Olympus [id number]-H190L Consent: Indication, risks vs benefits, and alternatives were discussed with the patient who gave written informed consent to proceed. EKG, pulse, pulse oximetry and blood pressure were monitored throughout the procedure. Please see anesthesia flowsheet. Procedure: The patient was brought to the procedure room and placed in the left lateral decubitus position. IV medications were administered by the anesthesia provider in attendance. A digital rectal exam was performed which was normal. A distal attachment cap was affixed to the tip of the colonoscope which was then inserted through the anus and advanced through the colon to the cecum at 80 cm,and terminal ileum. Appendiceal orifice and ileocecal valve were identified. Mucosa was carefully examined under high definition white light as the instrument was slowly withdrawn in a retrograde panoramic fashion. Retroflexion was performed in rectum. The procedure was not difficult. There were no immediate obvious complications. The quality of the prep was BBPS: 3+2+3 = adequate Withdrawal time 7 minutes. Limitations: No limitations. Findings: Mucosa: Normal to cecum and terminal ileum. Protruding lesions: * 1 sessile polyp of size 6 mm in rectum. Cold snare polypectomy was performed. The polyp was completely removed and retrieved. * Medium internal hemorrhoids without stigmata of recent bleeding. Impression: 1. Normal colon mucosa 2. Total of 1 polyp removed 3. Internal hemorrhoids Recommendations: - Follow path results. - Repeat colonoscopy not recommended due to patient's age.
[2024-05-15 11:59] VITALS: BP 126/75; PULSE 44; RESP 18; TEMP 36.6; O2SAT 99
[2024-05-15 12:14] VITALS: BP 127/71; PULSE 50; RESP 18; O2SAT 99
[2024-05-15 12:29] VITALS: BP 146/81; PULSE 54; RESP 18; TEMP 36.6; O2SAT 97
== END 2024-05-15 13:17 | disposition home or self-care (01) ==
PROVIDERS: PCP Nurse Practitioner Family; Visit Provider Internal Medicine
PROC: 0DJD8ZZ Inspection of Lower Intestinal Tract, Via Natural or Artificial Opening Endoscopic (ICD-10-PCS; CPT 45378; principal; 2024-05-15 12:10)
DX: Z12.11 Encounter for screening for malignant neoplasm of colon (principal); Z86.0101 Personal history of adenomatous and serrated colon polyps; K62.1 Rectal polyp; K64.8 Other hemorrhoids; R76.11 Nonspecific reaction to tuberculin skin test without active tuberculosis; K21.9 Gastro-esophageal reflux disease without esophagitis; I10 Essential (primary) hypertension; E78.00 Pure hypercholesterolemia, unspecified; D35.00 Benign neoplasm of unspecified adrenal gland; Z86.73 Personal history of transient ischemic attack (TIA), and cerebral infarction without residual deficits; Z88.5 Allergy status to narcotic agent; Z88.2 Allergy status to sulfonamides; Z88.8 Allergy status to other drugs, medicaments and biological substances; Z98.890 Other specified postprocedural states
CPT/HCPCS: 45385; 88305

== ENCOUNTER → 2024-05-15 09:51 | Outpatient (BNV) | payer MEDICARE, BC, SELFPAY | PROVIDERS: PCP Nurse Practitioner Family; Visit Provider Internal Medicine | DX: Z12.11 Encounter for screening for malignant neoplasm of colon (principal); Z86.0100 Personal history of colon polyps, unspecified; K62.1 Rectal polyp; K64.8 Other hemorrhoids | CPT/HCPCS: 45385 ==

== ENCOUNTER 2024-07-11 13:59 | Outpatient (REF) | payer MEDICARE, BC, SELFPAY ==
[2024-07-11 19:27] LABS: Influenza A PCR NEGATIVE (Negative); Influenza B PCR NEGATIVE (Negative); Resp Syncy Virus RNA Qual PCR NEGATIVE (Negative); SARS COV2 PCR INHOUSE NEGATIVE (Negative)
== END 2024-07-11 14:00 | disposition home or self-care (01) ==
LOC: HO.LNP 13:59
PROVIDERS: PCP Nurse Practitioner Family; Visit Provider Physician Assistant Medical
DX: J06.9 Acute upper respiratory infection, unspecified (principal); S30.861A Insect bite (nonvenomous) of abdominal wall, initial encounter
CPT/HCPCS: 0241U; 99212

== ENCOUNTER 2024-07-11 13:59 | Outpatient (AMB) | payer MEDICARE, BC, SELFPAY ==
--- NOTE | 2024-07-11 14:11 | MHC.OFFWIV ---
Intake Vital Signs 07/11/24 14:12 Height 5 ft 8 in Weight 159 lb BMI 24.2 BP 130/80 Blood Pressure Location Rt brachial Position Sitting Pulse 68 Pulse Source Pulse Oximeter Temp 98.0 F Temp Source Oral Pulse Oximetry (%) 98 Oxygen Delivery Method Room Air Intake Visit Reasons: EP reaction from a deer bite Intake Note: Patient here multiple tick bite that he noticed a couple of days ago and is now having chills and neck pain. Patient Tobacco Use Status: Never used Tobacco Allergies codeine [CODEINE] Allergy (Intermediate, Verified 07/11/24 14:14) NAUSEA, stomach upset lisinopril Allergy (Intermediate, Verified 07/11/24 14:14) angioedema Sulfa (Sulfonamide Antibiotics) [SULFA (SULFONAMIDE ANTIBIOTICS)] Allergy (Intermediate, Verified 07/11/24 14:14) NAUSEA, stomach upset Do you need a note to return to daycare/school/sports/work: No HPI HPI Comments History of Present Illness Details This is a 74-year-old male who presented to the walk-in clinic for evaluation of tick bites. He had a tick bite to his left lower abdomen, which he noticed about 2 weeks ago. He states this tick was attached for less than 24 hours and he removed the tick about 2 weeks ago. He then noticed another tick bite to his right knee about 3 days ago. He states this tick was also attached for less than 24 hours and he removed the tick about 3 days ago. He states he started to develop some viral symptoms such as chills, headache, diarrhea, and fatigue about 4 days ago. He denies any significant arthralgias or myalgias. He denies any measured fevers. He denies any rash. [facility] Medical History History of injury of tendon (~2013) Environmental and seasonal allergies Ascending aorta dilatation Screening PSA (prostate specific antigen) Acute otitis media Hip pain Abdominal hernia Physical exam Physical exam Screening for colon cancer Erectile dysfunction Kidney cysts Pheochromocytoma TIA (transient ischemic attack) (~2008) Hypercholesterolemia Mild acid reflux High blood pressure determined by examination Renal cyst, acquired Microscopic hematuria Tubular adenoma of colon Colon cancer screening Back pain Hip flexor tendonitis Hip arthritis Quadriceps tendon rupture Serous otitis media Acute sinusitis Otitis externa of both ears Otitis media Viral syndrome Encounter for screening laboratory testing for COVID-19 virus Surgical History Hx of bilateral inguinal hernia repair History of esophagogastroduodenoscopy (EGD) (~2018) Hx of colonoscopy (~2018) H/O neck surgery H/O umbilical hernia repair History of back surgery History of ankle surgery History of surgery Family History Father Substance use disorder Brother Substance use disorder Mother Liver cancer History of kidney cancer Paternal Uncle HTN (hypertension) Maternal Aunt Cancer Family/Other Cancer Social History Housing: House Are you a primary career development engineer to a significant other at home: No Do you presently have visiting nurse or other home services: No Alcohol intake: current Alcohol intake frequency: does not drink Patient Tobacco Use Status: Never used Tobacco e-Cigarette/Vaping Use: Never Used Second Hand Smoke Exposure: No service: Yes Current occupational status: retired Cognitive needs: No Hearing needs: No Vision needs: No Review of Systems Const All systems reviewed & are unremarkable except as noted in HPI and below Reports no additional complaints Eyes Reports no additional complaints ENT Reports no additional complaints Card Reports no additional complaints Resp Reports no additional complaints GI Reports no additional complaints Reports no additional complaints Musc Reports no additional complaints Skin/Breast Reports system reviewed and no additional complaints, except as documented Neuro Reports no additional complaints Psych Reports no additional complaints Endo Reports no additional complaints Jarrett/Lymph Reports no additional complaints Aller/Immun Reports no additional complaints Physical Exam Vital Signs: Last Vital Signs Temp 98.0 F 07/11/24 14:12 Pulse 68 07/11/24 14:12 BP 130/80 07/11/24 14:12 Pulse Ox 98 07/11/24 14:12 Oxygen Delivery Method Room Air 07/11/24 14:12 BMI result Body Mass Index 24.2 Const Other: Vital signs reviewed. Constitutional: Non-toxic appearing. No acute distress. Well-developed and well-nourished. HEENT: Normocephalic and atraumatic. Skin: Warm and dry. No rashes or lesions noted. There is a small scabbed area to the left lower abdomen without evidence of retained tick. There is a small scabbed area to the medial right knee without evidence of retained tick. Neck: Full and painless range of motion. No cervical lymphadenopathy. Cardio: Regular rate and rhythm. No murmurs, gallops, or rubs. No lower extremity edema. No JVD. Pulmonary: No respiratory distress. No accessory muscle usage. Clear to auscultation bilaterally without wheezing, crackles, or rhonchi. Gastrointestinal: Soft, nontender, and nondistended in all 4 quadrants. Normoactive bowel sounds in all 4 quadrants. Musculoskeletal: Normal range of motion in joints throughout the body. No deformity or other signs of injury. Neuro: Alert and oriented x4. Cranial nerves 2-12 grossly intact. No focal deficits appreciated. Psych: Normal mood and affect. Assessment & Plan Assessment & Plan (1) Tick bite of abdomen: Code(s): S30.861A - Insect bite (nonvenomous) of abdominal wall, initial encounter; W57.XXXA - Bitten or stung by nonvenomous insect and other nonvenomous arthropods, initial encounter Qualifiers: Encounter type: initial encounter Qualified Code(s): S30.861A - Insect bite (nonvenomous) of abdominal wall, initial encounter; W57.XXXA - Bitten or stung by nonvenomous insect and other nonvenomous arthropods, initial encounter (2) Viral illness: Code(s): B34.9 - Viral infection, unspecified Plan This is a 74-year-old male who presented to the walk-in clinic for evaluation of tick bites x 2; one removed 2 weeks ago and one removed 3 days ago, both of which were attached for less than 24 hours. He started to develop some viral symptoms such as headaches, chills, diarrhea, and fatigue about 4 days ago. I explained to the patient that Lyme disease is usually transmitted if a tick is attached for greater than 36 hours and the patient does not have any evidence of erythema migrans, so early Lyme disease seems less likely at this time. He was also educated that serologic testing is not always useful within the first several weeks following a tick bite given high prevalence of false positives and negatives. Patient likely has an underlying viral syndrome causing his symptoms. Patient was given PO doxycycline 200 mg x 1 dose for Lyme disease prophylaxis. I also recommended symptomatic management such as rest, increased fluids/hydration, and acetaminophen/ibuprofen for pain/fevers. Patient was given strict return precautions and he has a follow-up appointment with his PCP next week. Orders: Orders SARS-CoV2/FLU/RSV Today J06.9 - Acute upper respiratory infection, unspecified Medications: New doxycycline hyclate 200 mg (2 x 100 mg) PO ONCE 1 tab 0RF Coding Level of Care Code Est Pt Level 3 (93865) Diagnoses Tick bite of abdomen, initial encounter S30.861A; W57.XXXA Encounter type: initial encounter Viral illness B34.9
[2024-07-11 14:12] VITALS: BP 130/80; PULSE 68; TEMP 36.7; O2SAT 98; BMI 24.2
== END 2024-07-11 15:14 | disposition home or self-care (01) ==
PROVIDERS: PCP Nurse Practitioner Family; Visit Provider Physician Assistant Medical
DX: S30.861A Insect bite (nonvenomous) of abdominal wall, initial encounter (principal); W57.XXXA Bitten or stung by nonvenomous insect and other nonvenomous arthropods, initial encounter; B34.9 Viral infection, unspecified

== ENCOUNTER 2024-07-16 11:31 | Outpatient (AMB) | payer MEDICARE, BC, SELFPAY ==
--- NOTE | 2024-07-16 11:40 | A.OFFPC_ITS ---
Vital Signs 07/16/24 11:41 Height 5 ft 8 in Weight 165 lb BMI 25.1 BP 130/80 Blood Pressure Location Lt brachial Position Sitting Pulse 52 Pulse Source Pulse Oximeter Pulse Oximetry (%) 97 Oxygen Delivery Method Room Air Intake Visit Reasons: 6 month follow up Leather Polisher Required: No Accompanied by: Self / Same As Patient Allergies codeine [CODEINE] Allergy (Intermediate, Verified 07/16/24 12:37) NAUSEA, stomach upset lisinopril Allergy (Intermediate, Verified 07/16/24 12:37) angioedema Sulfa (Sulfonamide Antibiotics) [SULFA (SULFONAMIDE ANTIBIOTICS)] Allergy (Intermediate, Verified 07/16/24 12:37) NAUSEA, stomach upset Medication List - Last Reconciled 07/16/24 by TUYET Fleming- amlodipine 5 mg PO DAILY 90 days cholecalciferol (vitamin D3) 50 mcg PO DAILY 90 days diclofenac sodium 75 mg PO BID PRN esomeprazole magnesium 20 mg PO DAILY hydroxyzine HCl 10 mg PO TID PRN ipratropium bromide 2 sprays intranasal BID PRN pravastatin 40 mg PO DAILY sertraline 100 mg PO DAILY Tobacco use date assessed: 07/16/24 Fall risk assessment: No Falls in past year Last assessed Fall Risk: 07/16/24 Dental Screening Dental Screen Date: 07/16/24 Did you have a dental visit in the last 12 months?: Yes Did you have a dental problem in the last 6 months where you did not have access to dental care?: No Was dental information given to patient?: Patient has dentist HPI 6 month follow up HPI Details Chief Complaint Concerns about recent tick bites and ongoing management of dyslipidemia. History of Present Illness The patient is a 74-year-old male presenting for a follow-up related to dyslipidemia management and review of recent tick bites. His dyslipidemia is managed with pravastatin 40 mg, and essential hypertension is stable on current management. He describes having removed ticks from his lower abdomen and right knee, denying any secondary infections or associated systemic symptoms such as fever or chills. The patient does not report any additional symptoms like chest pain, shortness of breath, headaches, or visual disturbances, ensuring a stable state aside from the aforementioned tick bites. Social History - Engages in outdoor activities frequent ly, leading to potential tick exposure. Health Maintenance - Will obtain lipid panel for dyslipidem ia management. - Planned basic labs and tick-related se rologies. Review of Systems - Cardiovascular: Denies chest pain. - Respiratory: Denies shortness of breat h. - Neurological: Denies dizziness, headac hes. - Ophthalmic: Denies blurred vision. - General: Denies fevers and chills. Physical Exam General: Cooperative, healthy appearing, comfortable, no acute distress and well developed Orientation: Patient oriented x3 Limitations: No limitations Head: Normal to inspection Ears: Hearing grossly normal bilaterally Nose: Normal external nose present Face and sinus: Normal facial exam Eyes: Appearance normal, both eyes and all related structures Neck: Normal visual inspection and Yes full ROM Respiratory: Normal respiratory effort and able to speak in complete sentences. Clear to auscultation bilaterally Cardiovascular: Regular rate and rhythm. Normal S1 and S2 GI: Normal to inspection. Soft to palpation and nontender Skin: Small scab on the left lower quadrant of the abdomen and a small scab on the medial right knee region, just inferior. No rashes or lesions noted. no EM, no rashes Neuro: Patient oriented x3 Extremities: Normal to inspection Results Plan I will perform a cholesterol panel to assess lipid levels, continuing the current pravastatin therapy for his dyslipidemia. In light of recent tick exposure, relevant labs to screen for tick-borne diseases will be obtained. The patient's hypertension management remains unchanged, as it is stable. I have outlined comprehensive lab testing to monitor his multi-factorial medical concerns. Discussion Notes I reviewed the plan with the patient, discussing the rationale for obtaining a cholesterol panel to monitor dyslipidemia and serologies considering recent tick bites. We explored the stability of his essential hypertension and the absence of further intervention at this time. The patient was informed of potential signs that might require reevaluation and agreed with the outlined diagnostic studies and continued pravastatin therapy. Follow-up will be dependent on lab results. Patient Instructions - Continue taking pravastatin 40 mg as p rescribed. - Monitor for any new symptoms such as f ever, rash, or joint pain. - Engage in tick-check practices when re turning from outdoor activities. - Await instructions based on lab result s regarding tick exposure and dyslipidemia. [facility] Medical History History of injury of tendon (~2013) Environmental and seasonal allergies Ascending aorta dilatation Screening PSA (prostate specific antigen) Acute otitis media Hip pain Abdominal hernia Physical exam Physical exam Screening for colon cancer Erectile dysfunction Kidney cysts Pheochromocytoma TIA (transient ischemic attack) (~2008) Hypercholesterolemia Mild acid reflux High blood pressure determined by examination Renal cyst, acquired Microscopic hematuria Tubular adenoma of colon Colon cancer screening Back pain Hip flexor tendonitis Hip arthritis Quadriceps tendon rupture Serous otitis media Acute sinusitis Otitis externa of both ears Otitis media Viral syndrome Encounter for screening laboratory testing for COVID-19 virus Surgical History Hx of bilateral inguinal hernia repair History of esophagogastroduodenoscopy (EGD) (~2018) Hx of colonoscopy (~2018) H/O neck surgery H/O umbilical hernia repair History of back surgery History of ankle surgery History of surgery Family History Father Substance use disorder Brother Substance use disorder Mother Liver cancer History of kidney cancer Paternal Uncle HTN (hypertension) Maternal Aunt Cancer Family/Other Cancer Social History Housing: House Are you a primary laboratory animal caretaker to a significant other at home: No Do you presently have visiting nurse or other home services: No Alcohol intake: current Alcohol intake frequency: does not drink Patient Tobacco Use Status: Never used Tobacco e-Cigarette/Vaping Use: Never Used Second Hand Smoke Exposure: No service: Yes Current occupational status: retired Cognitive needs: No Hearing needs: No Vision needs: No Questionnaire PHQ-9 Over the last 2 weeks, how often have you been bothered by any of the following problems? 1. Little interest or pleasure in doing things: nearly every day 2. Feeling down, depressed, or hopeless: nearly every day 3. Trouble falling or staying asleep, or sleeping too much: not at all 4. Feeling tired or having little energy: not at all 5. Poor appetite or overeating: not at all 6. Feeling bad about yourself - or that you are a failure or have let yourself or your family down: not at all 7. Trouble concentrating on things, such as reading the newspaper or watching television: not at all 8. Moving or speaking so slowly that other people could have noticed. Or the opposite - being so fidgety or restless that you have been moving around a lot more than usual: not at all 9. Thoughts that you would be better off or of hurting yourself in some way: not at all Total score: 6 Depression Screening Interpretation: Negative Depression Screening Done: Yes 78753 - PHQ-9 Billing: Yes Source: Developed by Drs. Iker Zamora, Serena Roper, Christopher Duff and colleagues, with an educational gita from [employer]. Thrive Questionnaire Date Thrive assessed: 12/25/23 I am a: Patient What is your living situation today?: I choose not to answer this question Within the past 12 months, did the food you bought not last and you didn't have the money to get more?: I choose not to answer this question Within the past 12 months, did you worry whether your food would run out before you got money to buy more?: I choose not to answer this question Do you have trouble paying for medicines?: No Do you have trouble getting transportation to medical appointments?: I choose not to answer this question Do you have trouble paying your heating and electricity bill?: I choose not to answer this question Do you have trouble taking care of your child, family member or friend?: No Do you have trouble with day-to-day activities such as bathing, preparing meals, shopping, managing finances, etc.?: No Are you currently unemployed and looking for a job?: No Are you interested in more education?: No Please select the resources that you would like help with: Utilities Currently or been in a relationship where the following occur: I choose not to answer THRIVE Score: 0 AUDIT C Alcohol Use Questionnaire (AUDIT-C) 1. How often do you have a drink containing alcohol?: 2-3 times a week 2. How many drinks containing alcohol do you have on a typical day when you are drinking?: 3 or 4 3. How often do you have six or more drinks on one occasion?: Never Total Score: 4 Score Reviewed/Action Taken: Yes CHUCK-7 AMB Questionnaire CHUCK-7 Date CHUCK - 7 assessed: 07/16/24 Feeling nervous, anxious, or on edge: 2 = More than half the days Not being able to stop or control worryin = More than half the days Worrying too much about different things: 0 = Not at all Trouble relaxin = Not at all Being so restless that it is hard to sit still: 0 = Not at all Becoming easily annoyed or irritable: 2 = More than half the days Feeling afraid as if something awful might happen: 0 = Not at all Total CHUCK-7 score (0-4 normal; 5-9 mild; 10-14 moderate; 15-21 severe): 6 Source: Developed by Drs. Iker Zamora, Serena Roper, Christopher Duff and colleagues, with an educational gita from [employer]. CHUCK-7 Assessment Billing CHUCK-7 Assessment Tool: CHUCK-7 Assessment 54295 Physical exam (Primary Care) Vital Signs: Last Vital Signs Pulse 52 07/16/24 11:41 BP 130/80 07/16/24 11:41 Pulse Ox 97 07/16/24 11:41 Oxygen Delivery Method Room Air 07/16/24 11:41 BMI result Body Mass Index 25.1 Tobacco/Smoking Status: Tobacco use Status Tobacco use date assessed 07/16/24 07/16/24 11:47 Patient Tobacco Use Status Never used Tobacco 07/16/24 11:42 e-Cigarette/Vaping Use Never Used 07/16/24 11:42 PHQ-9: PHQ-9 Score PHQ-9: Total score 6 07/16/24 11:47 Depression Screening Interpretation: Negative Thrive Assessment: Date of Thrive Assessment Date Thrive assessed 12/25/23 07/16/24 11:42 Currently or been in a relationship where the following occur: I choose not to answer Coding Level of Care Code Est Pt Level 3 (25210) Diagnoses AAA (abdominal aortic aneurysm) I71.40 Tick bite W57.XXXA Dyslipidemia E78.5 Additional Codes CHUCK-7 Assessment Billing - CHUCK-7 Assessment Tool: CHUCK-7 Assessment 44170 ([id number]) PHQ-9 - 13643 - PHQ-9 Billing: Yes ([id number]) Assessment & Plan Assessment & Plan (1) AAA (abdominal aortic aneurysm): Code(s): I71.40 - Abdominal aortic aneurysm, without rupture, unspecified Category: Medical (2) Tick bite: Code(s): W57.XXXA - Bitten or stung by nonvenomous insect and other nonvenomous arthropods, initial encounter Category: Medical (3) Dyslipidemia: Code(s): E78.5 - Hyperlipidemia, unspecified Category: Medical Plan . Orders: Orders [facility] [place]. Panel Fast Today E78.5 - Hyperlipidemia, unspecified TSH reflex Free T4 Today E78.5 - Hyperlipidemia, unspecified UA CC w/rflx Micro + Cult Today E78.5 - Hyperlipidemia, unspecified Lipid Panel Today E78.5 - Hyperlipidemia, unspecified US abdominal aortic aneurysm 6 Months I71.40 - Abdominal aortic aneurysm, without rupture, unspecified Tick-borne Disease Molecular Today W57.XXXA - Bitten or stung by nonvenomous insect and other nonvenomous arthropods, initial encounter Lyme IgG/IgM w/reflex to WB Today W57.XXXA - Bitten or stung by nonvenomous insect and other nonvenomous arthropods, initial encounter Complete Blood Count Auto Diff Today E78.5 - Hyperlipidemia, unspecified AMB EKG-In Office Today E78.5 - Hyperlipidemia, unspecified
[2024-07-16 11:41] VITALS: BP 130/80; PULSE 52; O2SAT 97; BMI 25.1
--- OUTSIDE RECORDS SUMMARY | 2024-07-16 14:03 | XMS_ITS | Data Portability ---
Author Organization [facility] PAIN OFFICE Address [address] [place] [address] Care Team Providers Care Hook And Eye Attacher Name Role Phone YOLANDE PARIKH Referring Provider ANDRE ZHU Primary Care Provider Assessment Encounter [...] booked for the same. 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 [...] By Organization Details Last Modified Time 11/02/2016 [id number] He was advised against bed rest lasting longer than four days and to continue activities as tolerated. [email or web address] Not available 11/06/2016 15:32:34 11/07/2016 [id number] He was advised against bed rest lasting longer than four days and to continue activities as tolerated. [email or web address] Not available 11/07/2016 08:59:54 04/10/2017 [id number] He was advised against bed rest lasting longer than four days and to continue activities as tolerated. [email or web address] Not available 04/10/2017 15:31:44 07/05/2017 [id number] He was advised against bed rest lasting longer than four days and to continue activities as tolerated. [email or web address] Not available 07/06/2017 09:57:47 10/23/2017 [id number] He was advised against bed rest lasting longer than four days and to continue activities as tolerated. delma Not available 10/23/2017 15:01:25 Reason for Referral None Reported. Results Created Date Observation Date Name Description Value Unit Range Abnormal Flag Note LastModifiedBy Organization Detail LastModifiedTime 07/07/19 18 07/06/2017 XR, hip + pelvi s, unila teral No observ ation record ed. [email or web address] Dept [address] [place], [address], 07/10/2017 13:05:16 Result Notes None recorded. 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 59859643 Active Fede naidu MD [address] , [address], [place], [address], [place] [facility] 5 09:42:49 Lumbosacral spondylosis without myelopathy 42370610 Active Fede naidu MD [address] , [address], [place], [address], [place] [facility] 5 09:42:49 Lumbosacral radiculitis 78384925 Active Fede naidu MD [address] , [address], [place], [address], [place] [facility] 5 09:42:49 Pain of left hip joint 1725203842138 00 Active Fede naidu MD [address] , [address], [place], [address], [place] [facility] 8 09:58:09 Problem Notes None recorded. Procedures Surgical History Date Name Laterality Status Provider Name and Address Organization Details Recorded Time 10/24/19 18 Intra-articular Hip Steroid Injection completed Fede Cullen MD [address] , [address], [place], [address], [place] [facility] 10/23/2017 15:00:35 04/10/20 17 Lumbar Epidural steroid injection under fluoroscopic guidance completed Fede Cullen MD [address] , [address], [place], [address], [place] [facility] 04/10/2017 15:33:49 11/08/19 17 Lumbar Epidural steroid injection under fluoroscopic guidance completed Fede Cullen MD [address] , [address], [place], [address], [place] [facility] 11/07/2016 09:00:44 03/29/20 16 Lumbar Epidural steroid injection under fluoroscopic guidance completed Fede Cullen MD [address] , [address], [place], [address], [place] [facility] 03/29/2016 11:28:47 02/23/20 15 Lumbar Epidural steroid injection under fluoroscopic guidance completed Fede Cullen MD [address] , [address], [place], [address], [place] [facility] 02/22/2015 10:49:56 11/18/19 15 Lumbar Epidural steroid injection under fluoroscopic guidance completed Fede Cullen MD [address] , [address], [place], [address], [place] [facility] 11/17/2014 [...] 11/08/2014 21:04:11 04/23/18 77 Other completed Sona Rennerzier [facility] - [facility] 11/08/2014 21:04:11 Imaging Results Imaging Date Name Status LastModified by Organiz ation Details LastModified Time 07/06/2017 XR, hip + pelvis, unilateral completed [facility] Diagnosit Imaging Dept [address] [facility] [address], [place], [address], 07/10/2017 13:05:16 Procedure Notes None recorded. Medical Equipment None Reported. Allergies Allergen ID Allergen Name Allergen Category Reaction Reaction Severity Criticality Documentation Date Start Date Code Code System Note Provider Name and Address Organization Details Recorded Time 92097 Substance with sulfonami de structure and antibacte rial mechanism of action (substanc e) medicatio n other Not available Not available 11/04/2014 49863 8003 SNOMED dre rgy Sona Kash roberts [facility] 5 15:25:08 57520 Product containin g penicilli n (product) medicatio n other Not available Not available 11/04/2014 38941 8001 SNOMED GI upset Sonacindi roberts [place] - [facility] 5 15:25:08 Medications Name [...] /min 98 % 98 % 27.1 kg/m2 89624.4 4 g 128 mm[Hg] 75 mm[Hg] Sona Rennerzier [facility] 8 14:43:54 Date Recorded Heart rate Oxygen saturation Oxygen saturation in Arterial blood by Pulse oximetry Systolic blood pressure Diastolic blood pressure Provider Name and Address Organization Details Last Updated DateTime 7 79 /min 99 % 99 % 145 mm[Hg] 86 mm[Hg] Sona Hewitt [facility] 7 16:01:01 Date Recorded Body height Body mass index (BMI) Body weight Heart rate Oxygen saturation Oxygen saturation in Arterial blood by Pulse oximetry Systolic blood pressure Diastolic blood pressure Provider Name and Address Organization Details Last Updated DateTime 7 172.72 cm 26.5 kg/m2 20385.0 7 g 55 /min 98 % 98 % 148 mm[Hg] 90 mm[Hg] Sona Hewitt [facility] 7 08:36:53 Date Recorded Pain severity - 0-10 verbal numeric rating [Score] - Reported Provider Name and Address Organization Details Last Updated DateTime 11/07/2016 7 Not Available [facility] 8 05:02:14 Date Recorded Body height Heart rate Oxygen saturation Oxygen saturation in Arterial blood by Pulse oximetry Systolic blood pressure Diastolic blood pressure Provider Name and Address Organization Details Last Updated DateTime 7 172.72 cm 73 /min 97 % 97 % 128 mm[Hg] 73 mm[Hg] Sona Hewitt [facility] 7 14:33:09 Date Recorded Body height Heart rate Oxygen saturation Oxygen saturation in Arterial blood by Pulse oximetry Systolic blood pressure Diastolic blood pressure Provider Name and Address Organization Details Last Updated DateTime 8 172.72 cm 61 /min 97 % 97 % 154 mm[Hg] 82 mm[Hg] Sonacindi RennerHewitt [facility] 8 13:32:18 Social History Question Answer Notes LastModified by Organizat ion Details LastModified Time Tobacco Smoking Status Never Smoker Not Available [facility] 02/06/2020 03:16:10 What Is Your Level Of Alcohol Consumption? Occasional [id number] Information not available 02/06/2020 Are You Currently Employed? No [id number] Information not available 02/06/2020 Which Illicit Or Recreational Drugs Have You Used? No [id number] Information not available 02/06/2020 Education 4 Year College Bachelors [email or web address] Informatio n not available 11/04/2014 Live Alone Or With Others? With Others [email or web address] Information not available 11/04/2014 Marital Status [email or web address] Informatio n not available 11/04/2014 What Was The Date Of Your Most Recent Tobacco Screening? 10/23/2017 [id number] Information not available 02/06/2020 Sex: Unknown Functional Status None recorded. Mental Status None recorded. Family History Relationship Description Onset Age of this Age Resolved Age Notes LastModified by Organization Details LastModified Time Mother Malignant neoplastic disease [email or web address] Not available 03/23 09:40:06 Medical History Condition Response Arthritis Y High Cholesterol Y Seizures/Epilepsy Y GERD/Reflux Y Hypertension Y Past Encounters Encounter ID Performer Location Encounter Start Date Encounter Closed Date Diagnosis/Indication Diagnosis SNOMED-CT Code Diagnosis ICD10 Code Diagnosis Note [id number] Fede Cullen MD PAIN OFFICE [address] [place] [address] 11/04/2014 14:51:07 11/08/2014 17:51:46 Displacement of lumbar intervertebral disc without myelopathy 46019620 Lumbosacra l radiculitis 03766037 Lumbosacra l spondylosis without myelopathy 77664524 Spinal jenniffer nosis of lumbar region 44031612 [id number] Fede Cullen MD PAIN OFFICE [address] [place] [address] 11/17/2014 13:06:25 11/18/2014 15:22:02 Spinal stenosis of lumbar region 72905223 Lumbosacra l spondylosis without myelopathy 43262473 Displaceme nt of lumbar intervertebral disc without myelopathy 80184969 Lumbosacra l radiculitis 58044782 18809 PAIN OFFICE [address] [place] [address] 12/17/2014 09:21:01 12/17/2014 09:59:35 Spinal stenosis of lumbar region 80382232 Lumbosacra l spondylosis without myelopathy 82494209 Displaceme nt of lumbar intervertebral disc without myelopathy 96424451 Lumbosacra l radiculitis 16901157 [id number] Fede Cullen MD PAIN OFFICE [address] [place] [address] 02/22/2015 09:26:46 02/22/2015 15:05:54 Spinal stenosis of lumbar region 75471928 M48.06 Lumbosacra l spondylosis without myelopathy 15146614 M47.817 Displaceme nt of lumbar intervertebral disc without myelopathy 17718306 M51.26 Lumbosacra l radiculitis 16859507 M54.17 [id number] Fede Cullen MD PAIN OFFICE [address] [place] [address] 04/01/2015 09:13:06 04/01/2015 13:05:04 Spinal stenosis of lumbar region 39751172 M48.06 Lumbosacra l spondylosis without myelopathy 44681524 M47.817 Displaceme nt of lumbar intervertebral disc without myelopathy 01003843 M51.26 Lumbosacra l radiculitis 92933110 M54.17 [id number] Fede Cullen MD PAIN OFFICE [address] [place] [address] 03/23/2016 14:27:30 03/27/2016 08:38:37 Lumbosacral radiculitis 33430350 M54.17 Lumbosacra l spondylosis without myelopathy 77754770 M47.817 Spinal jenniffer nosis of lumbar region 09689474 M48.06 Displaceme nt of lumbar intervertebral disc without myelopathy 18906818 M51.26 [id number] Fede Cullen MD PAIN OFFICE [address] [place] [address] 03/29/2016 10:49:29 03/29/2016 13:23:53 Lumbosacral radiculitis 55803195 M54.17 Lumbosacra l spondylosis without myelopathy 42047937 M47.817 Spinal jenniffer nosis of lumbar region 03208469 M48.06 Displaceme nt of lumbar intervertebral disc without myelopathy 38195898 M51.26 [id number] Fede Cullen MD PAIN OFFICE [address] [place] [address] 11/02/2016 15:25:24 11/06/2016 15:34:09 Spinal stenosis of lumbar region 10140216 M48.06 Lumbosacra l spondylosis without myelopathy 80452162 M47.817 Displaceme nt of lumbar intervertebral disc without myelopathy 62454193 M51.26 Lumbosacra l radiculitis 56243560 M54.17 [id number] Fede Cullen MD PAIN OFFICE [address] [place] [address] 11/07/2016 08:25:00 11/08/2016 09:10:48 Spinal stenosis of lumbar region 85499830 M48.06 Lumbosacra l spondylosis without myelopathy 53232986 M47.817 Displaceme nt of lumbar intervertebral disc without myelopathy 59580069 M51.26 Lumbosacra l radiculitis 96001632 M54.17 [id number] Fede Cullen MD PAIN OFFICE [address] [place] [address] 04/10/2017 14:19:05 04/11/2017 08:28:48 Spinal stenosis of lumbar region 76531809 M48.062 Lumbosacra l spondylosis without myelopathy 99086442 M47.817 Displaceme nt of lumbar intervertebral disc without myelopathy 21027224 M51.26 Lumbosacra l radiculitis 25492509 M54.17 [id number] Fede Cullen MD PAIN OFFICE [address] [place] [address] 07/05/2017 13:01:42 07/06/2017 10:02:22 Spinal stenosis of lumbar region 41422077 M48.062 Lumbosacra l spondylosis without myelopathy 63473826 M47.817 Displaceme nt of lumbar intervertebral disc without myelopathy 98636673 M51.26 Lumbosacra l radiculitis 89756307 M54.17 Pain of le ft hip joint 7115406820 55918 M25.552 [id number] Fede Cullen MD PAIN OFFICE [address] [place] [address] 10/23/2017 14:28:21 10/24/2017 14:53:11 Spinal stenosis of lumbar region 52267992 M48.062 Lumbosacra l spondylosis without myelopathy 87754402 M47.817 Displaceme nt of lumbar intervertebral disc without myelopathy 05035809 M51.26 Lumbosacra l radiculitis 85074268 M54.17 Pain of le ft hip joint 4501593856 68042 M25.552 Health Concerns Section Related Observation LastModified by Organization Detai ls LastModified Time None Recorded Concern Status LastModified by Organization Details LastModified Time None Recorded Advance Directives Directive None Recorded Payers Encounter Date Sequence Insurance Name Policy Number Policy Anguiano Covered Member ID Anguiano Member ID Guarantor Name 11/02/2016 1 [facility]: [employer] [id number] Ron Abel [id number] Ron Abel 11/07/2016 1 [facility]: [employer] [id number] Ron Abel [id number] Ron Abel 04/10/2017 1 [facility]: [employer] [id number] Ron Abel [id number] Ron Abel 07/05/2017 1 [facility]: [employer] [id number] Ron Abel [id number] Ron Abel 10/23/2017 1 [facility]: [employer] [id number] Ron Abel [id number] Ron Abel Notes Date Note Type Note [...] or bowel incontinence Fede Cullen MD [address] , [address], [place], [address], [facility] Pain Management 11/06/2016 15:57:32 11/07/2016 text/html He is here today for a repeat lumbar epidural steroid injection under fluoroscopic guidance. Fede Cullen MD [address] [facility] , [address], [place], [address], [facility] Pain Management 11/13/2016 08:44:37 04/10/2017 text/html He [...] or bowel incontinence. Fede Cullen MD [address] [facility] , [address] [address], [place], [address], [facility] Pain Management 04/12/2017 13:22:16 07/05/2017 text/html He [...] or bowel incontinence. Fede Cullen MD [address] [facility] , [address], [place], [address], [facility] Pain Management 07/09/2017 10:06:12 10/23/2017 text/html He is here for a left hip steroid injection under fluoroscopic guidance Fede Cullen MD [address] [facility] , [address], [place], [address], [facility] Pain Management 10/30/2017 08:33:45
--- OUTSIDE RECORDS SUMMARY | 2024-07-16 14:03 | XMS_ITS | Continuity of Care Document ---
Author Name [facility] Organization 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 Unavailable Unavailable Problems Combined list of problems from Department of Defense and Veterans Affairs facilities. It does not include entries that were removed or entered in error. Problem Status Onset Date Problem Type Date of Resolution Comments Source Adrenal tumor Active Condition Jan Entered By: TED BISHOP Comment: s/p excision right [place] Angioid streaks of choroid Active Condition [facility] Chronic post-traumatic stress disorder Active Condition Dec 24, 2019 Entered By: ISABELA GREENBERG Comment: reviewedMar 21, 2021 Entered By: ISABELA GREENBERG Comment: reviewed [place] Degenerative arthritis Active Condition Sep 23, 2018 Entered By: TED BISHOP Comment: s/p oracio ankle reconstruction [place] Essential hypertension Active Condition [place] Exposure to potentially hazardous substance Active Condition Jul 04, 2023 Entered By: AMI LEDESMA Comment: Connect Snomed Code to ICD 10 Code refer to note dated 01/22/23 [place] History of spinal surgery Active Condition Sep 23, 2018 Entered By: TED BISHOP Comment: x4 cervical surgeries [place] Tear of quadriceps tendon Active Condition Sep 23 19 Entered By: TED BISHOP Comment: L s/p surgery [place] Thoracic outlet syndrome Active Condition Sep 23, 2018 Entered By: TED BISHOP Comment: s/p R surgery [place] Diagnosis: ICD-10-CM F43.12 Post-traumatic stress disorder, chronic Active Diagnosis [place] Diagnosis: ICD-10-CM Z00.01 Encounter for general adult medical exam w abnormal findings Active Diagnosis [facility] [place] Diagnosis: ICD-10-CM Z02.89 Encounter for other administrative examinations Active Diagnosis [facility] Diagnosis: ICD-10-CM M25.552 Pain in left hip Active Diagnosis [facility] Medications Combined list of outpatient medications [...] MOUTH ONCE DAILY ORAL ACTIVE CRYSTAL BISHOP [place] CHOLECALCIF DAVION 50MCG (2,000UNIT) TAB TAKE [...] DAILY NEEDED FOR ANXIETY ORAL ACTIVE 05/15/2025 [id number] VLADIMIR GREENBERG FREYA 2024 120 [place] HYDROXYZINE HCL 10MG TAB TAKE ONE TABLET BY MOUTH FOUR TIMES DAILY NEEDED FOR ANXIETY ORAL DISCONT INUED 02/11/2025 [id number] 4 VLADIMIR GREENBERG 2023 120 [place] HYDROXYZINE HCL 10MG TAB TAKE ONE TABLET BY MOUTH FOUR TIMES DAILY NEEDED FOR ANXIETY ORAL DISCONT INUED 11/12/2024 [id number] VLADIMIR GREENBERG FREYA 2023 120 [place] HYDROXYZINE HCL 10MG TAB TAKE ONE TABLET BY MOUTH FOUR TIMES DAILY NEEDED FOR ANXIETY ORAL DISCONT INUED (EDIT) 07/30/2024 [id number] VLADIMIR GREENBERG FREYA 2023 120 [place] HYDROXYZINE HCL 10MG TAB TAKE ONE TABLET BY MOUTH FOUR TIMES DAILY NEEDED FOR ANXIETY ORAL DISCONT INUED 04/30/2024 [id number] 4 VLADIMIR GREENBERG 2023 120 [place] PRAVASTATIN NA 40MG TAB TAKE ONE TABLET BY MOUTH AT BEDTIME ORAL ACTIVE CRYSTAL BISHOP 2018 [place] SERTRALINE HCL 100MG TAB TAKE ONE AND ONE-HALF TABLETS BY MOUTH EVERY MORNING FOR MOOD AND PTSD ORAL ACTIVE 05/15/2025 [id number] VLADIMIR GREENBERG 2024 90 [place] SERTRALINE HCL 100MG TAB TAKE ONE AND ONE-HALF TABLETS BY MOUTH EVERY MORNING FOR MOOD AND PTSD ORAL DISCONT INUED 02/11/2025 [id number] VLADIMIR GREENBERG 2023 90 [place] SERTRALINE HCL 100MG TAB TAKE ONE AND ONE-HALF TABLETS BY MOUTH EVERY MORNING FOR MOOD AND PTSD ORAL DISCONT INUED 11/12/2024 [id number] VLADIMIR GREENBERG 2023 90 [place] SERTRALINE HCL 100MG TAB TAKE ONE AND ONE-HALF TABLETS BY MOUTH EVERY MORNING -FOR PTSD ORAL DISCONT INUED (EDIT) 07/30/2024 [id number] 4 VLADIMIR GREENBERG 2023 45 [facility] [place] SERTRALINE HCL 100MG TAB TAKE ONE AND ONE-HALF TABLETS BY MOUTH EVERY MORNING -FOR PTSD ORAL DISCONT INUED 04/30/2024 [id number] 4 VLADIMIR GREENBERG 2023 45 [place] Allergies, Adverse Reactions, Alerts Combined list of allergies from Department of Defense and Veterans Affairs facilities. It does not include entries that were removed or entered in error. Substance Category Reaction Severity Reaction type Status Date Reported Comments Source BACTRIM Propensity to adverse reactions to drug (finding) Indigestion active 9 [facility] CODEINE Propensity to adverse reactions to drug (finding) Indigestion active 9 [facility] Immunizations Combined list of available immunizations from the Department of Defense and Veterans Affairs facilities. Immunization Series Date Given Administered By Site Reaction Lot Number CVX Code Drug Agent Broker Status Comments Source INFLUENZA, HIGH-DOSE, TRIVALENT, PF 2023 ANDRE TOSCANO RIGHT DELTO ID [id number] A 135 complet ed [facility] [place] INFLUENZA, HIGH-DOSE, QUADRIVALENT 2022 MAITE CABRERA SA LEFT DELTO ID [id number] 197 complet ed [facility] ZOSTER RECOMBINANT 2 2020 187 complet ed [place] INFLUENZA VACCINE, QUADRIVALENT, ADJUVANTED 2020 205 complet ed [facility] ZOSTER RECOMBINANT 1 2020 187 complet ed [facility] COVID-19 (MODERNA), MRNA, LNP-S, PF, 100 MCG/0.5 ML DOSE 2 2020 207 complet ed [place]; [id number]; [place] COVID-19 (MODERNA), MRNA, LNP-S, PF, 100 MCG/0.5 ML DOSE 1 2020 207 complet ed MOD; [id number]; [place] INFLUENZA, SEASONAL, INJECTABLE 2018 141 complet ed [facility] ZOSTER [...] Jan 22, 2023 01:19 PM Reporting Lab: [facility] [address] [facility] [address] Performing Lab: [address] [address] [place] BASIC METABOLI C PANEL (fasting ) UREA NITROGEN [MASS/VOLU ME] IN SERUM OR PLASMA 31 mg/dL 7 - 25 01/13 H Specimen Type: SERUM No comment entered. Ordering Provider: GIUSEPPE BISHOP IE Report Released Date/Time: Jan 22, 2023 01:19 PM Reporting Lab: [address] [address] Performing Lab: [address] [address] [place] BASIC METABOLI C PANEL (fasting ) GLUCOSE [MASS/VOLU ME] IN SERUM OR PLASMA 91 mg/dL 65 - 100 01/13 Specimen Type: SERUM No comment entered. Ordering Provider: GIUSEPPE BISHOP IE Report Released Date/Time: Jan 22, 2023 01:19 PM Reporting Lab: [address] [address] Performing Lab: [address] [address] [place] BASIC METABOLI C PANEL (fasting ) SODIUM [MOLES/VOL UME] IN SERUM OR PLASMA 141 mmol/L 135 - 145 01/13 Specimen Type: SERUM No comment entered. Ordering Provider: GIUSEPPE BISHOP IE Report Released Date/Time: Jan 22, 2023 01:19 PM Reporting Lab: [address] [address] Performing Lab: [address] [address] [place] BASIC METABOLI C PANEL (fasting ) POTASSIUM [MOLES/VOL UME] IN SERUM OR PLASMA 4.6 mmol/L 3.5 - 5.0 01/13 Specimen Type: SERUM No comment entered. Ordering Provider: GIUSEPPE BISHOP IE Report Released Date/Time: Jan 22, 2023 01:19 PM Reporting Lab: [facility] [address] [facility] [address] Performing Lab: [address] [address] [place] BASIC METABOLI C PANEL (fasting ) CHLORIDE [MOLES/VOL UME] IN SERUM OR PLASMA 106 mmol/L 100 - 110 01/13 Specimen Type: SERUM No comment entered. Ordering Provider: GIUSEPPE BISHOP IE Report Released Date/Time: Jan 22, 2023 01:19 PM Reporting Lab: [address] [address] Performing Lab: [address] [address] [place] BASIC METABOLI C PANEL (fasting ) CARBON DIOXIDE, TOTAL [MOLES/VOL UME] IN SERUM OR PLASMA 28 meq/L 20 - 30 01/13 Specimen Type: SERUM No comment entered. Ordering Provider: GIUSEPPE BISHOP IE Report Released Date/Time: Jan 22, 2023 01:19 PM Reporting Lab: [address] [address] Performing Lab: [address] [address] [place] BASIC METABOLI C PANEL (fasting ) CREATININE [MASS/VOLU ME] IN SERUM OR PLASMA 1.09 mg/dL 0.50 - 1.40 01/13 Specimen Type: SERUM No comment entered. Ordering Provider: GIUSEPPE BISHOP IE Report Released Date/Time: Jan 22, 2023 01:19 PM Reporting Lab: [address] [address] Performing Lab: [address] [address] [place] BASIC METABOLI C PANEL (fasting ) GLOMERULAR FILTRATION RATE/1.73 SQ M.PREDICTE D [VOLUME RATE/AREA] IN SERUM, PLASMA OR BLOOD BY CREATININE -BASED FORMULA (CKD-EPI 2020) 71 mL/min 60 01/13 Specimen Type: SERUM No comment entered. Ordering Provider: GIUSEPPE BISHOP Report Released Date/Time: Jan 22, 2023 01:19 PM Reporting Lab: [facility] [address] [facility] [address] Performing Lab: [facility] [address] [facility] [address] [place] URINALYS IS COLOR OF URINE Light-Ye llow 01/13 Specimen Type: URINE Comment: If Glucose = >500 and Ketones are positive, please alert the Physician. Ordering Provider: GIUSEPPE BISHOP Report Released Date/Time: Jan 22, 2023 01:19 PM Reporting Lab: [facility] [address] [facility] [address] Performing Lab: [facility] [address] [facility] [address] [place] URINALYS IS APPEARANCE OF URINE Clear 01/13 Specimen Type: URINE Comment: If Glucose = >500 and Ketones are positive, please alert the Physician. Ordering Provider: GIUSEPPE BISHOP Report Released Date/Time: Jan 22, 2023 01:19 PM Reporting Lab: [facility] [address] [facility] [address] Performing Lab: [facility] [address] [facility] [address] [place] URINALYS IS GLUCOSE [MASS/VOLU ME] IN URINE Normalmg /dL 01/13 Specimen Type: URINE Comment: If Glucose = >500 and Ketones are positive, please alert the Physician. Ordering Provider: GIUSEPPE BISHOP Report Released Date/Time: Jan 22, 2023 01:19 PM Reporting Lab: [facility] [address] [facility] [address] Performing Lab: [facility] [address] [place] URINALYS IS KETONES [MASS/VOLU ME] IN URINE BY TEST STRIP NEGATIVE mg/dL 01/13 Specimen Type: URINE Comment: If Glucose = >500 and Ketones are positive, please alert the Physician. Ordering Provider: GIUSEPPE BISHOP IE Report Released Date/Time: Jan 22, 2023 01:19 PM Reporting Lab: [address] [address] Performing Lab: [address] [address] [place] URINALYS IS ERYTHROCYT ES [PRESENCE] IN URINE SEDIMENT BY LIGHT MICROSCOPY NEGATIVE mg/dL 01/13 Specimen Type: URINE Comment: If Glucose = >500 and Ketones are positive, please alert the Physician. Ordering Provider: GIUSEPPE BISHOP IE Report Released Date/Time: Jan 22, 2023 01:19 PM Reporting Lab: [address] [address] Performing Lab: [address] [address] [place] URINALYS IS PROTEIN [MASS/VOLU ME] IN URINE BY TEST STRIP NEGATIVE mg/dL 01/13 Specimen Type: URINE Comment: If Glucose = >500 and Ketones are positive, please alert the Physician. Ordering Provider: GIUSEPPE BISHOP IE Report Released Date/Time: Jan 22, 2023 01:19 PM Reporting Lab: [address] [address] Performing Lab: [address] [address] [place] URINALYS IS NITRITE [PRESENCE] IN URINE NEGATIVE mg/dL 01/13 Specimen Type: URINE Comment: If Glucose = >500 and Ketones are positive, please alert the Physician. Ordering Provider: GIUSEPPE BISHOP IE Report Released Date/Time: Jan 22, 2023 01:19 PM Reporting Lab: [address] [address] Performing Lab: [address] [place] [address] [place] URINALYS IS BILIRUBIN. TOTAL [PRESENCE] IN URINE NEGATIVE mg/dL 01/13 Specimen Type: URINE Comment: If Glucose = >500 and Ketones are positive, please alert the Physician. Ordering Provider: GIUSEPPE BISHOP IE Report Released Date/Time: Jan 22, 2023 01:19 PM Reporting Lab: [address] [address] Performing Lab: [address] [address] [place] URINALYS IS SPECIFIC GRAVITY OF URINE BY REFRACTOME TRY 1.024 1.016 - 1.022 01/13 H Specimen Type: URINE Comment: If Glucose = >500 and Ketones are positive, please alert the Physician. Ordering Provider: GIUSEPPE BISHOP IE Report Released Date/Time: Jan 22, 2023 01:19 PM Reporting Lab: [address] [address] Performing Lab: [address] [address] [place] URINALYS IS PH OF URINE BY TEST STRIP 5.5 5.0 - 9.0 01/13 Specimen Type: URINE Comment: If Glucose = >500 and Ketones are positive, please alert the Physician. Ordering Provider: GIUSEPPE BISHOP IE Report Released Date/Time: Jan 22, 2023 01:19 PM Reporting Lab: [address] [address] Performing Lab: [address] [address] [place] URINALYS IS UROBILINOG EN [MASS/VOLU ME] IN URINE BY TEST STRIP Normalmg /dL <2.0 - 2.0 01/13 Specimen Type: URINE Comment: If Glucose = >500 and Ketones are positive, please alert the Physician. Ordering Provider: GIUSEPPE BISHOP IE Report Released Date/Time: Jan 22, 2023 01:19 PM Reporting Lab: [facility] [address] [address] Performing Lab: [facility] [address] [address] [place] URINALYS IS LEUKOCYTE ESTERASE [PRESENCE] IN URINE BY TEST STRIP NEGATIVE 01/13 Specimen Type: URINE Comment: If Glucose = >500 and Ketones are positive, please alert the Physician. Ordering Provider: GIUSEPPE BISHOP IE Report Released Date/Time: Jan 22, 2023 01:19 PM Reporting Lab: [facility] [address] [address] Performing Lab: [facility] [address] [address] [place] LIPID PANEL FASTING CHOLESTERO L [MASS/VOLU ME] IN SERUM OR PLASMA 158 mg/dL 01/13 Specimen Type: SERUM No comment entered. Ordering Provider: GIUSEPPE BISHOP IE Report Released Date/Time: Jan 22, 2023 01:19 PM Reporting Lab: [facility]N [address] [address] Performing Lab: [facility] [address] [address] [place] LIPID PANEL FASTING TRIGLYCERI DE [MASS/VOLU ME] IN SERUM OR PLASMA 81 mg/dL 0 - 150 01/13 Specimen Type: SERUM No comment entered. Ordering Provider: GIUSEPPE BISHOP IE Report Released Date/Time: Jan 22, 2023 01:19 PM Reporting Lab: [facility]N [address] [address] Performing Lab: [facility]ITALN [address] [address] [place] LIPID PANEL FASTING CHOLESTERO L IN LDL [MASS/VOLU ME] IN SERUM OR PLASMA BY CALCULATIO N 92 mg/dL 0 - 129 01/13 Specimen Type: SERUM No comment entered. Ordering Provider: GIUSEPPE BISHOP IE Report Released Date/Time: Jan 22, 2023 01:19 PM Reporting Lab: [facility]N [address] [address] Performing Lab: [facility] [address] [facility] [address] [place] LIPID PANEL FASTING CHOLESTERO L.TOTAL/CH OLESTEROL IN HDL [MASS RATIO] IN SERUM OR PLASMA 3.2 01/13 Specimen Type: SERUM No comment entered. Ordering Provider: GIUSEPPE BISHOP IE Report Released Date/Time: Jan 22, 2023 01:19 PM Reporting Lab: [facility] [address] [facility] [address] Performing Lab: [facility] [address] [address] [place] LIPID PANEL FASTING CHOLESTERO L IN HDL [MASS/VOLU ME] IN SERUM OR PLASMA 50 mg/dL 40 - 60 01/13 Specimen Type: SERUM No comment entered. Ordering Provider: GIUSEPPE BISHOP IE Report Released Date/Time: Jan 22, 2023 01:19 PM Reporting Lab: [facility] [address] [address] Performing Lab: [facility] [address] [address] [place] LIVER FUNCTION PROTEIN [MASS/VOLU ME] IN SERUM OR PLASMA 6.7 g/dL 6.0 - 8.3 01/13 Specimen Type: SERUM No comment entered. Ordering Provider: GIUSEPPE BISHOP IE Report Released Date/Time: Jan 22, 2023 01:19 PM Reporting Lab: [facility] [address] [address] Performing Lab: [facility] [address] [address] [place] LIVER FUNCTION ALBUMIN [MASS/VOLU ME] IN SERUM OR PLASMA 4.0 g/dL 3.5 - 5.0 01/13 Specimen Type: SERUM No comment entered. Ordering Provider: GIUSEPPE BISHOP IE Report Released Date/Time: Jan 22, 2023 01:19 PM Reporting Lab: [facility] [address] Performing Lab: [facility]ITAL[facility]N [place] [facility] [address] [facility] [address] [place] LIVER FUNCTION ALKALINE PHOSPHATAS E [ENZYMATIC ACTIVITY/V OLUME] IN SERUM OR PLASMA 62 U/L 40 - 150 01/13 Specimen Type: SERUM No comment entered. Ordering Provider: GIUSEPPE BISHOP IE Report Released Date/Time: Jan 22, 2023 01:19 PM Reporting Lab: [facility] [place] [facility] [address] [facility] [address] Performing Lab: [facility] H[facility]PITALRL TRN [facility] [address] [facility] [address] [place] LIVER FUNCTION ASPARTATE AMINOTRANS FERASE [ENZYMATIC ACTIVITY/V OLUME] IN SERUM OR PLASMA 14 U/L 5 - 34 01/13 Specimen Type: SERUM No comment entered. Ordering Provider: GIUSEPPE BISHOP IE Report Released Date/Time: Jan 22, 2023 01:19 PM Reporting Lab: [facility]OSPITALRCLEBURNE COMM[facility] HOSPITAL AND NURSING HOMETRN [facility] [address] [facility] [address] Performing Lab: [facility] HOSPITALRL TRN [facility]USE[address] [address] [place] LIVER FUNCTION [place] AMINOTRANS FERASE [ENZYMATIC ACTIVITY/V OLUME] IN SERUM OR PLASMA 9 U/L 01/13 Specimen Type: SERUM No comment entered. Ordering Provider: GIUSEPPE BISHOP IE Report Released Date/Time: Jan 22, 2023 01:19 PM Reporting Lab: [facility]PITALRCLEBURNE [facility] NURSING HOMETRN [facility] [address] Performing Lab: [facility] HOSPITALRCLEBURNE COMM[facility] HOSPITAL AND NURSING HOMETRN [facility]USE[address] [address] [facility] LIVER FUNCTION BILIRUBIN. TOTAL [MASS/VOLU ME] IN SERUM OR PLASMA 0.4 mg/dL 0.2 - 1.2 01/13 Specimen Type: SERUM No comment entered. Ordering Provider: GIUSEPPE BISHOP IE Report Released Date/Time: Jan 22, 2023 01:19 PM Reporting Lab: [facility]ITALRNOR[facility]OSPITALN [address] [address] Performing Lab: [facility] HOSPITALRCLEBURNE [facility] [address] [place] HEMOGLOB IN A1C PANEL HEMOGLOBIN [...] Jan 22, 2023 01:19 PM Reporting Lab: [address] [address] Performing Lab: [address] [address] [place] CBC AND DIFF (AUTO) LEUKOCYTES [#/VOLUME] IN BLOOD BY AUTOMATED COUNT 7.82 10*3/uL 4.50 - 11.00 01/13 Specimen Type: BLOOD No comment entered. Ordering Provider: GIUSEPPE BISHOP IE Report Released Date/Time: Jan 22, 2023 01:19 PM Reporting Lab: [address] [address] Performing Lab: [address] [address] [place] CBC AND DIFF (AUTO) ERYTHROCYT ES [#/VOLUME] IN BLOOD BY AUTOMATED COUNT 4.64 10*6/uL 4.23 - 5.66 01/13 Specimen Type: BLOOD No comment entered. Ordering Provider: GIUSEPPE BISHOP IE Report Released Date/Time: Jan 22, 2023 01:19 PM Reporting Lab: [address] [address] Performing Lab: [address] [address] [place] CBC AND DIFF (AUTO) HEMOGLOBIN [MASS/VOLU ME] IN BLOOD 13.8 g/dL 12.8 - 17 01/13 Specimen Type: BLOOD No comment entered. Ordering Provider: GIUSEPPE BISHOP IE Report Released Date/Time: Jan 22, 2023 01:19 PM Reporting Lab: [facility]PITALRL TRN [facility] [address] [facility] [address] Performing Lab: [facility] HOSPITALRCLEBURNE COMM[facility]OSPITAL AND NURSING HOMETRN [facility] HEALTHUSETS [address] [address] [place] CBC AND DIFF (AUTO) HEMATOCRIT [VOLUME FRACTION] OF BLOOD BY AUTOMATED COUNT 41.5 39.2 - 50.4 01/13 Specimen Type: BLOOD No comment entered. Ordering Provider: GIUSEPPE BISHOP IE Report Released Date/Time: Jan 22, 2023 01:19 PM Reporting Lab: [facility]PITALRCLEBURNE COMM[facility]OSPITAL AND NURSING HOMETRN [address] [address] Performing Lab: [facility]OSPITALRNORTH [facility] HOSPITALN [facility] [address] [place] CBC AND DIFF (AUTO) MCV [ENTITIC VOLUME] BY AUTOMATED COUNT 89.4 fL 82 - 99 01/13 Specimen Type: BLOOD No comment entered. Ordering Provider: GIUSEPPE BISHOP IE Report Released Date/Time: Jan 22, 2023 01:19 PM Reporting Lab: [facility]ITALRCLEBURNE [facility] AND NURSING HOMETRN [facility]ALTHUSETS [address] [address] Performing Lab: [facility] HOSPITALRL TRN [facility] HEALTHUSETS [address] [address] [place] CBC AND DIFF (AUTO) MCHC [MASS/VOLU ME] BY AUTOMATED COUNT 33.3 g/dL 30.8 - 35.1 01/13 Specimen Type: BLOOD No comment entered. Ordering Provider: GIUSEPPE BISHOP IE Report Released Date/Time: Jan 22, 2023 01:19 PM Reporting Lab: [facility]PITALRCLEBURNE COMM[facility]OSPITAL AND NURSING HOMETRN [facility] HEALTHUSETS [address] [address] Performing Lab: [facility] HOSPITALRL TRN [facility] HEALTHUSETS [address] [address] [place] CBC AND DIFF (AUTO) PLATELETS [#/VOLUME] IN BLOOD BY AUTOMATED COUNT 269 10*3/uL 140 - 360 09/23 /2024 Specimen Type: BLOOD No comment entered. Ordering Provider: GIUSEPPE BISHOP IE Report Released Date/Time: Jan 22, 2023 01:19 PM Reporting Lab: [facility]ITALRNOR[facility] HOSPITALN [address] [address] Performing Lab: [facility]ITALRNORTH [facility] HOSPITALN [address] [address] [place] CBC AND DIFF (AUTO) ERYTHROCYT E DISTRIBUTI ON WIDTH [RATIO] BY AUTOMATED COUNT 13.7 12.0 - 16.0 01/13 Specimen Type: BLOOD No comment entered. Ordering Provider: GIUSEPPE BISHOP IE Report Released Date/Time: Jan 22, 2023 01:19 PM Reporting Lab: [facility] [address] [address] Performing Lab: [facility] [address] [address] [place] CBC AND DIFF (AUTO) MONOCYTES [#/VOLUME] IN BLOOD BY AUTOMATED COUNT 0.53 10*3/uL 0.30 - 1.10 01/13 Specimen Type: BLOOD No comment entered. Ordering Provider: GIUSEPPE BISHOP IE Report Released Date/Time: Jan 22, 2023 01:19 PM Reporting Lab: [facility] [address] [address] Performing Lab: [facility]ITALRNOR[facility] HOSPITALN [address] [address] [place] CBC AND DIFF (AUTO) MCH [ENTITIC MASS] BY AUTOMATED COUNT 29.7 pg 26.2 - 32.6 01/13 Specimen Type: BLOOD No comment entered. Ordering Provider: GIUSEPPE BISHOP IE Report Released Date/Time: Jan 22, 2023 01:19 PM Reporting Lab: [facility] [address] [address] Performing Lab: [facility] [address] [address] [place] CBC AND DIFF (AUTO) NEUTROPHIL S/100 LEUKOCYTES IN BLOOD BY AUTOMATED COUNT 64.3 43.7 - 75.8 01/13 Specimen Type: BLOOD No comment entered. Ordering Provider: GIUSEPPE BISHOP IE Report Released Date/Time: Jan 22, 2023 01:19 PM Reporting Lab: [facility] [place] [address] [address] Performing Lab: [facility] [address] [address] [place] CBC AND DIFF (AUTO) LYMPHOCYTE S/100 LEUKOCYTES IN BLOOD BY AUTOMATED COUNT 25.8 14.0 - 42.3 01/13 Specimen Type: BLOOD No comment entered. Ordering Provider: GIUSEPPE BISHOP IE Report Released Date/Time: Jan 22, 2023 01:19 PM Reporting Lab: [facility] [address] [address] Performing Lab: [facility] [address] [address] [place] CBC AND DIFF (AUTO) MONOCYTES/ 100 LEUKOCYTES IN BLOOD BY AUTOMATED COUNT 6.8 5.1 - 13.7 01/13 Specimen Type: BLOOD No comment entered. Ordering Provider: GIUSEPPE BISHOP IE Report Released Date/Time: Jan 22, 2023 01:19 PM Reporting Lab: [facility] [address] [address] Performing Lab: [place] [facility] [place] [address] [address] [place] CBC AND DIFF (AUTO) EOSINOPHIL S/100 LEUKOCYTES IN BLOOD BY AUTOMATED COUNT 2.2 0.4 - 6.8 01/13 Specimen Type: BLOOD No comment entered. Ordering Provider: GIUSEPPE BISHOP IE Report Released Date/Time: Jan 22, 2023 01:19 PM Reporting Lab: [facility] [address] [address] Performing Lab: [facility] [address] [address] [place] CBC AND DIFF (AUTO) BASOPHILS/ 100 LEUKOCYTES IN BLOOD BY AUTOMATED COUNT 0.6 0.1 - 2.0 01/13 Specimen Type: BLOOD No comment entered. Ordering Provider: GIUSEPPE BISHOP IE Report Released Date/Time: Jan 22, 2023 01:19 PM Reporting Lab: [facility] [address] [facility] [address] Performing Lab: [facility] [address] [address] [place] CBC AND DIFF (AUTO) NEUTROPHIL S [#/VOLUME] IN BLOOD BY AUTOMATED COUNT 5.03 10*3/uL 2.20 - 7.60 01/13 Specimen Type: BLOOD No comment entered. Ordering Provider: GIUSEPPE BISHOP IE Report Released Date/Time: Jan 22, 2023 01:19 PM Reporting Lab: [facility] [address] [address] Performing Lab: [facility]RN [facility] [address] [place] CBC AND DIFF (AUTO) LYMPHOCYTE S [#/VOLUME] IN BLOOD BY AUTOMATED COUNT 2.02 10*3/uL 1.00 - 3.20 01/13 Specimen Type: BLOOD No comment entered. Ordering Provider: GUISEPPE BISHOP IE Report Released Date/Time: Jan 22, 2023 01:19 PM Reporting Lab: [facility] [address] [address] Performing Lab: [facility] [address] [address] [place] CBC AND DIFF (AUTO) EOSINOPHIL S [#/VOLUME] IN BLOOD BY AUTOMATED COUNT 0.17 10*3/uL 0.03 - 0.44 01/13 Specimen Type: BLOOD No comment entered. Ordering Provider: GIUSEPPE BISHOP IE Report Released Date/Time: Jan 22, 2023 01:19 PM Reporting Lab: [facility] [address] [address] Performing Lab: [facility] [address] [place] CBC AND DIFF (AUTO) BASOPHILS [#/VOLUME] IN BLOOD BY AUTOMATED COUNT 0.05 10*3/uL 0.01 - 0.13 01/13 Specimen Type: BLOOD No comment entered. Ordering Provider: GIUSEPPE BISHOP IE Report Released Date/Time: Jan 22, 2023 01:19 PM Reporting Lab: [address] [address] Performing Lab: [address] [address] [place] CBC AND DIFF (AUTO) IMMATURE GRANULOCYT ES/100 LEUKOCYTES IN BLOOD BY AUTOMATED COUNT 0.3 0.0 - 0.7 01/13 Specimen Type: BLOOD No comment entered. Ordering Provider: GIUSEPPE BISHOP IE Report Released Date/Time: Jan 22, 2023 01:19 PM Reporting Lab: [address] [address] Performing Lab: [address] [address] [place] CBC AND DIFF (AUTO) IMMATURE GRANULOCYT ES [#/VOLUME] IN BLOOD 0.02 10*3/uL 0.00 - 0.06 01/13 Specimen Type: BLOOD No comment entered. Ordering Provider: GIUSEPPE BISHOP IE Report Released Date/Time: Jan 22, 2023 01:19 PM Reporting Lab: [address] [address] Performing Lab: [address] [address] [place] CBC AND DIFF (AUTO) NRBC % 0.0 0.0 - 0.0 01/13 Specimen Type: BLOOD No comment entered. Ordering Provider: GIUSEPPE BISHOP IE Report Released Date/Time: Jan 22, 2023 01:19 PM Reporting Lab: [address] [address] Performing Lab: [address] [address] [place] CBC AND DIFF (AUTO) NRBC, ABS 0.00 10*3/uL 0.00 - 0.00 01/13 Specimen Type: BLOOD No comment entered. Ordering Provider: GIUSEPPE BISHOP IE Report Released Date/Time: Jan 22, 2023 01:19 PM Reporting Lab: [address] [address] Performing Lab: [address] [address] [place] TSH THYROTROPI N [UNITS/VOL UME] IN SERUM OR PLASMA 0.59 u[IU]/mL 0.35 - 5.00 01/22 Specimen Type: SERUM No comment entered. Ordering Provider: GIUSEPPE BISHOP IE Report Released Date/Time: Jan 23, 2022 09:24 AM Reporting Lab: [address] [address] Performing Lab: [address] [address] [place] URINALYS IS COLOR OF URINE Light-Ye llow 01/22 Specimen Type: URINE Comment: If Glucose = >500 and Ketones are positive, please alert the Physician. Ordering Provider: GIUSEPPE BISHOP IE Report Released Date/Time: Jan 23, 2022 09:24 AM Reporting Lab: [address] [address] Performing Lab: [address] [address] [place] URINALYS IS APPEARANCE OF URINE Clear 01/22 Specimen Type: URINE Comment: If Glucose = >500 and Ketones are positive, please alert the Physician. Ordering Provider: GIUSEPPE BISHOP IE Report Released Date/Time: Jan 23, 2022 09:24 AM Reporting Lab: [address] [address] Performing Lab: [address] [address] [place] URINALYS IS GLUCOSE [MASS/VOLU ME] IN URINE NEGATIVE mg/dL 01/22 Specimen Type: URINE Comment: If Glucose = >500 and Ketones are positive, please alert the Physician. Ordering Provider: GIUSEPPE BISHOP IE Report Released Date/Time: Jan 23, 2022 09:24 AM Reporting Lab: [facility] [address] [facility] [address] Performing Lab: [address] [address] [place] URINALYS IS KETONES [MASS/VOLU ME] IN URINE BY TEST STRIP NEGATIVE mg/dL 01/22 Specimen Type: URINE Comment: If Glucose = >500 and Ketones are positive, please alert the Physician. Ordering Provider: GIUSEPPE BISHOP IE Report Released Date/Time: Jan 23, 2022 09:24 AM Reporting Lab: [address] [address] Performing Lab: [address] [address] [place] URINALYS IS ERYTHROCYT ES [PRESENCE] IN URINE SEDIMENT BY LIGHT MICROSCOPY NEGATIVE mg/dL 01/22 Specimen Type: URINE Comment: If Glucose = >500 and Ketones are positive, please alert the Physician. Ordering Provider: GIUSEPPE BISHOP IE Report Released Date/Time: Jan 23, 2022 09:24 AM Reporting Lab: [address] [address] Performing Lab: [address] [address] [place] URINALYS IS PROTEIN [MASS/VOLU ME] IN URINE BY TEST STRIP NEGATIVE mg/dL 01/22 Specimen Type: URINE Comment: If Glucose = >500 and Ketones are positive, please alert the Physician. Ordering Provider: GIUSEPPE BISHOP IE Report Released Date/Time: Jan 23, 2022 09:24 AM Reporting Lab: [address] [address] Performing Lab: [address] [address] [place] URINALYS IS NITRITE [PRESENCE] IN URINE NEGATIVE mg/dL 01/22 Specimen Type: URINE Comment: If Glucose = >500 and Ketones are positive, please alert the Physician. Ordering Provider: GIUSEPPE BISHOP IE Report Released Date/Time: Jan 23, 2022 09:24 AM Reporting Lab: [address] [address] Performing Lab: [address] [address] [place] URINALYS IS BILIRUBIN. TOTAL [PRESENCE] IN URINE NEGATIVE mg/dL 01/22 Specimen Type: URINE Comment: If Glucose = >500 and Ketones are positive, please alert the Physician. Ordering Provider: GIUSEPPE BISHOP IE Report Released Date/Time: Jan 23, 2022 09:24 AM Reporting Lab: [address] [address] Performing Lab: [address] [address] [place] URINALYS IS SPECIFIC GRAVITY OF URINE BY REFRACTOME TRY 1.019 1.016 - 1.022 01/22 Specimen Type: URINE Comment: If Glucose = >500 and Ketones are positive, please alert the Physician. Ordering Provider: GIUSEPPE BISHOP IE Report Released Date/Time: Jan 23, 2022 09:24 AM Reporting Lab: [address] [address] Performing Lab: [address] [address] [place] URINALYS IS PH OF URINE BY TEST STRIP 5.5 5.0 - 9.0 01/22 Specimen Type: URINE Comment: If Glucose = >500 and Ketones are positive, please alert the Physician. Ordering Provider: GIUSEPPE BISHOP IE Report Released Date/Time: Jan 23, 2022 09:24 AM Reporting Lab: [address] [address] Performing Lab: [address] [address] [place] URINALYS IS UROBILINOG EN [MASS/VOLU ME] IN URINE BY TEST STRIP <2.0mg/d L <2.0 - 2.0 01/22 Specimen Type: URINE Comment: If Glucose = >500 and Ketones are positive, please alert the Physician. Ordering Provider: GIUSEPPE BISHOP Report Released Date/Time: Jan 23, 2022 09:24 AM Reporting Lab: [facility] [address] [facility] [address] Performing Lab: [address] [address] [facility] URINALYS IS LEUKOCYTE ESTERASE [PRESENCE] IN URINE BY TEST STRIP NEGATIVE 01/22 Specimen Type: URINE Comment: If Glucose = >500 and Ketones are positive, please alert the Physician. Ordering Provider: GIUSEPPE BISHOP Report Released Date/Time: Jan 23, 2022 09:24 AM Reporting Lab: [address] [address] Performing Lab: [address] [address] [facility] BASIC METABOLI C PANEL (fasting ) UREA NITROGEN [MASS/VOLU ME] IN SERUM OR PLASMA 27 mg/dL 7 - 25 01/22 H Specimen Type: SERUM No comment entered. Ordering Provider: GIUSEPPE BISHOP Report Released Date/Time: Jan 23, 2022 09:24 AM Reporting Lab: [address] [address] Performing Lab: [address] [address] [facility] BASIC METABOLI C PANEL (fasting ) GLUCOSE [MASS/VOLU ME] IN SERUM OR PLASMA 104 mg/dL 65 - 100 01/22 H Specimen Type: SERUM No comment entered. Ordering Provider: GIUSEPPE BISHOP IE Report Released Date/Time: Jan 23, 2022 09:24 AM Reporting Lab: [facility] [address] [facility] [address] Performing Lab: [address] [address] [facility] BASIC METABOLI C PANEL (fasting ) SODIUM [MOLES/VOL UME] IN SERUM OR PLASMA 142 mmol/L 135 - 145 01/22 Specimen Type: SERUM No comment entered. Ordering Provider: GIUSEPPE BISHOP IE Report Released Date/Time: Jan 23, 2022 09:24 AM Reporting Lab: [facility] [address] [facility] [address] Performing Lab: [facility] [address] [facility] [address] [place] BASIC METABOLI C PANEL (fasting ) POTASSIUM [MOLES/VOL UME] IN SERUM OR PLASMA 4.5 mmol/L 3.5 - 5.0 01/22 Specimen Type: SERUM No comment entered. Ordering Provider: GIUSEPPE BISHOP IE Report Released Date/Time: Jan 23, 2022 09:24 AM Reporting Lab: [facility] [address] [address] Performing Lab: [facility] [address] [place] BASIC METABOLI C PANEL (fasting ) CHLORIDE [MOLES/VOL UME] IN SERUM OR PLASMA 108 mmol/L 100 - 110 01/22 Specimen Type: SERUM No comment entered. Ordering Provider: GIUSEPPE BISHOP IE Report Released Date/Time: Jan 23, 2022 09:24 AM Reporting Lab: [facility] [address] [address] Performing Lab: [facility] [address] [place] BASIC METABOLI C PANEL (fasting ) CARBON DIOXIDE, TOTAL [MOLES/VOL UME] IN SERUM OR PLASMA 26 meq/L 20 - 30 01/22 Specimen Type: SERUM No comment entered. Ordering Provider: GIUSEPPE BISHOP IE Report Released Date/Time: Jan 23, 2022 09:24 AM Reporting Lab: [facility]N [facility] [address] [facility] [address] Performing Lab: [facility]ITALR[facility]ITALN [facility] [address] [place] BASIC METABOLI C PANEL (fasting ) CREATININE [MASS/VOLU ME] IN SERUM OR PLASMA 0.93 mg/dL 0.50 - 1.40 01/22 Specimen Type: SERUM No comment entered. Ordering Provider: GIUSEPPE BISHOP IE Report Released Date/Time: Jan 23, 2022 09:24 AM Reporting Lab: [place] [facility] [facility] [address] [facility] [address] Performing Lab: [place] [facility] [facility] [address] [facility] [address] [employer] BASIC METABOLI C PANEL (fasting ) GLOMERULAR FILTRATION RATE/1.73 SQ M.PREDICTE D [VOLUME RATE/AREA] IN SERUM, PLASMA OR BLOOD BY CREATININE -BASED FORMULA (CKD-EPI 2020) 86 mL/min 60 01/22 Specimen Type: SERUM No comment entered. Ordering Provider: GIUSEPPE BISHOP IE Report Released Date/Time: Jan 23, 2022 09:24 AM Reporting Lab: [facility] [facility] [address] [facility] [address] Performing Lab: [place] [facility] [facility] [address] [facility] [address] [employer] Vital Signs Combined list of inpatient and outpatient Vital Signs from Department of Defense and Veterans Affairs, ranging from 12 months to all on record, depending upon the facility. Vital Sign Value Date Comments Source SYSTOLIC BLOOD PRESSURE 156 01/22/20 24 11:29:26 [facility] [facility] DIASTOLIC BLOOD PRESSURE 80 024 11:29:26 [facility] [place] [facility] PULSE OXIMETRY 98 01/22/2024 11:29:26 [facility] [place] [facility] WEIGHT 164.8 01/22/2024 11:29:26 [facility] [place] [facility] BMI 25 kg/m2 01/22/2024 11:29:26 [facility] [place] [facility] PAIN 2 01/22/2024 11:29:26 [facility] [place] [facility] HEIGHT 68 01/22/2024 11:29:26 [facility] [place] [facility] TEMPERATURE 97.2 01/22/2024 11:29:26 [facility] [place] [facility] PULSE 86 01/22/2024 11:29:26 [facility] [place] [facility] RESPIRATION 20 01/22/2024 11:29:26 [facility] [place] [facility] Encounters Combined list of: 1) Encounters from Department of Veterans Affairs facilities going backup to the last 18 months, not all VA inpatient encounters are included; 2) Encounters from the Department of [facility] facilities going backup to 280 months. Location Location Details Encounter Type Encounter Number Reason For Visit Attending Provider ADM Date DC Date Status Disposition Source [facility] [place] En[facility] [id number] 01/19 [facility] [place] [facility] [place] [facility] [place] ADMIN [id number] VIELKA BISHOP 01/22 [facility] [place] [facility] [place] OFF[place] O/P EST MOD 30-39 MIN [id number] Diagnos is: ICD-10- CM M25.552 Pain in left hip VIELKA BISHOP 01/22 [place] OFF[place] O/P EST MOD 30-39 MIN [id number] Diagnos is: ICD-10- CM F43.12 Post-tr aumatic stress disorde r, chronic LARROW,KATHY AN 01/31 [place] [facility] [facility] Outpatient Encounter [id number] 03/06 [facility] [place] [facility] [place] OFF[place] O/P EST MOD 30 MIN [id number] Diagnos is: ICD-10- CM F43.12 Post-tr aumatic stress disorde r, chronic LARROW,KATHY AN 04/30 [place] [facility] Outpatient Encounter [id number] Diagnos is: ICD-10- CM Z02.89 Encount er for other adminis trative examina tions AALIYAH LEONG 05/10 [facility] Outpatient Encounter [id number] Diagnos is: ICD-10- CM Z02.89 Encount er for other adminis trative examina tions ESTELLA SANDOVAL ISACC Galvez 05/18 [facility] [place] [facility] [facility] [place] [facility] Outpatient Encounter [id number] 07/28 [facility] [place] [facility] [facility] [place] O/P EST MOD 30 MIN [id number] Diagnos is: ICD-10- CM F43.12 Post-tr aumatic stress disorde r, chronic LARROW,KATHY AN 07[facility]29 [facility] EST MOD 30 MIN [id number] Diagnos is: ICD-10- CM F43.12 Post-tr aumatic stress disorde r, chronic LARROW,KATHY AN 11/11 [place] [facility] Outpatient Encounter [id number] 01/13 [facility] [place] [facility] [place] [facility] Outpatient Encounter [id number] 01/18 [facility] [place] [facility] [facility] [place] [facility] Outpatient Encounter [id number] 01/21 [facility] [place] [facility] [place] OFFICE O/P EST MOD 30 MIN [id number] Diagnos is: ICD-10- CM Z00.01 Encount er for general adult medical exam w abnorma l finding s Avery EVANS 01/21 [facility]P EST MOD 30 MIN [id number] Diagnos is: ICD-10- CM F43.12 Post-tr aumatic stress disorde r, chronic LARROW,KATHY AN 02/10 [facility] [place] OFF[place] O/P EST MOD 30 MIN [id number] Diagnos is: ICD-10- CM F43.12 Post-tr aumatic stress disorde r, chronic LARROW,KATHY AN 05/14 [facility] IE Social History Combined list of available smoking, tobacco, and other social history from Department of Defense and Veterans Affairs facilities. Social History Type Response Date Comment Sourc e Tobacco smoking status LAIS VA-TOBACCO NEVER USED 01/22/2024[facility] D History of tobacco use VA-TOBACCO NEVER USED 01/22[facility]2023 [facility] [place] [facility] History of tobacco use VA-TOBACCO NEVER USED 01/23/2022 [facility] [place] [facility] History of tobacco use VA-TOBACCO NEVER USED 09/07/2020 [place] History of tobacco use VA-TOBACCO NEVER USED 07/[place] History of tobacco use VA-TOBACCO NEVER USED 09/11/2018 [facility] D Plan of Care List of future care activities from Department of Veterans Affairs facilities. Additional future care activities may be listed in the Assessment and Plan section. Date/Time Care Activity Care Activity Detail Facili ty 08/13/2024 AMBULATORY - PSYCHIATRY AMBULATORY - [facility]
== END 2024-07-16 13:14 | disposition home or self-care (01) ==
PROVIDERS: PCP Nurse Practitioner Family; Visit Provider Nurse Practitioner Family
DX: I71.40 Abdominal aortic aneurysm, without rupture, unspecified (principal); W57.XXXA Bitten or stung by nonvenomous insect and other nonvenomous arthropods, initial encounter; E78.5 Hyperlipidemia, unspecified

== ENCOUNTER → 2024-07-16 11:31 | Outpatient (BNVA) | payer BC, SELFPAY | PROVIDERS: PCP Nurse Practitioner Family; Visit Provider Nurse Practitioner Family | DX: E78.5 Hyperlipidemia, unspecified (principal); I71.40 Abdominal aortic aneurysm, without rupture, unspecified; I10 Essential (primary) hypertension; T14.8XXA Other injury of unspecified body region, initial encounter; Z79.899 Other long term (current) drug therapy; W57.XXXA Bitten or stung by nonvenomous insect and other nonvenomous arthropods, initial encounter; Y93.9 Activity, unspecified; Y92.9 Unspecified place or not applicable; Y99.9 Unspecified external cause status | CPT/HCPCS: 96127; 99212 ==

== ENCOUNTER 2024-08-11 08:04 | Outpatient (REF) | payer MEDICARE, BC, SELFPAY ==
--- OUTSIDE RECORDS SUMMARY | 2024-08-11 08:06 | XMS_ITS | Continuity of Care Document ---
Author Name [facility] Organization [facility] Care Team Providers Care Head Of Insight Name Role Phone [facility] Unavailable Unavailable Problems Combined list of problems from Department of Defense and Veterans Affairs facilities. It does not include entries that were removed or entered in error. Problem Status Onset Date Problem Type Date of Resolution Comments Source Adrenal tumor Active Condition Jan Entered By: TED BISHOP Comment: s/p excision right [facility] Angioid streaks of choroid Active Condition [facility] Chronic post-traumatic stress disorder Active Condition Dec 24, 2019 Entered By: ISABELA GREENBERG Comment: reviewedMar 21, 2021 Entered By: ISABELA GREENBERG Comment: reviewed [facility] Degenerative arthritis Active Condition Sep 23, 2018 Entered By: TED BISHOP Comment: s/p oracio ankle reconstruction [facility] Essential hypertension Active Condition [facility] Exposure to potentially hazardous substance Active Condition Jul 04, 2023 Entered By: AMI LEDESMA Comment: Connect Snomed Code to ICD 10 Code refer to note dated 01/22/23 [facility] History of spinal surgery Active Condition Sep 23, 2018 Entered By: TED BISHOP Comment: x4 cervical surgeries [facility] Tear of quadriceps tendon Active Condition Sep 23 19 Entered By: TED BISHOP Comment: L s/p surgery [facility] Thoracic outlet syndrome Active Condition Sep 23, 2018 Entered By: TED BISHOP Comment: s/p R surgery [facility] Diagnosis: ICD-10-CM F43.12 Post-traumatic stress disorder, chronic Active Diagnosis [facility] Diagnosis: ICD-10-CM Z00.01 Encounter for general adult medical exam w abnormal findings Active Diagnosis [facility] Diagnosis: ICD-10-CM Z02.89 Encounter for other administrative examinations Active Diagnosis [facility] Medications Combined list of outpatient medications from Department of Defense and Veterans Affairs facilities.Medications provided include 1) outpatient medications from the last 15 months, and 2) patient-reported medications. Medication Details Route Status Patient Instructions Prescription Expires Prescription Number Last Dispense Date Ordering Provider Order Date Order Qty Source AMLODIPINE BESYLATE 5MG TAB TAKE ONE TABLET BY MOUTH ONCE DAILY ORAL ACTIVE DARIOASTONSkylar MCCABE [place] CHOLECALCIF DAVION 50MCG (2,000UNIT) TAB TAKE ONE TABLET BY MOUTH ONCE DAILY ORAL ACTIVE DARIOASTONSkylar MCCABE [place] DICLOFENAC NA 75MG TAB,EC TAKE ONE TABLET BY MOUTH TWICE DAILY ORAL ACTIVE CRYSTAL BISHOP [place] ESOMEPRAZOL E 20MG (BASE) CAP,EC TAKE 1 CAPSULE BY MOUTH ONCE DAILY ORAL ACTIVE CRYSTAL BISHOP 2018 [place] HYDROXYZINE HCL 10MG TAB TAKE ONE TABLET BY MOUTH FOUR TIMES DAILY NEEDED FOR ANXIETY ORAL ACTIVE 05/15/2025 [id number] 5 YARI,BR FREYA 2024 120 [place] HYDROXYZINE HCL 10MG TAB TAKE ONE TABLET BY MOUTH FOUR TIMES DAILY NEEDED FOR ANXIETY ORAL DISCONT INUED 02/11/2025 [id number] 4 LAREBENEZER,BR FREYA 2023 120 [place] HYDROXYZINE HCL 10MG TAB TAKE ONE TABLET BY MOUTH FOUR TIMES DAILY NEEDED FOR ANXIETY ORAL DISCONT INUED 11/12/2024 [id number] LAREBENEZER,BR FREYA 2023 120 [place] HYDROXYZINE HCL 10MG TAB TAKE ONE TABLET BY MOUTH FOUR TIMES DAILY NEEDED FOR ANXIETY ORAL DISCONT INUED (EDIT) 07/30/2024 [id number] 4 LAREBENEZER,BR FREYA 2023 120 [place] HYDROXYZINE HCL 10MG TAB TAKE ONE TABLET BY MOUTH FOUR TIMES DAILY NEEDED FOR ANXIETY ORAL DISCONT INUED 04/30/2024 [id number] 4 VLADIMIR GREENBERG FREYA 2023 120 [place] PRAVASTATIN NA 40MG TAB TAKE ONE TABLET BY MOUTH AT BEDTIME ORAL ACTIVE CRYSTAL BISHOP 2018 [place] SERTRALINE HCL 100MG TAB TAKE ONE AND ONE-HALF TABLETS BY MOUTH EVERY MORNING FOR MOOD AND PTSD ORAL ACTIVE 05/15/2025 [id number] 5 VLADIMIR GREENBERG FREYA 2024 [facility] SERTRALINE HCL 100MG TAB TAKE ONE AND ONE-HALF TABLETS BY MOUTH EVERY MORNING FOR MOOD AND PTSD ORAL DISCONT INUED 02/11/2025 [id number] 4 VLADIMIR GREENBERG FREYA 2023 [facility] SERTRALINE HCL 100MG TAB TAKE ONE AND ONE-HALF TABLETS BY MOUTH EVERY MORNING FOR MOOD AND PTSD ORAL DISCONT INUED 11/12/2024 [id number] VLADIMIR GREENBERG FREYA 2023 [facility] SERTRALINE HCL 100MG TAB TAKE ONE AND ONE-HALF TABLETS BY MOUTH EVERY MORNING -FOR PTSD ORAL DISCONT INUED (EDIT) 07/30/2024 [id number] 4 VLADIMIR GREENBERG FREYA 2023 45 [facility] SERTRALINE HCL 100MG TAB TAKE ONE AND ONE-HALF TABLETS BY MOUTH EVERY MORNING -FOR PTSD ORAL DISCONT INUED 04/30/2024 [id number] 4 VLADIMIR GREENBERG FREYA 2023 45 [facility] Allergies, Adverse Reactions, Alerts Combined list of allergies from Department of Defense and Veterans Affairs facilities. It does not include entries that were removed or entered in error. Substance Category Reaction Severity Reaction type Status Date Reported Comments Source BACTRIM Propensity to adverse reactions to drug (finding) Indigestion active 9 [facility] CODEINE Propensity to adverse reactions to drug (finding) Indigestion active 9 [facility] Immunizations Combined list of available immunizations from the Department of Defense and Veterans Affairs facilities. Immunization Series Date Given Administered By Site Reaction Lot Number CVX Code Drug Hospice Aide Status Comments Source INFLUENZA, HIGH-DOSE, TRIVALENT, PF 2023 ANDRE TOSCANO RIGHT DELTO ID [id number] 135 complet ed [facility] INFLUENZA, HIGH-DOSE, QUADRIVALENT 2022 MAITE CABRERA SA BLADIMIR LEFT DELTO ID [id number] 197 complet ed Completed Series, [facility], [facility] ZOSTER RECOMBINANT 2 2020 187 complet ed [place] INFLUENZA VACCINE, QUADRIVALENT, ADJUVANTED 2020 205 complet ed [facility] ZOSTER RECOMBINANT 1 2020 187 complet ed [facility] COVID-19 (MODERNA), MRNA, LNP-S, PF, 100 MCG/0.5 ML DOSE 2 2020 207 complet ed [place]; [id number]; [place] COVID-19 (MODERNA), MRNA, LNP-S, PF, 100 MCG/0.5 ML DOSE 1 2020 207 complet ed MOD; [id number]; [place] INFLUENZA, SEASONAL, INJECTABLE 2018 141 complet ed [facility] ZOSTER RECOMBINANT 2 2018 187 complet ed sent to scan. [facility] PNEUMOCOCCAL CONJUGATE PCV 13 2018 133 complet ed sent to scan through Right Fax. [facility] ZOSTER RECOMBINANT 1 2018 187 complet ed document sent to scan [facility] INFLUENZA, SEASONAL, INJECTABLE 2017 141 complet ed [facility] TD(ADULT) UNSPECIFIED FORMULATION 2017 139 complet ed [facility] TDAP 2017 115 complet ed [facility] PNEUMOCOCCAL POLYSACCHARID E PPV23 2015 33 complet ed [facility] Results Combined [...] Jan 22, 2023 01:19 PM Reporting Lab: [facility]N [facility] [address] [facility] [facility] [address] Performing Lab: [facility]ITALRFLORAL[facility]ITALN [facility] [address] [facility] [address] [place] BASIC METABOLI C PANEL (fasting ) UREA NITROGEN [MASS/VOLU ME] IN SERUM OR PLASMA 31 mg/dL 7 - 25 01/13 H Specimen Type: SERUM No comment entered. Ordering Provider: GIUSEPPE BISHOP IE Report Released Date/Time: Jan 22, 2023 01:19 PM Reporting Lab: [facility] [address] [address] Performing Lab: [address] [address] [place] BASIC METABOLI C PANEL (fasting ) GLUCOSE [MASS/VOLU ME] IN SERUM OR PLASMA 91 mg/dL 65 - 100 01/13 Specimen Type: SERUM No comment entered. Ordering Provider: GIUSEPPE BISHOP IE Report Released Date/Time: Jan 22, 2023 01:19 PM Reporting Lab: [facility] [address] [address] Performing Lab: [facility]RFL[facility]AL[facility] [address] [address] [place] BASIC METABOLI C PANEL (fasting ) SODIUM [MOLES/VOL UME] IN SERUM OR PLASMA 141 mmol/L 135 - 145 01/13 Specimen Type: SERUM No comment entered. Ordering Provider: GIUSEPPE BISHOP IE Report Released Date/Time: Jan 22, 2023 01:19 PM Reporting Lab: [facility]ITALRHARTSELLE MEDICAL CENTERTRN [address] [address] Performing Lab: [facility]ITALRFLORALA [facility]ITALN [address] [address] [place] BASIC METABOLI C PANEL (fasting ) POTASSIUM [MOLES/VOL UME] IN SERUM OR PLASMA 4.6 mmol/L 3.5 - 5.0 01/13 Specimen Type: SERUM No comment entered. Ordering Provider: GIUSEPPE IBSHOP IE Report Released Date/Time: Jan 22, 2023 01:19 PM Reporting Lab: [facility] [address] [facility] [address] Performing Lab: [address] [address] [place] BASIC METABOLI C PANEL (fasting ) CHLORIDE [MOLES/VOL UME] IN SERUM OR PLASMA 106 mmol/L 100 - 110 01/13 Specimen Type: SERUM No comment entered. Ordering Provider: GIUSEPPE BISHOP IE Report Released Date/Time: Jan 22, 2023 01:19 PM Reporting Lab: [address] [address] Performing Lab: [address] [address] [place] BASIC METABOLI C PANEL (fasting ) CARBON DIOXIDE, TOTAL [MOLES/VOL UME] IN SERUM OR PLASMA 28 meq/L 20 - 30 01/13 Specimen Type: SERUM No comment entered. Ordering Provider: GIUSEPPE BISHOP IE Report Released Date/Time: Jan 22, 2023 01:19 PM Reporting Lab: [address] [address] Performing Lab: [address] [address] [place] BASIC METABOLI C PANEL (fasting ) CREATININE [MASS/VOLU ME] IN SERUM OR PLASMA 1.09 mg/dL 0.50 - 1.40 01/13 Specimen Type: SERUM No comment entered. Ordering Provider: GIUSEPPE BISHOP IE Report Released Date/Time: Jan 22, 2023 01:19 PM Reporting Lab: [facility] [address] [address] Performing Lab: [facility] [address] [address] [place] BASIC METABOLI C PANEL (fasting ) GLOMERULAR FILTRATION RATE/1.73 SQ M.PREDICTE D [VOLUME RATE/AREA] IN SERUM, PLASMA OR BLOOD BY CREATININE -BASED FORMULA (CKD-EPI 2020) 71 mL/min 60 01/13 Specimen Type: SERUM No comment entered. Ordering Provider: GIUSEPPE BISHOP Report Released Date/Time: Jan 22, 2023 01:19 PM Reporting Lab: [facility] [address] [address] Performing Lab: [facility] [address] [place] URINALYS IS COLOR OF URINE Light-Ye llow 01/13 Specimen Type: URINE Comment: If Glucose = >500 and Ketones are positive, please alert the Physician. Ordering Provider: GIUSEPPE BISHOP Report Released Date/Time: Jan 22, 2023 01:19 PM Reporting Lab: [address] [address] Performing Lab: [address] [address] [place] URINALYS IS APPEARANCE OF URINE Clear 01/13 Specimen Type: URINE Comment: If Glucose = >500 and Ketones are positive, please alert the Physician. Ordering Provider: GIUSEPPE BISHOP Report Released Date/Time: Jan 22, 2023 01:19 PM Reporting Lab: [facility] [address] [address] Performing Lab: [facility] [address] [place] URINALYS IS GLUCOSE [MASS/VOLU ME] IN URINE Normalmg /dL 01/13 Specimen Type: URINE Comment: If Glucose = >500 and Ketones are positive, please alert the Physician. Ordering Provider: GIUSEPPE BISHOP Report Released Date/Time: Jan 22, 2023 01:19 PM Reporting Lab: [facility] [address] [facility] [address] Performing Lab: [facility] [address] [place] URINALYS IS KETONES [MASS/VOLU ME] IN URINE BY TEST STRIP NEGATIVE mg/dL 01/13 Specimen Type: URINE Comment: If Glucose = >500 and Ketones are positive, please alert the Physician. Ordering Provider: GIUSEPPE BISHOP Report Released Date/Time: Jan 22, 2023 01:19 PM Reporting Lab: [facility] [address] [address] Performing Lab: [facility] [address] [facility] [address] [place] URINALYS IS ERYTHROCYT ES [PRESENCE] IN URINE SEDIMENT BY LIGHT MICROSCOPY NEGATIVE mg/dL 01/13 Specimen Type: URINE Comment: If Glucose = >500 and Ketones are positive, please alert the Physician. Ordering Provider: GIUSEPPE BISHOP Report Released Date/Time: Jan 22, 2023 01:19 PM Reporting Lab: [address] [address] Performing Lab: [facility] [address] [place] URINALYS IS PROTEIN [MASS/VOLU ME] IN URINE BY TEST STRIP NEGATIVE mg/dL 01/13 Specimen Type: URINE Comment: If Glucose = >500 and Ketones are positive, please alert the Physician. Ordering Provider: GIUSEPPE BISHOP Report Released Date/Time: Jan 22, 2023 01:19 PM Reporting Lab: [facility] [address] Performing Lab: [facility] [address] [facility] [address] [place] URINALYS IS NITRITE [PRESENCE] IN URINE NEGATIVE mg/dL 01/13 Specimen Type: URINE Comment: If Glucose = >500 and Ketones are positive, please alert the Physician. Ordering Provider: GIUSEPPE BISHOP Report Released Date/Time: Jan 22, 2023 01:19 PM Reporting Lab: [facility] [address] [address] Performing Lab: [facility] [address] [place] URINALYS IS BILIRUBIN. TOTAL [PRESENCE] IN URINE NEGATIVE mg/dL 01/13 Specimen Type: URINE Comment: If Glucose = >500 and Ketones are positive, please alert the Physician. Ordering Provider: GIUSEPPE BISHOP Report Released Date/Time: Jan 22, 2023 01:19 PM Reporting Lab: [address] [address] Performing Lab: [address] [address] [place] URINALYS IS SPECIFIC GRAVITY OF URINE BY REFRACTOME TRY 1.024 1.016 - 1.022 01/13 H Specimen Type: URINE Comment: If Glucose = >500 and Ketones are positive, please alert the Physician. Ordering Provider: GIUSEPPE BISHOP IE Report Released Date/Time: Jan 22, 2023 01:19 PM Reporting Lab: [address] [address] Performing Lab: [address] [address] [place] URINALYS IS PH OF URINE BY TEST STRIP 5.5 5.0 - 9.0 01/13 Specimen Type: URINE Comment: If Glucose = >500 and Ketones are positive, please alert the Physician. Ordering Provider: GIUSEPPE BISHOP IE Report Released Date/Time: Jan 22, 2023 01:19 PM Reporting Lab: [address] [address] Performing Lab: [address] [address] [place] URINALYS IS UROBILINOG EN [MASS/VOLU ME] IN URINE BY TEST STRIP Normalmg /dL <2.0 - 2.0 01/13 Specimen Type: URINE Comment: If Glucose = >500 and Ketones are positive, please alert the Physician. Ordering Provider: GIUSEPPE BISHOP IE Report Released Date/Time: Jan 22, 2023 01:19 PM Reporting Lab: [address] [place] [address] Performing Lab: [facility] [address] [address] [place] URINALYS IS LEUKOCYTE ESTERASE [PRESENCE] IN URINE BY TEST STRIP NEGATIVE 01/13 Specimen Type: URINE Comment: If Glucose = >500 and Ketones are positive, please alert the Physician. Ordering Provider: GIUSEPPE BISHOP IE Report Released Date/Time: Jan 22, 2023 01:19 PM Reporting Lab: [facility]ITALRHARTSELLE MEDICAL CENTERTRN [address] [address] Performing Lab: [facility] [address] [address] [place] LIPID PANEL FASTING CHOLESTERO L [MASS/VOLU ME] IN SERUM OR PLASMA 158 mg/dL 01/13 Specimen Type: SERUM No comment entered. Ordering Provider: GIUSEPPE BISHOP IE Report Released Date/Time: Jan 22, 2023 01:19 PM Reporting Lab: [facility]OSPITALRFLORALA MEMORIAL HOSPITALN [address] [address] Performing Lab: [facility] [address] [address] [place] LIPID PANEL FASTING TRIGLYCERI DE [MASS/VOLU ME] IN SERUM OR PLASMA 81 mg/dL 0 - 150 01/13 Specimen Type: SERUM No comment entered. Ordering Provider: GIUSEPPE BISHOP IE Report Released Date/Time: Jan 22, 2023 01:19 PM Reporting Lab: [facility]PITALRFLORALA MEMORIAL HOSPITALN [facility] [address] [facility] [address] Performing Lab: [facility]OS[facility]ITALRFLORALA MEMORIAL HOSPITALN [facility] [address] [place] LIPID PANEL FASTING CHOLESTERO L IN LDL [MASS/VOLU ME] IN SERUM OR PLASMA BY CALCULATIO N 92 mg/dL 0 - 129 01/13 Specimen Type: SERUM No comment entered. Ordering Provider: GIUSEPPE BISHOP IE Report Released Date/Time: Jan 22, 2023 01:19 PM Reporting Lab: [facility]ITALRFLORALA MEMORIAL [facility]OSPITALN [address] [address] Performing Lab: [facility] [place] [facility] [address] [facility] [address] [place] LIPID PANEL FASTING CHOLESTERO L.TOTAL/CH OLESTEROL IN HDL [MASS RATIO] IN SERUM OR PLASMA 3.2 01/13 Specimen Type: SERUM No comment entered. Ordering Provider: GIUSEPPE BISHOP IE Report Released Date/Time: Jan 22, 2023 01:19 PM Reporting Lab: [facility] [place] [facility] [address] [facility] [address] Performing Lab: [facility] [place] [facility] [address] [facility] [address] [place] LIPID PANEL FASTING CHOLESTERO L IN HDL [MASS/VOLU ME] IN SERUM OR PLASMA 50 mg/dL 40 - 60 01/13 Specimen Type: SERUM No comment entered. Ordering Provider: GIUSPEPE BISHOP IE Report Released Date/Time: Jan 22, 2023 01:19 PM Reporting Lab: [facility] [place] [facility] [address] [facility] [address] Performing Lab: [facility] [place] [address] [address] [place] LIVER FUNCTION PROTEIN [MASS/VOLU ME] IN SERUM OR PLASMA 6.7 g/dL 6.0 - 8.3 01/13 Specimen Type: SERUM No comment entered. Ordering Provider: GIUSEPPE BISHOP IE Report Released Date/Time: Jan 22, 2023 01:19 PM Reporting Lab: [facility] [place] [facility] [address] [facility] [address] Performing Lab: [facility] [place] [address] [address] [place] LIVER FUNCTION ALBUMIN [MASS/VOLU ME] IN SERUM OR PLASMA 4.0 g/dL 3.5 - 5.0 01/13 Specimen Type: SERUM No comment entered. Ordering Provider: GIUSEPPE BISHOP IE Report Released Date/Time: Jan 22, 2023 01:19 PM Reporting Lab: [facility] [place] [address] [address] Performing Lab: [facility] [place] [facility] [address] [facility] [address] [place] LIVER FUNCTION ALKALINE PHOSPHATAS E [ENZYMATIC ACTIVITY/V OLUME] IN SERUM OR PLASMA 62 U/L 40 - 150 01/13 Specimen Type: SERUM No comment entered. Ordering Provider: GIUSEPPE BISHOP IE Report Released Date/Time: Jan 22, 2023 01:19 PM Reporting Lab: [facility] HOSPITALRL TRN [facility]USE[facility] [address] [facility] [address] Performing Lab: [facility]USE[facility] [address] [facility] [address] [place]IVER FUNCTION ASPARTATE AMINOTRANS FERASE [ENZYMATIC ACTIVITY/V OLUME] IN SERUM OR PLASMA 14 U/L 5 - 34 01/13 Specimen Type: SERUM No comment entered. Ordering Provider: GIUSEPPE BISHOP IE Report Released Date/Time: Jan 22, 2023 01:19 PM Reporting Lab: [facility]OSPITALRHARTSELLE MEDICAL CENTERTRN [facility]USE[facility] [address] [facility] [address] Performing Lab: [facility] HOSPITALRL TRN [facility]ITALUSEWO[facility] [address] [facility] [address] [place] FUN[place] ALANINE AMINOTRANS FERASE [ENZYMATIC ACTIVITY/V OLUME] IN SERUM OR PLASMA 9 U/L 01/13 Specimen Type: SERUM No comment entered. Ordering Provider: GIUSEPPE BISHOP IE Report Released Date/Time: Jan 22, 2023 01:19 PM Reporting Lab: [facility]PITALRHARTSELLE MEDICAL CENTERTRN [facility]USE[facility] [address] [facility] [address] Performing Lab: [facility]PITALRHARTSELLE MEDICAL CENTERTRN [facility]USE[facility] [address] [facility] [address] [facility] LIVER FUNCTION BILIRUBIN. TOTAL [MASS/VOLU ME] IN SERUM OR PLASMA 0.4 mg/dL 0.2 - 1.2 01/13 Specimen Type: SERUM No comment entered. Ordering Provider: GIUSEPPE BISHOP IE Report Released Date/Time: Jan 22, 2023 01:19 PM Reporting Lab: [facility]OSPITALRFLORALA MEMORIAL HOSPITALN [facility] [address] [facility] [address] Performing Lab: [facility]OSPITALRFLORALA MEMORIAL HOSPITALN [facility] [address] [place] CBC AND DIFF (AUTO) LEUKOCYTES [#/VOLUME] IN BLOOD BY AUTOMATED COUNT 7.82 10*3/uL 4.50 - 11.00 01/13 Specimen Type: BLOOD No comment entered. Ordering Provider: GIUSEPPE BISHOP IE Report Released Date/Time: Jan 22, 2023 01:19 PM Reporting Lab: [facility] [place] [address] [address] Performing Lab: [facility]ENTERCHUSETS [address] [address] [place] CBC AND DIFF (AUTO) ERYTHROCYT ES [#/VOLUME] IN BLOOD BY AUTOMATED COUNT 4.64 10*6/uL 4.23 - 5.66 01/13 Specimen Type: BLOOD No comment entered. Ordering Provider: GIUSEPPE BISHOP IE Report Released Date/Time: Jan 22, 2023 01:19 PM Reporting Lab: [facility] HOSPITALRL WSTRN [facility]ITALUSETS [address] [address] Performing Lab: [facility] [place] [address] [address] [place] CBC AND DIFF (AUTO) HEMOGLOBIN [MASS/VOLU ME] IN BLOOD 13.8 g/dL 12.8 - 17 01/13 Specimen Type: BLOOD No comment entered. Ordering Provider: GIUSEPPE BISHOP IE Report Released Date/Time: Jan 22, 2023 01:19 PM Reporting Lab: [facility]ITALR [facility] [place] [address] [address] Performing Lab: [facility] [place] [address] [address] [place] CBC AND DIFF (AUTO) HEMATOCRIT [VOLUME FRACTION] OF BLOOD BY AUTOMATED COUNT 41.5 39.2 - 50.4 01/13 Specimen Type: BLOOD No comment entered. Ordering Provider: GIUSEPPE BISHOP IE Report Released Date/Time: Jan 22, 2023 01:19 PM Reporting Lab: [facility] HOSPITALRL WSTRN [facility] [address] Performing Lab: [facility] [place] [address] [place] [address] [place] CBC AND DIFF (AUTO) MCV [ENTITIC VOLUME] BY AUTOMATED COUNT 89.4 fL 82 - 99 01/13 Specimen Type: BLOOD No comment entered. Ordering Provider: GIUSEPPE BISHOP IE Report Released Date/Time: Jan 22, 2023 01:19 PM Reporting Lab: [facility]OSPITALRFLORALA MEMORIAL HOSPITALN [facility] [address] [facility] [address] Performing Lab: [facility]OS[facility]ITALRFLORALA MEMORIAL HOSPITALN [address] [address] [place] CBC AND DIFF (AUTO) MCHC [MASS/VOLU ME] BY AUTOMATED COUNT 33.3 g/dL 30.8 - 35.1 01/13 Specimen Type: BLOOD No comment entered. Ordering Provider: GIUSEPPE BISHOP IE Report Released Date/Time: Jan 22, 2023 01:19 PM Reporting [facility] [address] [address] Performing Lab: [facility] [address] [address] [place] CBC AND DIFF (AUTO) PLATELETS [#/VOLUME] IN BLOOD BY AUTOMATED COUNT 269 10*3/uL 140 - 360 01/13 Specimen Type: BLOOD No comment entered. Ordering Provider: GIUSEPPE BISHOP IE Report Released Date/Time: Jan 22, 2023 01:19 PM Reporting [facility] [address] [address] Performing Lab: [facility] [address] [address] [place] CBC AND DIFF (AUTO) ERYTHROCYT E DISTRIBUTI ON WIDTH [RATIO] BY AUTOMATED COUNT 13.7 12.0 - 16.0 01/13 Specimen Type: BLOOD No comment entered. Ordering Provider: GIUSEPPE BISHOP IE Report Released Date/Time: Jan 22, 2023 01:19 PM Reporting [facility] [address] [address] Performing [facility] [address] [address] [place] CBC AND DIFF (AUTO) MONOCYTES [#/VOLUME] IN BLOOD BY AUTOMATED COUNT 0.53 10*3/uL 0.30 - 1.10 01/13 Specimen Type: BLOOD No comment entered. Ordering Provider: GIUSEPPE BISHOP IE Report Released Date/Time: Jan 22, 2023 01:19 PM Reporting Lab: [facility] [place] [facility] [address] [facility] [address] Performing Lab: [facility] [place] [address] [facility] [address] [place] CBC AND DIFF (AUTO) MCH [ENTITIC MASS] BY AUTOMATED COUNT 29.7 pg 26.2 - 32.6 01/13 Specimen Type: BLOOD No comment entered. Ordering Provider: GIUSEPPE BISHOP IE Report Released Date/Time: Jan 22, 2023 01:19 PM Reporting Lab: [facility] [place] [address] [address] Performing Lab: [facility] [place] [facility] [address] [facility] [address] [place] CBC AND DIFF (AUTO) NEUTROPHIL S/100 LEUKOCYTES IN BLOOD BY AUTOMATED COUNT 64.3 43.7 - 75.8 01/13 Specimen Type: BLOOD No comment entered. Ordering Provider: GIUSEPPE BISHOP IE Report Released Date/Time: Jan 22, 2023 01:19 PM Reporting Lab: [facility] [place] [facility] [address] [facility] [address] Performing Lab: [facility] [place] [address] [address] [place] CBC AND DIFF (AUTO) LYMPHOCYTE S/100 LEUKOCYTES IN BLOOD BY AUTOMATED COUNT 25.8 14.0 - 42.3 01/13 Specimen Type: BLOOD No comment entered. Ordering Provider: GIUSEPPE BISHOP IE Report Released Date/Time: Jan 22, 2023 01:19 PM Reporting Lab: [facility] [place] [address] [address] Performing Lab: [facility] [place] [address] [address] [place] CBC AND DIFF (AUTO) MONOCYTES/ 100 LEUKOCYTES IN BLOOD BY AUTOMATED COUNT 6.8 5.1 - 13.7 01/13 Specimen Type: BLOOD No comment entered. Ordering Provider: GIUSEPPE BISHOP IE Report Released Date/Time: Jan 22, 2023 01:19 PM Reporting Lab: [facility] [address] [facility] [address] Performing Lab: [facility] [address] [facility] [address] [place] CBC AND DIFF (AUTO) EOSINOPHIL S/100 LEUKOCYTES IN BLOOD BY AUTOMATED COUNT 2.2 0.4 - 6.8 01/13 Specimen Type: BLOOD No comment entered. Ordering Provider: GIUSEPPE BISHOP IE Report Released Date/Time: Jan 22, 2023 01:19 PM Reporting Lab: [facility] [address] [address] Performing Lab: [facility] [address] [address] [place] CBC AND DIFF (AUTO) BASOPHILS/ 100 LEUKOCYTES IN BLOOD BY AUTOMATED COUNT 0.6 0.1 - 2.0 01/13 Specimen Type: BLOOD No comment entered. Ordering Provider: GIUSEPPE BISHOP IE Report Released Date/Time: Jan 22, 2023 01:19 PM Reporting Lab[facility] [address] [address] Performing Lab: [facility] [address] [address] [place] CBC AND DIFF (AUTO) NEUTROPHIL S [#/VOLUME] IN BLOOD BY AUTOMATED COUNT 5.03 10*3/uL 2.20 - 7.60 01/13 Specimen Type: BLOOD No comment entered. Ordering Provider: GIUSEPPE BISHOP IE Report Released Date/Time: Jan 22, 2023 01:19 PM Reporting Lab: [facility] [address] [facility] [address] Performing Lab: [facility] [address] [address] [place] CBC AND DIFF (AUTO) LYMPHOCYTE S [#/VOLUME] IN BLOOD BY AUTOMATED COUNT 2.02 10*3/uL 1.00 - 3.20 01/13 Specimen Type: BLOOD No comment entered. Ordering Provider: GIUSEPPE BISHOP IE Report Released Date/Time: Jan 22, 2023 01:19 PM Reporting [facility]: [facility] [address] [address] Performing Lab: [facility] [address] [address] [place] CBC AND DIFF (AUTO) EOSINOPHIL S [#/VOLUME] IN BLOOD BY AUTOMATED COUNT 0.17 10*3/uL 0.03 - 0.44 01/13 Specimen Type: BLOOD No comment entered. Ordering Provider: GIUSEPPE BISHOP IE Report Released Date/Time: Jan 22, 2023 01:19 PM Reporting [facility]: [facility] [address] [address] Performing Lab: [facility] [address] [address] [place] CBC AND DIFF (AUTO) BASOPHILS [#/VOLUME] IN BLOOD BY AUTOMATED COUNT 0.05 10*3/uL 0.01 - 0.13 01/13 Specimen Type: BLOOD No comment entered. Ordering Provider: GIUSEPPE BISHOP IE Report Released Date/Time: Jan 22, 2023 01:19 PM Reporting Lab: [facility] [address] [address] Performing Lab: [facility] [address] [address] [place] CBC AND DIFF (AUTO) IMMATURE GRANULOCYT ES/100 LEUKOCYTES IN BLOOD BY AUTOMATED COUNT 0.3 0.0 - 0.7 01/13 Specimen Type: BLOOD No comment entered. Ordering Provider: GIUSEPPE BISHOP IE Report Released Date/Time: Jan 22, 2023 01:19 PM Reporting Lab: [facility] [address] [address] Performing Lab: [facility] [address] [address] [place] CBC AND DIFF (AUTO) IMMATURE GRANULOCYT ES [#/VOLUME] IN BLOOD 0.02 10*3/uL 0.00 - 0.06 01/13 Specimen Type: BLOOD No comment entered. Ordering Provider: GIUSEPPE BISHOP IE Report Released Date/Time: Jan 22, 2023 01:19 PM Reporting Lab: [address] [address] Performing Lab: [address] [address] [place] CBC AND DIFF (AUTO) NRBC % 0.0 0.0 - 0.0 01/13 Specimen Type: BLOOD No comment entered. Ordering Provider: GIUSEPPE BISHOP IE Report Released Date/Time: Jan 22, 2023 01:19 PM Reporting Lab: [address] [address] Performing Lab: [address] [address] [place] CBC AND DIFF (AUTO) NRBC, ABS 0.00 10*3/uL 0.00 - 0.00 01/13 Specimen Type: BLOOD No comment entered. Ordering Provider: GIUSEPPE BISHOP IE Report Released Date/Time: Jan 22, 2023 01:19 PM Reporting Lab: [address] [address] Performing Lab: [address] [address] [place] HEMOGLOB IN A1C PANEL HEMOGLOBIN A1C/HEMOGL [...] Jan 22, 2023 01:19 PM Reporting Lab: [facility] [address] [address] Performing [facility]: [facility] [address] [address] [place] TSH THYROTROPI N [UNITS/VOL UME] IN SERUM OR PLASMA 0.59 u[IU]/mL 0.35 - 5.00 01/22 Specimen Type: SERUM No comment entered. Ordering Provider: GIUSEPPE BISHOP IE Report Released Date/Time: Jan 23, 2022 09:24 AM Reporting Lab: [address] [address] Performing Lab: [address] [address] [place] URINALYS IS COLOR OF URINE Light-Ye llow 01/22 Specimen Type: URINE Comment: If Glucose = >500 and Ketones are positive, please alert the Physician. Ordering Provider: GIUSEPPE BISHOP IE Report Released Date/Time: Jan 23, 2022 09:24 AM Reporting Lab: [address] [address] Performing Lab: [address] [address] [place] URINALYS IS APPEARANCE OF URINE Clear 01/22 Specimen Type: URINE Comment: If Glucose = >500 and Ketones are positive, please alert the Physician. Ordering Provider: GIUSEPPE BISHOP IE Report Released Date/Time: Jan 23, 2022 09:24 AM Reporting Lab: [address] [address] Performing Lab: [address] [address] [place] URINALYS IS GLUCOSE [MASS/VOLU ME] IN URINE NEGATIVE mg/dL 01/22 Specimen Type: URINE Comment: If Glucose = >500 and Ketones are positive, please alert the Physician. Ordering Provider: GIUSEPPE BISHOP IE Report Released Date/Time: Jan 23, 2022 09:24 AM Reporting Lab: [facility] [address] [address] Performing Lab: [facility] [address] [address] [place] URINALYS IS KETONES [MASS/VOLU ME] IN URINE BY TEST STRIP NEGATIVE mg/dL 01/22 Specimen Type: URINE Comment: If Glucose = >500 and Ketones are positive, please alert the Physician. Ordering Provider: GIUSEPPE BISHOP IE Report Released Date/Time: Jan 23, 2022 09:24 AM Reporting Lab: [address] [address] Performing Lab: [address] [address] [place] URINALYS IS ERYTHROCYT ES [PRESENCE] IN URINE SEDIMENT BY LIGHT MICROSCOPY NEGATIVE mg/dL 01/22 Specimen Type: URINE Comment: If Glucose = >500 and Ketones are positive, please alert the Physician. Ordering Provider: GIUSEPPE BSIHOP IE Report Released Date/Time: Jan 23, 2022 09:24 AM Reporting Lab: [address] [address] Performing [facility]: [facility] [address] [address] [place] URINALYS IS PROTEIN [MASS/VOLU ME] IN URINE BY TEST STRIP NEGATIVE mg/dL 01/22 Specimen Type: URINE Comment: If Glucose = >500 and Ketones are positive, please alert the Physician. Ordering Provider: GIUSEPPE BISHOP IE Report Released Date/Time: Jan 23, 2022 09:24 AM Reporting Lab: [address] [address] Performing [facility]: [facility] [address] [address] [place] URINALYS IS NITRITE [PRESENCE] IN URINE NEGATIVE mg/dL 01/22 Specimen Type: URINE Comment: If Glucose = >500 and Ketones are positive, please alert the Physician. Ordering Provider: GIUSEPPE BISHOP IE Report Released Date/Time: Jan 23, 2022 09:24 AM Reporting Lab: [address] [address] Performing Lab: [address] [address] [place] URINALYS IS BILIRUBIN. TOTAL [PRESENCE] IN URINE NEGATIVE mg/dL 01/22 Specimen Type: URINE Comment: If Glucose = >500 and Ketones are positive, please alert the Physician. Ordering Provider: GIUSEPPE BISHOP IE Report Released Date/Time: Jan 23, 2022 09:24 AM Reporting Lab: [address] [address] Performing Lab: [address] [address] [place] URINALYS IS SPECIFIC GRAVITY OF URINE BY REFRACTOME TRY 1.019 1.016 - 1.022 01/22 Specimen Type: URINE Comment: If Glucose = >500 and Ketones are positive, please alert the Physician. Ordering Provider: GIUSEPPE BISHOP IE Report Released Date/Time: Jan 23, 2022 09:24 AM Reporting Lab: [address] [address] Performing Lab: [address] [address] [place] URINALYS IS PH OF URINE BY TEST STRIP 5.5 5.0 - 9.0 01/22 Specimen Type: URINE Comment: If Glucose = >500 and Ketones are positive, please alert the Physician. Ordering Provider: GIUSEPPE BISHOP IE Report Released Date/Time: Jan 23, 2022 09:24 AM Reporting Lab: [address] [address] Performing Lab: [address] [address] [place] URINALYS IS UROBILINOG EN [MASS/VOLU ME] IN URINE BY TEST STRIP <2.0mg/d L <2.0 - 2.0 01/22 Specimen Type: URINE Comment: If Glucose = >500 and Ketones are positive, please alert the Physician. Ordering Provider: GIUSEPPE BISHOP Report Released Date/Time: Jan 23, 2022 09:24 AM Reporting Lab: [address] [address] Performing Lab: [address] [address] [employer] URINALYS IS LEUKOCYTE ESTERASE [PRESENCE] IN URINE BY TEST STRIP NEGATIVE 01/22 Specimen Type: URINE Comment: If Glucose = >500 and Ketones are positive, please alert the Physician. Ordering Provider: GIUSEPPE BISHOP IE Report Released Date/Time: Jan 23, 2022 09:24 AM Reporting Lab: [address] [address] Performing Lab: [address] [address] [place] BASIC METABOLI C PANEL (fasting ) UREA NITROGEN [MASS/VOLU ME] IN SERUM OR PLASMA 27 mg/dL 7 - 25 01/22 H Specimen Type: SERUM No comment entered. Ordering Provider: GIUSEPPE BISHOP IE Report Released Date/Time: Jan 23, 2022 09:24 AM Reporting Lab: [address] [address] Performing Lab: [address] [address] [employer] [employer] BASIC METABOLI C PANEL (fasting ) GLUCOSE [MASS/VOLU ME] IN SERUM OR PLASMA 104 mg/dL 65 - 100 01/22 H Specimen Type: SERUM No comment entered. Ordering Provider: GIUSEPPE BISHOP IE Report Released Date/Time: Jan 23, 2022 09:24 AM Reporting Lab: [address] [address] Performing Lab: [address] [address] [place] [employer] BASIC METABOLI C PANEL (fasting ) SODIUM [MOLES/VOL UME] IN SERUM OR PLASMA 142 mmol/L 135 - 145 01/22 Specimen Type: SERUM No comment entered. Ordering Provider: GIUSEPPE BISHOP IE Report Released Date/Time: Jan 23, 2022 09:24 AM Reporting Lab: [facility] [address] [facility] [address] Per[facility]: [facility] [address] [address] [place] BASIC METABOLI C PANEL (fasting ) POTASSIUM [MOLES/VOL UME] IN SERUM OR PLASMA 4.5 mmol/L 3.5 - 5.0 01/22 Specimen Type: SERUM No comment entered. Ordering Provider: GIUSEPPE BISHOP IE Report Released Date/Time: Jan 23, 2022 09:24 AM Reporting Lab: [facility] [address] [address] [facility]: [facility] [address] [address] [place] BASIC METABOLI C PANEL (fasting ) CHLORIDE [MOLES/VOL UME] IN SERUM OR PLASMA 108 mmol/L 100 - 110 01/22 Specimen Type: SERUM No comment entered. Ordering Provider: GIUSEPPE BISHOP IE Report Released Date/Time: Jan 23, 2022 09:24 AM Reporting Lab: [facility] [address] [address] Performing Lab: [facility] [address] [place] BASIC METABOLI C PANEL (fasting ) CARBON DIOXIDE, TOTAL [MOLES/VOL UME] IN SERUM OR PLASMA 26 meq/L 20 - 30 01/22 Specimen Type: SERUM No comment entered. Ordering Provider: GIUSEPPE BISHOP IE Report Released Date/Time: Jan 23, 2022 09:24 AM Reporting Lab: [facility] [address] [address] Performing [facility]: [facility] [address] [address] [place] BASIC METABOLI C PANEL (fasting ) CREATININE [MASS/VOLU ME] IN SERUM OR PLASMA 0.93 mg/dL 0.50 - 1.40 01/22 Specimen Type: SERUM No comment entered. Ordering Provider: GIUSEPPE BISHOP IE Report Released Date/Time: Jan 23, 2022 09:24 AM Reporting Lab: [facility] [place] [facility] [address] [facility] [address] Performing Lab: [facility] [place] [facility] [address] [facility] [address] [place] BASIC METABOLI C PANEL (fasting ) GLOMERULAR FILTRATION RATE/1.73 SQ M.PREDICTE D [VOLUME RATE/AREA] IN SERUM, PLASMA OR BLOOD BY CREATININE -BASED FORMULA (CKD-EPI 2020) 86 mL/min 60 01/22 Specimen Type: SERUM No comment entered. Ordering Provider: GIUSEPPE BISHOP IE Report Released Date/Time: Jan 23, 2022 09:24 AM Reporting Lab: [facility] [place] [facility] [address] [facility] [address] Performing Lab: [facility] [place] [facility] [address] [facility] [address] [place] Vital Signs Combined list of inpatient and outpatient Vital Signs from Department of Defense and Veterans Affairs, ranging from 12 months to all on record, depending upon the facility. Vital Sign Value Date Comments Source SYSTOLIC BLOOD PRESSURE 156 01/22/20 24 11:29:26 [facility] [place] [facility] DIASTOLIC BLOOD PRESSURE 80 024 11:29:26 [facility] [place] [facility] PULSE OXIMETRY 98 01/22/2024 11:29:26 [facility] [place] [facility] WEIGHT 164.8 01/22/2024 11:29:26 [facility] [place] [facility] BMI 25 kg/m2 01/22/2024 11:29:26 [facility] [place] [facility] PAIN 2 01/22/2024 11:29:26 [facility] [place] [facility] HEIGHT 68 01/22/2024 11:29:26 [facility] [place] [facility] TEMPERATURE 97.2 01/22/2024 11:29:26 [facility] PULSE 86 01/22/2024 11:29:26 [facility] RESPIRATION 20 01/22/2024 11:29:26 [facility] [place] [facility] Encounters Combined list of: 1) Encounters from Department of Veterans Affairs facilities going backup to the last 18 months, not all VA inpatient encounters are included; 2) Encounters from the Department of [facility] facilities going backup to 280 months. Location Location Details Encounter Type Encounter Number Reason For Visit Attending Provider ADM Date DC Date Status Disposition Source [facility] Outpatient Encounter [id number] 03/06 [facility]P EST MOD 30 MIN [id number] Diagnos is: ICD-10- CM F43.12 Post-tr aumatic stress disorde r, chronic LARROW,KTAHY AN 04/30 [place] [facility] Outpatient Encounter [id number] Diagnos is: ICD-10- CM Z02.89 Encount er for other adminis trative examina tions AALIYAH LEONG 05/10 [facility] Outpatient Encounter [id number] Diagnos is: ICD-10- CM Z02.89 Encount er for other adminis trative examina tions ESTELLA SANDOVAL 05/18 [facility] Outpatient Encounter [id number] 07/28 [facility] [place] O/P EST MOD 30 MIN [id number] Diagnos is: ICD-10- CM F43.12 Post-tr aumatic stress disorde r, chronic LARROW,KATHY AN 07/29 [facility] [place] O/P EST MOD 30 MIN [id number] Diagnos is: ICD-10- CM F43.12 Post-tr aumatic stress disorde r, chronic YARI,KATHY AN 11/11 [place] [facility] Outpatient Encounter [id number] [facility] Outpatient Encounter [id number] 01/18 [facility] Outpatient Encounter [id number] 1.01/21 [facility] [place] [place] O/P EST MOD 30 MIN [id number] Diagnos is: ICD-10- CM [facility] l finding s NATHAN,A KAIDENIO 01/21 [facility] [place] OFF[facility] O/P EST MOD 30 MIN [id number] Diagnos is: ICD-10- CM F43.12 Post-tr aumatic stress disorde r, chronic YARI,KATHY AN 02/10 [facility] [place] OFF[facility] O/P EST MOD 30 MIN [id number] Diagnos is: ICD-10- CM F43.12 Post-tr aumatic stress disorde r, chronic YARI,KATHY AN 05[facility]14 [facility] Social History Combined list of available smoking, tobacco, and other social history from Department of Defense and Veterans Affairs facilities. Social History Type Response Date Comment Sourc e Tobacco smoking status [facility] VA-TOBACCO NEVER USED 01/22/2024 [facility] History of tobacco use VA-TOBACCO NEVER USED 01/22/2023 [facility] History of tobacco use VA-TOBACCO NEVER USED 01/23/2022 [facility] [place] History of tobacco use [facility] of [facility] of [facility] use VA-TOBACCO NEVER USED 09/11/2018 [facility] Plan of Care List of future care activities from Department of Veterans Affairs facilities. Additional future care activities may be listed in the Assessment and Plan section. Date/Time Care Activity Care Activity Detail Facili ty 08/12/2024 AMBULATORY - MEDICINE AMBULATORY - MEDICI NE [facility] [place] [facility]
--- OUTSIDE RECORDS SUMMARY | 2024-08-11 08:07 | XMS_ITS | Data Portability ---
Author Organization [facility] PAIN OFF[facility] Address [address] [place] [address] Care Team Providers Care Bodybuilder Name Role Phone YOLANDE PARIKH Referring Provider ANDRE ZHU Primary Care Provider [phone] Assessment Encounter Date Assessment Date Assessment LastModified [...] booked for the same. 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 [email or web address] Not available 11/06/2016 15:32:34 11/07/2016 10842 He was advised against bed rest lasting longer than four days and to continue activities as tolerated. [email or web address] Not available 11/07/2016 08:59:54 04/10/2017 64719 He was advised against bed rest lasting longer than four days and to continue activities as tolerated. [email or web address] Not available 04/10/2017 15:31:44 07/05/2017 41972 He was advised against bed rest lasting longer than four days and to continue activities as tolerated. [email or web address] Not available 07/06/2017 09:57:47 10/23/2017 43049 He was advised against bed rest lasting longer than four days and to continue activities as tolerated. delma Not available 10/23/2017 15:01:25 Reason for Referral None Reported. Results Created Date Observation Date Name Description Value Unit Range Abnormal Flag Note LastModifiedBy Organization Detail LastModifiedTime 07/07/19 18 07/06/2017 XR, hip + pelvi s, unila teral No observ ation record ed. [email or web address] [facility] Dept [address] [place], [address], 07/10/2017 13:05:16 Result Notes None recorded. 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 34849663 Active Fede naidu MD [address] , [address], [place], [address], [place] [facility] 5 09:42:49 Lumbosacral spondylosis without myelopathy 31606356 Active Fede naidu MD [address] , [address], [place], [address], [place] [facility] 5 09:42:49 Lumbosacral radiculitis 49701606 Active Fede naidu MD [address] , [address], [place], [address], [place] [facility] 5 09:42:49 Pain of left hip joint 6698502180480 00 Active Fede naidu MD [address] , [address], [place], [address], [place] [facility] 8 09:58:09 Problem Notes None recorded. Procedures Surgical History Date Name Laterality Status Provider Name and Address Organization Details Recorded Time 10/24/19 18 Intra-articular Hip Steroid Injection completed Fede Cullen MD [address] , [address], [place], [address], [place] [facility] 10/23/2017 15:00:35 04/10/20 17 Lumbar Epidural steroid injection under fluoroscopic guidance completed Fede Cullen MD [address] , [address], [place], [address], [place] [facility] 04/10/2017 15:33:49 11/08/19 17 Lumbar Epidural steroid injection under fluoroscopic guidance completed Fede Cullen MD [address] , [address], [place], [address], [place] [facility] 11/07/2016 09:00:44 03/29/20 16 Lumbar Epidural steroid injection under fluoroscopic guidance completed Fede Cullen MD [address] , [address], [place], [address], [place] [facility] 03/29/2016 11:28:47 02/23/20 15 Lumbar Epidural steroid injection under fluoroscopic guidance completed Fede Cullen MD [address] , [address], [place], [address], [place] [facility] 02/22/2015 10:49:56 11/18/19 15 Lumbar Epidural steroid injection under fluoroscopic guidance completed Fede Cullen MD [address] , [address], [place], [address], [place] [facility] 11/17/2014 14:46:04 04/23/19 14 Knee Surgery completed Sona Hewitt [place] [facility] 11/04/2014 15:25:08 04/23/19 13 Other completed Sona Hewitt [place] [facility] 11/04/2014 15:25:08 04/23/19 12 Other completed Soan Hewitt [place] [facility] 11/04/2014 [...] XR, hip + pelvis, unilateral completed [facility] [address] [facility], [place], [address], 07/10/2017 13:05:16 Procedure Notes None recorded. Medical Equipment None Reported. Allergies Allergen ID Allergen Name Allergen Category Reaction Reaction Severity Criticality Documentation Date Start Date Code Code System Note Provider Name and Address Organization Details Recorded Time 23924 Substance with sulfonami de structure and antibacte rial mechanism of action (substanc e) medicatio n other Not available Not available 11/04/2014 02191 8003 SNOMED dre rgy Sona Kash roberts [facility] 5 15:25:08 28918 Product containin g penicilli n (product) medicatio n other Not available Not available 11/04/2014 43461 8001 SNOMED GI upset Sonacindi roberst [place] - [facility] 5 15:25:08 Medications Name [...] /min 98 % 98 % 27.1 kg/m2 83358.4 4 g 128 mm[Hg] 75 mm[Hg] Sona [...] Updated DateTime 7 172.72 cm 26.5 kg/m2 36451.0 7 g 55 /min 98 % 98 % 148 mm[Hg] 90 mm[Hg] Sona Hewitt [facility] 7 08:36:53 Date Recorded Pain severity - 0-10 verbal numeric rating [Score] - Reported Provider Name and Address Organization Details Last Updated DateTime 11/07/2016 7 Not Available [facility] 8 05:02:14 Date Recorded Body height [...] Tobacco Smoking Status Never Smoker Not Available [facility] 02/06/2020 03:16:10 What Is Your Level Of Alcohol Consumption? Occasional [id number] Information not available 02/06/2020 Are You Currently Employed? No [id number] Information not available 02/06/2020 Which Illicit Or Recreational Drugs Have You Used? No [id number] Information not available 02/06/2020 Education 4 Year College Bachelors [email or web address] Informatio n not available 11/04/2014 Live Alone Or With Others? With Others [email or web address] Information not available 11/04/2014 Marital Status angelo Informatio n not available 11/04/2014 What Was The Date Of Your Most Recent Tobacco Screening? 10/23/2017 [id number] Information not available 02/06/2020 Sex: Unknown Functional [...] SNOMED-CT Code Diagnosis ICD10 Code Diagnosis Note [id number] Fede Cullen MD PAIN OFFICE [address] [place] [address] 11/04/2014 14:51:07 11/08/2014 17:51:46 Displacement of lumbar intervertebral disc without myelopathy 43039659 Lumbosacra l radiculitis 15823322 Lumbosacra l spondylosis without myelopathy 86794620 Spinal jenniffer nosis of lumbar region 39898247 81166 Fede Cullen MD PAIN OFFICE [address] [place] [address] 11/17/2014 13:06:25 11/18/2014 15:22:02 Spinal stenosis of lumbar region 44424847 Lumbosacra l spondylosis without myelopathy 62861261 Displaceme nt of lumbar intervertebral disc without myelopathy 56683018 Lumbosacra l radiculitis 34004515 03484 PAIN OFFICE [address] [place] [address] 12/17/2014 09:21:01 12/17/2014 09:59:35 Spinal stenosis of lumbar region 92703753 Lumbosacra l spondylosis without myelopathy 90224399 Displaceme nt of lumbar intervertebral disc without myelopathy 53807057 Lumbosacra l radiculitis 86243275 21332 Fede Cullen MD PAIN OFFICE [address] [address] 02/22/2015 09:26:46 02/22/2015 15:05:54 Spinal stenosis of lumbar region 04393973 M48.06 Lumbosacra l spondylosis without myelopathy 98159475 M47.817 Displaceme nt of lumbar intervertebral disc without myelopathy 82073421 M51.26 Lumbosacra l radiculitis 50716609 M54.17 31457 Fede Cullen MD PAIN OFFICE [address] [address] 04/01/2015 09:13:06 04/01/2015 13:05:04 Spinal stenosis of lumbar region 94021277 M48.06 Lumbosacra l spondylosis without myelopathy 19509139 M47.817 Displaceme nt of lumbar intervertebral disc without myelopathy 84972948 M51.26 Lumbosacra l radiculitis 14913331 M54.17 93373 Fede Cullen MD PAIN OFFICE [address] [address] 03/23/2016 14:27:30 03/27/2016 08:38:37 Lumbosacral radiculitis 02457499 M54.17 Lumbosacra l spondylosis without myelopathy 04783121 M47.817 Spinal jenniffer nosis of lumbar region 39828607 M48.06 Displaceme nt of lumbar intervertebral disc without myelopathy 39828353 M51.26 51301 Fede Cullen MD PAIN OFFICE [address] [place] [address] 03/29/2016 10:49:29 03/29/2016 13:23:53 Lumbosacral radiculitis 52807821 M54.17 Lumbosacra l spondylosis without myelopathy 54442773 M47.817 Spinal jenniffer nosis of lumbar region 65146710 M48.06 Displaceme nt of lumbar intervertebral disc without myelopathy 24127120 M51.26 27997 Fede Cullen MD PAIN OFFICE [address] [place] [address] 11/02/2016 15:25:24 11/06/2016 15:34:09 Spinal stenosis of lumbar region 43736717 M48.06 Lumbosacra l spondylosis without myelopathy 31027257 M47.817 Displaceme nt of lumbar intervertebral disc without myelopathy 94597480 M51.26 Lumbosacra l radiculitis 87572999 M54.17 74166 Fede Cullen MD PAIN OFFICE [address] [place] [address] 11/07/2016 08:25:00 11/08/2016 09:10:48 Spinal stenosis of lumbar region 98445351 M48.06 Lumbosacra l spondylosis without myelopathy 96917970 M47.817 Displaceme nt of lumbar intervertebral disc without myelopathy 12275302 M51.26 Lumbosacra l radiculitis 77742494 M54.17 44239 Fede Cullen MD PAIN OFFICE [address] [address] 04/10/2017 14:19:05 04/11/2017 08:28:48 Spinal stenosis of lumbar region 76415667 M48.062 Lumbosacra l spondylosis without myelopathy 54537285 M47.817 Displaceme nt of lumbar intervertebral disc without myelopathy 75043654 M51.26 Lumbosacra l radiculitis 81627413 M54.17 46697 Fede Cullen MD PAIN OFFICE [address] [address] 07/05/2017 13:01:42 07/06/2017 10:02:22 Spinal stenosis of lumbar region 77939577 M48.062 Lumbosacra l spondylosis without myelopathy 37819665 M47.817 Displaceme nt of lumbar intervertebral disc without myelopathy 96253544 M51.26 Lumbosacra l radiculitis 67702187 M54.17 Pain of le ft hip joint 2943969041 39874 M25.552 64824 Fede Cullen MD PAIN OFFICE [address] [place] [address] 10/23/2017 14:28:21 10/24/2017 14:53:11 Spinal stenosis of lumbar region 02101844 M48.062 Lumbosacra l spondylosis without myelopathy 34222347 M47.817 Displaceme nt of lumbar intervertebral disc without myelopathy 79073928 M51.26 Lumbosacra l radiculitis 47700346 M54.17 Pain of le ft hip joint 9729022135 62784 M25.552 Health Concerns Section Related Observation LastModified by Organization Detai ls LastModified Time None Recorded Concern Status LastModified by Organization Details LastModified Time None Recorded Advance Directives Directive None Recorded Payers Encounter Date Sequence Insurance Name Policy Number Policy Anguiano Covered Member ID Anguiano Member ID Guarantor Name 11/02/2016 1 [facility]: [employer] 106 Ron Abel [id number] Ron Abel 11/07/2016 1 [facility]: [employer] 106 Ron Abel [id number] Ron Abel 04/10/2017 1 [facility]: [employer] 106 Ron Abel [id number] Ron Abel 07/05/2017 1 [facility]: [employer] 106 Ron Abel [id number] Ron Abel 10/23/2017 1 [facility]: [employer] 106 Ron Abel [id number] Ron Abel Notes Date Note Type Note [...] or bowel incontinence Fede Cullen MD [address] , [address], [place], [address], [facility] 11/06/2016 15:57:32 11/07/2016 text/html He is here today for a repeat lumbar epidural steroid injection under fluoroscopic guidance. Fede Cullen MD [address] , [address], [place], [address], [facility] 11/13/2016 08:44:37 04/10/2017 text/html He [...] or bowel incontinence. Fede Cullen MD [address] , [address] [place] [address], [place], [address], [facility] 04/12/2017 13:22:16 07/05/2017 text/html He [...] or bowel incontinence. Fede Cullen MD [address] , [address], [place], [address], [facility] 07/09/2017 10:06:12 10/23/2017 text/html He is here for a left hip steroid injection under fluoroscopic guidance Fede Cullen MD [address] , [address], [place], [address], [facility] 10/30/2017 08:33:45
--- OUTSIDE RECORDS SUMMARY | 2024-08-11 08:07 | XMS_ITS | Encounter Summary ---
Author Name [facility] [place] [facility] Address [address] [place] [address] Care Team Providers Care Clinical Geneticist Name Role Phone DOUGLAS, RAANGELAAvery Primary Care [...] Anguiano's Name Patient's Relationship to Policy [facility]ERR[facility]ER ORGANIZAT ION (PPO) PSHB STD SELF PLUS 1 Apr 23, 2024 32F [id number] VALENTÍN HERRING PATIENT MEDICARE (WNR) MEDICARE (M) PART A Dec 22, 2013 PART A [id number] VALENTÍN HERRING PATIENT Selected Encounter This [...] Appointment Type Appointme nt Facility Name Aug 12, 2024 02:30 PM AM[place]ULATORY - [place]ICINE [place] [facility] [facility] Aug 13, 2024 09:00 AM AMBULATORY - PSYCHIATRY [facility] Social History: Smoking Status [...] Smoking Status Comment Shahid ity Jan 22, 2024 11:00 AM VA-TOBACCO NEVER USED [place] Tobacco Use History This section includes a history of the smoking, or tobacco-related health factors, that were collected on or before the date of the Encounter. The data comes from the [place] facility where the Encounter took place. Date/Time Smoking Status/Tobacco Use Comment F acreanna September 07, 2020 09:30 AM VA-TOBACCO NEVER USED [facility] Jul 28, 2019 11:27 AM VA-TOBACCO NEVER USED [facility] September 11, 2018 10:11 AM VA-TOBACCO NEVER USED [facility] Encounter Notes: All associated encounter notes This section contains the clinical notes associated to the Encounter. Date/Time Encounter Note(s) Provider Source May 14, 2024 08:39 AM PSYCHIATRY NOTE: LOCAL TITLE: PSYCHIATRY NOTE STANDARD TITLE: PSYCHIATRY NOTE DATE OF NOTE: MAY 14, 2024@08:39 ENTRY DATE: MAY 14, 2024@08:39:20 AUTHOR: ISABELA GREENBERG COSIGNER: URGENCY: STATUS: COMPLETED Time spent: 21-30 minutes >16 mins supportive therapy (including empathic listening, insight building, and psychoeducation). The presents today for follow-up. PATIENT REPORT: He is conversational. Mood is even. [place] continues to benefit from medication. He denies [...] Virgil discusses various adventures from his youth ([place], [employer] near [place], etc.). He discusses how resourceful he is. [...] grandchildren) live upstairs Has a nephew in [place] Enjoys fishing, hiking, and walking SUICIDE RISK [...] with benefit. He sees [facility] at [facility] for individual therapy. He does not [...] By: 05/14/2024 09:01 /isai/ RAFAELA JOHNSON [employer] TECHNICIAN ISABELA GREENBERG
[2024-08-11 10:03] LABS: MANUAL DIFF FLAG NO
[2024-08-11 10:08] LABS: Basophils Absolute Auto 0.1 X10*3/uL (0.0-0.2); Basophils Percent Auto 0.7 % (0-2); Eosinophils Absolute Auto 0.3 X10*3/uL (0.0-0.4); Eosinophils Percent Auto 3.8 % (0-4); Hematocrit 42.4 % (42.0-52.0); Hemoglobin 13.9 g/dl (14.0-18.0); Imm Gran Abs Auto 0.06 X10*3/uL (0.00-0.03); Imm Gran Pct Auto 0.8 % (0.0-0.4); Lymphocytes Absolute Auto 1.8 X10*3/uL (1.2-4.9); Lymphocytes Percent Auto 23.5 % (20-40); Mean Corpuscular HGB Conc 32.8 g/dl (31.0-36.0); Mean Corpuscular Hemoglobin 30.3 pg (27.0-33.0); Mean Corpuscular Volume 92.6 fL (80.0-98.0); Mean Platelet Volume 10.5 fL (9.4-12.4); Monocytes Absolute Auto 0.6 X10*3/uL (0.1-1.2); Monocytes Percent Auto 7.6 % (2-11); Neutrophils Absolute Auto 4.8 x10*3/uL (2.0-8.3); Neutrophils Percent Auto 63.6 % (45-73); Platelet Count 255 X10*3/uL (160-400); Red Blood Count 4.58 X10*6/uL (4.60-5.80); Red Cell Distribution Width 14.4 % (11.0-16.0); White Blood Count 7.5 X10*3/uL (4.8-10.8)
[2024-08-11 10:15] LABS: Appearance Urine Clear; Color Urine Yellow; Glucose Urine UA Negative (Negative); Leukocyte Esterase Urine Negative (Negative); Nitrite Urine Negative (Negative); Specific Gravity - Urine 1.015 (1.005-1.025); Urine Blood Negative (Negative); Urine Ketones Negative (Negative); Urine Protein Negative (Neg-Trace)
[2024-08-11 10:30] LABS: Alanine Aminotransferase 18 U/L (0-40); Albumin Level 4.3 g/dL (3.5-5.0); Alkaline Phosphatase 58 U/L (39-117); Anion Gap 12 (12-20); Aspartate Amino Transferase 23 U/L (5-37); Bilirubin Total 0.4 mg/dL (0.0-1.0); Blood Urea Nitrogen 20 mg/dL (9-16); Calcium 9.1 mg/dL (8.4-10.2); Carbon Dioxide 28 mmol/L (22-29); Chloride 106 mmol/L (96-108); Cholesterol 160 mg/dL (<200); Estimated Glomerular Filt Rate > 60; Glucose Fasting 108 mg/dL (60-99); HDL Cholesterol 51 mg/dL (>40); LDL Cholesterol Calculated 91 mg/dL (<100); Potassium 4.5 mmol/L (3.3-5.1); Sodium 141 mmol/L (135-145); Total Protein 6.7 g/dL (6.5-8.0); Triglycerides 93 mg/dL (<150)
[2024-08-11 10:46] LABS: TSH reflex Free T4 0.78 uIU/mL (0.32-4.0)
[2024-08-12 19:08] LABS: A. Phagocytphilium DNA,RT-PCR NOT DETECTED (NOT DETECTED); Babesia Microti DNA, RT-PCR NOT DETECTED (NOT DETECTED); Borrelia Miyamotoi,DNA RT-PCR NOT DETECTED (NOT DETECTED); E.Chaffeensis DNA RT-PCR NOT DETECTED (NOT DETECTED); Lyme(Borrelia ssp)DNA RT-PCR NOT DETECTED (NOT DETECTED)
[2024-08-13 03:18] LABS: Lyme Abs Screen <0.90 index
== END 2024-08-11 08:05 | disposition home or self-care (01) ==
LOC: HO.HMGCLDS 08:04
PROVIDERS: PCP Nurse Practitioner Family; Visit Provider Nurse Practitioner Family
DX: E78.5 Hyperlipidemia, unspecified (principal)
CPT/HCPCS: 36415; 80053; 80061; 81003; 84443; 85025; 86617; 86618; 87468; 87469; 87478; 87484; 87798

== ENCOUNTER 2024-09-11 12:55 | Outpatient (AMB) | payer MEDICARE, BC, SELFPAY ==
--- NOTE | 2024-09-11 12:57 | MHC.OFFVIS ---
Vital Signs 09/11/24 13:05 Height 5 ft 8 in Weight 161 lb BMI 24.5 BP 154/72 H Blood Pressure Location Rt brachial Position Sitting Pulse 60 Intake Visit Reasons: pain from the surgical site area down the leg Intake Note: Patient here c/o pain along surgical site that spreads down legs but worse on Lt leg. Patient c/o: experienced discomfort on Lt upper groin/thigh area after squatting down. Patient states discomfort improved after 3days. Surgery: open bilateral inguinal herniorrhaphy with Bard mesh: 02-21-2024 Signal Person Required: No Accompanied by: Self / Same As Patient Allergies codeine [CODEINE] Allergy (Intermediate, Verified 09/11/24 13:05) NAUSEA, stomach upset lisinopril Allergy (Intermediate, Verified 09/11/24 13:05) angioedema Sulfa (Sulfonamide Antibiotics) [SULFA (SULFONAMIDE ANTIBIOTICS)] Allergy (Intermediate, Verified 09/11/24 13:05) NAUSEA, stomach upset Medication List - Last Reconciled 09/11/24 by Supa Weber MD amlodipine 5 mg PO DAILY 90 days cholecalciferol (vitamin D3) 50 mcg PO DAILY 90 days diclofenac sodium 75 mg PO BID PRN esomeprazole magnesium 20 mg PO DAILY hydroxyzine HCl 10 mg PO TID PRN ipratropium bromide 2 sprays intranasal BID PRN pravastatin 40 mg PO DAILY sertraline 100 mg PO DAILY HPI HPI pain from the surgical site area down the leg: Details: 74-year-old male, who had undergone bilateral inguinal hernia repair with Dr. Mace last January,, here because of pain on his left quadriceps He says that this started about 2 months ago. He describes this has some shooting pain from the proximal quadriceps going all the way down to his knee. He does admit that he has a knee joint problem on the same side. He denies any palpable mass on the inguinal hernia repair site. He denies any pain in the inguinal hernia repair site itself. [facility] Medical History (Updated 09/11/24 @ 13:16 by Supa Weber MD) Thigh pain History of injury of tendon (~2013) Environmental and seasonal allergies Ascending aorta dilatation Screening PSA (prostate specific antigen) Acute otitis media Hip pain Abdominal hernia Physical exam Physical exam Screening for colon cancer Erectile dysfunction Kidney cysts Pheochromocytoma TIA (transient ischemic attack) (~2008) Hypercholesterolemia Mild acid reflux High blood pressure determined by examination Renal cyst, acquired Microscopic hematuria Tubular adenoma of colon Colon cancer screening Back pain Hip flexor tendonitis Hip arthritis Quadriceps tendon rupture Serous otitis media Acute sinusitis Otitis externa of both ears Otitis media Viral syndrome Encounter for screening laboratory testing for COVID-19 virus Surgical History Hx of bilateral inguinal hernia repair History of esophagogastroduodenoscopy (EGD) (~2018) Hx of colonoscopy (~2018) H/O neck surgery H/O umbilical hernia repair History of back surgery History of ankle surgery History of surgery Family History Father Substance use disorder Brother Substance use disorder Mother Liver cancer History of kidney cancer Paternal Uncle HTN (hypertension) Maternal Aunt Cancer Family/Other Cancer Social History Housing: House Are you a primary career technology teacher to a significant other at home: No Do you presently have visiting nurse or other home services: No Alcohol intake: current Alcohol intake frequency: does not drink Patient Tobacco Use Status: Never used Tobacco e-Cigarette/Vaping Use: Never Used Second Hand Smoke Exposure: No service: Yes Current occupational status: retired Cognitive needs: No Hearing needs: No Vision needs: No Review of Systems Const Denies chills and Denies fever(s) Card Denies chest pain, Denies dyspnea and Denies dyspnea on exertion Resp Denies cough, Denies dyspnea and Denies dyspnea on exertion GI Denies hematochezia and Denies change in bowel habits Denies hematuria and Denies difficulty urinating Musc Denies back pain and Denies limited range of motion Neuro Denies focal weakness and Denies convulsions Psych Denies depression and Denies mood swings Physical Exam Vital Signs: Last Vital Signs Pulse 60 09/11/24 13:05 BP 154/72 H 09/11/24 13:05 BMI result Body Mass Index 24.5 Const General: comfortable and no acute distress Orientation/consciousness: patient oriented x3 Neck Neck: Yes no lymphadenopathy Resp Auscultation: clear to auscultation bilaterally Cardio Rhythm: regular rhythm GI Other: No signs of any recurrent hernia on both groins, both hernia repair sites are well healed, and intact, no tenderness Palpation (GI): Soft to palpation, nontender and no guarding Neuro General: patient oriented x3 Assessment & Plan Assessment & Plan (1) Thigh pain: Code(s): M79.659 - Pain in unspecified thigh Category: Medical Plan: He describes pain on his quadriceps area with a past 2 months mostly on the left side. He was concerned that this may be related to his old inguinal hernia repair from last year Current exam does not suggest any palpable recurrent hernia nor any incision changes. He points to an area on his quadriceps that bothers him on and off although he says that this has felt better after he had rested this for a few days I told him that we would this unlikely that this quadriceps pain is secondary to his previous surgery for his hernia repair. I assured him that there were no palpable recurrent hernias I told him that I will see him again in the office if he continues to have problems down the line. Coding Level of Care Code Est Pt Level 3 (72057) Diagnoses Thigh pain M79.659
--- OUTSIDE RECORDS SUMMARY | 2024-09-11 12:59 | XMS_ITS | Data Portability ---
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 [email or web address] Not available 11/06/2016 15:32:34 11/07/2016 43617 He was advised against bed rest lasting longer than four days and to continue activities as tolerated. [email or web address] Not available 11/07/2016 08:59:54 04/10/2017 32730 He was advised against bed rest lasting longer than four days and to continue activities as tolerated. [email or web address] Not available 04/10/2017 15:31:44 07/05/2017 81177 He was advised against bed rest lasting longer than four days and to continue activities as tolerated. [email or web address] Not available 07/06/2017 09:57:47 10/23/2017 27015 He was advised against bed rest lasting longer than four days and to continue activities as tolerated. delma Not available 10/23/2017 15:01:25 Reason for Referral None Reported. Results Created Date Observation Date Name Description Value Unit Range Abnormal Flag Note LastModifiedBy Organization Detail LastModifiedTime 07/07/19 18 07/06/2017 XR, hip + pelvi s, unila teral No observ ation record ed. [email or web address] [facility] Dept [address] [place], [address], 07/10/2017 13:05:16 Result Notes None recorded. 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 05983692 Active Fede nadiu MD [address] , [address], [place], [address], [place] [facility] 5 09:42:49 Lumbosacral spondylosis without myelopathy 60186432 Active Fede naidu MD [address] , [address], [place], [address], [place] [facility] 5 09:42:49 Lumbosacral radiculitis 50990351 Active Fede naidu MD [address] , [address], [place], [address], [place] [facility] 5 09:42:49 Pain of left hip joint 0536657609123 00 Active Fede naidu MD [address] , [address], [place], [address], [place] [facility] 8 09:58:09 Problem Notes None recorded. Procedures Surgical History Date Name Laterality Status Provider Name and Address Organization Details Recorded Time 10/24/19 18 Intra-articular Hip Steroid Injection completed Fede Cullen MD [address] , [address], [place], [address], [place] [facility] 10/23/2017 15:00:35 04/10/20 17 Lumbar Epidural steroid injection under fluoroscopic guidance completed Fede Cullen MD [address] , [address], [place], [address], [place] [facility] 04/10/2017 15:33:49 11/08/19 17 Lumbar Epidural steroid injection under fluoroscopic guidance completed Fede Cullen MD [address] , [address], [place], [address], [place] [facility] 11/07/2016 09:00:44 03/29/20 16 Lumbar Epidural steroid injection under fluoroscopic guidance completed Fede Cullen MD [address] , [address], [place], [address], [place] [facility] 03/29/2016 11:28:47 02/23/20 15 Lumbar Epidural steroid injection under fluoroscopic guidance completed Fede Cullen MD [address] , [address], [place], [address], [place] [facility] 02/22/2015 10:49:56 11/18/19 15 Lumbar Epidural steroid injection under fluoroscopic guidance completed Fede Cullen MD [address] , [address], [place], [address], [place] [facility] 11/17/2014 [...] 07/06/2017 XR, hip + pelvis, unilateral completed [facility] Dept [address] [facility], [place], [address], 07/10/2017 13:05:16 Procedure Notes None recorded. Medical Equipment None Reported. Allergies Allergen ID Allergen Name Allergen Category Reaction Reaction Severity Criticality Documentation Date Start Date Code Code System Note Provider Name and Address Organization Details Recorded Time 02550 Substance with sulfonami de structure and antibacte rial mechanism of action (substanc e) medicatio n other Not available Not available 11/04/2014 61606 8003 SNOMED dre rgy Sona Kash roberts [facility] 5 15:25:08 52133 Product containin g penicilli n (product) medicatio n other Not available Not available 11/04/2014 30316 8001 SNOMED GI upset Sonacindi roberts [place] - [facility] 5 15:25:08 Medications Name [...] /min 98 % 98 % 27.1 kg/m2 03491.4 4 g 128 mm[Hg] 75 mm[Hg] Sona [...] Updated DateTime 7 172.72 cm 26.5 kg/m2 57223.0 7 g 55 /min 98 % 98 % 148 mm[Hg] 90 mm[Hg] Sona Heiwtt [place] [facility] 7 08:36:53 Date Recorded Body height Heart rate Oxygen saturation Oxygen saturation in Arterial blood by Pulse oximetry Systolic blood pressure Diastolic blood pressure Provider Name and Address Organization Details Last Updated DateTime 7 172.72 cm 73 /min 97 % 97 % 128 mm[Hg] 73 mm[Hg] Sona Hewitt [place] - [facility] 7 14:33:09 Date [...] Tobacco Smoking Status Never [facility]oker Not Available [facility] 02/06/2020 03:16:10 Which Illicit Or Recreational Drugs Have You Used? No [id number] Information not available 02/06/2020 Education 4 Year College Bachelors [email or web address] Information not available 11/04/2014 Live Alone Or With Others? With Others [email or web address] Information not available 11/04/2014 Marital Status [email or web address] Informatio n not available 11/04/2014 What Was The Date Of Your Most Recent Tobacco Screening? 10/23/2017 [id number] Information not available 02/06/2020 Sex: Unknown Functional Status Question Answer Note LastModified by Organizat ion Details LastModified Time What is your level of alcohol consumption? Occasional [id number] Information not available 02/06/2020 Are you currently employed? No [id number] Information not available 02/06/2020 Mental Status None recorded. Family History Relationship [...] SNOMED-CT Code Diagnosis ICD10 Code Diagnosis Note 29585 Fede Cullen MD PAIN OFFICE [address] [place] [address] 11/04/2014 14:51:07 11/08/2014 17:51:46 Displacement of lumbar intervertebral disc without myelopathy 17880591 Lumbosacra l radiculitis 93143399 Lumbosacra l spondylosis without myelopathy 83698367 Spinal jenniffer nosis of lumbar region 63113830 58187 Fede Cullen MD PAIN OFFICE [address] [place] [address] 11/17/2014 13:06:25 11/18/2014 15:22:02 Spinal stenosis of lumbar region 85186167 Lumbosacra l spondylosis without myelopathy 84047996 Displaceme nt of lumbar intervertebral disc without myelopathy 54891998 Lumbosacra l radiculitis 42155816 71195 Fede Cullen MD PAIN OFFICE [address] [place] [address] 12/17/2014 09:21:01 12/17/2014 09:59:35 Spinal stenosis of lumbar region 47956000 Lumbosacra l spondylosis without myelopathy 94679340 Displaceme nt of lumbar intervertebral disc without myelopathy 15617311 Lumbosacra l radiculitis 11678433 53101 Fede Cullen MD PAIN OFFICE [address] [place] [address] 02/22/2015 09:26:46 02/22/2015 15:05:54 Spinal stenosis of lumbar region 47336930 M48.06 Lumbosacra l spondylosis without myelopathy 68648058 M47.817 Displaceme nt of lumbar intervertebral disc without myelopathy 15706135 M51.26 Lumbosacra l radiculitis 21487697 M54.17 60114 Fede Cullen MD PAIN OFFICE [address] [place] [address] 04/01/2015 09:13:06 04/01/2015 13:05:04 Spinal stenosis of lumbar region 75060968 M48.06 Lumbosacra l spondylosis without myelopathy 39402415 M47.817 Displaceme nt of lumbar intervertebral disc without myelopathy 53612538 M51.26 Lumbosacra l radiculitis 79591027 M54.17 46143 Fede Cullen MD PAIN OFFICE [address] [place] [address] 03/23/2016 14:27:30 03/27/2016 08:38:37 Lumbosacral radiculitis 08383335 M54.17 Lumbosacra l spondylosis without myelopathy 46720818 M47.817 Spinal jenniffer nosis of lumbar region 04637869 M48.06 Displaceme nt of lumbar intervertebral disc without myelopathy 12839734 M51.26 85007 Fede Cullen MD PAIN OFFICE [address] [facility] [place] [address] 03/29/2016 10:49:29 03/29/2016 13:23:53 Lumbosacral radiculitis 65426604 M54.17 Lumbosacra l spondylosis without myelopathy 50960813 M47.817 Spinal jenniffer nosis of lumbar region 22374705 M48.06 Displaceme nt of lumbar intervertebral disc without myelopathy 11857218 M51.26 95699 Fede Cullen MD [facility] [address] [place] [address] 11/02/2016 15:25:24 11/06/2016 15:34:09 Spinal stenosis of lumbar region 19623145 M48.06 Lumbosacra l spondylosis without myelopathy 66434218 M47.817 Displaceme nt of lumbar intervertebral disc without myelopathy 04760362 M51.26 Lumbosacra l radiculitis 34638969 M54.17 85029 Fede Cullen MD PAIN OFFICE [address] [place] [address] 11/07/2016 08:25:00 11/08/2016 09:10:48 Spinal stenosis of lumbar region 12698090 M48.06 Lumbosacra l spondylosis without myelopathy 73646038 M47.817 Displaceme nt of lumbar intervertebral disc without myelopathy 00908017 M51.26 Lumbosacra l radiculitis 82222897 M54.17 34138 Fede Cullen MD PAIN OFFICE [address] [place] [address] 04/10/2017 14:19:05 04/11/2017 08:28:48 Spinal stenosis of lumbar region 90940675 M48.062 Lumbosacra l spondylosis without myelopathy 80135644 M47.817 Displaceme nt of lumbar intervertebral disc without myelopathy 30380271 M51.26 Lumbosacra l radiculitis 96274633 M54.17 74584 Fede Cullen MD [facility] [address] [place] [address] 07/05/2017 13:01:42 07/06/2017 10:02:22 Spinal stenosis of lumbar region 36945438 M48.062 Lumbosacra l spondylosis without myelopathy 42567778 M47.817 Displaceme nt of lumbar intervertebral disc without myelopathy 35199031 M51.26 Lumbosacra l radiculitis 80585308 M54.17 Pain of le ft hip joint 3143980524 55227 M25.552 05994 Fede Cullen MD PAIN OFFICE [address] [facility] [address] [place] [address] 10/23/2017 14:28:21 10/24/2017 14:53:11 Spinal stenosis of lumbar region 70171758 M48.062 Lumbosacra l spondylosis without myelopathy 67361868 M47.817 Displaceme nt of lumbar intervertebral disc without myelopathy 53069759 M51.26 Lumbosacra l radiculitis 99170526 M54.17 Pain of le ft hip joint 9326013560 99140 M25.552 Health Concerns Section Related Observation LastModified by Organization Detai ls LastModified Time None Recorded Concern Status LastModified by Organization Details LastModified Time None Recorded Advance Directives Directive None Recorded Payers Encounter Date Sequence Insurance Name Policy Number Policy Anguiano Covered Member ID Anguiano Member ID Guarantor Name 11/02/2016 1 [facility] Ron Abel [id number] Ron Abel 11/07/2016 1 [facility] [employer] Ron Abel [id number] Ron Abel 04/10/2017 1 [facility] [employer] 106 Ron Abel [id number] Ron Abel 07/05/2017 1 [facility] 106 Ron Abel [id number] Ron Abel 10/23/2017 1 [facility] 106 Ron Abel [id number] Ron Abel Notes Date Note Type Note [...] or bowel incontinence Fede Cullen MD [address] [facility] [address], [place], [address], [facility] - [facility] 11/06/2016 15:57:32 11/07/2016 text/html He is here today for a repeat lumbar epidural steroid injection under fluoroscopic guidance. Fede Cullen MD [address] , [address], [place], [address], [place] [facility] 11/13/2016 08:44:37 [...] or bowel incontinence. Fede Cullen MD [address] [facility] [address], [place], [address], [place] [facility] 04/12/2017 13:22:16 07/05/2017 [...] bowel incontinence. Fede Cullen MD [address] , [address], [place], [address], [place] [facility] 07/09/2017 10:06:12 10/23/2017 text/html He is here for a left hip steroid injection under fluoroscopic guidance Fede Cullen MD [address] , [address], [place], [address], [place] [facility] 10/30/2017 08:33:45
--- OUTSIDE RECORDS SUMMARY | 2024-09-11 12:59 | XMS_ITS | Continuity of Care Document ---
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 It does not include entries that were removed or entered in error. Problem Status Onset Date Problem Type Date of Resolution Comments Source Adrenal tumor Active Condition Jan Entered By: TED BISHOP Comment: s/p excision right [place] Angioid streaks of choroid Active Condition [facility] Chronic post-traumatic stress disorder Active Condition Dec 24, 2019 Entered By: ISABELA GREENBERG Comment: reviewedMar 21, 2021 Entered By: ISABELA GREENBERG Comment: reviewed [place] Degenerative arthritis Active Condition Sep 23, 2018 Entered By: TED BISHOP Comment: s/p oracio ankle reconstruction [place] Essential hypertension Active Condition [place] Exposure to potentially hazardous substance Active Condition Jul 04, 2023 Entered By: AMI LEDESMA Comment: Connect Snomed Code to ICD 10 Code refer to note dated 01/22/23 [facility] History of spinal surgery Active Condition Sep 23, 2018 Entered By: TED BISHOP Comment: x4 cervical surgeries [place] Tear of quadriceps tendon Active Condition Sep 23 Entered By: TED BISHOP Comment: L s/p surgery [place] Thoracic outlet syndrome Active Condition Sep 23, 2018 Entered By: TED BISHOP Comment: s/p R surgery [place] Diagnosis: ICD-10-CM F43.12 Post-traumatic stress disorder, chronic Active Diagnosis [place] Diagnosis: ICD-10-CM H25.813 Combined forms of age-related cataract, bilateral Active Diagnosis [facility] Diagnosis: ICD-10-CM Z00.01 Encounter for general adult medical exam w abnormal findings Active Diagnosis [facility] [place] Diagnosis: ICD-10-CM Z02.89 Encounter for other administrative examinations Active Diagnosis [facility] Medications Combined list [...] MOUTH ONCE DAILY ORAL ACTIVE CRYSTAL BISHOPE [place] CHOLECALCIF DAVION 50MCG (2,000UNIT) TAB TAKE ONE TABLET BY MOUTH ONCE DAILY ORAL ACTIVE DARIOASTONSkylar MCCABE [place] DICLOFENAC NA 75MG TAB,EC TAKE ONE TABLET BY MOUTH TWICE DAILY ORAL ACTIVE DARIO,CRYSTAL ESTELLE [place] ESOMEPRAZOL E 20MG (BASE) CAP,EC TAKE 1 CAPSULE BY MOUTH ONCE DAILY ORAL ACTIVE DARIOCRYSTAL ESTELLE [place] HYDROXYZINE HCL 10MG TAB TAKE ONE TABLET BY MOUTH FOUR TIMES DAILY NEEDED FOR ANXIETY ORAL ACTIVE 08/14/2025 [id number] 5 VLADIMIR GREENBERG 2024 120 [place] HYDROXYZINE HCL 10MG TAB TAKE ONE TABLET BY MOUTH FOUR TIMES DAILY NEEDED FOR ANXIETY ORAL DISCONT INUED 05/15/2025 [id number] 5 VLADIMIR GREENBERG 2024 120 [place] HYDROXYZINE HCL 10MG TAB TAKE ONE TABLET BY MOUTH FOUR TIMES DAILY NEEDED FOR ANXIETY ORAL DISCONT INUED 02/11/2025 [id number] 4 VLADIMIR GREENBERG 2023 120 [place] HYDROXYZINE HCL 10MG TAB TAKE ONE TABLET BY MOUTH FOUR TIMES DAILY NEEDED FOR ANXIETY ORAL DISCONT INUED 11/12/2024 [id number] VLADIMIR GREENBERG 2023 120 [place] HYDROXYZINE HCL 10MG TAB TAKE ONE TABLET BY MOUTH FOUR TIMES DAILY NEEDED FOR ANXIETY ORAL DISCONT INUED (EDIT) 07/30/2024 [id number] VLADIMIR GREENBERG 2023 120 [place] HYDROXYZINE HCL 10MG TAB TAKE ONE TABLET BY MOUTH FOUR TIMES DAILY NEEDED FOR ANXIETY ORAL DISCONT INUED 04/30/2024 [id number] 4 VLADIMIR GREENBERG 2023 120 [place] PRAVASTATIN NA 40MG TAB TAKE ONE TABLET BY MOUTH AT BEDTIME ORAL ACTIVE CRYSTAL BISHOP [place] SERTRALINE HCL 100MG TAB TAKE ONE AND ONE-HALF TABLETS BY MOUTH EVERY MORNING FOR MOOD AND PTSD ORAL ACTIVE 08/14/2025 [id number] 5 VLADIMIR GREENBERG 2024 90 [facility] IELD SERTRALINE HCL 100MG TAB TAKE ONE AND ONE-HALF TABLETS BY MOUTH EVERY MORNING FOR MOOD AND PTSD ORAL DISCONT INUED 05/15/2025 [id number] 5 VLADIMIR GREENBERG 2024 90 [facility] IELD SERTRALINE HCL 100MG TAB TAKE ONE AND ONE-HALF TABLETS BY MOUTH EVERY MORNING FOR MOOD AND PTSD ORAL DISCONT INUED 02/11/2025 [id number] 4 VLADIMIR GREENBERG 2023 90 [facility] IELD SERTRALINE HCL 100MG TAB TAKE ONE AND ONE-HALF TABLETS BY MOUTH EVERY MORNING FOR MOOD AND PTSD ORAL DISCONT INUED 11/12/2024 [id number] VLADIMIR GREENBERG 2023 90 [facility]ELD SERTRALINE HCL 100MG TAB TAKE ONE AND ONE-HALF TABLETS BY MOUTH EVERY MORNING -FOR PTSD ORAL DISCONT INUED (EDIT) 07/30/2024 [id number] 4 VLADIMIR GREENBERG 2023 45 [facility] IELD SERTRALINE HCL 100MG TAB TAKE ONE AND ONE-HALF TABLETS BY MOUTH EVERY MORNING -FOR PTSD ORAL DISCONT INUED 04/30/2024 [id number] 4 VLADIMIR GREENBERG 2023 45 [facility] [place] Allergies, Adverse Reactions, Alerts Combined list of allergies from Department of Defense and Veterans Affairs facilities. It does not include entries that were removed or entered in error. Substance Category Reaction Severity Reaction type Status Date Reported Comments Source BACTRIM Propensity to adverse reactions to drug (finding) Indigestion active 9 [facility] CODEINE Propensity to adverse reactions to drug (finding) Indigestion active 9 [facility] Immunizations Combined list of available immunizations from the Department of Defense and Veterans Affairs facilities. Immunization Series Date Given Administered By Site Reaction Lot Number CVX Code Drug Fairing Man Status Comments Source INFLUENZA, HIGH-DOSE, TRIVALENT, PF 2023 ANDRE TOSCANO RIGHT DELTO ID [id number] A 135 complet ed [facility]MINISTE [facility] AT [facility] [place] INFLUENZA, HIGH-DOSE, QUADRIVALENT 2022 MARIANAARELYMAITE Branch SA LEFT DELTO ID [id number] A 197 complet ed Completed Series, ADMINISTE [facility] [place] [facility] [facility] ZOSTER RECOMBINANT 2 2020 187 complet ed [facility] INFLUENZA VACCINE, QUADRIVALENT, ADJUVANTED 2020 205 complet ed [facility] [place] ZOSTER RECOMBINANT 1 2020 187 complet ed [facility] COVID-19 (MODERNA), MRNA, LNP-S, PF, 100 MCG/0.5 ML DOSE 2 2020 207 complet ed MOD; [id number]; [facility] COVID-19 (MODERNA), MRNA, LNP-S, PF, 100 MCG/0.5 ML DOSE 1 2020 207 complet ed MOD; [id number]; [facility] INFLUENZA, SEASONAL, INJECTABLE 2018 141 [facility] ed [facility] ZOSTER RECOMBINANT 2 2018 187 complet ed sent to scan. [facility] [place] [facility] PNEUMOCOCCAL CONJUGATE PCV 13 2018 133 complet ed sent to scan through Right Fax. [facility] [place] ZOSTER RECOMBINANT 1 2018 187 complet ed document sent to scan [facility] INFLUENZA, SEASONAL, INJECTABLE 2017 141 complet ed [facility] TD(ADULT) UNSPECIFIED FORMULATION 2017 139 [...] Jan 22, 2023 01:19 PM Reporting Lab: [address] [address] Performing Lab: [address] [address] [place] URINALYS IS COLOR OF URINE Light-Ye llow 01/13 Specimen Type: URINE Comment: If Glucose = >500 and Ketones are positive, please alert the Physician. Ordering Provider: GIUSEPPE BISHOP IE Report Released Date/Time: Jan 22, 2023 01:19 PM Reporting Lab: [facility] [address] [facility] [address] [address] Performing Lab: [address] [address] [place] URINALYS IS APPEARANCE OF URINE Clear 01/13 Specimen Type: URINE Comment: If Glucose = >500 and Ketones are positive, please alert the Physician. Ordering Provider: GIUSEPPE BISHOP IE Report Released Date/Time: Jan 22, 2023 01:19 PM Reporting Lab: [facility] [address] [facility] [address] Performing Lab: [address] [address] [place] URINALYS IS GLUCOSE [MASS/VOLU ME] IN URINE Normalmg /dL 01/13 Specimen Type: URINE Comment: If Glucose = >500 and Ketones are positive, please alert the Physician. Ordering Provider: GIUSEPPE BISHOP Report Released Date/Time: Jan 22, 2023 01:19 PM Reporting Lab: [facility] [address] [address] Performing Lab: [facility] [address] [address] [place] URINALYS IS KETONES [MASS/VOLU ME] IN URINE BY TEST STRIP NEGATIVE mg/dL 01/13 Specimen Type: URINE Comment: If Glucose = >500 and Ketones are positive, please alert the Physician. Ordering Provider: GIUSEPPE BISHOP Report Released Date/Time: Jan 22, 2023 01:19 PM Reporting Lab: [address] [address] Performing Lab: [address] [address] [place] URINALYS IS ERYTHROCYT ES [PRESENCE] IN URINE SEDIMENT BY LIGHT MICROSCOPY NEGATIVE mg/dL 01/13 Specimen Type: URINE Comment: If Glucose = >500 and Ketones are positive, please alert the Physician. Ordering Provider: GIUSEPPE BISHOP Report Released Date/Time: Jan 22, 2023 01:19 PM Reporting Lab: [address] [address] Performing Lab: [facility] [address] [place] URINALYS IS PROTEIN [MASS/VOLU ME] IN URINE BY TEST STRIP NEGATIVE mg/dL 01/13 Specimen Type: URINE Comment: If Glucose = >500 and Ketones are positive, please alert the Physician. Ordering Provider: GIUSEPPE BISHOP Report Released Date/Time: Jan 22, 2023 01:19 PM Reporting Lab: [address] [address] Performing Lab: [facility] [address] [address] [place] URINALYS IS NITRITE [PRESENCE] IN URINE NEGATIVE mg/dL 01/13 Specimen Type: URINE Comment: If Glucose = >500 and Ketones are positive, please alert the Physician. Ordering Provider: GIUSEPPE BISHOP IE Report Released Date/Time: Jan 22, 2023 01:19 PM Reporting Lab: [address] [address] Performing Lab: [address] [address] [place] URINALYS IS BILIRUBIN. TOTAL [PRESENCE] IN URINE NEGATIVE mg/dL 01/13 Specimen Type: URINE Comment: If Glucose = >500 and Ketones are positive, please alert the Physician. Ordering Provider: GIUSEPPE BISHOP IE Report Released Date/Time: Jan 22, 2023 01:19 PM Reporting Lab: [address] [address] Performing Lab: [address] [address] [place] SPECIFIC GRAVITY OF URINE BY REFRACTOME TRY 1.024 1.016 - 1.022 01/13 H Specimen Type: URINE Comment: If Glucose = >500 and Ketones are positive, please alert the Physician. Ordering Provider: GIUSEPPE BISHOP Report Released Date/Time: Jan 22, 2023 01:19 PM Reporting Lab: [address] [address] Performing Lab: [address] [address] [place] URINALYS IS PH OF URINE BY TEST STRIP 5.5 5.0 - 9.0 01/13 Specimen Type: URINE Comment: If Glucose = >500 and Ketones are positive, please alert the Physician. Ordering Provider: GIUSEPPE BISHOP IE Report Released Date/Time: Jan 22, 2023 01:19 PM Reporting Lab: [address] [address] Performing Lab: [facility] [address] [address] [place]IN[place] UROBILINOG EN [MASS/VOLU ME] IN URINE BY TEST STRIP Normalmg /dL <2.0 - 2.0 01/13 Specimen Type: URINE Comment: If Glucose = >500 and Ketones are positive, please alert the Physician. Ordering Provider: GIUSEPPE BISHOP IE Report Released Date/Time: Jan 22, 2023 01:19 PM Reporting Lab: [address] [address] Performing Lab: [address] [address] [place] URINAL[place] IS LEUKOCYTE ESTERASE [PRESENCE] IN URINE BY TEST STRIP NEGATIVE 01/13 Specimen Type: URINE Comment: If Glucose = >500 and Ketones are positive, please alert the Physician. Ordering Provider: GIUSEPPE BISHOP IE Report Released Date/Time: Jan 22, 2023 01:19 PM Reporting Lab: [address] [address] Performing Lab: [address] [address] [place] BASIC METABOLI C PANEL (fasting ) UREA NITROGEN [MASS/VOLU ME] IN SERUM OR PLASMA 31 mg/dL 7 - 25 01/13 H Specimen Type: SERUM No comment entered. Ordering Provider: GIUSEPPE BISHOP IE Report Released Date/Time: Jan 22, 2023 01:19 PM Reporting Lab: [address] [address] Performing Lab: [address] [address] [place] [employer] BASIC METABOLI C PANEL (fasting ) GLUCOSE [MASS/VOLU ME] IN SERUM OR PLASMA 91 mg/dL 65 - 100 01/13 Specimen Type: SERUM No comment entered. Ordering Provider: GIUSEPPE BISHOP IE Report Released Date/Time: Jan 22, 2023 01:19 PM Reporting Lab: [address] [address] Performing Lab: [facility] [address] [facility] [address] [place] BASIC METABOLI C PANEL (fasting ) SODIUM [MOLES/VOL UME] IN SERUM OR PLASMA 141 mmol/L 135 - 145 01/13 Specimen Type: SERUM No comment entered. Ordering Provider: GIUSEPPE BISHOP IE Report Released Date/Time: Jan 22, 2023 01:19 PM Reporting Lab: [address] [address] Performing Lab: [address] [address] [place] BASIC METABOLI C PANEL (fasting ) POTASSIUM [MOLES/VOL UME] IN SERUM OR PLASMA 4.6 mmol/L 3.5 - 5.0 01/13 Specimen Type: SERUM No comment entered. Ordering Provider: GIUSEPPE BISOHP IE Report Released Date/Time: Jan 22, 2023 01:19 PM Reporting Lab: [address] [address] Performing Lab: [address] [address] [place] BASIC METABOLI C PANEL (fasting ) CHLORIDE [MOLES/VOL UME] IN SERUM OR PLASMA 106 mmol/L 100 - 110 01/13 Specimen Type: SERUM No comment entered. Ordering Provider: GIUSEPPE BISHOP IE Report Released Date/Time: Jan 22, 2023 01:19 PM Reporting Lab: [address] [address] Performing Lab: [address] [address] [place] BASIC METABOLI C PANEL (fasting ) CARBON DIOXIDE, TOTAL [MOLES/VOL UME] IN SERUM OR PLASMA 28 meq/L 20 - 30 01/13 Specimen Type: SERUM No comment entered. Ordering Provider: GIUSEPPE BISHOP IE Report Released Date/Time: Jan 22, 2023 01:19 PM Reporting Lab: [address] [address] Performing Lab: [facility] [address] [facility] [address] [place] BASIC METABOLI C PANEL (fasting ) CREATININE [MASS/VOLU ME] IN SERUM OR PLASMA 1.09 mg/dL 0.50 - 1.40 01/13 Specimen Type: SERUM No comment entered. Ordering Provider: GIUSEPPE BISHOP IE Report Released Date/Time: Jan 22, 2023 01:19 PM Reporting Lab: [facility] [address] [facility] [facility] [address] Performing Lab: [address] [address] [place] BASIC METABOLI C PANEL (fasting ) GLOMERULAR FILTRATION RATE/1.73 SQ M.PREDICTE D [VOLUME RATE/AREA] IN SERUM, PLASMA OR BLOOD BY CREATININE -BASED FORMULA (CKD-EPI 2020) 71 mL/min 60 01/13 Specimen Type: SERUM No comment entered. Ordering Provider: GIUSEPPE BISHOP IE Report Released Date/Time: Jan 22, 2023 01:19 PM Reporting Lab: [address] [address] Performing Lab: [address] [address] [place] LIPID PANEL FASTING CHOLESTERO L [MASS/VOLU ME] IN SERUM OR PLASMA 158 mg/dL 01/13 Specimen Type: SERUM No comment entered. Ordering Provider: GIUSEPPE BISHOP IE Report Released Date/Time: Jan 22, 2023 01:19 PM Reporting Lab: [address] [address] Performing Lab: [address] [address] [place] LIPID PANEL FASTING TRIGLYCERI DE [MASS/VOLU ME] IN SERUM OR PLASMA 81 mg/dL 0 - 150 01/13 Specimen Type: SERUM No comment entered. Ordering Provider: GIUSEPPE BISHOP IE Report Released Date/Time: Jan 22, 2023 01:19 PM Reporting Lab: [facility] [address] [facility] [address] Performing Lab: [facility] [address] [facility] [address] [place] LIPID PANEL FASTING CHOLESTERO L IN LDL [MASS/VOLU ME] IN SERUM OR PLASMA BY CALCULADARRIANO N 92 mg/dL 0 - 129 01/13 Specimen Type: SERUM No comment entered. Ordering Provider: GIUSEPPE BISHOP IE Report Released Date/Time: Jan 22, 2023 01:19 PM Reporting Lab: [facility] [address] [facility] [address] Performing Lab: [facility]ENTER[facility] [address] [place] LIPID PANEL FASTING CHOLESTERO L.TOTAL/CH OLESTEROL IN HDL [MASS RATIO] IN SERUM OR PLASMA 3.2 01/13 Specimen Type: SERUM No comment entered. Ordering Provider: GIUSEPPE BISHOP IE Report Released Date/Time: Jan 22, 2023 01:19 PM Reporting Lab: [facility] [address] [address] Performing Lab: [facility] [address] [address] [place] LIPID PANEL FASTING CHOLESTERO L IN HDL [MASS/VOLU ME] IN SERUM OR PLASMA 50 mg/dL 40 - 60 01/13 Specimen Type: SERUM No comment entered. Ordering Provider: GIUSEPPE BISHOP IE Report Released Date/Time: Jan 22, 2023 01:19 PM Reporting Lab: [facility] [address] [facility] [address] Performing Lab: [facility] [address] [address] [place] LIVER FUNCTION PROTEIN [MASS/VOLU ME] IN SERUM OR PLASMA 6.7 g/dL 6.0 - 8.3 01/13 Specimen Type: SERUM No comment entered. Ordering Provider: GIUSEPPE BISHOP IE Report Released Date/Time: Jan 22, 2023 01:19 PM Reporting Lab: [facility] [place] [facility] [address] [facility] [address] Performing Lab: [facility] [place] [facility] [address] [facility] [address] [place] LIVER FUNCTION ALBUMIN [MASS/VOLU ME] IN SERUM OR PLASMA 4.0 g/dL 3.5 - 5.0 01/13 Specimen Type: SERUM No comment entered. Ordering Provider: GIUSEPPE BISHOP IE Report Released Date/Time: Jan 22, 2023 01:19 PM Reporting Lab: [facility] [place] [facility] [address] [facility] [address] Performing Lab: [facility] [place] [facility] [address] [facility] [address] [place] LIVER FUNCTION ALKALINE PHOSPHATAS E [ENZYMATIC ACTIVITY/V OLUME] IN SERUM OR PLASMA 62 U/L 40 - 150 01/13 Specimen Type: SERUM No comment entered. Ordering Provider: GIUSEPPE BISHOP IE Report Released Date/Time: Jan 22, 2023 01:19 PM Reporting Lab: [facility] [place] [facility] [address] [facility] [address] Performing Lab: [facility] [place] [address] [address] [place] LIVER FUNCTION ASPARTATE AMINOTRANS FERASE [ENZYMATIC ACTIVITY/V OLUME] IN SERUM OR PLASMA 14 U/L 5 - 34 01/13 Specimen Type: SERUM No comment entered. Ordering Provider: GIUSEPPE BISHOP IE Report Released Date/Time: Jan 22, 2023 01:19 PM Reporting Lab: [facility] [place] [facility] [address] [facility] [address] Performing Lab: [facility] [place] [facility] [address] [facility] [address] [place] LIVER FUNCTION ALANINE AMINOTRANS FERASE [ENZYMATIC ACTIVITY/V OLUME] IN SERUM OR PLASMA 9 U/L 01/13 Specimen Type: SERUM No comment entered. Ordering Provider: GIUSEPPE BISHOP IE Report Released Date/Time: Jan 22, 2023 01:19 PM Reporting Lab: [facility] [address] [address] Performing Lab: [address] [address] [place] LIVER FUNCTION BILIRUBIN. TOTAL [MASS/VOLU ME] IN SERUM OR PLASMA 0.4 mg/dL 0.2 - 1.2 01/13 Specimen Type: SERUM No comment entered. Ordering Provider: GIUSEPPE BISHOP IE Report Released Date/Time: Jan 22, 2023 01:19 PM Reporting Lab: [address] [address] Performing Lab: [address] [address] [place] HEMOGLOB IN A1C PANEL HEMOGLOBIN [...] Jan 22, 2023 01:19 PM Reporting Lab: [address] [address] Performing Lab: [address] [address] [place] CBC AND DIFF (AUTO) LEUKOCYTES [#/VOLUME] IN BLOOD BY AUTOMATED COUNT 7.82 10*3/uL 4.50 - 11.00 01/13 Specimen Type: BLOOD No comment entered. Ordering Provider: GIUSEPPE BISHOP IE Report Released Date/Time: Jan 22, 2023 01:19 PM Reporting Lab: [address] [address] Performing Lab: [address] [address] [place] CBC AND DIFF (AUTO) ERYTHROCYT ES [#/VOLUME] IN BLOOD BY AUTOMATED COUNT 4.64 10*6/uL 4.23 - 5.66 01/13 Specimen Type: BLOOD No comment entered. Ordering Provider: GIUSEPPE BISHOP IE Report Released Date/Time: Jan 22, 2023 01:19 PM Reporting Lab: [facility] [address] [address] Performing Lab: [facility]N [facility] [address] [address] [place] CBC AND DIFF (AUTO) HEMOGLOBIN [MASS/VOLU ME] IN BLOOD 13.8 g/dL 12.8 - 17 01/13 Specimen Type: BLOOD No comment entered. Ordering Provider: GIUSEPPE BISHOP IE Report Released Date/Time: Jan 22, 2023 01:19 PM Reporting Lab: [facility] [address] [address] Performing Lab: [facility] [address] [address] [place] CBC AND DIFF (AUTO) HEMATOCRIT [VOLUME FRACTION] OF BLOOD BY AUTOMATED COUNT 41.5 39.2 - 50.4 01/13 Specimen Type: BLOOD No comment entered. Ordering Provider: GIUSEPPE BISHOP IE Report Released Date/Time: Jan 22, 2023 01:19 PM Reporting Lab: [facility] [address] [address] Performing Lab: [facility] [address] [address] [place] CBC AND DIFF (AUTO) MCV [ENTITIC VOLUME] BY AUTOMATED COUNT 89.4 fL 82 - 99 01/13 Specimen Type: BLOOD No comment entered. Ordering Provider: GIUSEPPE BISHOP IE Report Released Date/Time: Jan 22, 2023 01:19 PM Reporting Lab: [facility]TRN [facility] [address] [address] Performing Lab: [facility] [address] [address] [place] CBC AND DIFF (AUTO) MCHC [MASS/VOLU ME] BY AUTOMATED COUNT 33.3 g/dL 30.8 - 35.1 01/13 Specimen Type: BLOOD No comment entered. Ordering Provider: GIUSEPPE BISHOP IE Report Released Date/Time: Jan 22, 2023 01:19 PM Reporting Lab: [facility] [address] [address] Performing Lab: [facility] [address] [address] [place] CBC AND DIFF (AUTO) PLATELETS [#/VOLUME] IN BLOOD BY AUTOMATED COUNT 269 10*3/uL 140 - 360 01/13 Specimen Type: BLOOD No comment entered. Ordering Provider: GIUSEPPE BISHOP IE Report Released Date/Time: Jan 22, 2023 01:19 PM Reporting Lab: [facility] [address] [address] Performing Lab: [address] [address] [place] CBC AND DIFF (AUTO) ERYTHROCYT E DISTRIBUTI ON WIDTH [RATIO] BY AUTOMATED COUNT 13.7 12.0 - 16.0 01/13 Specimen Type: BLOOD No comment entered. Ordering Provider: GIUSEPPE BISHOP IE Report Released Date/Time: Jan 22, 2023 01:19 PM Reporting Lab: [facility] [address] [address] Performing Lab: [facility] [address] [address] [place] CBC AND DIFF (AUTO) MONOCYTES [#/VOLUME] IN BLOOD BY AUTOMATED COUNT 0.53 10*3/uL 0.30 - 1.10 01/13 Specimen Type: BLOOD No comment entered. Ordering Provider: GIUSEPPE BISHOP IE Report Released Date/Time: Jan 22, 2023 01:19 PM Reporting Lab: [facility] [address] [address] Performing Lab: [facility] [address] [address] [place] CBC AND DIFF (AUTO) MCH [ENTITIC MASS] BY AUTOMATED COUNT 29.7 pg 26.2 - 32.6 01/13 Specimen Type: BLOOD No comment entered. Ordering Provider: GIUSEPPE BISHOP IE Report Released Date/Time: Jan 22, 2023 01:19 PM Reporting Lab: [facility] [address] [address] Performing Lab[facility] [address] [facility] [facility] [address] [place] CBC AND DIFF (AUTO) NEUTROPHIL S/100 LEUKOCYTES IN BLOOD BY AUTOMATED COUNT 64.3 43.7 - 75.8 01/13 Specimen Type: BLOOD No comment entered. Ordering Provider: GIUSEPPE BISHOP IE Report Released Date/Time: Jan 22, 2023 01:19 PM Reporting Lab: [facility] [address] [address] Performing Lab: [facility] [address] [address] [place] CBC AND DIFF (AUTO) LYMPHOCYTE S/100 LEUKOCYTES IN BLOOD BY AUTOMATED COUNT 25.8 14.0 - 42.3 01/13 Specimen Type: BLOOD No comment entered. Ordering Provider: GIUSEPPE BISHOP IE Report Released Date/Time: Jan 22, 2023 01:19 PM Reporting Lab: [facility] [address] [facility] [facility] [address] Performing Lab: [facility] [address] [address] [place] CBC AND DIFF (AUTO) MONOCYTES/ 100 LEUKOCYTES IN BLOOD BY AUTOMATED COUNT 6.8 5.1 - 13.7 01/13 Specimen Type: BLOOD No comment entered. Ordering Provider: GIUSEPPE BISHOP IE Report Released Date/Time: Jan 22, 2023 01:19 PM Reporting Lab: [facility] [address] [address] Performing Lab: [facility] [address] [address] [place] CBC AND DIFF (AUTO) EOSINOPHIL S/100 LEUKOCYTES IN BLOOD BY AUTOMATED COUNT 2.2 0.4 - 6.8 01/13 Specimen Type: BLOOD No comment entered. Ordering Provider: GIUSEPPE BISHOP IE Report Released Date/Time: Jan 22, 2023 01:19 PM Reporting Lab: [facility] [address] [facility] [facility] [address] Performing Lab: [facility] [address] [facility] [address] [place] CBC AND DIFF (AUTO) BASOPHILS/ 100 LEUKOCYTES IN BLOOD BY AUTOMATED COUNT 0.6 0.1 - 2.0 01/13 Specimen Type: BLOOD No comment entered. Ordering Provider: GIUSEPPE BISHOP IE Report Released Date/Time: Jan 22, 2023 01:19 PM Reporting Lab: [facility] [address] [address] Performing Lab: [facility] [address] [address] [place] CBC AND DIFF (AUTO) NEUTROPHIL S [#/VOLUME] IN BLOOD BY AUTOMATED COUNT 5.03 10*3/uL 2.20 - 7.60 01/13 Specimen Type: BLOOD No comment entered. Ordering Provider: GIUSEPPE BISHOP IE Report Released Date/Time: Jan 22, 2023 01:19 PM Reporting Lab: [facility] [address] [facility] [address] Performing Lab: [facility] [address] [address] [place] CBC AND DIFF (AUTO) LYMPHOCYTE S [#/VOLUME] IN BLOOD BY AUTOMATED COUNT 2.02 10*3/uL 1.00 - 3.20 01/13 Specimen Type: BLOOD No comment entered. Ordering Provider: GIUSEPPE IBSHOP IE Report Released Date/Time: Jan 22, 2023 01:19 PM Reporting Lab: [facility] [address] [address] Performing Lab: [facility] [address] [address] [place] CBC AND DIFF (AUTO) EOSINOPHIL S [#/VOLUME] IN BLOOD BY AUTOMATED COUNT 0.17 10*3/uL 0.03 - 0.44 01/13 Specimen Type: BLOOD No comment entered. Ordering Provider: GIUSEPPE BISHOP IE Report Released Date/Time: Jan 22, 2023 01:19 PM Reporting Lab: [facility] [address] [address] Performing Lab: [facility] [address] [address] [place] CBC AND DIFF (AUTO) BASOPHILS [#/VOLUME] IN BLOOD BY AUTOMATED COUNT 0.05 10*3/uL 0.01 - 0.13 01/13 Specimen Type: BLOOD No comment entered. Ordering Provider: GIUSEPPE BISHOP IE Report Released Date/Time: Jan 22, 2023 01:19 PM Reporting Lab: [facility] [address] [address] Performing Lab: [facility] [address] [address] [place] CBC AND DIFF (AUTO) IMMATURE GRANULOCYT ES/100 LEUKOCYTES IN BLOOD BY AUTOMATED COUNT 0.3 0.0 - 0.7 01/13 Specimen Type: BLOOD No comment entered. Ordering Provider: GIUSEPPE BISHOP IE Report Released Date/Time: Jan 22, 2023 01:19 PM Reporting Lab: [facility] [address] [address] Performing Lab: [facility] [address] [address] [place] CBC AND DIFF (AUTO) IMMATURE GRANULOCYT ES [#/VOLUME] IN BLOOD 0.02 10*3/uL 0.00 - 0.06 01/13 Specimen Type: BLOOD No comment entered. Ordering Provider: GIUSEPPE BISHOP IE Report Released Date/Time: Jan 22, 2023 01:19 PM Reporting Lab: [facility] [address] [address] Performing Lab: [facility] [address] [address] [place] CBC AND DIFF (AUTO) NRBC % 0.0 0.0 - 0.0 01/13 Specimen Type: BLOOD No comment entered. Ordering Provider: GIUSEPPE BISHOP IE Report Released Date/Time: Jan 22, 2023 01:19 PM Reporting Lab: [facility] [address] [address] Performing Lab: [facility] [address] [address] [place] CBC AND DIFF (AUTO) NRBC, ABS 0.00 10*3/uL 0.00 - 0.00 01/13 Specimen Type: BLOOD No comment entered. Ordering Provider: GIUSEPPE BISHOP IE Report Released Date/Time: Jan 22, 2023 01:19 PM Reporting Lab: [address] [address] Performing Lab: [address] [address] [place] TSH THYROTROPI N [UNITS/VOL UME] IN SERUM OR PLASMA 0.59 u[IU]/mL 0.35 - 5.00 01/22 Specimen Type: SERUM No comment entered. Ordering Provider: GIUSEPPE BISHOP IE Report Released Date/Time: Jan 23, 2022 09:24 AM Reporting Lab: [facility] [address] [address] Performing Lab: [facility] [address] [address] [place] URINALYS IS COLOR OF URINE Light-Ye llow 01/22 Specimen Type: URINE Comment: If Glucose = >500 and Ketones are positive, please alert the Physician. Ordering Provider: GIUSEPPE BISHOP IE Report Released Date/Time: Jan 23, 2022 09:24 AM Reporting Lab: [facility] [address] [address] Performing Lab: [facility] [address] [address] [place] URINALYS IS APPEARANCE OF URINE Clear 01/22 Specimen Type: URINE Comment: If Glucose = >500 and Ketones are positive, please alert the Physician. Ordering Provider: GIUSEPPE BISHOP IE Report Released Date/Time: Jan 23, 2022 09:24 AM Reporting Lab: [facility] [address] [address] Performing Lab: [facility] [address] [address] [place] URINALYS IS GLUCOSE [MASS/VOLU ME] IN URINE NEGATIVE mg/dL 01/22 Specimen Type: URINE Comment: If Glucose = >500 and Ketones are positive, please alert the Physician. Ordering Provider: GIUSEPPE BISHOP IE Report Released Date/Time: Jan 23, 2022 09:24 AM Reporting Lab: [facility] [address] [address] Performing Lab: [facility] [address] [address] [place] URINALYS IS KETONES [MASS/VOLU ME] IN URINE BY TEST STRIP NEGATIVE mg/dL 01/22 Specimen Type: URINE Comment: If Glucose = >500 and Ketones are positive, please alert the Physician. Ordering Provider: GIUSEPPE BISHOP IE Report Released Date/Time: Jan 23, 2022 09:24 AM Reporting Lab: [facility] [address] [address] Performing Lab: [address] [address] [place] URINALYS IS ERYTHROCYT ES [PRESENCE] IN URINE SEDIMENT BY LIGHT MICROSCOPY NEGATIVE mg/dL 01/22 Specimen Type: URINE Comment: If Glucose = >500 and Ketones are positive, please alert the Physician. Ordering Provider: GIUSEPPE BISHOP IE Report Released Date/Time: Jan 23, 2022 09:24 AM Reporting Lab: [facility] [address] [address] Performing Lab: [facility] [address] [address] [place] URINALYS IS PROTEIN [MASS/VOLU ME] IN URINE BY TEST STRIP NEGATIVE mg/dL 01/22 Specimen Type: URINE Comment: If Glucose = >500 and Ketones are positive, please alert the Physician. Ordering Provider: GIUSEPPE BISHOP Report Released Date/Time: Jan 23, 2022 09:24 AM Reporting Lab: [facility] [address] [address] Performing Lab: [address] [address] [place] URINALYS IS NITRITE [PRESENCE] IN URINE NEGATIVE mg/dL 01/22 Specimen Type: URINE Comment: If Glucose = >500 and Ketones are positive, please alert the Physician. Ordering Provider: GIUSEPPE BISHOP Report Released Date/Time: Jan 23, 2022 09:24 AM Reporting Lab: [address] [address] Performing Lab: [address] [address] [place] URINALYS IS BILIRUBIN. TOTAL [PRESENCE] IN URINE NEGATIVE mg/dL 01/22 Specimen Type: URINE Comment: If Glucose = >500 and Ketones are positive, please alert the Physician. Ordering Provider: GIUSEPPE BISHOP Report Released Date/Time: Jan 23, 2022 09:24 AM Reporting Lab: [address] [address] Performing Lab: [address] [address] [place] URINALYS IS SPECIFIC GRAVITY OF URINE BY REFRACTOME TRY 1.019 1.016 - 1.022 01/22 Specimen Type: URINE Comment: If Glucose = >500 and Ketones are positive, please alert the Physician. Ordering Provider: GIUSEPPE BISHOP Report Released Date/Time: Jan 23, 2022 09:24 AM Reporting Lab: [address] [address] Performing Lab: [address] [address] [place] URINALYS IS PH OF URINE BY TEST STRIP 5.5 5.0 - 9.0 01/22 Specimen Type: URINE Comment: If Glucose = >500 and Ketones are positive, please alert the Physician. Ordering Provider: GIUSEPPE BISHOP Report Released Date/Time: Jan 23, 2022 09:24 AM Reporting Lab: [address] [address] Performing Lab: [address] [address] [employer] [place] URINALYS IS UROBILINOG EN [MASS/VOLU ME] IN URINE BY TEST STRIP <2.0mg/d L <2.0 - 2.0 01/22 Specimen Type: URINE Comment: If Glucose = >500 and Ketones are positive, please alert the Physician. Ordering Provider: GIUSEPPE BISHOP Report Released Date/Time: Jan 23, 2022 09:24 AM Reporting Lab: [address] [address] Performing Lab: [address] [address] [place] URINALYS IS LEUKOCYTE ESTERASE [PRESENCE] IN URINE BY TEST STRIP NEGATIVE 01/22 Specimen Type: URINE Comment: If Glucose = >500 and Ketones are positive, please alert the Physician. Ordering Provider: GIUSEPPE BISHOP Report Released Date/Time: Jan 23, 2022 09:24 AM Reporting Lab: [address] [address] Performing Lab: [address] [address] [place] BASIC METABOLI C PANEL (fasting ) UREA NITROGEN [MASS/VOLU ME] IN SERUM OR PLASMA 27 mg/dL 7 - 25 01/22 H Specimen Type: SERUM No comment entered. Ordering Provider: GIUSEPPE BISHOP Report Released Date/Time: Jan 23, 2022 09:24 AM Reporting Lab: [address] [address] Performing Lab: [address] [place] [address] [place] BASIC METABOLI C PANEL (fasting ) GLUCOSE [MASS/VOLU ME] IN SERUM OR PLASMA 104 mg/dL 65 - 100 01/22 H Specimen Type: SERUM No comment entered. Ordering Provider: GIUSEPPE BISHOP IE Report Released Date/Time: Jan 23, 2022 09:24 AM Reporting Lab: [address] [address] Performing Lab: [address] [address] [place] BASIC METABOLI C PANEL (fasting ) SODIUM [MOLES/VOL UME] IN SERUM OR PLASMA 142 mmol/L 135 - 145 01/22 Specimen Type: SERUM No comment entered. Ordering Provider: GUISEPPE BISHOP IE Report Released Date/Time: Jan 23, 2022 09:24 AM Reporting Lab: [address] [address] Performing Lab: [address] [address] [place] BASIC METABOLI C PANEL (fasting ) POTASSIUM [MOLES/VOL UME] IN SERUM OR PLASMA 4.5 mmol/L 3.5 - 5.0 01/22 Specimen Type: SERUM No comment entered. Ordering Provider: GIUSEPPE BISHOP IE Report Released Date/Time: Jan 23, 2022 09:24 AM Reporting Lab: [address] [phone] Performing Lab: [address] [address] [place] BASIC METABOLI C PANEL (fasting ) CHLORIDE [MOLES/VOL UME] IN SERUM OR PLASMA 108 mmol/L 100 - 110 01/22 Specimen Type: SERUM No comment entered. Ordering Provider: GIUSEPPE BISHOP IE Report Released Date/Time: Jan 23, 2022 09:24 AM Reporting Lab: [address] [address] Performing Lab: [place] [address] [facility] [facility] [address] [employer] BASIC METABOLI C PANEL (fasting ) CARBON DIOXIDE, TOTAL [MOLES/VOL UME] IN SERUM OR PLASMA 26 meq/L 20 - 30 01/22 Specimen Type: SERUM No comment entered. Ordering Provider: GIUSEPPE BISHOP IE Report Released Date/Time: Jan 23, 2022 09:24 AM Reporting Lab: [facility] [address] [facility] [facility] [address] Performing Lab: [facility] [address] [facility] [facility] [address] [email or web address] BASIC METABOLI C PANEL (fasting ) CREATININE [MASS/VOLU ME] IN SERUM OR PLASMA 0.93 mg/dL 0.50 - 1.40 01/22 Specimen Type: SERUM No comment entered. Ordering Provider: GIUSEPPE BISHOP IE Report Released Date/Time: Jan 23, 2022 09:24 AM Reporting Lab: [facility] [address] [facility] [facility] [address] Performing Lab: [facility] [address] [facility] [facility] [address] [employer] BASIC METABOLI C PANEL (fasting ) GLOMERULAR FILTRATION RATE/1.73 SQ M.PREDICTE D [VOLUME RATE/AREA] IN SERUM, PLASMA OR BLOOD BY CREATININE -BASED FORMULA (CKD-EPI 2020) 86 mL/min 60 01/22 Specimen Type: SERUM No comment entered. Ordering Provider: GIUSEPPE BISHOP IE Report Released Date/Time: Jan 23, 2022 09:24 AM Reporting Lab: [facility] [address] [facility] 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 Location Location Details Encounter Type Encounter Number Reason For Visit Attending Provider ADM Date DC Date Status Disposition Source [facility] OFFICE O/P EST MOD 30 MIN [id number] Diagnos is: ICD-10- CM F43.12 Post-tr aumatic stress disorde r, chronic LARROW,KATHY AN 04/30 [facility] Outpatient Encounter [id number] Diagnos is: ICD-10- CM Z02.89 Encount er for other adminis trative examina tions AALIYAH LEONG 05/10 [facility] Outpatient Encounter [id number] Diagnos is: ICD-10- CM Z02.89 Encount er for other adminis trative examina tions ESTELLA SANDOVAL 05/18 [facility] [place] [facility] Outpatient Encounter [id number] 07/28 [facility] [place] [facility] [place] OFFICE O/P EST MOD 30 MIN [id number] Diagnos is: ICD-10- CM F43.12 Post-tr aumatic stress disorde r, chronic LAREBENEZER,KATHY AN 07/29 [facility] [place] OFFICE O/P EST MOD 30 MIN [id number] Diagnos is: ICD-10- CM F43.12 Post-tr aumatic stress disorde r, chronic LAREBENEZER,KATHY AN 11/11 [facility] [facility] [place] [facility] Outpatient Encounter [id number] 01/13 [facility] [place] [facility] [place] Outpatient Encounter [id number] 01/18 [facility] [place] [facility] Outpatient Encounter [id number] 01/21 [facility] [place] OFF[facility] O/P EST MOD 30 MIN [id number] Diagnos is: ICD-10- CM Z00.01 Encount er for general adult medical exam w abnorma l finding s Avery EVANS 01/21 [facility] [place] OFFICE O/P EST MOD 30 MIN [id number] Diagnos is: ICD-10- CM F43.12 Post-tr aumatic stress disorde r, chronic LAREBENEZER,KATHY AN 02/10 [facility] [place] OFFICE O/P EST MOD 30 MIN [id number] Diagnos is: ICD-10- CM F43.12 Post-tr aumatic stress disorde r, chronic LARROW,KATHY AN 05/14 [place] [facility] COMPRE [place]PH [place] 1/ [id number] Diagnos is: ICD-10- CM H25.813 Combine d forms of age-rel ated catarac t, bilater al BORASKI,AN AMILCAR E 08/12 [facility] [place] OFFICE O/P EST MOD 30 MIN [id number] Diagnos is: ICD-10- CM F43.12 Post-tr aumatic stress disorde r, chronic LARROW,KATHY AN 08/13 [place] Social History Combined list of available smoking, tobacco, and other social history from Department of Defense and Veterans Affairs facilities. Social History Type Response Date Comment Sourc e Tobacco smoking status NHIS [facility]-TO[facility] NEVER USED 01/22/2024 [place] History of tobacco use [facility] NEVER USED 01/22/2023 [facility] History of tobacco use VA-TOBACCO NEVER USED 01/23/2022 [facility] History of tobacco use VA-TOBACCO NEVER USED 09/07/2020 [place] History of tobacco use VA-TOBACCO NEVER USED 07/28/2019 [place] History of tobacco use VA-TOBACCO NEVER USED 09/11/2018 [place] Plan of Care List of future care activities from Department of Veterans Affairs facilities. Additional future care activities may be listed in the Assessment and Plan section. Date/Time Care Activity Care Activity Detail Facili ty 11/11/2024 AMBULATORY - PSYCHIATRY AMBULATORY - PSYC [facility]
--- OUTSIDE RECORDS SUMMARY | 2024-09-11 12:59 | XMS_ITS ---
Author Name [facility] [place] Organization [facility] [place] Address [address] [place] [address] Care Team Providers Care Hedge Fund Manager Name Role Phone NYA DOUGLAS Primary Care Provider Unavailab le Insurance Providers: [...] Anguiano's Name Patient's Relationship to Policy [facility]gu[facility] PREFERRED PROVIDER ORGANIZAT ION (PPO) PSHB STD SELF PLUS 1 Apr 23, 2024 32F [id number] VALENTÍN HERRING PATIENT MEDICARE (WNR) MEDICARE (M) PART A Dec 22, 2013 PART A [id number] VALENTÍN HERRING PATIENT Selected Encounter This section includes the information on record at [place] for the Encounter. Date/Time Encounter Type Encounter Description Reason Provider Source Aug 12, 2024 02:30 PM COMPRE OPH EXAM NEW PT 1/> OPTOMETRY ICD-10-CM H25.813 Combined forms of age-related cataract, bilateral BORASKI,LINNEA E IHE Encounter Template Text not used by VA Assessments - Encounter Diagnoses This section includes the primary and secondary diagnoses documented for the Encounter. Date/Time Primary/Secondary Diagnosis Diagnosis Name Provider Source Aug 12, 2024 03:02 PM PRIMARY Combined forms of age-related cataract, bilateral LINNEA CORDERO [place] [facility] [place] [facility] Aug 12, 2024 03:02 PM SECONDARY Unspecified disorder of refraction LINNEA CORDERO [place] [facility] [place] [facility] Aug 12, 2024 03:02 PM SECONDARY Unspecified esotropia LINNEA [facility]ORDERO [facility] Plan of Treatment: Future Appointments (+ 6 months) and Future Tests (+/- 45 days) The Plan of Treatment section includes future care activities for the patient from [facility] [place] [facility] This section includes future appointments and future orders which are active, pending or scheduled. Future Appointments This section includes appointments that were scheduled to occur 6 months from the date of the Encounter, up to a maximum of 20 appointments. The data comes from all [place] treatment facilities. Appointment Date/Time Appointment Type Appointme nt Facility Name Aug 13, 2024 09:00 AM AMBULATORY - PSYCHIATRY [facility] Nov 11, 2024 11:00 AM AMBULATORY - PSYCHIATRY [facility] Jan 21, 2025 09:00 AM AMBULATORY - MEDICINE [facility] Social History: Smoking Status (Most current) and Tobacco Use (All prior to encounter date) This section includes the most current, and the historical, smoking and tobacco- related health factors from the [place] facility where the Encounter took place. Current Smoking Status This section includes the most current smoking, or tobacco-related health factor, from the [place] facility where the Encounter took place. Date/Time Current Smoking Status Comment Shahid brooke Jan 22, 2023 10:39 AM [place]-TOBACCO NEVER USED [facility] Tobacco Use History This section includes a history of the smoking, or tobacco-related health factors, that were collected on or before the date of the Encounter. The data comes from the [place] facility where the Encounter took place. Date/Time Smoking Status/Tobacco Use Comment Geo torres Jan 23, 2022 09:02 AM IN-TOBACCO NEVER USED [facility] [place] [facility] Encounter Notes: All associated encounter notes This section contains the clinical notes associated to the Encounter. Date/Time Encounter Note(s) Provider Source Aug 12, 2024 03:06 PM ADDENDUM: LOCAL TITLE: Addendum STANDARD TITLE: ADDENDUM DATE OF NOTE: AUG 12, 2024@15:06:02 ENTRY DATE: AUG 12, 2024@15:06:02 AUTHOR: LINNEA CORDERO EXP COSIGNER: URGENCY: STATUS: COMPLETED Please order the following: RX INFORMATION OD - 0.75-0.25 X135 add:+2.50 Pzm:0.00 Dir: Prz2:0.00 Dir2: OS PL -0.75 x 75 add:+2.50 Pzm:0.00 Dir: Prz2:0.00 Dir2: FITTING INFORMATION FPD:68 NPD:65 Navarro:R: L: SEG HT:R:14 L:14 Tint:None Shade:None VA Billable Items FRAME: DESIRAE WHITE [id number] Right Lens: PLASTIC BIFOCAL FT28 PHOTOCHROMIC BALDERAS 1.498 PLASTIC CR39 Left Lens: PLASTIC BIFOCAL FT28 PHOTOCHROMIC BALDERAS 1.498 PLASTIC CR39 /es/ LINNEA CORDERO OD STAFF UPPER CUTTER OUT Signed: 08/12/2024 15:07 Receipt Acknowledged By: 08/14/2024 14:54 /es/ ZAIN SPICER OPTOMETRY TECH === --- Original Document --- 08/12/24 OPTOMETRY NOTE(T): Active Problems: Active Problem Exposure to potentially hazardous s 07/04/2023 AMI LEDESMA Essential hypertension I10. 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 09/23/2018 TED BISHOP Tear of quadriceps tendon R69. 09/23/2018 TED BISHOP Thoracic outlet syndrome R69. 09/23/2018 TED BISHOP Degenerative arthritis M19.91 08/28/2019 DARIO,TED Adrenal tumor R69. 01/23/2022 TED BISHOP Chronic post-traumatic stress disor 03/21/2021 TED BISHOP Medications (VA): Active Outpatient Medications (including Supplies): Active Outpatient Medications Status == = 1) HYDROXYZINE HCL 10MG TAB TAKE ONE TABLET BY MOUTH FOUR TIMES ACTIVE DAILY NEEDED Indication: FOR ANXIETY 2) SERTRALINE HCL 100MG TAB TAKE ONE AND ONE-HALF TABLETS BY ACTIVE MOUTH EVERY MORNING Indication: FOR MOOD AND PTSD Active Non-VA Medications Status == = 1) Non-VA AMLODIPINE BESYLATE 5MG TAB 5MG BY MOUTH ONCE DAILY ACTIVE 2) Non-VA CHOLECALCIF 50MCG (D3-2,000UNIT) TAB 2000UNIT BY ACTIVE MOUTH ONCE DAILY 3) Non-VA DICLOFENAC NA 75MG EC TAB 75MG BY MOUTH TWICE DAILY ACTIVE 4) Non-VA ESOMEPRAZOLE 20MG (BASE) EC CAP 20MG BY MOUTH ONCE ACTIVE DAILY 5) Non-VA PRAVASTATIN NA 40MG TAB 40MG BY MOUTH AT BEDTIME ACTIVE 7 Total Medications Allergies: BACTRIM, CODEINE S: 74-year-old male is in for comprehensive exam with a complaint of feeling that his vision is changing slightly. He wears bifocals on a regular basis. 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 He denies any eye injury or disease since his last exam. VIK: 01/22/2019 (-) Pain: (-) BURRIS: (-) Diplopia: (-) Flashes: (-) Floaters: (-) Amaurosis Fugax/Tia's: (-) Eye Injury: (-) Eye Surgery: (-) TBI O: Visual acuity with current correction was 20/20 both eyes. Pupils were equal and round and reactive to light with no afferent defect. Extraocular muscles were intact and facial confrontation mac were full. Lids and lashes were clear both eyes. Corneas and conjunctiva were clear both eyes. Anterior chambers were deep clear and quiet with open angles. Iris was flat both eyes. Grade 2 - nuclear sclerosis and 1+ cortical cataracts OU. Refraction Subjective: OD - 0.75-0.25 X 135 20/[address] -0.75 X 75 20/20 Add: +2.50 20/20 OU Intraocular pressures at 2:30 PM were 18 mmHg OD and 17 mmHg OS. Dilating Drops: 1GTT 1 % Tropicamide OU & 1GTT 2.5% Phenylephrine OU (Pt. ed. on side effects, dilation warning given and verbal consent obtained) Patient advised not to drive if they feel they have any symptoms which could affect their ability to drive safely. Patient advised not to engage in any activities which could put themselves or others at risk if they feel they have any symptoms which could affect their ability to perform those activities safely. Syneresis was seen OU. Approximately 20% horizontal and vertical cupping was seen OD and 15% horizontal and vertical cupping OS with healthy rims and margins OU. Angioid streaks were seen coming radially off the nerve head OD greater than OS. Normal pigmentary architecture of the macula was seen with a 2 third artery to vein ratio. Retinal periphery's were intact in all quadrants OU. A: Angioid streaks OD greater than OS appears stable from prior notes and barely visible. Combined cataracts not visually significant. Refraction disorder P: Ordered new bifocals. The patient will return in 12 months or sooner if any problems arise. Education: After discussion and answering all 's questions, [place] demonstrated and verbalized understanding of diagnosis and treatment. Yes [x] No [ ] Medication Reconciliation: Outpatient: Has the patient been taking medications as documented in the EMLR? YES: The patient has been taking medications as documented in the EMLR. Essential Medication List for Review used to complete this medication reconciliation. INCLUDED IN THIS LIST: Alphabetical list of active outpatient prescriptions dispensed from this VA (local) and dispensed from another [place] or [place]D facility (remote) as well as [...] with a VA or non-VA provider. /isai/ LINNEA CORDERO OD STAFF UPPER CUTTER OUT Signed: 08/12/2024 15:03 LINNEA CORDERO [place] [facility] [place] [facility] Aug 12, 2024 12:08 PM OPTOMETRY NOTE: LOCAL TITLE: OPTOMETRY NOTE(T) STANDARD TITLE: OPTOMETRY NOTE DATE OF NOTE: AUG 12, 2024@12:08 ENTRY DATE: AUG 12, 2024@12:08:15 AUTHOR: LINNEA CORDERO EXP COSIGNER: URGENCY: STATUS: COMPLETED OPTOMETRY NOTE(T) Has ADDENDA Active Problems: Active Problem Exposure to potentially hazardous s 07/04/2023 AMI LEDESMA Essential hypertension I10. 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 09/23/2018 TED BISHOP Tear of quadriceps tendon R69. 09/23/2018 TED BISHOP Thoracic outlet syndrome R69. 09/23/2018 TED BISHOP Degenerative arthritis M19.91 08/28/2019 TED BISHOP Adrenal tumor R69. 01/23/2022 TED BISHOP Chronic post-traumatic stress disor 03/21/2021 TED BISHOP Medications (VA): Active Outpatient Medications (including Supplies): Active Outpatient Medications Status == = 1) HYDROXYZINE HCL 10MG TAB TAKE ONE TABLET BY MOUTH FOUR TIMES ACTIVE DAILY NEEDED Indication: FOR ANXIETY 2) SERTRALINE HCL 100MG TAB TAKE ONE AND ONE-HALF TABLETS BY ACTIVE MOUTH EVERY MORNING Indication: FOR MOOD AND PTSD Active Non-VA Medications Status == = 1) Non-VA AMLODIPINE BESYLATE 5MG TAB 5MG BY MOUTH ONCE DAILY ACTIVE 2) Non-VA CHOLECALCIF 50MCG (D3-2,000UNIT) TAB 2000UNIT BY ACTIVE MOUTH ONCE DAILY 3) Non-VA DICLOFENAC NA 75MG EC TAB 75MG BY MOUTH TWICE DAILY ACTIVE 4) Non-VA ESOMEPRAZOLE 20MG (BASE) EC CAP 20MG BY MOUTH ONCE ACTIVE DAILY 5) Non-VA PRAVASTATIN NA 40MG TAB 40MG BY MOUTH AT BEDTIME ACTIVE 7 Total Medications Allergies: BACTRIM, CODEINE S: 74-year-old male is in for comprehensive exam with a complaint of feeling that his vision is changing slightly. He wears bifocals on a regular basis. 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 He denies any eye injury or disease since his last exam. VIK: 01/22/2019 (-) Pain: (-) BURRIS: (-) Diplopia: (-) Flashes: (-) Floaters: (-) Amaurosis Fugax/Tia's: (-) Eye Injury: (-) Eye Surgery: (-) TBI O: Visual acuity with current correction was 20/20 both eyes. Pupils were equal and round and reactive to light with no afferent defect. Extraocular muscles were intact and facial confrontation mac were full. Lids and lashes were clear both eyes. Corneas and conjunctiva were clear both eyes. Anterior chambers were deep clear and quiet with open angles. Iris was flat both eyes. Grade 2 - nuclear sclerosis and 1+ cortical cataracts OU. Refraction Subjective: OD - 0.75-0.25 X 135 20/[address] -0.75 X 75 20/20 Add: +2.50 20/20 OU Intraocular pressures at 2:30 PM were 18 mmHg OD and 17 mmHg OS. Dilating Drops: 1GTT 1 % Tropicamide OU & 1GTT 2.5% Phenylephrine OU (Pt. ed. on side effects, dilation warning given and verbal consent obtained) Patient advised not to drive if they feel they have any symptoms which could affect their ability to drive safely. Patient advised not to engage in any activities which could put themselves or others at risk if they feel they have any symptoms which could affect their ability to perform those activities safely. Syneresis was seen OU. Approximately 20% horizontal and vertical cupping was seen OD and 15% horizontal and vertical cupping OS with healthy rims and margins OU. Angioid streaks were seen coming radially off the nerve head OD greater than OS. Normal pigmentary architecture of the macula was seen with a 2 third artery to vein ratio. Retinal periphery's were intact in all quadrants OU. A: Angioid streaks OD greater than OS appears stable from prior notes and barely visible. Combined cataracts not visually significant. Refraction disorder P: Ordered new bifocals. The patient will return in 12 months or sooner if any problems arise. [place] Education: After discussion and answering all 's questions, [place] demonstrated and verbalized understanding of diagnosis and treatment. Yes [x] No [ ] Medication Reconciliation: Outpatient: Has the patient been [...] with a VA or non-VA provider. /isai/ LINNEA CORDERO OD STAFF UPPER CUTTER OUT Signed: 08/12/2024 15:03 08/12/2024 ADDENDUM STATUS: COMPLETED Please order the following: RX INFORMATION OD - 0.75-0.25 X135 add:+2.50 Pzm:0.00 Dir: Prz2:0.00 Dir2: OS PL -0.75 x 75 add:+2.50 Pzm:0.00 Dir: Prz2:0.00 Dir2: FITTING INFORMATION FPD:68 NPD:65 Navarro:R: L: SEG HT:R:14 L:14 Tint:None Shade:None VA Billable Items FRAME: DESIRAE WHITE [id number] Right Lens: PLASTIC BIFOCAL FT28 PHOTOCHROMIC BALDERAS 1.498 PLASTIC CR39 Left Lens: PLASTIC BIFOCAL FT28 PHOTOCHROMIC BALDERAS 1.498 PLASTIC CR39 /isai/ LINNEA CORDERO OD STAFF UPPER CUTTER OUT Signed: 08/12/2024 15:07 Receipt Acknowledged By: 08/14/2024 14:54 /isai/ ZAIN SPICER OPTOMETRY TECH 08/14/2024 ADDENDUM STATUS: COMPLETED Optometry Health Access Database Developer ordered patient 1 pair(s) of bifocal eyeglasses on 08/12/2024 as directed by provider. OPT HT entered consult(s) for order on behalf of provider. /isai/ ZAIN SPICER OPTOMETRY TECH Signed: 08/14/2024 14:56 LINNEA CRODERO [facility]
--- OUTSIDE RECORDS SUMMARY | 2024-09-11 12:59 | XMS_ITS | Encounter Summary ---
Author Name [facility] [place] [facility] [place] Address [address] [place] [address] Care Team Providers Care Taxation Consultant Name Role Phone DOUGLAS, RAANGELAAvery Primary Care [...] Name Patient's Relationship to Policy [facility] PREFERRED PROVIDER ORGANIZAT ION (PPO) PSHB STD SELF PLUS 1 Apr 23, 2024 32F [id number] 05 VALENTÍN HERRING PATIENT MEDICARE (WNR) MEDICARE (M) PART A Dec 22, 2013 PART A [id number] VALENTÍN HERRING PATIENT Selected Encounter This section includes the information on record at [place] for the Encounter. Date/Time Encounter Type Encounter Description Reason Provider Source Aug 13, 2024 09:00 AM OFFICE O/P EST MOD 30 MIN [facility] - IND ICD-10-CM F43.12 Post-traumatic stress disorder, chronic ISABELA GREENBERG IHAura Encounter Template Text not used by VA Assessments - Encounter Diagnoses This section includes the primary and secondary diagnoses documented for the Encounter. Date/Time Primary/Secondary Diagnosis Diagnosis Name Provider Source Aug 13, 2024 09:27 AM PRIMARY Post-traumatic stress disorder, chronic ISABELA GREENBERG Aug 13, 2024 09:27 AM SECONDARY Cannabis use, unspecified, uncomplicated ISABELA GREENBERG Plan of Treatment: Future Appointments (+ 6 months) and Future Tests (+/- 45 days) The Plan of Treatment section includes future care activities for the patient from all [place] treatmentfacilities. This section includes future appointments and future orders which are active, pending or scheduled. Future Appointments This section includes appointments that were scheduled to occur 6 months from the date of the Encounter, up to a maximum of 20 appointments. The data comes from all [place] treatment facilities. Appointment Date/Time Appointment Type Appointme nt Facility Name Nov 11, 2024 11:00 AM AMBULATORY - PSYCHIATRY [facility] Jan 21, 2025 09:00 AM AMBULATORY - MEDICINE [facility] [place] [facility] Social History: Smoking Status (Most current) and Tobacco Use (All prior to encounter date) This section includes the most current, and the historical, smoking and tobacco- related health factors from the [place] facility where the Encounter took place. Current Smoking Status This section includes the most current smoking, or tobacco-related health factor, from the [place] facility where the Encounter took place. Date/Time Current Smoking Status Comment Facil ity Jan 22, 2024 11:[address]-TOBACCO NEVER USED [facility] Tobacco Use History This section includes a history of the smoking, or tobacco-related health factors, that were collected on or before the date of the Encounter. The data comes from the [place] facility where the Encounter took place. Date/Time Smoking Status/Tobacco Use Comment F acility September 07, 2020 09:[address]-TOBACCO NEVER USED [facility] Jul 28, 2019 11:27 AM VA-TOBACCO NEVER USED [facility] September 11, 2018 10:11 AM VA-TOBACCO NEVER USED [facility] Encounter Notes: All associated encounter notes This section contains the clinical notes associated to the Encounter. Date/Time Encounter Note(s) Provider Source Aug 13, 2024 08:58 AM PSYCHIATRY NOTE: LOCAL TITLE: PSYCHIATRY NOTE STANDARD TITLE: PSYCHIATRY NOTE DATE OF NOTE: AUG 13, 2024@08:58 ENTRY DATE: AUG 13, 2024@08:58:58 AUTHOR: ISABELA GREENBERG COSIGNER: URGENCY: STATUS: COMPLETED Time spent: 21-30 minutes >16 mins supportive therapy (including empathic listening, insight building, and psychoeducation). The presents today for follow-up. PATIENT REPORT: He is conversational. Mood is even. Virgil continues to benefit from medication. He denies depressed mood. He continues to walk 10 miles a day with his dog and , even in the cold (in the mall, [employer]). His is in the process of working on her weight. As previously noted, vigril shares that his feels his medications are highly effective. He feels as though he doesn't fly off the handle as he did in the past. Virgil notices the benefits of the medicine in its absence. He denies irritability--he benefits from PRN hydroxyzine for anxiety. He states, I have anxiety, but now I have control over it. He takes hydroxyzine most days of the week. He benefits from therapy. He does not care for groups. Sleep is okay, but his hand neuropathy (carpal tunnel?) him awake. He agrees to discuss this with PCP. Virgil reports 2 maybe 3 beers a day. He feels it is his right to have a few beers daily. He feels his is needlessly concerned about his drinking. He has discussed his close relationship with his brothers and sister (). One brother has prostate cancer and the other has a heart condition. One niece has pancreatic cancer. He again discusses the importance of staying busy. He continues to [facility]. 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 He utilizes his typical humor. He is a [employer]. There is normal energy and motivations. Symptoms [...] grandchildren) live upstairs Has a nephew in [place] Enjoys fishing, hiking, and walking Has a causey retreiverHumberto Anton discusses various adventures from his youth ([employer], [place] near [place], etc.). He discusses how resourceful he is. SUICIDE RISK ASSESSMENT: SUICIDE INQUIRY: IDEATION: Denies [...] the patient about their mental health condition. Anton repeated back the plan and education. IMPRESSION (DSM-5): PTSD, chronic ADHD likely based upon hx and clinical presentation Cannabis Use Disorder Alcohol Use Disorder--reports has cut back and denies any recent excessive use (2 cans daily) PLAN: Continue sertraline 150mg daily for PTSD and depression--dose increased April 2019 with good response. Labwork from 01/14/2024. Continue hydroxyzine 10mg qid PRN for anxiety and irritability--he feels that this is quite helpful--he does not drive or operate heavy machinery after taking. He prefers to take it regularly, and with benefit. He sees [facility] at [facility] for individual therapy. He does not [...] this VA (local) and dispensed from another [place] or [place]D facility (remote) as well as [...] provider. /isai/ ISABELA GREENBERG DO Psychiatrist Signed: 08/13/2024 09:27 Receipt Acknowledged By: 08/13/2024 09:31 /isai/ RAFAELA JOHNSON ADVANCED MILL MACHINIST ISABELA GREENBERG
[2024-09-11 13:05] VITALS: BP 154/72; PULSE 60; BMI 24.5
== END 2024-09-11 13:14 | disposition home or self-care (01) ==
LOC: HO.HGS 12:56
PROVIDERS: PCP Nurse Practitioner Family; Visit Provider Surgery
DX: M79.659 Pain in unspecified thigh (principal)
CPT/HCPCS: 99213

== ENCOUNTER → 2024-09-11 12:55 | Outpatient (BNVA) | payer MEDICARE, BC, SELFPAY | PROVIDERS: PCP Nurse Practitioner Family; Visit Provider Surgery | DX: M79.652 Pain in left thigh (principal) | CPT/HCPCS: 99212 ==

== ENCOUNTER 2024-12-31 09:54 | Outpatient (REF) | payer MEDICARE, BC, SELFPAY ==
--- NOTE | ~2024-12-31 | US_ITS ---
EXAMINATION: US RETROPERITONEAL LIMITED (AORTA) CLINICAL INFORMATION: Abdominal aortic aneurysm without rupture.. COMPARISON: February 24, 2022 TECHNIQUE: Cazares-scale, color Doppler and spectral Doppler evaluation of the abdominal aorta. FINDINGS: Abdominal aorta is patent. The measurements of the aorta in maximum AP and transverse dimensions respectively are as follows: Proximal: 2.9 x 2.8 cm. Mid: 2.0 x 2.2 cm. Distal: 3.3 x 3.6 cm. Peak systolic velocities: 62 cm/s. The measurements of the common iliac arteries in maximum dimensions are as follows: Right: AP: 1.6 cm. TRV: 1.1 cm. Left: AP: 1.4 cm. TRV: 1.4 cm. 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 [employer] recommendations: 2 year interval follow-up.. Electronically signed by: Zac Marcelo MD 12/31/2024 10:35 AM EDT
--- OUTSIDE RECORDS SUMMARY | 2024-12-31 11:57 | XMS_ITS | Patient Health Record ---
Author Organization [facility] Address [address] [place] [address] Care Team Providers Care Emergency Vehicle Technician Name Role Phone PUJA DELGADO Primary Care Provider Iker Clayton [phone] Allergies Allergen (clinical drug ingredient) Drug/Non Drug Allergy documented on EMR Reaction Allergy Type Onset Date Status sulfacetamide Sulfacetamide Sodium stomach upset Drug Allergy Active codeine Codeine Sulfate stromach upset Drug Allergy Active sulfamethoxazole / trimethoprim Bactrim stomach upset Drug Allergy Active Reason For Referral No Information Medications Medication SIG (Take, Route, Frequency, Duration) Notes Start Date End Date Status Diclofenac Sodium 75 MG Oral for 30 Active Pravastatin Sodium 40 MG take 1 tablet b y mouth once daily Oral for 90 Active amLODIPine Besylate 5 MG take 1 tablet b y mouth once daily Oral for 90 Active Melatonin 3 MG 1 tablet at bedtime as needed with food Orally Once a day for 30 day(s) Active Vitamin D3 1000 UNIT 1 capsule Orally On ce a day for 30 day(s) Active Esomeprazole Sodium 20 MG as directed Intravenous Active hydrOXYzine HCl 25 MG 1 tablet as needed Orally every 8 hrs for 30 day(s) Active Sertraline HCl 100 MG 1 tablet Orally On ce a day for 30 day(s) Active Immunizations Vaccine Route Administration Date Status Comme nts Influenza Unknown 01/30/2019 Refused Social History Tobacco Use: Social History Observation Description Date Details (start date - stop date) Never Smoker NA - NA Tobacco Use/Smoking Question Answer Notes Patient is a nonsmoker Alcohol Screen Question Answer Notes Did you have a drink contain ing alcohol in the past year? Yes How often did you have a dri nk containing alcohol in the past year? 4 or more times a week (4 points) How many drinks did you have on a typical day when you were drinking in the past year? 1 or 2 drinks (0 point) How often did you have 6 or more drinks on one occasion in the past year? Never (0 point) Points 4 Interpretation Positive Section Notes: Nonsmoker; a few beers emlba ry day Problems Problem Type SNOMED Code ICD Code Onset Dates Problem Status W/U Status Risk Notes Problem [id number] Gastroesophageal reflux disease, esophagitis presence not specified (K21.9) Active confirmed Problem [id number] Abnormal CT scan , stomach (R93.3) Active confirmed Plan Of Treatment Future Test Test Name Order Date UPPER GI ENDOSCOPY 01/30/2019 Insurance Providers Payer Name Payer Address Payer Phone Subscriber Number Group Number Insured Name Patient Relationship to Insured Coverage Start Date Coverage End Date [facility] [address] [place], [place] [id number] ROSIO HERRING Self - patient is the insured Medical (General) History Medical History History ICD Code TIA 2012 HYPERTENSION Cyst on kidneys Colonoscopy in 06/2018 with Daniel Vazquez small tubular adenoma and hyperplastic polyps; previous colonoscopies at [facility] with removal of polyps Denies CO,DM,CVA,Lung disease,renal dise ase Arthritis Hyperlipidemia Spinal stenosis GERD Surgical History Surgery Date(Month/Year) Right Pheochromocytoma/adrenal gland rem donna at the [facility] 2016 3 neck surgerys stenosis 2011,2017 Ruptured quadraceip 2014 Bilateral ankles [id number] Removal of cervical rib
== END 2024-12-31 09:55 | disposition home or self-care (01) ==
LOC: HO.HMGCX 09:54
PROVIDERS: PCP Nurse Practitioner Family; Visit Provider Nurse Practitioner Family
DX: I71.40 Abdominal aortic aneurysm, without rupture, unspecified (principal)
CPT/HCPCS: 76706

== ENCOUNTER → 2024-12-31 09:57 | Outpatient (BNV) | payer MEDICARE, BC, SELFPAY | PROVIDERS: PCP Nurse Practitioner Family; Visit Provider Radiology Diagnostic Radiology | DX: I71.43 Infrarenal abdominal aortic aneurysm, without rupture (principal) | CPT/HCPCS: 76706 ==

== ENCOUNTER 2025-02-02 13:17 | Outpatient (REF) | payer MEDICARE, BC, SELFPAY ==
--- OUTSIDE RECORDS SUMMARY | 2025-02-02 13:21 | XMS_ITS | Patient Health Record ---
Author Organization [facility] Address [address] [place] [address] Care Team Providers Care Capture Manager Name Role Phone PUJA DELGADO Primary Care Provider Iker Clayton [phone] Allergies Allergen (clinical drug ingredient) Drug/Non Drug [...] End Date Status Diclofenac Sodium 75 MG Oral; Duration: 30 Active Pravastatin Sodium 40 MG take 1 tablet b y mouth once daily Oral; Duration: 90 Active amLODIPine Besylate 5 MG take 1 tablet b y mouth once daily Oral; Duration: 90 Active Melatonin 3 MG 1 tablet at bedtime as needed with food Orally Once a day; Duration: 30 day(s) Active Vitamin D3 1000 UNIT 1 capsule Orally On ce a day; Duration: 30 day(s) Active Esomeprazole Sodium 20 MG as directed Intravenous Active hydrOXYzine HCl 25 MG 1 tablet as needed Orally every 8 hrs; Duration: 30 day(s) Active Sertraline HCl 100 MG 1 tablet Orally On ce a day; Duration: 30 day(s) Active Immunizations Vaccine Route Administration [...] Positive Section Notes: Nonsmoker; a few beers melba ry day Problems Problem Type SNOMED Code ICD Code Onset Dates Problem Status W/U Status Risk Notes Problem Gastroesophageal reflux disease (818664682) Gastroesophageal reflux disease, esophagitis presence not specified (K21.9) Active confirmed Problem Computed tomography of abdomen abnormal (94403291211733865) Abnormal CT scan, stomach (R93.3) Active confirmed Plan Of Treatment Future Test Test Name Order Date UPPER GI ENDOSCOPY 01/30/2019 Insurance Providers Payer Name Payer Address Payer Phone Subscriber Number Group Number Insured Name Patient Relationship to Insured Coverage Start Date Coverage End Date [facility] [address] [place], [place] [id number] [phone] [id number] ROSIO HERRING Self - patient is the insured Medical (General) History Medical History History ICD Code TIA 2012 HYPERTENSION Cyst on kidneys Colonoscopy in 06/2018 with Daniel Vazquez small tubular adenoma and hyperplastic polyps; previous colonoscopies at [facility] with removal of polyps Denies HI,DM,CVA,Lung disease,renal dise ase Arthritis Hyperlipidemia Spinal stenosis GERD Surgical History Surgery Date(Month/Year) Right Pheochromocytoma/adrenal gland rem donna at the [facility] 2016 3 neck surgerys stenosis 2011,2016 Ruptured quadraceip 2014 Bilateral ankles [id number] Removal of cervical rib
[2025-02-02 16:07] LABS: Appearance Urine Clear; Glucose Urine UA Negative (Negative); PH 5.5 (5.0-9.0); Specific Gravity - Urine 1.020 (1.005-1.025)
[2025-02-02 16:11] LABS: MANUAL DIFF FLAG NO
[2025-02-02 16:19] LABS: Hematocrit 44.5 % (42.0-52.0); Hemoglobin 13.8 g/dl (14.0-18.0); Imm Gran Abs Auto 0.03 X10*3/uL (0.00-0.03); Imm Gran Pct Auto 0.4 % (0.0-0.4); Lymphocytes Absolute Auto 1.8 X10*3/uL (1.2-4.9); Mean Corpuscular HGB Conc 31.0 g/dl (31.0-36.0); Mean Corpuscular Hemoglobin 29.2 pg (27.0-33.0); Mean Corpuscular Volume 94.1 fL (80.0-98.0); NRBC Abs Auto 0.000 X10*3/uL (0.0-0.012); NRBC Pct Auto 0.0 /100WBC (0.0-0.2); Platelet Count 269 X10*3/uL (160-400); Red Blood Count 4.73 X10*6/uL (4.60-5.80); White Blood Count 7.6 X10*3/uL (4.8-10.8)
[2025-02-02 16:34] LABS: Alanine Aminotransferase 17 U/L (0-40); Albumin Level 4.6 g/dL (3.5-5.0); Alkaline Phosphatase 64 U/L (39-117); Anion Gap 11 (12-20); Aspartate Amino Transferase 27 U/L (5-37); Blood Urea Nitrogen 25 mg/dL (9-16); Calcium 9.1 mg/dL (8.4-10.2); Carbon Dioxide 30 mmol/L (22-29); Chloride 107 mmol/L (96-108); Cholesterol 130 mg/dL (<200); Estimated Glomerular Filt Rate > 60; HDL Cholesterol 51 mg/dL (>40); Potassium 4.9 mmol/L (3.3-5.1); Sodium 143 mmol/L (135-145); Total Protein 6.9 g/dL (6.5-8.0); Triglycerides 84 mg/dL (<150)
== END 2025-02-02 13:18 | disposition home or self-care (01) ==
LOC: HO.HMGCLDS 13:17
PROVIDERS: PCP Nurse Practitioner Family; Visit Provider Nurse Practitioner Family
DX: Z00.00 Encounter for general adult medical examination without abnormal findings (principal); Z12.5 Encounter for screening for malignant neoplasm of prostate; E55.9 Vitamin D deficiency, unspecified; Z13.6 Encounter for screening for cardiovascular disorders
CPT/HCPCS: 36415; 80053; 80061; 81003; 82306; 84153; 84443; 85025

== ENCOUNTER → 2025-02-05 08:01 | Outpatient (REF) | payer MEDICARE, BC, SELFPAY ==
--- NOTE | 2025-02-05 08:03 | CA_ITS ---
Transthoracic Echocardiogram Patient (Last, First, Middle): Ron Abel, Gender: M Date of : 1950 Age: 75 Procedure Date: 02/05/2025 Procedure Type: Transthoracic Echocardiogram Location: OP Height: 170. cm Weight: 72.58 kg BSA: 1.84 m2 Heart Rate: 46 bpm BP: 175 / 70 mmHg Bending Roll Hand: TUCKER Referring MD: Jaziel Lr [facility]- Hadoop Java Developer: Mauro Babcock MD Symptoms: I77.810 - Thoracic aortic ectasia Study Quality: Adequate ECG Rhythm: Bradycardia Conclusions: - 1. Hyperdynamic LV EF of greater than 70% with pseudonormal filling pattern 2. Mildly dilated left atrium 3. Cardiac valvular Dopplers within normal limits 4. Normal RV systolic pressure Findings Left Ventricle Normal left ventricular cavity size. There is normal left ventricular wall thickness. The left ventricular systolic function is hyperdynamic. The visually estimated ejection fraction is >70%. Spectral Doppler is indicative of a pseudonormal filling pattern. Right Ventricle Normal right ventricular cavity size and systolic function. Atria The left atrium is mildly dilated. There is an interatrial septal aneurysm seen bowing to the right. There is no evidence of interatrial shunt. The right atrium is likely dilated. Aortic Valve The aortic valve was not well visualized. There is no aortic valve stenosis. There is no aortic valve regurgitation. Mitral Valve Likely normal mitral valve structure and function. There is trace mitral valve regurgitation. There is no mitral valve stenosis. Pulmonic Valve The pulmonic valve was not well visualized. Tricuspid Valve Likely normal tricuspid valve structure and function. There is trace tricuspid valve regurgitation. The right ventricular systolic pressure is normal. The right ventricular systolic pressure is 22 mmHg. Normal right atrial pressure. There is no evidence of pulmonary hypertension. Great Vessels The aorta was not well visualized. The pulmonary artery was not well visualized. Venous The inferior vena cava is normal in size and collapses greater than 50% with inspiration. Pericardium/Pleural There is no evidence of pericardial effusion. Prior Study Comparison Changes noted compared to prior study dated: 01/24/2024. ascending aorta is not well visualized on this study. Consider alternative testing such as CTA of chest Measurements 2D Linear Measurements IVSd: 0.95 0.6-0.9/0.6-1.0 cm LVIDd: 4.74 3.9-5.3/4.2-5.9 cm LVIDd Index: 2.58 2.4-3.2/2.2-3.1 cm/m2 LVIDs: 2.37 2.0-3.6 cm LVPWd: 0.93 0.7-1.1 cm LA Diam: 3.50 2.7-3.8/3.0-4.0 cm LAIDs Index: 1.90 1.5-2.3 cm/m2 LV Mass: 190.83 67-162/88-224 g LV Mass Index: 103.71 43-95/49-115 g/m2 LVOT Diam: 2.10 3.0+(-)1.3 cm 2D Systolic Function EF 4C: 74.80 >55% EF 2C: 67.40 >55% EF BiP: 71.30 >55% Mitral Valve MV Pk E: 0.89 MV PK A: 0.57 MV Decel Time: 166.00 E/A: 1.60 E'Lateral: 7.07 E'Medial: 6.20 E/E' Med: 14.30 E/E' Lat: 12.50 PHT: 49.00 MVA PHT: 4.49 Decel Baker: 5.33 Aortic Valve AoV Pk Devaughn: 1.29 AoV Mn Devaughn: 0.88 AoV VTI: 0.31 AoV Pk Grad: 7.00 Aov Mn Grad: 4.00 CLAUDIO Cont.VTI: 2.36 LVOT LVOT Pk Devaughn: 0.90 LVOT Mn Devaughn: 0.57 LVOT VTI: 0.21 LVOT Pk Grad: 3.00 LVOT Mn Grad: 2.00 LVOT Diam: 2.10 LVOT Area: 3.46 Diastolic Function MV Pk E: 0.89 MV Pk A: 0.57 E/A: 1.60 E'Medial: 6.20 E/E' Med: 14.30 E' Laterial: 7.07 E/E' Lat: 12.50 Right Ventricle TAPSE (mm): 30.50 TVS' Devaughn: 12.20 Tricuspid Valve TR Pk Devaughn: 2.17 TR Pk Grad: 19.00 RA Press: 3.00 RVSP: 22.00 Great Vessels Aorta Sinus of Valsalva: 3.60 2.0-3.5 cm Ao Asc: 3.00 2.1-3.4 cm Ao Arch: 3.10 Pulmonary Veins Pulm Vein S/D 1.20 Pulmonary Valve PV Pk Devaughn: 0.83 Peak PV Grad: 3.00 Updated in Other Vendor System with Status of Final Mauro Babcock MD electronically signed on 02/05/2025 4:10:35 PM with status of Final
--- OUTSIDE RECORDS SUMMARY | 2025-02-05 08:04 | XMS_ITS | Patient Health Record ---
Author Organization [facility] Address [address] [place] [address] Care Team Providers Care Metal Numerical Control Programmer Name Role Phone PUJA DELGADO Primary Care Provider Iker Clayton [phone] Allergies Allergen (clinical drug ingredient) Drug/Non Drug [...] Status Risk Notes Problem Gastroesophageal reflux disease (746083137) Gastroesophageal reflux disease, esophagitis presence not specified (K21.9) Active confirmed Problem Computed tomography of abdomen abnormal (08069878175784651) Abnormal CT scan, stomach (R93.3) Active confirmed Plan Of Treatment Future Test Test Name Order Date UPPER GI ENDOSCOPY 01/30/2019 Insurance Providers Payer Name Payer Address Payer Phone Subscriber Number Group Number Insured Name Patient Relationship to Insured Coverage Start Date Coverage End Date [facility] [address] [place], [place] [id number] ROSIO HERRING Self - patient is the insured Medical (General) History Medical History History ICD Code TIA 2012 HYPERTENSION Cyst on kidneys Colonoscopy in 06/2018 with Daniel Vazquez small tubular adenoma and hyperplastic polyps; previous colonoscopies at [facility] with removal of polyps Denies CT,DM,CVA,Lung disease,renal dise ase Arthritis Hyperlipidemia Spinal stenosis GERD Surgical History Surgery Date(Month/Year) Right Pheochromocytoma/adrenal gland rem donna at the [facility] 2016 3 neck surgerys stenosis 2011,2016 Ruptured quadraceip 2014 Bilateral ankles [phone] Removal of cervical rib
--- OUTSIDE RECORDS SUMMARY | 2025-02-05 08:05 | XMS_ITS | Data Portability ---
Author Organization [facility] Address [address] [place] [address] Care Team Providers Care Supplier Quality Engineer Name Role Phone YOLANDE PARIKH Referring Provider ANDRE ZHU Primary Care Provider [phone] Assessment Encounter Date Assessment Date Assessment LastModified [...] booked for the same. He needs a driver operator on the day of the procedure. [email or web address] [...] By Organization Details Last Modified Time 11/02/2016 [id number] He was advised against bed rest lasting longer than four days and to continue activities as tolerated. [email or web address] Not available 11/06/2016 15:32:34 11/07/2016 [id number] He was advised against bed rest lasting longer than four days and to continue activities as tolerated. [email or web address] Not available 11/07/2016 08:59:54 04/10/2017 [id number] He was advised against bed rest lasting longer than four days and to continue activities as tolerated. [email or web address] Not available 04/10/2017 15:31:44 07/05/2017 96879 He was advised against bed rest lasting longer than four days and to continue activities as tolerated. [email or web address] Not available 07/06/2017 09:57:47 10/23/2017 72840 He was advised against bed rest lasting longer than four days and to continue activities as tolerated. [email or web address] Not available 10/23/2017 15:01:25 Reason for Referral None Reported. Results Created Date Observation Date Name Description Value Unit Range Abnormal Flag Note LastModifiedBy Organization Detail LastModifiedTime 07/07/19 18 07/06/2017 XR, hip + pelvi s, unila teral No observ ation record ed. delma [facility] [address] [place] [address], [address], 07/10/2017 13:05:16 Result Notes None recorded. 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 53461055 Active Fede naidu MD [address] , [address], [place], [address], [place] [facility] 5 09:42:49 Lumbosacral spondylosis without myelopathy 72285223 Deisi naidu MD [address] , [address], [place], [address], [place] [facility] 5 09:42:49 Lumbosacral radiculitis 47525900 Active Fede naidu MD [address] , [address], [place], [address], [place] [facility] 5 09:42:49 Pain of left hip joint 8688046316922 00 Active Fede naidu MD [address] , [address], [place], [address], [place] [facility] 8 09:58:09 Problem Notes None recorded. Procedures Surgical History Date Name Laterality Status Provider Name and Address Organization Details Recorded Time 10/24/19 18 Intra-articular Hip Steroid Injection completed Fede Cullen MD [address] , [address], [place], [address], [place] [facility] 10/23/2017 15:00:35 04/10/20 17 Lumbar Epidural steroid injection under fluoroscopic guidance completed Fede Cullen MD [address] , [address], [place], [address], [place] [facility] 04/10/2017 15:33:49 11/08/19 17 Lumbar Epidural steroid injection under fluoroscopic guidance completed Fede Cullen MD [address] , [address], [place], [address], [place] [facility] 11/07/2016 09:00:44 03/29/20 16 Lumbar Epidural steroid injection under fluoroscopic guidance completed Fede Cullen MD [address] , [address], [place], [address], [place] [facility] 03/29/2016 11:28:47 02/23/20 15 Lumbar Epidural steroid injection under fluoroscopic guidance completed Fede Cullen MD [address] , [address], [place], [address], [place] [facility] 02/22/2015 10:49:56 11/18/19 15 Lumbar Epidural steroid injection under fluoroscopic guidance completed Fede Cullen MD [address] , [address], [place], [address], [place] [facility] 11/17/2014 14:46:04 04/23/19 14 Knee Surgery completed Sonacindi Ledezmaer [place] [facility] 11/04/2014 15:25:08 [...] 11/08/2014 21:04:11 04/23/18 77 Other completed Sona Ledezmaer [facility] 11/08/2014 21:04:11 Imaging Results None recorded. Procedure Notes None recorded. Medical Equipment None Reported. Allergies Allergen ID Allergen Name Allergen Category Reaction Reaction Severity Criticality Documentation Date Start Date Code Code System Note Provider Name and Address Organization Details Recorded Time 47073 Substance with sulfonami de structure and antibacte rial mechanism of action (substanc e) medicatio n other Not available Not available 11/04/2014 76212 8003 SNOMED dre rgy Sona Rennerzier armando [facility] 5 15:25:08 43341 Product containin g penicilli n (product) medicatio n other Not available Not available 11/04/2014 58687 8001 SNOMED GI upset Sona Rennerzier armando [facility] 5 15:25:08 Medications Name Sig [...] in Arterial blood by Pulse oximetry Systolic And Diastolic Provider Name and Address Organization Details Last Updated DateTime 8 172.72 cm 61 /min 97 % 97 % 154/82 mm[Hg] Sona Hewitt [place] [facility] 8 13:32:18 Date Recorded Body height Heart rate Oxygen saturation Oxygen saturation in Arterial blood by Pulse oximetry Body mass index (BMI) Body weight Systolic And Diastolic Provider Name and Address Organization Details Last Updated DateTime 8 172.72 cm 61 /min 98 % 98 % 27.1 kg/m2 96201.4 4 g 128/75 mm[Hg] [facility] 8 14:43:54 Date Recorded Heart rate Oxygen saturation Oxygen saturation in Arterial blood by Pulse oximetry Systolic And Diastolic Provider Name and Address Organization Details Last Updated DateTime 11/02/2016 79 /min 99 % 99 % 145/86 mm[Hg] [facility] 7 16:01:01 Date Recorded Body height Body mass index (BMI) Body weight Heart rate Oxygen saturation Oxygen saturation in Arterial blood by Pulse oximetry Systolic And Diastolic Provider Name and Address Organization Details Last Updated DateTime 7 172.72 cm 26.5 kg/m2 24940.0 7 g 55 /min 98 % 98 % 148/90 mm[Hg] [facility] 7 08:36:53 Date Recorded Pain severity - 0-10 verbal numeric rating [Score] - Reported Provider Name and Address Organization Details Last Updated DateTime 11/07/2016 7 Not Available [facility] 8 05:02:14 Date Recorded Body height Heart rate Oxygen saturation Oxygen saturation in Arterial blood by Pulse oximetry Systolic And Diastolic Provider Name and Address Organization Details Last Updated DateTime 7 172.72 cm 73 /min 97 % 97 % 128/73 mm[Hg] [facility] 7 14:33:09 Social History Question Answer Notes LastModified by Organizat ion Details LastModified Time Tobacco Smoking Status Never Smoker Not Available [employer] 02/06/2020 03:16:10 Which Illicit Or Recreational Drugs Have You Used? No [id number] Information not available 02/06/2020 Education 4 Year College Bachelors [email or web address] Information not available 11/04/2014 Live Alone Or With Others? With Others [email or web address] Information not available 11/04/2014 Marital Status [email or web address] Informatio n not available 11/04/2014 What Was The Date Of Your Most Recent Tobacco Screening? 10/23/2017 [id number] Information not available 02/06/2020 Sex: Unknown Functional Status Question Answer Note LastModified by Organizat ion Details LastModified Time What is your level of alcohol consumption? Occasional [id number] Information not available 02/06/2020 Are you currently employed? No [id number] Information not available 02/06/2020 Mental Status None [...] Diagnosis SNOMED-CT Code Diagnosis ICD10 Code Diagnosis IMO Codes Diagnosis Note 25923 Fede Cullen MD PAIN OFFICE [address] [place] [address] 11/04/2014 14:51:07 11/08/2014 17:51:46 Displacement of lumbar intervertebral disc without myelopathy 73890882 Lumbosacra l radiculitis 87962933 Lumbosacra l spondylosis without myelopathy 65050546 Spinal jenniffer nosis of lumbar region 15893098 43412 Fede Cullen MD PAIN OFFICE [address] [place] [address] 11/17/2014 13:06:25 11/18/2014 15:22:02 Spinal stenosis of lumbar region 06205260 Lumbosacra l spondylosis without myelopathy 15643971 Displaceme nt of lumbar intervertebral disc without myelopathy 63489909 Lumbosacra l radiculitis 14081558 08960 Fede Cullen MD PAIN OFFICE [address] [place] [address] 12/17/2014 09:21:01 12/17/2014 09:59:35 Spinal stenosis of lumbar region 18058797 Lumbosacra l spondylosis without myelopathy 30113505 Displaceme nt of lumbar intervertebral disc without myelopathy 26865838 Lumbosacra l radiculitis 18381408 27917 Fede Cullen MD PAIN OFFICE [address] [place] [address] 02/22/2015 09:26:46 02/22/2015 15:05:54 Spinal stenosis of lumbar region 24178672 M48.06 Lumbosacra l spondylosis without myelopathy 19245088 M47.817 Displaceme nt of lumbar intervertebral disc without myelopathy 80831976 M51.26 Lumbosacra l radiculitis 77592147 M54.17 57748 Fede Cullen MD PAIN OFFICE [address] [place] [address] 04/01/2015 09:13:06 04/01/2015 13:05:04 Spinal stenosis of lumbar region 82116706 M48.06 Lumbosacra l spondylosis without myelopathy 63894107 M47.817 Displaceme nt of lumbar intervertebral disc without myelopathy 61206713 M51.26 Lumbosacra l radiculitis 70272968 M54.17 03459 Fede Cullen MD PAIN OFFICE [address] [place] [address] 03/23/2016 14:27:30 03/27/2016 08:38:37 Lumbosacral radiculitis 89815357 M54.17 Lumbosacra l spondylosis without myelopathy 84847573 M47.817 Spinal jenniffer nosis of lumbar region 16614143 M48.06 Displaceme nt of lumbar intervertebral disc without myelopathy 94800595 M51.26 16466 Fede Cullen MD PAIN OFFICE [address] [place] [address] 03/29/2016 10:49:29 03/29/2016 13:23:53 Lumbosacral radiculitis 29474783 M54.17 Lumbosacra l spondylosis without myelopathy 44724542 M47.817 Spinal jenniffer nosis of lumbar region 94777800 M48.06 Displaceme nt of lumbar intervertebral disc without myelopathy 53316585 M51.26 54835 Fede Cullen MD PAIN OFFICE [address] [place] [address] 11/02/2016 15:25:24 11/06/2016 15:34:09 Spinal stenosis of lumbar region 62487506 M48.06 Lumbosacra l spondylosis without myelopathy 55448700 M47.817 Displaceme nt of lumbar intervertebral disc without myelopathy 81809557 M51.26 Lumbosacra l radiculitis 42903902 M54.17 45179 Fede Cullen MD PAIN OFFICE [address] [place] [address] 11/07/2016 08:25:00 11/08/2016 09:10:48 Spinal stenosis of lumbar region 60713771 M48.06 Lumbosacra l spondylosis without myelopathy 74507632 M47.817 Displaceme nt of lumbar intervertebral disc without myelopathy 95087661 M51.26 Lumbosacra l radiculitis 97321682 M54.17 28748 Fede Cullen MD PAIN OFFICE [address] [place] [address] 04/10/2017 14:19:05 04/11/2017 08:28:48 Spinal stenosis of lumbar region 57849563 M48.062 Lumbosacra l spondylosis without myelopathy 57386562 M47.817 Displaceme nt of lumbar intervertebral disc without myelopathy 02075911 M51.26 Lumbosacra l radiculitis 08009681 M54.17 93720 Fede Cullen MD PAIN OFFICE [address] [place] [address] 07/05/2017 13:01:42 07/06/2017 10:02:22 Spinal stenosis of lumbar region 95268623 M48.062 Lumbosacra l spondylosis without myelopathy 10727458 M47.817 Displaceme nt of lumbar intervertebral disc without myelopathy 40625319 M51.26 Lumbosacra l radiculitis 41974005 M54.17 Pain of le ft hip joint 8298254535 25774 M25.552 51575 Fede Cullen MD PAIN OFFICE [address] [place] [address] 10/23/2017 14:28:21 10/24/2017 14:53:11 Spinal stenosis of lumbar region 83857656 M48.062 Lumbosacra l spondylosis without myelopathy 13286893 M47.817 Displaceme nt of lumbar intervertebral disc without myelopathy 33933820 M51.26 Lumbosacra l radiculitis 02304386 M54.17 Pain of le ft hip joint 2277859931 10969 M25.552 Health Concerns Section Related Observation LastModified by Organization Detai ls LastModified Time None Recorded Concern Status LastModified by Organization Details LastModified Time None Recorded Advance Directives Directive None Recorded Payers Insurance Date Sequence Insurance Name Policy Number Policy Anguiano Covered Member ID Anguiano Member ID Guarantor Name 10/23/2017 1 [facility]: [employer] 106 Ron Abel [id number] Ron Abel Notes Date Note Type Note [...] or bowel incontinence Fede Cullen MD [address] [facility] [address] [address], [place], [address], [facility] 11/06/2016 15:57:32 11/07/2016 text/html He is here today for a repeat lumbar epidural steroid injection under fluoroscopic guidance. Fede Cullen MD [address] [facility] , [facility] [address], [place], [address], [facility] 11/13/2016 08:44:37 04/10/2017 text/html He [...] or bowel incontinence. Fede Cullen MD [address] [facility] , [address], [place], [address], [facility] Pain Management 04/12/2017 13:22:16 07/05/2017 text/html He [...] or bowel incontinence. Fede Cullen MD [address] [facility] , [address], [place], [address], [facility] Pain Management 07/09/2017 10:06:12 10/23/2017 text/html He is here for a left hip steroid injection under fluoroscopic guidance Fede Cullen MD [address] [facility] , [address], [place], [address], [facility] Pain Management 10/30/2017 08:33:45
== END ==
LOC: HO.CARD 08:01
PROVIDERS: PCP Nurse Practitioner Family; Visit Provider Nurse Practitioner Family
DX: I77.810 Thoracic aortic ectasia (principal)
CPT/HCPCS: 93306

== ENCOUNTER → 2025-02-05 08:03 | Outpatient (BNV) | payer MEDICARE, BC, SELFPAY | PROVIDERS: PCP Nurse Practitioner Family; Visit Provider Internal Medicine Cardiovascular Disease | DX: I51.7 Cardiomegaly (principal); I51.89 Other ill-defined heart diseases; I25.3 Aneurysm of heart | CPT/HCPCS: 93306 ==

== ENCOUNTER → 2025-02-09 10:04 | Outpatient (BNVA) | payer MEDICARE, BC, SELFPAY | PROVIDERS: PCP Nurse Practitioner Family; Visit Provider Physician Assistant Medical | DX: S20.362A Insect bite (nonvenomous) of left front wall of thorax, initial encounter (principal); W57.XXXA Bitten or stung by nonvenomous insect and other nonvenomous arthropods, initial encounter; Y93.9 Activity, unspecified; Y92.9 Unspecified place or not applicable; Y99.9 Unspecified external cause status | CPT/HCPCS: 99212 ==

== ENCOUNTER 2025-02-09 11:30 | Outpatient (AMB) | payer MEDICARE, BC, SELFPAY ==
[2025-02-09 11:57] VITALS: BP 136/80; PULSE 61; TEMP 36.6; O2SAT 98; BMI 24.5
--- NOTE | 2025-02-09 11:57 | MHC.OFFWIV ---
Intake Vital Signs 02/09/25 11:57 Height 5 ft 8 in Weight 161 lb 6 oz BMI 24.5 BP 136/80 Blood Pressure Location Lt brachial Position Sitting Pulse 61 Pulse Source Pulse Oximeter Temp 97.9 F Temp Source Oral Pulse Oximetry (%) 98 Oxygen Delivery Method Room Air Intake Visit Reasons: EP-lt chest tick bite Intake Note: Patient presents with tick bite on left chest x3 days Patient Tobacco Use Status: Never used Tobacco Allergies codeine (CODEINE) Allergy (Intermediate, Verified 02/09/25 12:00) NAUSEA, stomach upset lisinopril Allergy (Intermediate, Verified 02/09/25 12:00) angioedema Sulfa (Sulfonamide Antibiotics) (SULFA (SULFONAMIDE ANTIBIOTICS)) Allergy (Intermediate, Verified 02/09/25 12:00) NAUSEA, stomach upset HPI HPI Comments History of Present Illness Details History - The patient is a 75-year-old male presenting with a tick bite. - The tick bite occurred three days ago, and the patient removed the tick himself. - The patient noticed significant bruising at the site of the bite, which appeared worse upon waking this morning. - There are no associated symptoms such as fever, chills, body aches, or joint pain. - The patient is not on aspirin or any anticoagulant therapy. - He denies fever, chills, bleeding, discharge, or joint pain. Physical Exam General: Cooperative, healthy appearing, comfortable, no acute distress and well developed Orientation: Patient oriented x3 Limitations: No limitations Respiratory: Normal respiratory effort and able to speak in complete sentences. No w/r/r noted. Skin: Small, flat, erythematous, macule noted on the left anterior chest with yellow bruising noted. No warmth or induration. No discharge or streaking, no bleeding. Patient was informed and verbally consented to the use of an ambient scribe for clinic note documentation during this visit. [facility] Medical History (Updated 01/31/25 @ 11:13 by Jaziel Lr [facility] Screening PSA (prostate specific antigen) Thigh pain History of injury of tendon (~2013) Environmental and seasonal allergies Ascending aorta dilatation Acute otitis media Hip pain Abdominal hernia Physical exam Physical exam Screening for colon cancer Erectile dysfunction Kidney cysts Pheochromocytoma TIA (transient ischemic attack) (~2008) Hypercholesterolemia Mild acid reflux High blood pressure determined by examination Renal cyst, acquired Microscopic hematuria Tubular adenoma of colon Colon cancer screening Back pain Hip flexor tendonitis Hip arthritis Quadriceps tendon rupture Serous otitis media Acute sinusitis Otitis externa of both ears Otitis media Viral syndrome Encounter for screening laboratory testing for COVID-19 virus Surgical History Hx of bilateral inguinal hernia repair History of esophagogastroduodenoscopy (EGD) (~2018) Hx of colonoscopy (~2019) H/O neck surgery H/O umbilical hernia repair History of back surgery History of ankle surgery History of surgery Family History Father Substance use disorder Brother Substance use disorder Mother Liver cancer History of kidney cancer Paternal Uncle HTN (hypertension) Maternal Aunt Cancer Family/Other Cancer Social History Housing: House Are you a primary career center director to a significant other at home: No Do you presently have visiting nurse or other home services: No Alcohol intake: current Alcohol intake frequency: does not drink Patient Tobacco Use Status: Never used Tobacco e-Cigarette/Vaping Use: Never Used Second Hand Smoke Exposure: No service: Yes Current occupational status: retired Cognitive needs: No Hearing needs: No Vision needs: No Review of Systems Const All systems reviewed & are unremarkable except as noted in HPI and below Physical Exam Vital Signs: Last Vital Signs Temp 97.9 F 02/09/25 11:57 Pulse 61 02/09/25 11:57 BP 136/80 02/09/25 11:57 Pulse Ox 98 02/09/25 11:57 Oxygen Delivery Method Room Air 02/09/25 11:57 BMI result Body Mass Index 24.5 Assessment & Plan Assessment & Plan (1) Tick bite of chest wall: Code(s): S20.369A - Insect bite (nonvenomous) of unspecified front wall of thorax, initial encounter; W57.XXXA - Bitten or stung by nonvenomous insect and other nonvenomous arthropods, initial encounter Qualifiers: Encounter type: initial encounter Laterality: left Qualified Code(s): S20.362A - Insect bite (nonvenomous) of left front wall of thorax, initial encounter; W57.XXXA - Bitten or stung by nonvenomous insect and other nonvenomous arthropods, initial encounter Plan Most likely tick bite Plan - Administer antibiotics to prevent Lyme disease and treat potential skin infection. - watch for redness, warmth, discharge, fever, etc - follow up with PCP Medications: New doxycycline hyclate 100 mg PO BID 14 tabs 0RF Coding Level of Care Code Est Pt Level 3 (51295) Diagnoses Tick bite of left side of chest wall, initial encounter S20.362A; W57.XXXA Encounter type: initial encounter Laterality: left
== END 2025-02-09 13:05 | disposition home or self-care (01) ==
PROVIDERS: PCP Nurse Practitioner Family; Visit Provider Physician Assistant Medical
DX: S20.362A Insect bite (nonvenomous) of left front wall of thorax, initial encounter (principal); W57.XXXA Bitten or stung by nonvenomous insect and other nonvenomous arthropods, initial encounter

== ENCOUNTER → 2025-02-12 08:08 | Outpatient (BNVA) | payer MEDICARE, BC, SELFPAY | PROVIDERS: PCP Nurse Practitioner Family | DX: Z01.30 Encounter for examination of blood pressure without abnormal findings (principal) | CPT/HCPCS: 99211 ==

== ENCOUNTER 2025-04-15 07:57 | Outpatient (AMB) | payer MEDICARE, BC, SELFPAY ==
--- OUTSIDE RECORDS SUMMARY | 2025-04-15 08:02 | XMS_ITS | Patient Health Record ---
Author Organization [facility] Address [address] [place] [address] Care Team Providers Care Intake Assessor Name Role Phone PUJA DELGADO Primary Care Provider Iker Clayton [phone] Allergies Allergen (clinical drug ingredient) Drug/Non Drug Allergy documented on EMR Reaction Allergy Type Onset Date Status sulfamethoxazole / trimethoprim Bactrim stomach upset Drug Allergy Active codeine Codeine Sulfate stromach upset Drug Allergy Active sulfacetamide Sulfacetamide Sodium stomach upset Drug Allergy Active Reason For Referral No Information Medications Medication SIG (Take, Route, Frequency, Duration) Notes Start Date End Date Status Diclofenac Sodium 75 MG Tablet Delayed Release Oral; Duration: 30 Active Pravastatin Sodium 40 MG Tablet take 1 tablet by mouth once daily Oral; Duration: 90 Active amLODIPine Besylate 5 MG Tablet take 1 tablet by mouth once daily Oral; Duration: 90 Active Melatonin 3 MG Tablet 1 tablet at bedtim e as needed with food Orally Once a day; Duration: 30 day(s) Active Vitamin D3 1000 UNIT Capsule 1 capsule Orally Once a day; Duration: 30 day(s) Active Esomeprazole Sodium 20 MG Solution Reconstituted as directed Intravenous Active hydrOXYzine HCl 25 MG Tablet 1 tablet as needed Orally every 8 hrs; Duration: 30 day(s) Active Sertraline HCl 100 MG Tablet 1 tablet Orally Once a day; Duration: 30 day(s) Active Immunizations Vaccine Route Administration Date Status Comme nts Influenza Unknown 01/30/2019 Refused Social History Tobacco Use: Social History Observation Description Date Details (start date - stop date) Never Smoker NA - NA Social History Drugs/Alcohol: Social Info Question Answer Notes Alcohol Screen Did you have a drink containing alcohol in the past year? Yes How often did you have a drink containing alcohol in the past year? 4 or more times a week (4 points) How many drinks did you have on a typical day when you were drinking in the past year? 1 or 2 drinks (0 point) How often did you have 6 or more drinks on one occasion in the past year? Never (0 point) Points 4 Interpretation Positive Tobacco Use: Social Info Question Answer Notes Tobacco Use/Smoking Patient is a nonsmoker Additional Details Category Social Info Options Details Miscellaneous: Marital status: Occupation: retired Section Notes: Nonsmoker; a few beers melba ry day Problems Problem Type SNOMED Code ICD Code Onset Dates Problem Status W/U Status Risk Notes Problem Gastroesophageal reflux disease (885381043) Gastroesophageal reflux disease, esophagitis presence not specified (K21.9) Active confirmed Problem Computed tomography of abdomen abnormal (57938265182022261) Abnormal CT scan, stomach (R93.3) Active confirmed Plan Of Treatment Future Test Test Name Order Date UPPER GI ENDOSCOPY 01/30/2019 Insurance Providers Payer Name Payer Address Payer Phone Subscriber Number Group Number Insured Name Patient Relationship to Insured Coverage Start Date Coverage End Date [facility] [address] [place], [place] [id number] ROSIO HERRING Self - patient is the insured Medical (General) History Medical History History ICD Code TIA 2012 HYPERTENSION Cyst on kidneys Colonoscopy in 06/2018 with Daniel Vazquez small tubular adenoma and hyperplastic polyps; previous colonoscopies at [facility] with removal of polyps Denies NM,DM,CVA,Lung disease,renal dise ase Arthritis Hyperlipidemia Spinal stenosis GERD Surgical History Surgery Date(Month/Year) Right Pheochromocytoma/adrenal gland rem donna at the [facility] 2016 3 neck surgerys stenosis 2011,2017 Ruptured quadraceip 2014 Bilateral ankles [phone] Removal of cervical rib
--- OUTSIDE RECORDS SUMMARY | 2025-04-15 08:03 | XMS_ITS | Data Portability ---
Author Organization [facility] Address [address] [place] [address] Care Team Providers Care Caramel Maker Name Role Phone YOLANDE PARIKH Referring Provider [...] booked for the same. He needs a show horse driver on the day of the procedure. [...] By Organization Details Last Modified Time 11/02/2016 87347 He was advised against bed rest lasting longer than four days and to continue activities as tolerated. [email or web address] Not available 11/06/2016 15:32:34 11/07/2016 [id number] He was advised against bed rest lasting longer than four days and to continue activities as tolerated. [email or web address] Not available 11/07/2016 08:59:54 04/10/2017 [id number] He was advised against bed rest lasting longer than four days and to continue activities as tolerated. [email or web address] Not available 04/10/2017 15:31:44 07/05/2017 [id number] He was advised against bed rest lasting longer than four days and to continue activities as tolerated. [email or web address] Not available 07/06/2017 09:57:47 10/23/2017 [id number] He was advised against bed rest lasting longer than four days and to continue activities as tolerated. [email or web address] Not available 10/23/2017 15:01:25 Reason for Referral None Reported. Results Created Date Observation Date Name Description Value Unit Range Abnormal Flag Note LastModifiedBy Organization Detail LastModifiedTime 07/07/19 18 07/06/2017 XR, hip + pelvi s, unila teral No observ ation record ed. delma [facility] [address] [place] [address], [address], 07/10/2017 13:05:16 Result Notes None recorded. 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 72098410 Active Fede naidu MD [address] , [address], [place], [address], [place] [facility] 5 09:42:49 Lumbosacral spondylosis without myelopathy 02280522 Deisi naidu MD [address] , [address], [place], [address], [place] [facility] 5 09:42:49 Lumbosacral radiculitis 21505911 Active Fede naidu MD [address] , [address], [place], [address], [place] [facility] 5 09:42:49 Pain of left hip joint 0091187858803 00 Active Fede naidu MD [address] , [address], [place], [address], [place] [facility] 8 09:58:09 Problem Notes None recorded. Procedures Surgical History Date Name Laterality Status Provider Name and Address Organization Details Recorded Time 10/24/19 18 Intra-articular Hip Steroid Injection completed Fede Cullen MD [address] , [address], [place], [address], [place] [facility] 10/23/2017 15:00:35 04/10/20 17 Lumbar Epidural steroid injection under fluoroscopic guidance completed Fede Cullen MD [address] , [address], [place], [address], [place] [facility] 04/10/2017 15:33:49 11/08/19 17 Lumbar Epidural steroid injection under fluoroscopic guidance completed Fede Cullen MD [address] , [address], [place], [address], [place] [facility] 11/07/2016 09:00:44 03/29/20 16 Lumbar Epidural steroid injection under fluoroscopic guidance completed Fede Cullen MD [address] , [address], [place], [address], [place] [facility] 03/29/2016 11:28:47 02/23/20 15 Lumbar Epidural steroid injection under fluoroscopic guidance completed Fede Cullen MD [address] , [address], [place], [address], [place] [facility] 02/22/2015 10:49:56 11/18/19 15 Lumbar Epidural steroid injection under fluoroscopic guidance completed Fede Cullen MD [address] , [address], [place], [address], [place] [facility] 11/17/2014 [...] 21:04:11 04/23/18 77 Other completed Sona Ledezmaer [facility] 11/08/2014 21:04:11 Imaging Results None recorded. Procedure Notes None recorded. Medical Equipment None Reported. Allergies Allergen ID Allergen Name Allergen Category Reaction Reaction Severity Criticality Documentation Date Start Date Code Code System Note Provider Name and Address Organization Details Recorded Time 48335 Substance with sulfonami de structure and antibacte rial mechanism of action (substanc e) medicatio n other Not available Not available 11/04/2014 53013 8003 SNOMED dre rgy Sona Rennerzier armando [facility] 5 15:25:08 74765 Product containin g penicilli n (product) medicatio n other Not available Not available 11/04/2014 86857 8001 SNOMED GI upset Sona Rennerzier armando [facility] 5 15:25:08 Medications Name [...] Recorded Body height Heart rate Oxygen saturation Systolic And Diastolic Provider Name and Address Organization Details Last Updated DateTime 07/05/2017 172.72 cm 61 /min 97 % 154/82 mm[Hg] Sona Oseguera [facility] 07/05/2017 13:32:18 Date Recorded Body height Heart rate Oxygen saturation Body mass index (BMI) Body weight Systolic And Diastolic Provider Name and Address Organization Details Last Updated DateTime 8 172.72 cm 61 /min 98 % 27.1 kg/m2 63494.4 4 g 128/75 mm[Hg] Sona Hewitt [place] [facility] 8 14:43:54 Date Recorded Heart rate Oxygen saturation Systolic And Diastolic Provider Name and Address Organization Details Last Updated DateTime 11/02/2016 79 /min 99 % 145/86 mm[Hg] Sona Hewitt [facility] 11/02/2016 16:01:01 Date Recorded Body height Body mass index (BMI) Body weight Heart rate Oxygen saturation Systolic And Diastolic Provider Name and Address Organization Details Last Updated DateTime 7 172.72 cm 26.5 kg/m2 06853.0 7 g 55 /min 98 % 148/90 mm[Hg] Sona Hewitt [place] [facility] 7 08:36:53 Date Recorded Pain severity - 0-10 verbal numeric rating [Score] - Reported Provider Name and Address Organization Details Last Updated DateTime 11/07/2016 7 Not Available [facility] 8 05:02:14 Date Recorded Body height Heart rate Oxygen saturation Systolic And Diastolic Provider Name and Address Organization Details Last Updated DateTime 04/10/2017 172.72 cm 73 /min 97 % 128/73 mm[Hg] Sona Hewitt [facility] 04/10/2017 14:33:09 Social History Question Answer Notes LastModified by [employer] Details LastModified Time Tobacco Smoking Status Never Smoker Not Available [facility] 02/06/2020 03:16:10 Which Illicit Or Recreational Drugs Have You Used? No [id number] Information not available 02/06/2020 Education 4 Year College Bachelors [email or web address] Information not available 11/04/2014 Live Alone Or With Others? With Others Information not available 11/04/2014 Marital Status Informatio n not available 11/04/2014 What Was The Date Of Your Most Recent Tobacco Screening? 10/23/2017 [id number] Information not available 02/06/2020 Sex: Unknown Functional Status Question Answer Note LastModified by [employer] Details LastModified Time What is your level of alcohol consumption? Occasional [id number] Information not available 02/06/2020 Are you currently employed? No [id number] Information not available 02/06/2020 Mental Status None recorded. Family History Relationship Description Onset Age of this Age Resolved Age Notes LastModified by Organization Details LastModified Time Mother Malignant neoplastic disease delma Not available 03/23 09:40:06 Medical History Condition Response Arthritis Y High Cholesterol Y Seizures/Epilepsy Y GERD/Reflux Y Hypertension Y Past Encounters Encounter ID Performer Location Encounter Start Date Encounter Closed Date Diagnosis/Indication Diagnosis SNOMED-CT Code Diagnosis ICD10 Code Diagnosis IMO Codes Diagnosis Note [id number] Fede Cullen MD PAIN OFFICE [address] [place] [address] 11/04/2014 14:51:07 11/08/2014 17:51:46 Displacement of lumbar intervertebral disc without myelopathy 05780133 Lumbosacra l radiculitis 08942830 Lumbosacra l spondylosis without myelopathy 17590011 Spinal jenniffer nosis of lumbar region 46549662 [id number] Fede Cullen MD PAIN OFFICE [address] [place] [address] 11/17/2014 13:06:25 11/18/2014 15:22:02 Spinal stenosis of lumbar region 54319993 Lumbosacra l spondylosis without myelopathy 64561597 Displaceme nt of lumbar intervertebral disc without myelopathy 44891486 Lumbosacra l radiculitis 39035524 [id number] Fede Cullen MD PAIN OFFICE [address] [place] [address] 12/17/2014 09:21:01 12/17/2014 09:59:35 Spinal stenosis of lumbar region 45381101 Lumbosacra l spondylosis without myelopathy 87536177 Displaceme nt of lumbar intervertebral disc without myelopathy 33312777 Lumbosacra l radiculitis 89592656 [id number] Fede Cullen MD PAIN OFFICE [address] [facility] [place] [address] 02/22/2015 09:26:46 02/22/2015 15:05:54 Spinal stenosis of lumbar region 80332724 M48.06 Lumbosacra l spondylosis without myelopathy 18455704 M47.817 Displaceme nt of lumbar intervertebral disc without myelopathy 87147744 M51.26 Lumbosacra l radiculitis 04711538 M54.17 [id number] Fede Cullen MD PAIN OFFICE [address] [place] [address] 04/01/2015 09:13:06 04/01/2015 13:05:04 Spinal stenosis of lumbar region 29421238 M48.06 Lumbosacra l spondylosis without myelopathy 54029173 M47.817 Displaceme nt of lumbar intervertebral disc without myelopathy 69367292 M51.26 Lumbosacra l radiculitis 20491662 M54.17 [id number] Fede Cullen MD PAIN OFFICE [address] [place] [address] 03/23/2016 14:27:30 03/27/2016 08:38:37 Lumbosacral radiculitis 82188054 M54.17 Lumbosacra l spondylosis without myelopathy 13117251 M47.817 Spinal jenniffer nosis of lumbar region 85967955 M48.06 Displaceme nt of lumbar intervertebral disc without myelopathy 44733334 M51.26 [id number] Fede Cullen MD PAIN OFFICE [address] [place] [address] 03/29/2016 10:49:29 03/29/2016 13:23:53 Lumbosacral radiculitis 57763797 M54.17 Lumbosacra l spondylosis without myelopathy 22939614 M47.817 Spinal jenniffer nosis of lumbar region 01502317 M48.06 Displaceme nt of lumbar intervertebral disc without myelopathy 59937553 M51.26 [id number] Fede Cullen MD PAIN OFFICE [address] [place] [address] 11/02/2016 15:25:24 11/06/2016 15:34:09 Spinal stenosis of lumbar region 74548245 M48.06 Lumbosacra l spondylosis without myelopathy 94184337 M47.817 Displaceme nt of lumbar intervertebral disc without myelopathy 94810588 M51.26 Lumbosacra l radiculitis 94018266 M54.17 [id number] Fede Cullen MD [facility] [address] [place] [address] 11/07/2016 08:25:00 11/08/2016 09:10:48 Spinal stenosis of lumbar region 72719988 M48.06 Lumbosacra l spondylosis without myelopathy 86616728 M47.817 Displaceme nt of lumbar intervertebral disc without myelopathy 69587375 M51.26 Lumbosacra l radiculitis 09619409 M54.17 [id number] Fede Cullen MD PAIN OFFICE [address] [place] [address] 04/10/2017 14:19:05 04/11/2017 08:28:48 Spinal stenosis of lumbar region 95872241 M48.062 Lumbosacra l spondylosis without myelopathy 27443301 M47.817 Displaceme nt of lumbar intervertebral disc without myelopathy 89863669 M51.26 Lumbosacra l radiculitis 80896130 M54.17 [id number] Fede Cullen MD PAIN OFFICE [address] [place] [address] 07/05/2017 13:01:42 07/06/2017 10:02:22 Spinal stenosis of lumbar region 62277608 M48.062 Lumbosacra l spondylosis without myelopathy 83554312 M47.817 Displaceme nt of lumbar intervertebral disc without myelopathy 26788170 M51.26 Lumbosacra l radiculitis 07405569 M54.17 Pain of le ft hip joint 1305283730 00697 M25.552 [id number] Fede Cullen MD [facility] [address] [place] [address] 10/23/2017 14:28:21 10/24/2017 14:53:11 Spinal stenosis of lumbar region 24988251 M48.062 Lumbosacra l spondylosis without myelopathy 04861634 M47.817 Displaceme nt of lumbar intervertebral disc without myelopathy 11153926 M51.26 Lumbosacra l radiculitis 00904879 M54.17 Pain of le ft hip joint 5152228887 56158 M25.552 Health Concerns Section Related Observation LastModified by Organization Jesus ls LastModified Time None Recorded Concern Status LastModified by Organization Details LastModified Time None Recorded Advance Directives Directive None Recorded Payers Insurance Date Sequence Insurance Name Policy Number Policy Anguiano Covered Member ID Anguiano Member ID Guarantor Name 10/23/2017 1 [facility] [employer] [facility] 106 Ron Abel [id number] Ron Abel Notes Date Note Type Note [...] or bowel incontinence Fede Cullen MD [address] [facility] [address] , [address] [address], [place], [address], [facility] - [facility] Management 11/06/2016 15:57:32 11/07/2016 text/html He is here today for a repeat lumbar epidural steroid injection under fluoroscopic guidance. Fede Cullen MD [address] [place] [address] , [facility] [address], [place], [address], [facility] - Pain Management 11/13/2016 08:44:37 04/10/2017 text/html He [...] or bowel incontinence. Fede Cullen MD [address] [facility] , [facility] [address], [place], [address], [facility] Pain Management 04/12/2017 13:22:16 07/05/2017 text/html [...] or bowel incontinence. Fede Cullen MD [address] [facility] [address] , [address], [place], [address], [facility] Pain Management 07/09/2017 10:06:12 10/23/2017 text/html He is here for a left hip steroid injection under fluoroscopic guidance Fede Cullen MD [address] [facility] , [address], [place], [address], [facility] Pain Management 10/30/2017 08:33:45
--- OUTSIDE RECORDS SUMMARY | 2025-04-15 08:03 | XMS_ITS | Clinical Summary ---
Author Organization Marge Cochran [facility] Address [address] [place], [place] [id number] Care Team Providers Care Animal Attendant Name Role Phone Bayron Caldera Primary Care Provider Mark Lane MD Unavailable [phone] Allergies Active Allergy Reactions Criticality Noted Date Comments Sulfamethoxazole-Trimethoprim GI Intolerance Venom-Yellow Jacket Swelling 10/13/2015 Codeine GI Intolerance 11/22/2015 Nausea Medications pravastatin (PRAVACHOL) 20 MG tablet Take 20 mg by mouth daily after breakfast. 0 6 Active omeprazole (PriLOSEC) [address] Capsule Take 40 mg by mouth daily. 0 6 Active acetaminophen (TYLENOL) 500 MG tablet Take 500 mg by mouth Every morning and every evening. Active loratadine (CLARITIN) 10 mg tablet Take 10 mg by mouth daily. Active cholecalciferol, vitamin D3, 1,000 unit capsule Take 1,000 Units by mouth daily. Active aspirin 81 MG EC tablet Take 81 mg by mouth daily. Active lisinopril (PRINIVIL,ZESTRIL) 30 MG tablet Take 1 tablet (30 mg total) by mouth daily. 30 tablet 0 6 Active oxyCODONE (ROXICODONE) 5 MG immediate release tabletIndications: Pheochromocytoma of right adrenal gland,H/O total adrenalectomy Take 1 tablet (5 mg total) by mouth every 4 hours as needed for pain. 20 tablet 0 6 Active Active Problems Problem Noted Date Diagnosed Date Pheochromocytoma of right adrenal gland 11/02/19 16 Assessment & Plan (11/22/2015 4:53 PM EDT): Patient is currently post right adrenalectomy. He is completely asymptomatic. He has never had electrolyte abnormalities. He has no recorded hypotension and no falls. He does not endorse postural dizziness. In this scenario no further medical intervention is mandated. The patient will be meeting his surgery team tomorrow. He will be getting blood work done at that point. -Check serum metanephrines 1: This is to see if there is any remnant pheochromocytoma mass left in the body -If the metanephrines are normal the patient should be diagnosed with essential hypertension and treatment with Lisinopril should be continued -Target blood pressure less than 150/80 based on JNC8 guidelines -If there is no remnant pheochromocytoma the further care can be done by the primary care provider -We will inform the patient of the serum metanephrines results, if however the serum metanephrines comes back positive he might have to do a 24-hour urine measurement of all catecholamines Pheochromocytoma 10/13/2015 Family History Medical History Relation Comments Hypertension Brother 6 brothers with hypertension Hypothyroidism Brother Thyroid disease Brother 4 brothers with some type of thyroid problem Brain cancer Father Heart disease Father Arthritis Mother Cancer Mother pancreatic cance r Hyperthyroidism Mother Relation Status Comments Brother Father Mother Social History Tobacco Use Types Packs/Day Years Used Date Smoking Tobacco: Never Smokeless Tobacco: Never Alcohol Use Standard Drinks/Week Comments Yes 14 (1 standard drink = 0.6 oz pu re alcohol) 2 cans of beer per day Sex and Gender Information Value Date Recorded Sex Assigned at Not on file Legal Sex Male 1:51 PM EDT Gender Identity Not on file Sexual Orientation Not on file 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 Left Arm. Pulse 64 11/22/2015 2:22 PM EDT Temperature 36.5 C (97.7 F) 11/03/2015 4:00 PM EDT Respiratory Rate 16 11/03/2015 4:00 PM EDT Oxygen Saturation 100% 11/22/2015 2:2 2 PM EDT Inhaled Oxygen Concentration - - Weight 79.8 kg (175 lb 14.4 oz) 11/22/2015 2:22 PM EDT Height 171.5 cm (5' 7.5 ) 10/13/2015 2: 54 PM EDT Body Mass Index 27.14 10/13/2015 2:54 PM EDT Plan of Treatment Not on file Insurance [address] [address] MEDICARE Advance Directives Documents on File Type Date Recorded Patient Core Driller Expl anation Health Care Proxy 11/02/2015 12:11 PM ADCIA escobar Care Proxy/Advance Directive * Full Code (Latest Code Status on File) Date Activated Date Inactivated Comments 11/02/2015 5:01 PM 11/03/2015 7:29 PM Care Teams Animal Attendant Relationship Specialty Start Date End Date Baryon Caldera [address] [place] [id number] PCP - General 08/30/[address] MD [address] [place] [address] Consulting Provider Urology 09/08/15
[2025-04-15 08:08] VITALS: BP 130/78; PULSE 62; O2SAT 98; BMI 24.6
--- NOTE | 2025-04-15 08:08 | MHC.PC.OV ---
Vital Signs 04/15/25 08:08 Height 5 ft 8 in Weight 162 lb BMI 24.6 BP 130/78 Blood Pressure Location Lt brachial Position Sitting Pulse 62 Pulse Source Pulse Oximeter Pulse Oximetry (%) 98 Oxygen Delivery Method Room Air Intake Visit Reasons: f/u HTN/overdue Roll Machine Operator Required: No Accompanied by: Self / Same As Patient Allergies codeine (CODEINE) Allergy (Intermediate, Verified 04/15/25 08:27) NAUSEA, stomach upset lisinopril Allergy (Intermediate, Verified 04/15/25 08:27) angioedema Sulfa (Sulfonamide Antibiotics) (SULFA (SULFONAMIDE ANTIBIOTICS)) Allergy (Intermediate, Verified 04/15/25 08:27) NAUSEA, stomach upset Medication List - Last Reconciled 04/15/25 by TUYET Fleming- amlodipine 5 mg PO DAILY 90 days cholecalciferol (vitamin D3) 50 mcg PO DAILY 90 days diclofenac sodium 75 mg PO BID PRN esomeprazole magnesium 20 mg PO DAILY hydroxyzine HCl 10 mg PO TID PRN ipratropium bromide 2 sprays intranasal BID PRN pravastatin 40 mg PO DAILY sertraline 100 mg PO DAILY Tobacco use date assessed: 04/15/25 Fall risk assessment: No Falls in past year Last assessed Fall Risk: 04/15/25 Dental Screening Dental Screen Date: 04/15/25 Did you have a dental visit in the last 12 months?: Yes Did you have a dental problem in the last 6 months where you did not have access to dental care?: No Was dental information given to patient?: Patient has dentist HPI f/u HTN/overdue HPI Details Chief Complaint The patient presents for a follow-up visit for management of hypertension. History of Present Illness The patient is a 75 year old male presenting for a follow-up visit for hypertension. His blood pressure is reported to be stable, and he is feeling well. The patient reports being physically active. Social History - Level of Activity: The patient is physically active. Health Maintenance Review of Systems - Constitutional: Reports feeling well. - Neurological: Denies dizziness, blurred vision, and headaches. - Cardiovascular: Denies chest pain. - Respiratory: Denies shortness of breath. Physical Exam General: Cooperative, healthy appearing, comfortable, no acute distress and well developed Orientation: Patient oriented x3 Limitations: No limitations Head: Normal to inspection Ears: Hearing grossly normal bilaterally Nose: Normal external nose present Face and sinus: Normal facial exam Eyes: Appearance normal, both eyes and all related structures Neck: Normal visual inspection and Yes full ROM Respiratory: Normal respiratory effort and able to speak in complete sentences. Clear to auscultation bilaterally Cardiovascular: Regular rate and rhythm. Normal S1 and S2 GI: Normal to inspection. Soft to palpation and nontender Skin: No rashes or lesions noted Neuro: Patient oriented x3 Extremities: Normal to inspection, no edema noted Results - Labs: Recent labs were within normal limits. Plan 1. Hypertension The patient's hypertension is stable. Recent laboratory results are within normal limits. A follow-up visit is scheduled in six months. Discussion Notes I have reviewed the patient's condition and noted that his hypertension is stable. Recent lab results are within normal limits. We will have a follow-up appointment in six months. Patient Instructions - Your blood pressure is stable, and you are doing well. - Please return for a follow-up appointment in six months. [facility] Medical History Screening PSA (prostate specific antigen) Thigh pain History of injury of tendon (~2013) Environmental and seasonal allergies Ascending aorta dilatation Acute otitis media Hip pain Abdominal hernia Physical exam Physical exam Screening for colon cancer Erectile dysfunction Kidney cysts Pheochromocytoma TIA (transient ischemic attack) (~2008) Hypercholesterolemia Mild acid reflux High blood pressure determined by examination Renal cyst, acquired Microscopic hematuria Tubular adenoma of colon Colon cancer screening Back pain Hip flexor tendonitis Hip arthritis Quadriceps tendon rupture Serous otitis media Acute sinusitis Otitis externa of both ears Otitis media Viral syndrome Encounter for screening laboratory testing for COVID-19 virus Surgical History Hx of bilateral inguinal hernia repair History of esophagogastroduodenoscopy (EGD) (~2018) Hx of colonoscopy (~2018) H/O neck surgery H/O umbilical hernia repair History of back surgery History of ankle surgery History of surgery Family History Father Substance use disorder Brother Substance use disorder Mother Liver cancer History of kidney cancer Paternal Uncle HTN (hypertension) Maternal Aunt Cancer Family/Other Cancer Social History Housing: House Are you a primary direct care specialist to a significant other at home: No Do you presently have visiting nurse or other home services: No Alcohol intake: current Alcohol intake frequency: does not drink Patient Tobacco Use Status: Never used Tobacco e-Cigarette/Vaping Use: Never Used Second Hand Smoke Exposure: No service: Yes Current occupational status: retired Cognitive needs: No Hearing needs: No Vision needs: No Questionnaire PHQ-9 Over the last 2 weeks, how often have you been bothered by any of the following problems? 1. Little interest or pleasure in doing things: not at all 2. Feeling down, depressed, or hopeless: not at all 3. Trouble falling or staying asleep, or sleeping too much: not at all 4. Feeling tired or having little energy: not at all 5. Poor appetite or overeating: not at all 6. Feeling bad about yourself - or that you are a failure or have let yourself or your family down: not at all 7. Trouble concentrating on things, such as reading the newspaper or watching television: not at all 8. Moving or speaking so slowly that other people could have noticed. Or the opposite - being so fidgety or restless that you have been moving around a lot more than usual: not at all 9. Thoughts that you would be better off or of hurting yourself in some way: not at all Total score: 0 Depression Screening Interpretation: Negative Depression Screening Done: Yes 02839 - PHQ-9 Billing: Yes Source: Developed by Drs. Iker Zamora, Serena Roper, Christopher Duff and colleagues, with an educational gita from [email or web address]. Thrive Questionnaire Date Thrive assessed: 07/16/24 I am a: Patient What is your living situation today?: I choose not to answer this question Within the past 12 months, did the food you bought not last and you didn't have the money to get more?: I choose not to answer this question Within the past 12 months, did you worry whether your food would run out before you got money to buy more?: I choose not to answer this question Do you have trouble paying for medicines?: No Do you have trouble getting transportation to medical appointments?: I choose not to answer this question Do you have trouble paying your heating and electricity bill?: I choose not to answer this question Do you have trouble taking care of your child, family member or friend?: No Do you have trouble with day-to-day activities such as bathing, preparing meals, shopping, managing finances, etc.?: No Are you currently unemployed and looking for a job?: No Are you interested in more education?: No Currently or been in a relationship where the following occur: I choose not to answer THRIVE Score: 0 CHUCK-7 AMB Questionnaire CHUCK-7 Date CHUCK - 7 assessed: 04/15/25 Feeling nervous, anxious, or on edge: 0 = Not at all Not being able to stop or control worryin = Not at all Worrying too much about different things: 0 = Not at all Trouble relaxin = Not at all Being so restless that it is hard to sit still: 0 = Not at all Becoming easily annoyed or irritable: 0 = Not at all Feeling afraid as if something awful might happen: 0 = Not at all Total CHUCK-7 score (0-4 normal; 5-9 mild; 10-14 moderate; 15-21 severe): 0 Source: Developed by Drs. Iker Zamora, Serena Roper, Christopher Duff and colleagues, with an educational gita from [email or web address]. CHUCK-7 Assessment Billing CHUCK-7 Assessment Tool: CHUCK-7 Assessment 39261 Physical exam (Primary Care) Vital Signs: Last Vital Signs Pulse 62 04/15/25 08:08 BP 130/78 04/15/25 08:08 Pulse Ox 98 04/15/25 08:08 Oxygen Delivery Method Room Air 04/15/25 08:08 BMI result Body Mass Index 24.6 Tobacco/Smoking Status: Tobacco use Status Tobacco use date assessed 04/15/25 04/15/25 08:12 Patient Tobacco Use Status Never used Tobacco 04/15/25 08:12 e-Cigarette/Vaping Use Never Used 04/15/25 08:12 PHQ-9: PHQ-9 Score PHQ-9: Total score 0 04/15/25 08:13 Depression Screening Interpretation: Negative Thrive Assessment: Date of Thrive Assessment Date Thrive assessed 03/26/25 12/24/25 08:12 Currently or been in a relationship where the following occur: I choose not to answer Coding Level of Care Code Est Pt Level 3 (29956) Diagnoses Hypertension, goal to be determined I10 Additional Codes CHUCK-7 Assessment Billing - CHUCK-7 Assessment Tool: CHUCK-7 Assessment 88811 ([id number]) PHQ-9 - 64543 - PHQ-9 Billing: Yes ([id number]) Assessment & Plan Assessment & Plan (1) Hypertension, goal to be determined: Code(s): I10 - Essential (primary) hypertension Category: Medical Plan .
== END 2025-04-15 09:03 | disposition home or self-care (01) ==
LOC: HO.HMCC 07:58
PROVIDERS: PCP Nurse Practitioner Family; Visit Provider Nurse Practitioner Family
DX: I10 Essential (primary) hypertension (principal)

== ENCOUNTER → 2025-04-15 07:57 | Outpatient (BNVA) | payer MEDICARE, BC, SELFPAY | PROVIDERS: PCP Nurse Practitioner Family; Visit Provider Nurse Practitioner Family | DX: I10 Essential (primary) hypertension (principal); Z86.73 Personal history of transient ischemic attack (TIA), and cerebral infarction without residual deficits; Z13.31 Encounter for screening for depression; Z13.39 Encounter for screening examination for other mental health and behavioral disorders | CPT/HCPCS: 96127; 99212 ==